=== PATIENT | male | born 1955 | race Caucasian/White ===

== ENCOUNTER 2018-12-03 13:44 | Inpatient (IN) | payer BC, OTHER ==
[2018-12-03] MEDS ORDERED: methylPREDNISolone SOD SUCCI 125 MG/2 ML VIAL IV STA (14:03)
[2018-12-03] MEDS ORDERED: ALBUTEROL NEBULIZED 2.5 MG/3 ML INHALATION STA (14:03)
--- NOTE | 2018-12-03 14:16 | ED ---
General Adult HPI - General Chief complaint: Shortness of Breath Stated complaint: SOB, Hypotensive Time Seen by Provider: 12/03/18 13:45 Source: patient, RN notes reviewed Mode of arrival: ambulatory Limitations: no limitations - History of Present Illness Initial comments: This is a 62-year-old male who presents emergency department complaining of shonna rtness of breath since Monday. Patient states she's had no cough. Patient denies any chest pain or palpitations. Patient states she is a smoker and continues to smoke. Patient denies any headache patient denies numbness weakness. Patient denies any lightheadedness dizziness or near syncopal episode. Patient denies abdominal pain patient denies nausea vomiting diarrhea. - Related Data Home Medications Medication Instructions Recorded Confirmed Simvastatin [Zocor] 40 mg PO HS 01/21/14 12/03/18 Carvedilol [Coreg] 3.125 mg PO BID 12/03/18 12/03/18 Lisinopril 40 mg PO DAILY 12/03/18 12/03/18 Allergies Allergy/AdvReac Type Severity Reaction Status Date / Time No Known Allergies Allergy Verified 12/03/18 13:50 Review of Systems ROS Statement: Those systems with pertinent positive or pertinent negative responses have been documented in the HPI. ROS Other: All systems not noted in ROS Statement are negative. Past Medical History Past Medical History: Coronary Artery Disease (CAD), Chest Pain / Angina, Hyperlipidemia, Hypertension, Osteoarthritis (OA), Pneumonia Additional Past Medical History / Comment(s): 11/12/15 Pt presented to [facility] ER from his physicians office where he was found to be in 3rd degree heart block. Pt has hx of illness involving N/V/D which resolved Monday11/09/15 however, he was still feeling fatigued so he went to his PCP today. He is being admitted with clinical impression of 3rd degree heart block, acute renal failure, hyperkalemia. Other HX: 2008 admitted with chest pain with bradycardia sent for cardiac cath found CAD and tx medically, hemachromacytosis, vitamin D deficiency, R groin abscesses x 2 now healed. History of Any Multi-Drug Resistant Organisms: None Reported Past Surgical History: Appendectomy, Heart Catheterization, Hernia Repair, Orthopedic Surgery, Tonsillectomy Additional Past Surgical History / Comment(s): 2008 cardiac cath due to chest pain and bradycardia-CAD tx medically and EF at that time 40%, rt inguinal hernia repair , rt knee arthroscopy, abcess R groin I&Ds x 2. Past Anesthesia/Blood Transfusion Reactions: No Reported Reaction Past Psychological History: No Psychological Hx Reported Smoking Status: Current every day smoker Past Alcohol Use History: Daily Past Drug Use History: Marijuana - Past Family History Father Additional Family Medical History / Comment(s): Father after having a MVA with hip fracture and surgery. He did right after the surgery. Mother Family Medical History: Myocardial Infarction ([place]) Additional Family Medical History / Comment(s): Mother at age 63 yrs of massive [place]. General Exam - General Exam Comments Initial Comments: GENERAL: Patient is well-developed and well-nourished. Patient is nontoxic and well- hydrated and is in no acute distress. ENT: Neck is soft and supple. No significant lymphadenopathy is noted. Oropharynx is clear. Moist mucous membranes. Neck has full range of motion without eliciting any pain. EYES: The sclera were anicteric and conjunctiva were pink and moist. Extraocular movements were intact and pupils were equal round and reactive to light. Eyelids were unremarkable. PULMONARY: Patient has slight expiratory wheezing CARDIOVASCULAR: There is a regular rate and rhythm without any murmurs gallops or rubs. Femoral pulses are equal bilaterally ABDOMEN: Soft and nontender with normal bowel sounds. No palpable organomegaly was note d. There is no palpable pulsatile mass. SKIN: Skin is clear with no lesions or rashes and otherwise unremarkable. NEUROLOGIC: Patient is alert and oriented x3. Cranial nerves II through XII are grossly intact. Motor and sensory are also intact. Normal speech, volume and content. Symmetrical smile. MUSCULOSKELETAL: Normal extremities with adequate strength and full range of motion. No lower extremity swelling or edema. No calf tenderness. LYMPHATICS: No significant lymphadenopathy is noted PSYCHIATRIC: Normal psychiatric evaluation. Limitations: no limitations Course Vital Signs 12/03/18 12/03/18 12/03/18 13:47 13:55 14:04 Temperature 97.4 F L Pulse Rate 74 Respiratory 22 22 Rate Blood Pressure 117/78 O2 Sat by Pulse 74 L 97 Oximetry 12/03/18 12/03/18 12/03/18 14:22 14:36 14:52 Temperature Pulse Rate 73 76 61 Respiratory 16 Rate Blood Pressure 106/69 O2 Sat by Pulse 100 Oximetry 12/03/18 15:05 Temperature Pulse Rate 76 Respiratory Rate Blood Pressure O2 Sat by Pulse Oximetry Medical Decision Making - Medical Decision Making EKG shows normal sinus rhythm at 71 bpm NV interval 192 QRS is under 48 QTC is 480 QTC is 442 per patient's left bundle branch block. Patient has an old left bundle on an old EKG Chest x-ray shows no acute abnormalities Patient's d-dimer was slightly elevated however the patient had kidney failure so the patient could not get a CT of the chest. I ordered a VQ scan for the patient this time. I spoke with Dr. Schwartz he agreed to admit the patient admitted the patient I wrote admitting orders. I consult to nephrology. I started the patient prophylactically on heparin because the possibility of a PE. - Lab Data Result diagrams: 12/03/18 14:25 12/03/18 14:25 Lab Results 12/03/18 12/03/18 12/03/18 Range/Units 14:25 14:25 14:25 WBC 11.5 H (3.8-10.6) k/uL RBC 4.27 L (4.30-5.90) m/uL Hgb 13.6 (13.0-17.5) gm/dL Hct 39.2 (39.0-53.0) % MCV 91.7 (80.0-100.0) fL MCH 31.8 (25.0-35.0) pg MCHC 34.7 (31.0-37.0) g/dL RDW 12.6 (11.5-15.5) % Plt Count 471 H (150-450) k/uL Neutrophils % 75 % Lymphocytes % 9 % Monocytes % 12 % Eosinophils % 2 % Basophils % 1 % Neutrophils # 8.7 H (1.3-7.7) k/uL Lymphocytes # 1.0 (1.0-4.8) k/uL Monocytes # 1.3 H (0-1.0) k/uL Eosinophils # 0.2 (0-0.7) k/uL Basophils # 0.1 (0-0.2) k/uL PT (9.0-12.0) sec INR (<1.2) APTT (22.0-30.0) sec D-Dimer 1.25 H (<0.60) mg/L FEU Sodium 128 L (137-145) mmol/L Potassium 4.5 (3.5-5.1) mmol/L Chloride 93 L (98-107) mmol/L Carbon Dioxide 20 L (22-30) mmol/L Anion Gap 15 mmol/L BUN 81 H (9-20) mg/dL Creatinine 3.49 H (0.66-1.25) mg/dL Est GFR (CKD-EPI)AfAm 21 (>60 ml/min/1.73 sqM) Est GFR (CKD-EPI)NonAf 18 (>60 ml/min/1.73 sqM) Glucose 85 (74-99) mg/dL Calcium 9.2 (8.4-10.2) mg/dL Magnesium 2.4 H (1.6-2.3) mg/dL Total Bilirubin 0.6 (0.2-1.3) mg/dL AST 24 (17-59) U/L ALT 27 (21-72) U/L Alkaline Phosphatase 76 (38-126) U/L Troponin I (0.000-0.034) ng/mL Total Protein 7.4 (6.3-8.2) g/dL Albumin 4.0 (3.5-5.0) g/dL 12/03/18 12/03/18 Range/Units 14:25 14:25 WBC (3.8-10.6) k/uL RBC (4.30-5.90) m/uL Hgb (13.0-17.5) gm/dL Hct (39.0-53.0) % MCV (80.0-100.0) fL MCH (25.0-35.0) pg MCHC (31.0-37.0) g/dL RDW (11.5-15.5) % Plt Count (150-450) k/uL Neutrophils % % Lymphocytes % % Monocytes % % Eosinophils % % Basophils % % Neutrophils # (1.3-7.7) k/uL Lymphocytes # (1.0-4.8) k/uL Monocytes # (0-1.0) k/uL Eosinophils # (0-0.7) k/uL Basophils # (0-0.2) k/uL PT 10.0 (9.0-12.0) sec INR 0.9 (<1.2) APTT 25.7 (22.0-30.0) sec D-Dimer (<0.60) mg/L FEU Sodium (137-145) mmol/L Potassium (3.5-5.1) mmol/L Chloride (98-107) mmol/L Carbon Dioxide (22-30) mmol/L Anion Gap mmol/L BUN (9-20) mg/dL Creatinine (0.66-1.25) mg/dL Est GFR (CKD-EPI)AfAm (>60 ml/min/1.73 sqM) Est GFR (CKD-EPI)NonAf (>60 ml/min/1.73 sqM) Glucose (74-99) mg/dL Calcium (8.4-10.2) mg/dL Magnesium (1.6-2.3) mg/dL Total Bilirubin (0.2-1.3) mg/dL AST (17-59) U/L ALT (21-72) U/L Alkaline Phosphatase (38-126) U/L Troponin I <0.012 (0.000-0.034) ng/mL Total Protein (6.3-8.2) g/dL Albumin (3.5-5.0) g/dL Critical Care Time Critical Care Time: Yes Total Critical Care Time: 35 Disposition Clinical Impression: Hyponatremia, Acute renal failure, Dyspnea Disposition: ADMITTED IP TO THIS [facility] Referrals: Digna Lindsey MD [Primary Care Provider] - 1-2 days Time of Disposition: 15:18
--- NOTE | 2018-12-03 14:20 | XR ---
EXAMINATION TYPE: XR chest 2V DATE OF EXAM: 12/03/2018 COMPARISON: 11/16/2015 HISTORY: 62-year-old male with difficulty breathing TECHNIQUE: PA and lateral views FINDINGS: Heart normal size. Aorta and pulmonary vasculature are within normal limits. Some focal right midlung density may correspond to a prominent fifth right rib. Some strandy atelectasis right upper lobe. Ot herwise, no consolidation or pleural effusion. Mild hyperinflation. Left anterior chest wall pacemake r generator with right atrial and right ventricular leads. IMPRESSION: 1. Possible underlying COPD. 2. No acute process seen. 3. Focal density right midline suspected to represent summation artifact in part due to a prominent r ight fifth rib end. Nonemergent follow-up CT chest to exclude underlying pulmonary nodule.
[2018-12-03 14:38] LABS: Basophils # (A) 0.1 k/uL (0-0.2); Basophils % (A) 1 %; Eosinophils # (A) 0.2 k/uL (0-0.7); Eosinophils % (A) 2 %; HCT 39.2 % (39.0-53.0); HGB 13.6 gm/dL (13.0-17.5); Lymphocytes % (A) 9 %; MCH 31.8 pg (25.0-35.0); MCHC 34.7 g/dL (31.0-37.0); MCV 91.7 fL (80.0-100.0); Mean Platelet Volume 7.1; Monocytes # (A) 1.3 k/uL (0-1.0); Monocytes % (A) 12 %; Neutrophils # (A) 8.7 k/uL (1.3-7.7); Neutrophils % (A) 75 %; Platelet Count 471 k/uL (150-450); RBC 4.27 m/uL (4.30-5.90); RDW 12.6 % (11.5-15.5); WBC 11.5 k/uL (3.8-10.6)
[2018-12-03 14:46] LABS: INR 0.9 (<1.2); Partial Thromboplastin Time 25.7 sec (22.0-30.0)
[2018-12-03 14:54] LABS: Calcium 9.2 mg/dL (8.4-10.2); Magnesium 2.4 mg/dL (1.6-2.3); Potassium 4.5 mmol/L (3.5-5.1); Total Bilirubin 0.6 mg/dL (0.2-1.3); Total Protein 7.4 g/dL (6.3-8.2)
[2018-12-03] MEDS ORDERED: SODIUM CHLORIDE 0.9% 1,000 ML IV ONE (15:19)
[2018-12-03] MEDS ORDERED: HEPARIN SODIUM,PORCINE 10,000 UNIT/ML 1 ML VIAL IV ONE (15:27)
[2018-12-03] MEDS: HEPARIN SOD,PORK IN 0.45% NACL 25,000 UNIT in 0.45% NACL 1 250ML.BAG IV SCH (16:28)
--- NOTE | 2018-12-03 16:45 | NM ---
EXAMINATION TYPE: NM pul vent and perfuse DATE OF EXAM: 12/03/2018 COMPARISON: NONE HISTORY: Short of breath TECHNIQUE: Utilizing inhalation of 68.2 mCi Tc 99m DTPA aerosol and intravenous injection of 5.18 mC i of Tc 99m MAA, ventilation and perfusion images are acquired post injection in multiple projections . FINDINGS: There are matched patchy ventilation/perfusion defects involving both upper lobes. There is no mismat ch. There is fairly normal ventilation and perfusion of the lung bases. IMPRESSION: Matching upper lobe defects consistent with airway disease and emphysema. There is a low probability of pulmonary embolism.
[2018-12-03] MEDS ORDERED: ACETAMINOPHEN TAB 325 MG TAB PO PRN (16:50)
[2018-12-03] MEDS ORDERED: IPRATROPIUM-ALBUTEROL 3 ML NEB INHALATION PRN (16:50)
[2018-12-03] MEDS ORDERED: ONDANSETRON 4 MG/2 ML VIAL IVP PRN (16:50)
--- NOTE | 2018-12-03 17:08 | P.HPIM ---
History of Present Illness H&P Date: 12/03/18 This is a 62-year-old male patient of Dr. rivera. Patient presented to the ER with complaints of shortness of breath since Monday. Patient also reported that he had loose stools for 24 hours at that time. Patient also complains that he's been increasingly fatigued. Patient denies cough or fever. Patient does have a past medical history of coronary artery disease, chest pain, hyperlipidemia, hypertension, osteoarthritis, nicotine dependence and pacemaker placement. Chest x-ray completed in ER showing possible underlying COPD no acute process seen. Focal density right suspected to represent summation artifact in part due to prominent right fifth rib and. Nonemergent follow-up CT chest to exclude underlying pulmonary nodule. D-dimer on admission elevated at 1.25. Patient started on heparin drip and VQ scan ordered. Patient's creatinine 3.49 and bun 81. Nephrology services have been consulted. Pulmonary service is consulted. C. diff stool sample ordered. Influenza and urinary analysis with blood culture ordered. At this time patient is complaining of shortness breath with cough. Patient denies nausea vomiting or diarrhea. Patient denies any urinary burning or frequency. Review of Systems Please refer to HPI otherwise unremarkable Past Medical History Past Medical History: Coronary Artery Disease (CAD), Chest Pain / Angina, Hyperlipidemia, Hypertension, Osteoarthritis (OA), Pneumonia Additional Past Medical History / Comment(s): 11/12/15 Pt presented to [facility] ER from his physicians office where he was found to be in 3rd degree heart block. Pt has hx of illness involving N/V/D which resolved Monday11/09/15 however, he was still feeling fatigued so he went to his PCP today. He is being admitted with clinical impression of 3rd degree heart block, acute renal failure, hyperkalemia. Other HX: 2008 admitted with chest pain with bradycardia sent for cardiac cath found CAD and tx medically, hemachromacytosis, vitamin D deficiency, R groin abscesses x 2 now healed. History of Any Multi-Drug Resistant Organisms: None Reported Past Surgical History: Appendectomy, Heart Catheterization, Hernia Repair, Orthopedic Surgery, Tonsillectomy Additional Past Surgical History / Comment(s): 2008 cardiac cath due to chest pain and bradycardia-CAD tx medically and EF at that time 40%, rt inguinal hernia repair , rt knee arthroscopy, abcess R groin I&Ds x 2. Past Anesthesia/Blood Transfusion Reactions: No Reported Reaction Past Psychological History: No Psychological Hx Reported Smoking Status: Current every day smoker Past Alcohol Use History: Daily Past Drug Use History: Marijuana - Past Family History Father Additional Family Medical History / Comment(s): Father after having a MVA with hip fracture and surgery. He did right after the surgery. Mother Family Medical History: Myocardial Infarction ([place]) Additional Family Medical History / Comment(s): Mother at age 63 yrs of massive [place]. Medications and Allergies Home Medications Medication Instructions Recorded Confirmed Type Simvastatin [Zocor] 40 mg PO HS 01/21/14 12/03/18 History Carvedilol [Coreg] 3.125 mg PO BID 12/03/18 12/03/18 History Lisinopril 40 mg PO DAILY 12/03/18 12/03/18 History Allergies Allergy/AdvReac Type Severity Reaction Status Date / Time No Known Allergies Allergy Verified 12/03/18 13:50 Physical Exam Vitals: Vital Signs Temp Pulse Resp BP Pulse Ox 12/03/18 16:31 87 16 124/73 100 12/03/18 15:05 76 12/03/18 14:52 61 16 106/69 100 12/03/18 14:36 76 12/03/18 14:22 73 12/03/18 14:04 97 12/03/18 13:55 22 12/03/18 13:47 97.4 F L 74 22 117/78 74 L Intake and Output 12/03/18 12/03/18 12/03/18 06:59 14:59 22:59 Other: Weight 69.672 kg Head normocephalic Neck supple Lungs diminished bilaterally with expiratory wheezing Heart regular rate and rhythm S1-S2, no rub or gallop Abdomen is soft nontender nondistended positive bowel sounds no hepatosplenomegaly Extremities no edema Neuro alert and orientated to 3 Results CBC & Chem 7: 12/03/18 14:25 12/03/18 14:25 Labs: Abnormal Lab Results - Last 24 Hours (Table) 12/03/18 12/03/18 12/03/18 Range/Units 14:25 14:25 14:25 WBC 11.5 H (3.8-10.6) k/uL RBC 4.27 L (4.30-5.90) m/uL Plt Count 471 H (150-450) k/uL Neutrophils # 8.7 H (1.3-7.7) k/uL Monocytes # 1.3 H (0-1.0) k/uL D-Dimer 1.25 H (<0.60) mg/L FEU Sodium 128 L (137-145) mmol/L Chloride 93 L (98-107) mmol/L Carbon Dioxide 20 L (22-30) mmol/L BUN 81 H (9-20) mg/dL Creatinine 3.49 H (0.66-1.25) mg/dL Magnesium 2.4 H (1.6-2.3) mg/dL Assessment and Plan Assessment: 1. Increased shortness of breath. Chest x-ray completed in ER showing possible underlying COPD. No acute process seen. Focal density right midline suspected to represent summation artifact in part due to prominent right fifth rib and. Nonemergent follow-up CT chest to exclude underlying pulmonary nodule. D-dimer also elevated at 1.24 VQ scan ordered. Patient started on heparin drip. Pulmonary services have been consulted. Patient started on Solu-Medrol and DuoNeb breathing treatments 2. Acute kidney injury. creatinine 3.49 and bun 81.Nephrology services have been consulted. Normal saline at 100 3. Diarrhea. Patient reports he had episode of diarrhea last week. Will order C. diff sample 4. Leukocytosis. White blood cell 11.5. UA and influenza ordered 5. Nicotine dependence. Patient educated greater than 3 minutes on smoking sensation. Nicotine patch will be ordered 6. History of coronary artery disease 7. History of third-degree heart block requiring pacemaker placement. 8. History of hyperlipidemia 9. History of essential hypertension. Lisinopril held due to acute kidney inju ry 10. History of osteoarthritis DVT prophylaxis heparin drip. GI prophylaxis Protonix Pulmonary and nephrology service is consulted VQ scan ordered Repeat a.m. labs ordered Blood culture, UA and influenza ordered Time with Patient: Greater than 30 (Greater than 60% of the total time spent in counseling and coordination of care. I performed an examination of the patient and discussed their management with the Nurse Practitioner. I have reviewed the Nurse Practitioner's notes and agree with the documented findings and plan of care)
[2018-12-03 18:07] VITALS: BMI 21.4
[2018-12-03] MEDS: SODIUM CHLORIDE 0.9% 1,000 ML IV SCH (18:24)
[2018-12-03 18:32] LABS: Glucose,Whole Blood 166 mg/dL (75-99)
[2018-12-03] MEDS: CARVEDILOL 3.125 MG TAB PO SCH (21:06)
[2018-12-03] MEDS: IPRATROPIUM-ALBUTEROL 3 ML NEB INHALATION SCH (21:11)
[2018-12-03] MEDS: HYDROcodone/APAP 7.5-325MG 1 EACH TAB PO PRN (21:15)
--- NOTE | 2018-12-03 21:41 | P.CNPUL ---
History of Present Illness Consult date: 12/03/18 Reason for consult: abnormal CXR/CT History of present illness: 62-year-old male patient presented to [facility] department after having ongoing liquid diarrhea for the past 24-48 hours. No nausea. No vomiting. No abdominal pain. No fever or chills. He became also slightly more short of breath and based on that presented to the hospital. As part of his workup, the patient was found to have acute kidney injury. He was quite dehydrated. BUN was 81 with a creatinine of 3.49. He was also having some shortness of breath. VQ scan was obtained and it showed low probability scan. Chest x-ray showed a summation of shadows with a cordlike lesion the right midlung the patient is to be investigated later stage. Currently the patient is receiving IV fluids. He is producing urine output. No altered mentation. No chest pain. No pleurisy. No hemoptysis. He is a chronic smoker. He is known to have COPD. He is also complaining of chronic back pain. He has a pacemaker for a previous history of a third-degree AV block. He is known to have coronary artery disease. Currently free of any chest pain. Based on previous echocardiogram from 2016, the patient is a preserved LV function with an ejection fraction of 50-55%. No evidence of any pulmonary hypertension. No recent antibiotic intake. No significant leukocytosis. Influenza screen was negative. LFTs are all within normal limits. Review of Systems Constitutional: Reports fatigue, Reports malaise, Reports poor appetite, Reports weakness Eyes: denies as per HPI, denies blurred vision, denies bulging eye, denies decreased vision, denies diplopia, denies discharge, denies dry eye, denies irritation, denies itching, denies pain, denies photophobia, denies loss of peripheral vision, denies loss of vision, denies tunnel vision/blind spots Ears: deny: decreased hearing, ear discharge, earache, tinnitus Ears, nose, mouth and throat: Denies headache, Denies sore throat Breasts: absent: as per HPI, gynecomastia Cardiovascular: Reports decreased exercise tolerance, Reports dyspnea on exertion, Reports shortness of breath Respiratory: Reports dyspnea, Reports wheezing Gastrointestinal: Reports diarrhea Genitourinary: Reports as per HPI Musculoskeletal: Reports low back pain, Reports muscle weakness Musculoskeletal: absent: ankle pain, ankle stiffness, ankle swelling, as per HPI, elbow pain, elbow stiffness, elbow swelling, foot pain, foot stiffness, foot swelling, hand pain, hand stiffness, hand swelling, hip pain, hip stiffness, hip swelling, knee pain, knee stiffness, knee swelling, shoulder pain, shoulder stiffness, shoulder swelling, wrist pain, wrist stiffness, wrist swelling Integumentary: Denies pruritus, Denies rash Psychiatric: Denies anxiety, Denies depression Endocrine: Reports fatigue Hematologic/Lymphatic: Reports as per HPI Allergic/Immunologic: Reports as per HPI 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, history of hem ochromatosis, vitamin D deficiency, previous history of groin abscesses that are currently healed and drained, hypertension, hyperlipidemia, osteoarthritis, chronic back pain, cardiac cath found CAD and tx medically, hemachromacytosis, vitamin D deficiency History of Any Multi-Drug Resistant Organisms: None Reported Past Surgical History: Appendectomy, Heart Catheterization, Hernia Repair, Orthopedic Surgery, Tonsillectomy Additional Past Surgical History / Comment(s): 2008 cardiac cath due to chest pain and bradycardia-CAD tx medically and EF at that time 40%, rt inguinal hernia repair , rt knee arthroscopy, abcess R groin I&Ds x 2. Past Anesthesia/Blood Transfusion Reactions: No Reported Reaction Past Psychological History: No Psychological Hx Reported Additional Psychological History / Comment(s): Pt lives alone. He uses no assistive device. He drives. He is independent. Smoking Status: Current some day smoker Past Alcohol Use History: Daily Additional Past Alcohol Use History / Comment(s): Pt states he started smoking in 1963 and is less than a ppd smoker. He drinks daily- 6 beers a day. Past Drug Use History: Marijuana Additional Drug Use History / Comment(s): Pt states he has medical marijuana w hich he uses for pain control. He smokes it in a pipe and does this twice a day. - Past Family History Father Additional Family Medical History / Comment(s): Father after having a MVA with hip fracture and surgery. He did right after the surgery. Mother Family Medical History: Myocardial Infarction ([place]) Additional Family Medical History / Comment(s): Mother at age 63 yrs of massive [place]. Medications and Allergies Home Medications Medication Instructions Recorded Confirmed Type Simvastatin [Zocor] 40 mg PO HS 01/21/14 12/03/18 History Carvedilol [Coreg] 3.125 mg PO BID 12/03/18 12/03/18 History Lisinopril 40 mg PO DAILY 12/03/18 12/03/18 History Allergies Allergy/AdvReac Type Severity Reaction Status Date / Time No Known Allergies Allergy Verified 12/03/18 13:50 Physical Exam Vitals: Vital Signs Temp Pulse Pulse Resp BP BP Pulse Ox 12/03/18 21:24 81 12/03/18 21:11 80 12/03/18 18:16 97.7 F 81 20 147/80 94 L 12/03/18 17:50 97.7 F 81 24 147/80 94 L 12/03/18 16:31 87 16 124/73 100 12/03/18 15:05 76 12/03/18 14:52 61 16 106/69 100 12/03/18 14:36 76 12/03/18 14:22 73 12/03/18 14:04 97 12/03/18 13:55 22 12/03/18 13:47 97.4 F L 74 22 117/78 74 L Intake and Output 12/03/18 12/03/18 12/03/18 06:59 14:59 22:59 Intake Total 240 Balance 240 Intake: Oral 240 Other: # Voids 0 Weight 69.672 kg The patient appeared well nourished and normally developed. Vital signs as documented. Head exam is unremarkable. No scleral icterus or corneal arcus noted. Neck is without jugular venous distension, thyromegaly, or carotid bruits. Carotid upstrokes are brisk bilaterally. Lungs are clear to auscultation and percussion. Cardiac exam reveals the PMI to be normally sized and situated. Rhythm is regular. First and second heart sounds normal. No murmurs, rubs or gallops. Abdominal exam reveals normal bowel sounds, no masses, no organomegaly and no aortic enlargement. Extremities are nonedematous and both femoral and pedal pulses are normal.Examination of the skin revealed no evidence of significant rashes, suspicious appearing nevi or other concerning lesions. Neurologically awake and alert and there is no focal neurological deficits. Results - Laboratory Findings CBC and BMP: 12/03/18 14:25 12/03/18 14:25 PT/INR, D-dimer PT 10.0 sec (9.0-12.0) 12/03/18 14:25 INR 0.9 (<1.2) 12/03/18 14:25 D-Dimer 1.25 mg/L FEU (<0.60) H 12/03/18 14:25 Abnormal lab findings: Abnormal Labs 12/03/18 12/03/18 12/03/18 14:25 14:25 14:25 WBC 11.5 H RBC 4.27 L Plt Count 471 H Neutrophils # 8.7 H Monocytes # 1.3 H D-Dimer 1.25 H Sodium 128 L Chloride 93 L Carbon Dioxide 20 L BUN 81 H Creatinine 3.49 H POC Glucose (mg/dL) Magnesium 2.4 H 12/03/18 18:30 WBC RBC Plt Count Neutrophils # Monocytes # D-Dimer Sodium Chloride Carbon Dioxide BUN Creatinine POC Glucose (mg/dL) 166 H Magnesium - Diagnostic Findings Chest x-ray: image reviewed Assessment and Plan Plan: Assessment 1 diarrhea with dehydration and secondary to intravascular volume depletion 2 acute kidney injury secondary to above 3 shortness of breath secondary to above. Patient has underlying COPD. VQ scan is of a low probability and pulmonary embolism is highly doubtful 4 pulmonary nodule located at the right midlung, could be summation of shadows versus a true lesion. Will need a CAT scan of the chest later stage 5 nonocclusive coronary artery disease medically managed 6 previous history of third-degree AV block requiring a permanent pacemaker insertion 7 hypertension 8 hyperlipidemia 9 osteoarthritis 10 remote history of hemochromatosis 11 hypochloremic hyponatremia, likely secondary to intravascular volume depletion Plan Recommend discontinuing the IV heparin and putting this patient subcu heparin for DVT prophylaxis. Management of COPD with DuoNeb nebulized treatments and IV Solu-Medrol. Fluid resuscitation with normal state rate of 100 mL an hour. Monitor urine output. Monitor electrolytes. Monitor renal function. We will optimize the volume status and renal function. We'll obtain a CAT scan of the chest later stage to characterize the right midlung abnormality. We'll continue to follow.
[2018-12-03 23:10] VITALS: RESP 16
[2018-12-03] MEDS ORDERED: HEPARIN SODIUM,PORCINE 5,000 UNIT/ML 1 ML VIAL IV PRN (23:22)
[2018-12-04] MEDS: methylPREDNISolone SOD SUCCI 125 MG/2 ML VIAL IV SCH ×4 (00:59→23:42)
[2018-12-04] MEDS: HYDROcodone/APAP 7.5-325MG 1 EACH TAB PO PRN ×4 (03:03→21:20)
[2018-12-04 03:21] LABS: Appearance,Urine Cloudy (Clear); Bilirubin,Urine Negative (Negative); Blood,Urine Moderate (Negative); Color,Urine Yellow; Glucose,Urine (UA) Trace (Negative); Hyaline Casts,Urine 4 /lpf (0-2); Ketones,Urine Negative (Negative); Leukocyte Esterase,Urine Negative (Negative); Mucus,Urine Rare /hpf; Nitrite,Urine Negative (Negative); Protein,Urine Trace (Negative); RBC,Urine 32 /hpf (0-5); Specific Gravity,Urine 1.011 (1.001-1.035); Urobilinogen,Urine <2.0 mg/dL (<2.0); WBC,Urine 5 /hpf (0-5)
[2018-12-04] MEDS: SODIUM CHLORIDE 0.9% 1,000 ML IV SCH ×2 (04:40→15:03)
[2018-12-04] MEDS: PANTOPRAZOLE 40 MG TABLET PO SCH (06:43)
[2018-12-04] MEDS: CARVEDILOL 3.125 MG TAB PO SCH ×2 (06:44→16:42)
[2018-12-04 07:00] LABS: Basophils % (A) 0 %; Eosinophils % (A) 0 %; HCT 34.3 % (39.0-53.0); HGB 11.7 gm/dL (13.0-17.5); Lymphocytes # (A) 0.5 k/uL (1.0-4.8); Lymphocytes % (A) 5 %; MCH 32.1 pg (25.0-35.0); MCV 94.5 fL (80.0-100.0); Mean Platelet Volume 6.6; Monocytes # (A) 0.2 k/uL (0-1.0); Monocytes % (A) 2 %; Neutrophils # (A) 8.6 k/uL (1.3-7.7); Neutrophils % (A) 92 %; Platelet Count 389 k/uL (150-450); RBC 3.63 m/uL (4.30-5.90); RDW 12.7 % (11.5-15.5); WBC 9.4 k/uL (3.8-10.6)
[2018-12-04] MEDS: IPRATROPIUM-ALBUTEROL 3 ML NEB INHALATION SCH ×4 (07:14→19:59)
[2018-12-04 07:55] LABS: Albumin 3.4 g/dL (3.5-5.0); Calcium 8.5 mg/dL (8.4-10.2); Potassium 4.6 mmol/L (3.5-5.1); Total Bilirubin 0.3 mg/dL (0.2-1.3); Total Protein 6.5 g/dL (6.3-8.2)
[2018-12-04] MEDS: NICOTINE 14MG/24HR PATCH TRANSDERM SCH (08:15)
--- NOTE | 2018-12-04 10:29 | P.NPCON ---
History of Present Illness - Reason for Consult acute renal failure - History of Present Illness Reason for consultation: Acute kidney injury History of present illness: Patient is a 62-year-old male sitting renal consultation for acute kidney injury. His baseline creatinine is 1 and was 3.49 on admission yesterday. Patient was started on IV fluids and is currently maintained on normal saline at 100 mL an hour. Creatinine is down to 2.06 today. He admits to good urine output. No hematuria or dysuria. Denies use of nonsteroidals. Patient states he developed significant diarrhea last Monday and which is mostly resolved now. He is not able to tolerate oral intake. He was taking lisinopril at home which is currently held. Blood pressure was low at 96/62 yesterday and is better today. No fever or chills. Denies family history of renal disease. No evidence of fluid overload noted on chest x-ray. He does have history of COPD. Vital signs are stable. General: The patient appeared well nourished and normally developed. HEENT: Head exam is unremarkable. Neck is without jugular venous distension. LUNGS: Lungs are clear to auscultation and percussion. Breath sounds decreased. HEART: Rate and Rhythm are regular. First and second heart sounds normal. No murmurs, rubs or gallops. ABDOMEN: Abdominal exam reveals normal bowel sounds. Non-tender and non- distended. No evidence of peritonitis. EXTREMITITES: No clubbing, cyanosis, or edema. 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, history of hemochromatosis, vitamin D deficiency, previous history of groin abscesses that are currently healed and drained, hypertension, hyperlipidemia, osteoarthritis, chronic back pain, cardiac cath found CAD and tx medically, hemachromacytosis, vitamin D deficiency History of Any Multi-Drug Resistant Organisms: None Reported Past Surgical History: Appendectomy, Heart Catheterization, Hernia Repair, Orthopedic Surgery, Tonsillectomy Additional Past Surgical History / Comment(s): 2008 cardiac cath due to chest pain and bradycardia-CAD tx medically and EF at that time 40%, rt inguinal hernia repair , rt knee arthroscopy, abcess R groin I&Ds x 2. Past Anesthesia/Blood Transfusion Reactions: No Reported Reaction Past Psychological History: No Psychological Hx Reported Additional Psychological History / Comment(s): Pt lives alone. He uses no assistive device. He drives. He is independent. Smoking Status: Current some day smoker Past Alcohol Use History: Daily Additional Past Alcohol Use History / Comment(s): Pt states he started smoking in 1963 and is less than a ppd smoker. He drinks daily- 6 beers a day. Past Drug Use History: Marijuana Additional Drug Use History / Comment(s): Pt states he has medical marijuana which he uses for pain control. He smokes it in a pipe and does this twice a day. - Past Family History Father Additional Family Medical History / Comment(s): Father after having a MVA with hip fracture and surgery. He did right after the surgery. Mother Family Medical History: Myocardial Infarction ([place]) Additional Family Medical History / Comment(s): Mother at age 63 yrs of massive [place]. Medications and Allergies Home Medications Medication Instructions Recorded Confirmed Type Simvastatin [Zocor] 40 mg PO HS 01/21/14 12/03/18 History Carvedilol [Coreg] 3.125 mg PO BID 12/03/18 12/03/18 History Lisinopril 40 mg PO DAILY 12/03/18 12/03/18 History Allergies Allergy/AdvReac Type Severity Reaction Status Date / Time No Known Allergies Allergy Verified 12/03/18 13:50 Physical Exam Vitals: Vital Signs Temp Pulse Pulse Resp BP BP Pulse Ox 12/04/18 08:19 97.8 F 62 16 116/72 99 12/04/18 07:25 84 12/04/18 07:15 80 12/04/18 04:55 97.7 F 80 16 152/74 12/04/18 00:00 97.4 F L 72 16 102/61 100 12/03/18 21:24 81 12/03/18 21:11 80 12/03/18 20:00 98 F 82 16 96/62 98 12/03/18 18:16 97.7 F 81 20 147/80 94 L 12/03/18 17:50 97.7 F 81 24 147/80 94 L 12/03/18 16:31 87 16 124/73 100 12/03/18 15:05 76 12/03/18 14:52 61 16 106/69 100 12/03/18 14:36 76 12/03/18 14:22 73 12/03/18 14:04 97 12/03/18 13:55 22 12/03/18 13:47 97.4 F L 74 22 117/78 74 L Intake and Output 12/03/18 12/04/18 12/04/18 22:59 06:59 14:59 Intake Total 240 85.07 Output Total 200 Balance 240 85.07 -200 Intake: Intake, IV Titration 85.07 Amount Heparin Sod,Pork in 0.45% 85.07 NaCl 25,000 unit In 0.45 % NaCl 1 250ml.bag @ 18 UNITS/KG/HR 12.541 mls/hr IV .[id number] [facility] Rx#: [id number] Oral 240 Output: Urine 200 Other: # Voids 0 2 1 Weight 69.5 kg Results - Lab Results Most recent lab results Calcium 8.5 mg/dL (8.4-10.2) 12/04/18 06:03 Magnesium 2.4 mg/dL (1.6-2.3) H 12/03/18 14:25 12/04/18 06:03 12/04/18 06:03 Assessment and Plan Plan: Assessment: 1. Acute kidney injury mostly prerenal secondary to intravascular volume depletion from diarrhea and use of TROY inhibitor. Creatinine was 3.49 on a dmission and is down to 2.06 today. Baseline creatinine is near 1. 2. Hyponatremia. Appears euvolemic. Due to poor solute intake and acute kidney injury. 3. Metabolic acidosis secondary to acute kidney injury, IV fluids. 4. Diarrhea. Rule out C. diff. Improved. 5. Benign hypertension. Controlled. 6. COPD. Maintained on IV steroids. Plan: Maintain normal saline at 100 mL an hour. Hold antihypertensives. Avoid nephrotoxins. Repeat electrolytes in the morning. Encourage oral intake. Add 1200 fluid restriction. Check urine sodium as well as serum and urine osmolality. Thank you for the consultation. I will continue to follow the patient with you during his hospital stay.
[2018-12-04] MEDS ORDERED: LORazepam 2 MG/ML INJ IV PRN ×3 (13:21)
--- NOTE | 2018-12-04 13:27 | P.PN ---
Subjective Progress Note Date: 12/04/18 This is a 62-year-old male patient of Dr. rivera. Patient presented to the ER with complaints of shortness of breath since Monday. Patient also reported that he had loose stools for 24 hours at that time. Patient also complains that he's been increasingly fatigued. Patient denies cough or fever. Patient does have a past medical history of coronary artery disease, chest pain, hyperlipidemia, hypertension, osteoarthritis, nicotine dependence and pacemaker placement. Chest x-ray completed in ER showing possible underlying COPD no acute process seen. Focal density right suspected to represent summation artifact in part due to prominent right fifth rib and. Nonemergent follow-up CT chest to exclude underlying pulmonary nodule. D-dimer on admission elevated at 1.25. Patient started on heparin drip and VQ scan ordered. Patient's creatinine 3.49 and bun 81. Nephrology services have been consulted. Pulmonary service is consulted. C. diff stool sample ordered. Influenza and urinary a nalysis with blood culture ordered. At this time patient is complaining of shortness breath with cough. Patient denies nausea vomiting or diarrhea. Patient denies any urinary burning or frequency. On 12/04/2018 patient is alert and oriented 3. Patient's creatinine trending down 2.06. Nephrology services are following. Patient remains on normal saline at 100. Patient did have VQ scan completed showing massive defect consistent with airway disease and emphysema. There is probability of pulmonary embolism. Discussed with pulmonary services okay to DC heparin drip. C. diff negative. Patient does admit that he does drink alcohol 5-6 L at night. Will order alcohol withdrawal protocol. At this time patient denies chest pain or shortness breath. Patient denies nausea vomiting or diarrhea. Patient denies any urinary burning or frequency Objective - Vital Signs Vital signs: Vital Signs Temp 97.7 F 12/04/18 11:44 Pulse 80 12/04/18 12:59 Resp 16 12/04/18 11:44 BP 108/59 12/04/18 11:44 Pulse Ox 100 12/04/18 11:44 Intake & Output 12/03/18 12/04/18 12/04/18 18:59 06:59 18:59 Intake Total 240 85.07 360 Output Total 200 Balance 240 85.07 160 Weight 69.672 kg 69.5 kg Intake: Intake, IV Titration 85.07 Amount Heparin Sod,Pork in 0.45% 85.07 NaCl 25,000 unit In 0.45 % NaCl 1 250ml.bag @ 18 UNITS/KG/HR 12.541 mls/hr IV .[id number] [facility] Rx#: [id number] Oral 240 360 Output: Urine 200 Other: # Voids 0 2 1 - Exam Head normocephalic Neck supple Lungs diminished bilaterally with expiratory wheezing Heart regular rate and rhythm S1-S2, no rub or gallop Abdomen is soft nontender nondistended positive bowel sounds no hepatosplenomegaly Extremities no edema Neuro alert and orientated to 3 - Labs CBC & Chem 7: 12/04/18 06:03 12/04/18 06:03 Labs: Abnormal Lab Results - Last 24 Hours (Table) 12/03/18 12/03/18 12/03/18 Range/Units 14:25 14:25 14:25 WBC 11.5 H (3.8-10.6) k/uL RBC 4.27 L (4.30-5.90) m/uL Hgb (13.0-17.5) gm/dL Hct (39.0-53.0) % Plt Count 471 H (150-450) k/uL Neutrophils # 8.7 H (1.3-7.7) k/uL Lymphocytes # (1.0-4.8) k/uL Monocytes # 1.3 H (0-1.0) k/uL APTT (22.0-30.0) sec D-Dimer 1.25 H (<0.60) mg/L FEU Sodium 128 L (137-145) mmol/L Chloride 93 L (98-107) mmol/L Carbon Dioxide 20 L (22-30) mmol/L BUN 81 H (9-20) mg/dL Creatinine 3.49 H (0.66-1.25) mg/dL Glucose (74-99) mg/dL POC Glucose (mg/dL) (75-99) mg/dL Magnesium 2.4 H (1.6-2.3) mg/dL Albumin (3.5-5.0) g/dL Urine Protein (Negative) Urine Glucose (UA) (Negative) Urine Blood (Negative) Urine RBC (0-5) /hpf Hyaline Casts (0-2) /lpf Urine Mucus (None) /hpf 12/03/18 12/03/18 12/04/18 Range/Units 18:30 21:56 03:00 WBC (3.8-10.6) k/uL RBC (4.30-5.90) m/uL Hgb (13.0-17.5) gm/dL Hct (39.0-53.0) % Plt Count (150-450) k/uL Neutrophils # (1.3-7.7) k/uL Lymphocytes # (1.0-4.8) k/uL Monocytes # (0-1.0) k/uL APTT 41.9 H (22.0-30.0) sec D-Dimer (<0.60) mg/L FEU Sodium (137-145) mmol/L Chloride (98-107) mmol/L Carbon Dioxide (22-30) mmol/L BUN (9-20) mg/dL Creatinine (0.66-1.25) mg/dL Glucose (74-99) mg/dL POC Glucose (mg/dL) 166 H (75-99) mg/dL Magnesium (1.6-2.3) mg/dL Albumin (3.5-5.0) g/dL Urine Protein Trace H (Negative) Urine Glucose (UA) Trace H (Negative) Urine Blood Moderate H (Negative) Urine RBC 32 H (0-5) /hpf Hyaline Casts 4 H (0-2) /lpf Urine Mucus Rare H (None) /hpf 12/04/18 12/04/18 12/04/18 Range/Units 06:03 06:03 06:03 WBC (3.8-10.6) k/uL RBC 3.63 L (4.30-5.90) m/uL Hgb 11.7 L (13.0-17.5) gm/dL Hct 34.3 L (39.0-53.0) % Plt Count (150-450) k/uL Neutrophils # 8.6 H (1.3-7.7) k/uL Lymphocytes # 0.5 L (1.0-4.8) k/uL Monocytes # (0-1.0) k/uL APTT 69.8 H (22.0-30.0) sec D-Dimer (<0.60) mg/L FEU Sodium 127 L (137-145) mmol/L Chloride 96 L (98-107) mmol/L Carbon Dioxide 20 L (22-30) mmol/L BUN 67 H (9-20) mg/dL Creatinine 2.06 H (0.66-1.25) mg/dL Glucose 165 H (74-99) mg/dL POC Glucose (mg/dL) (75-99) mg/dL Magnesium (1.6-2.3) mg/dL Albumin 3.4 L (3.5-5.0) g/dL Urine Protein (Negative) Urine Glucose (UA) (Negative) Urine Blood (Negative) Urine RBC (0-5) /hpf Hyaline Casts (0-2) /lpf Urine Mucus (None) /hpf Assessment and Plan Assessment: 1. Increased shortness of breath. Chest x-ray completed in ER showing possible underlying COPD. No acute process seen. Focal density right midline suspected to represent summation artifact in part due to prominent right fifth rib and. Nonemergent follow-up CT chest to exclude underlying pulmonary nodule. D-dimer also elevated at 1.24. Patient started on Solu-Medrol and DuoNeb breathing treatments . VQ scan completed showing matching upper lobe defects consistent with airway disease and emphysema. Distal probability of pulmonary embolism. Discussed with pulmonary services. Heparin drip can be DC'd. 2. Acute kidney injury with hyponatremia. creatinine 3.49 and bun 81.Nephrology services have been consulted. Normal saline at 100. Creatinine improving to 2.06 and bun 67. 1200 mL fluid restriction added 3. Diarrhea. Patient reports he had episode of diarrhea last week. C. diff negative 4. Leukocytosis. White blood cell 11.5. Resolved 5. Nicotine dependence. Patient educated greater than 3 minutes on smoking sensation. Nicotine patch will be ordered 6. History of coronary artery disease 7. History of third-degree heart block requiring pacemaker placement. 8. History of hyperlipidemia 9. History of essential hypertension. Lisinopril held due to acute kidney injury 10. History of osteoarthritis 11. EtOH. Patient reports he drinks 4-6 beers a night. Will order alcohol withdrawal protocal. DVT prophylaxis heparin. GI prophylaxis Protonix Repeat UA ordered for a.m. I performed an examination of the patient and discussed their management with the Nurse Practitioner. I have reviewed the Nurse Practitioner's notes and agree with the documented findings and plan of care
[2018-12-04] MEDS: HEPARIN SOD,PORK IN 0.45% NACL 25,000 UNIT in 0.45% NACL 1 250ML.BAG IV SCH (15:01)
--- NOTE | 2018-12-04 15:31 | P.PN ---
Subjective Progress Note Date: 12/04/18 Principal diagnosis: Diarrhea with dehydration, acute kidney injury secondary to intravascular volume depletion 62-year-old male patient presented to [facility] department after having ongoing liquid diarrhea for the past 24-48 hours. No nausea. No vomiting. No abdominal pain. No fever or chills. He became also slightly more short of breath and based on that presented to the hospital. As part of his workup, the patient was found to have acute kidney injury. He was quite dehydrated. BUN was 81 with a creatinine of 3.49. He was also having some shortness of breath. VQ scan was obtained and it showed low probability scan. Chest x-ray showed a summation of shadows with a cordlike lesion the right midlung the patient is to be investigated later stage. Currently the patient is receiving IV fluids. He is producing urine output. No altered mentation. No chest pain. No pleurisy. No hemoptysis. He is a chronic smoker. He is known to have COPD. He is also complaining of chronic back pain. He has a pacemaker for a previous history of a third-degree AV block. He is known to have coronary artery disease. Currently free of any chest pain. Based on previous echocardiogram from 2016, the patient is a preserved LV function with an ejection fraction of 50-55%. No evidence of any pulmonary hypertension. No recent antibiotic intake. No significant leukocytosis. Influenza screen was negative. LFTs are all within normal limits. On 12/04/2018 patient seen in follow-up on selective care unit. He is awake and alert, in no acute distress, he sitting up on the edge of the bed, he states his diarrhea has resolved, today's vital signs are stable, room air pulse ox is 100%, blood pressure is 108/59, patient is afebrile, today's labs have been reviewed, normal white count, white count is 9.4, hemoglobin is 11.7, sodium is 127, potassium is 4.6, chloride is 96, CO2 is 20, BUN 67, creatinine is 2.06, osmolality was 286. His renal profile is improving, patient remains on IV hydration with 0.9 normal saline at a rate of 100 ML per hour. Objective - Vital Signs Vital signs: Vital Signs Temp 97.7 F 12/04/18 11:44 Pulse 80 12/04/18 12:59 Resp 16 12/04/18 11:44 BP 108/59 12/04/18 11:44 Pulse Ox 100 12/04/18 11:44 Intake & Output 12/03/18 12/04/18 12/04/18 18:59 06:59 18:59 Intake Total 240 85.07 360 Output Total 200 Balance 240 85.07 160 Weight 69.672 kg 69.5 kg Intake: Intake, IV Titration 85.07 Amount Heparin Sod,Pork in 0.45% 85.07 NaCl 25,000 unit In 0.45 % NaCl 1 250ml.bag @ 18 UNITS/KG/HR 12.541 mls/hr IV .[id number] AGUILAR Rx#: [id number] Oral 240 360 Output: Urine 200 Other: # Voids 0 2 1 - Exam GENERAL EXAM: Alert, pleasant, 62-year-old white male comfortable in no apparent distress. HEAD: Normocephalic/atraumatic. EYES: Normal reaction of pupils, equal size. Conjunctiva pink, sclera white. NOSE: Clear with pink turbinates. THROAT: No erythema or exudates. NECK: No masses, no JVD, no thyroid enlargement, no adenopathy. CHEST: No chest wall deformity. Symmetrical expansion. LUNGS: Equal air entry with diminished breath sounds, with some expiratory wheezes CVS: Regular rate and rhythm, normal S1 and S2, no gallops, no murmurs, no rubs ABDOMEN: Soft, nontender. No hepatosplenomegaly, normal bowel sounds, no guarding or rigidity. EXTREMITIES: No clubbing, no edema, no cyanosis, 2+ pulses and upper and lower extremities. MUSCULOSKELETAL: Muscle strength and tone normal. SPINE: No scoliosis or deformity SKIN: No rashes CENTRAL NERVOUS SYSTEM: Alert and oriented -3. No focal deficits, tone is normal in all 4 extremities. PSYCHIATRIC: Alert and oriented -3. Appropriate affect. Intact judgment and insight. - Labs CBC & Chem 7: 12/04/18 06:03 12/04/18 06:03 Labs: Abnormal Lab Results - Last 24 Hours (Table) 12/03/18 12/03/18 12/04/18 Range/Units 18:30 21:56 03:00 RBC (4.30-5.90) m/uL Hgb (13.0-17.5) gm/dL Hct (39.0-53.0) % Neutrophils # (1.3-7.7) k/uL Lymphocytes # (1.0-4.8) k/uL APTT 41.9 H (22.0-30.0) sec Sodium (137-145) mmol/L Chloride (98-107) mmol/L Carbon Dioxide (22-30) mmol/L BUN (9-20) mg/dL Creatinine (0.66-1.25) mg/dL Glucose (74-99) mg/dL POC Glucose (mg/dL) 166 H (75-99) mg/dL Albumin (3.5-5.0) g/dL Urine Protein Trace H (Negative) Urine Glucose (UA) Trace H (Negative) Urine Blood Moderate H (Negative) Urine RBC 32 H (0-5) /hpf Hyaline Casts 4 H (0-2) /lpf Urine Mucus Rare H (None) /hpf 12/04/18 12/04/18 12/04/18 Range/Units 06:03 06:03 06:03 RBC 3.63 L (4.30-5.90) m/uL Hgb 11.7 L (13.0-17.5) gm/dL Hct 34.3 L (39.0-53.0) % Neutrophils # 8.6 H (1.3-7.7) k/uL Lymphocytes # 0.5 L (1.0-4.8) k/uL APTT 69.8 H (22.0-30.0) sec Sodium 127 L (137-145) mmol/L Chloride 96 L (98-107) mmol/L Carbon Dioxide 20 L (22-30) mmol/L BUN 67 H (9-20) mg/dL Creatinine 2.06 H (0.66-1.25) mg/dL Glucose 165 H (74-99) mg/dL POC Glucose (mg/dL) (75-99) mg/dL Albumin 3.4 L (3.5-5.0) g/dL Urine Protein (Negative) Urine Glucose (UA) (Negative) Urine Blood (Negative) Urine RBC (0-5) /hpf Hyaline Casts (0-2) /lpf Urine Mucus (None) /hpf Assessment and Plan Plan: Assessment: 1 diarrhea with dehydration and secondary to intravascular volume depletion 2 acute kidney injury secondary to above 3 shortness of breath secondary to above. Patient has underlying COPD. VQ scan is of a low probability and pulmonary embolism is highly doubtful 4 pulmonary nodule located at the right midlung, could be summation of shadows versus a true lesion. Will need a CAT scan of the chest later stage 5 nonocclusive coronary artery disease medically managed 6 previous history of third-degree AV block requiring a permanent pacemaker insertion 7 hypertension 8 hyperlipidemia 9 osteoarthritis 10 remote history of hemochromatosis 11 hypochloremic hyponatremia, likely secondary to intravascular volume depletion Plan: Continue IV hydration, the diarrhea has improved, vital signs are stable, no complaints of shortness of breath or chest pain, we'll discontinue heparin drip, VQ scan showed low probability of pulmonary embolism. If he continues to do well possible discharge home tomorrow. I performed a history & physical examination of the patient and discussed their management with my nurse practitioner, Bev Villa. I reviewed the nurse practitioner's note and agree with the documented findings and plan of care. Lung sounds are positive for diffuse wheezes throughout the lung cosme. The findings and the impression was discussed with the patient. I attest to the documentation by the nurse practitioner. Time with Patient: Less than 30
[2018-12-04] MEDS: THIAMINE 100 MG TAB PO SCH (16:42)
[2018-12-04] MEDS: HEPARIN SODIUM,PORCINE 5,000 UNIT/ML 1 ML VIAL SQ SCH (20:24)
[2018-12-04 20:44] LABS: Glucose,Whole Blood 124 mg/dL (75-99)
[2018-12-05] MEDS: HYDROcodone/APAP 7.5-325MG 1 EACH TAB PO PRN (03:21)
[2018-12-05] MEDS: SODIUM CHLORIDE 0.9% 1,000 ML IV SCH ×2 (04:16→08:13)
[2018-12-05 06:07] LABS: Glucose,Whole Blood 163 mg/dL (75-99)
[2018-12-05] MEDS: CARVEDILOL 3.125 MG TAB PO SCH (06:42)
[2018-12-05] MEDS: PANTOPRAZOLE 40 MG TABLET PO SCH (06:42)
[2018-12-05 07:00] LABS: Basophils % (A) 0 %; Eosinophils % (A) 0 %; HCT 33.6 % (39.0-53.0); Lymphocytes # (A) 0.5 k/uL (1.0-4.8); Lymphocytes % (A) 3 %; MCH 31.7 pg (25.0-35.0); MCHC 32.8 g/dL (31.0-37.0); MCV 96.5 fL (80.0-100.0); Mean Platelet Volume 6.8; Monocytes # (A) 0.6 k/uL (0-1.0); Monocytes % (A) 4 %; Neutrophils # (A) 16.3 k/uL (1.3-7.7); Neutrophils % (A) 93 %; Platelet Count 435 k/uL (150-450); RBC 3.48 m/uL (4.30-5.90); RDW 12.8 % (11.5-15.5); WBC 17.5 k/uL (3.8-10.6)
[2018-12-05 07:28] LABS: Appearance,Urine Clear (Clear); Bacteria,Urine Rare /hpf; Bilirubin,Urine Negative (Negative); Blood,Urine Moderate (Negative); Color,Urine Light Yellow; Glucose,Urine (UA) 1+ (Negative); Ketones,Urine Negative (Negative); Leukocyte Esterase,Urine Negative (Negative); Mucus,Urine Rare /hpf; Nitrite,Urine Negative (Negative); Protein,Urine Negative (Negative); RBC,Urine 10 /hpf (0-5); Urobilinogen,Urine <2.0 mg/dL (<2.0); WBC,Urine 1 /hpf (0-5)
[2018-12-05] MEDS: NICOTINE 14MG/24HR PATCH TRANSDERM SCH (08:13)
[2018-12-05] MEDS: THIAMINE 100 MG TAB PO SCH (08:19)
[2018-12-05] MEDS: methylPREDNISolone SOD SUCCI 125 MG/2 ML VIAL IV SCH (08:20)
[2018-12-05] MEDS: HEPARIN SODIUM,PORCINE 5,000 UNIT/ML 1 ML VIAL SQ SCH (08:20)
[2018-12-05] MEDS: IPRATROPIUM-ALBUTEROL 3 ML NEB INHALATION SCH ×2 (08:23→11:43)
--- NOTE | 2018-12-05 10:11 | P.PN ---
Subjective Patient is seen in follow-up for acute kidney injury. Creatinine was down to 2.06 yesterday. Labs from today are pending at this time. He is currently off all IV fluids. No diarrhea or vomiting. Oral intake is good. Hemodynamically stable. Good urine output. Vital signs are stable. General: The patient appeared well nourished and normally developed. HEENT: Head exam is unremarkable. Neck is without jugular venous distension. LUNGS: Lungs are clear to auscultation and percussion. Breath sounds decreased. HEART: Rate and Rhythm are regular. First and second heart sounds normal. No murmurs, rubs or gallops. ABDOMEN: Abdominal exam reveals normal bowel sounds. Non-tender and non- distended. No evidence of peritonitis. EXTREMITITES: No clubbing, cyanosis, or edema. Objective - Vital Signs Vital signs: Vital Signs Temp 97.7 F 12/05/18 08:26 Pulse 72 12/05/18 08:35 Resp 16 12/05/18 08:26 BP 158/68 12/05/18 08:26 Pulse Ox 99 12/05/18 08:26 Intake & Output 12/04/18 12/05/18 12/05/18 18:59 06:59 18:59 Intake Total 822 360 Output Total 200 Balance 622 360 Weight 69.9 kg Intake: Oral 822 360 Output: Urine 200 Other: # Voids 2 1 - Labs CBC & Chem 7: 12/05/18 06:20 12/04/18 06:03 Labs: Abnormal Lab Results - Last 24 Hours (Table) 12/04/18 12/05/18 12/05/18 Range/Units 20:41 06:04 06:20 WBC 17.5 H (3.8-10.6) k/uL RBC 3.48 L (4.30-5.90) m/uL Hgb 11.0 L (13.0-17.5) gm/dL Hct 33.6 L (39.0-53.0) % Neutrophils # 16.3 H (1.3-7.7) k/uL Lymphocytes # 0.5 L (1.0-4.8) k/uL POC Glucose (mg/dL) 124 H 163 H (75-99) mg/dL Urine Glucose (UA) (Negative) Urine Blood (Negative) Urine RBC (0-5) /hpf Urine Bacteria (None) /hpf Urine Mucus (None) /hpf 12/05/18 Range/Units 07:05 WBC (3.8-10.6) k/uL RBC (4.30-5.90) m/uL Hgb (13.0-17.5) gm/dL Hct (39.0-53.0) % Neutrophils # (1.3-7.7) k/uL Lymphocytes # (1.0-4.8) k/uL POC Glucose (mg/dL) (75-99) mg/dL Urine Glucose (UA) 1+ H (Negative) Urine Blood Moderate H (Negative) Urine RBC 10 H (0-5) /hpf Urine Bacteria Rare H (None) /hpf Urine Mucus Rare H (None) /hpf Microbiology - Last 24 Hours (Table) 12/03/18 17:10 Blood Culture - Preliminary Blood No Growth after 24 hours Assessment and Plan Plan: Assessment: 1. Acute kidney injury mostly prerenal secondary to intravascular volume depletion from diarrhea and use of TROY inhibitor. Creatinine was 3.49 on admission and down to 2.06 as of yesterday - labs pending today. Baseline creatinine is near 1. No proteinuria on UA. 2. Hyponatremia. Appears euvolemic. Due to poor solute intake and acute kidney injury. Urine sodium level at 15. Urine osmolality 474. 3. Metabolic acidosis secondary to acute kidney injury and IV fluids. 4. Diarrhea. C. diff negative. Improved. 5. Benign hypertension. Controlled. 6. COPD. Maintained on IV steroids. Plan: Hep-Lock IV fluids. Avoid nephrotoxins. Repeat electrolytes in the morning. Encourage oral intake. Add amlodipine 5 mg daily. Follow-up morning labs.
[2018-12-05] MEDS ORDERED: amLODIPine 5 MG TAB PO SCH (10:15)
[2018-12-05 11:38] LABS: Glucose,Whole Blood 107 mg/dL (75-99)
[2018-12-05 11:47] LABS: Albumin 3.1 g/dL (3.5-5.0); Calcium 8.7 mg/dL (8.4-10.2); Magnesium 1.6 mg/dL (1.6-2.3); Potassium 4.9 mmol/L (3.5-5.1); Total Bilirubin 0.3 mg/dL (0.2-1.3); Total Protein 6.2 g/dL (6.3-8.2)
[2018-12-05 11:50] VITALS: BP 148/71; TEMP 98.1
[2018-12-05 11:54] VITALS: PULSE 68
--- NOTE | 2018-12-05 14:34 | P.DS ---
Providers Date of admission: 12/03/18 15:19 Expected date of discharge: 12/05/18 Attending physician: Salina Schwartz Consults: 12/03/18 15:19 Consult Physician Urgent Consulting Provider: Keyana Chang Consult Reason/Comments: Acute renal failure Do you want consulting provider notified?: Yes 12/03/18 16:49 Consult Physician Routine Consulting Provider: Zain Perez Consult Reason/Comments: COPD exacerbation possible PE Do you want consulting provider notified?: Yes Primary care physician: Digna Lindsey [facility] Course: Discharge diagnosis 1. Increased shortness of breath. Chest x-ray completed in ER showing possible underlying COPD. No acute process seen. Focal density right midline suspected to represent summation artifact in part due to prominent right fifth rib and. Nonemergent follow-up CT chest to exclude underlying pulmonary nodule. D-dimer also elevated at 1.24. Patient started on Solu-Medrol and DuoNeb breathing treatments . VQ scan completed showing matching upper lobe defects consistent with airway disease and emphysema. Distal probability of pulmonary embolism. Discussed with pulmonary services. Heparin drip can be DC'd. Discussed case with pulmonary services. Patient has been cleared for discharge. Patient will be discharged home on prednisone taper along with albuterol inhaler. She to also follow up with pulmonary services for further workup to exclude underlying pulmonary nodule seen on computed tomography scan 2. Acute kidney injury with hyponatremia. creatinine 3.49 and bun 81.Nephrology services have been consulted. Normal saline at 100. Creatinine improving to 2.06 and bun 67. 1200 mL fluid restriction added. Patient's creatinine improving to 1.41 and bun 49. Sodium is improving but still remains low at 129. Discussed case with Dr. Tolliver per nephrology services. Patient has been cleared for discharge. Repeat BMP will be ordered in 3 days. Patient to follow-up outpatient with nephrology services. Lisinopril be DC'd upon discharge 3. Diarrhea. Patient reports he had episode of diarrhea last week. C. diff negative 4. Leukocytosis. White blood cell 11.5. Resolved 5. Nicotine dependence. Patient educated greater than 3 minutes on smoking sensation. Nicotine patch will be ordered 6. History of coronary artery disease 7. History of third-degree heart block requiring pacemaker placement. 8. History of hyperlipidemia 9. History of essential hypertension. Lisinopril held due to acute kidney injury. Norvasc added per nephrology 10. History of osteoarthritis 11. EtOH. Patient reports he drinks 4-6 beers a night. Will order alcohol withdrawal protocal. Hospital course This is a 62-year-old male patient of Dr. lindsey. Patient presented to the ER with complaints of shortness of breath since Monday. Patient also reported that he had loose stools for 24 hours at that time. Patient also complains that he's been increasingly fatigued. Patient denies cough or fever. Patient does have a past medical history of coronary artery disease, chest pain, hyperlipidemia, hypertension, osteoarthritis, nicotine dependence and pacemaker placement. Chest x-ray completed in ER showing possible underlying COPD no acute process seen. Focal density right suspected to represent summation artifact in part due to prominent right fifth rib and. Nonemergent follow-up CT chest to exclude underlying pulmonary nodule. D-dimer on admission elevated at 1.25. Patient started on heparin drip and VQ scan ordered. Patient's creatinine 3.49 and bun 81. Nephrology services have been consulted. Pulmonary service is consulted. C. diff stool sample ordered. Influenza and urinary analysis with blood culture ordered. At this time patient is complaining of shortness breath with cough. Patient denies nausea vomiting or diarrhea. Patient denies any urinary burning or frequency. On 12/04/2018 patient is alert and oriented 3. Patient's creatinine trending down 2.06. Nephrology services are following. Patient remains on normal saline at 100. Patient did have VQ scan completed showing massive defect consistent with airway disease and emphysema. There is probability of pulmonary embolism. Discussed with pulmonary services okay to DC heparin drip. C. diff negative. Patient does admit that he does drink alcohol 5-6 L at night. Will order alcohol withdrawal protocol. At this time patient denies chest pain or shortness breath. Patient denies nausea vomiting or diarrhea. Patient denies any urinary burning or frequency On 12/05/2018 patient is alert and oriented 3 creatinine improving to 1.41. Patient expresses that he is very eager to go home. Patient has been cleared for discharge from nephrology and pulmonary services. Patient to follow-up closely with primary services for further management possible nodule seen on computed tomography scan. Patient will be discharged home on prednisone taper and redraw inhaler for COPD. Lisinopril has been discontinued. Patient has been started on Norvasc for blood pressure control per nephrology. BMP has been ordered for 3 days. Patient to follow-up closely with PCP and consulting providers at this time patient denies nausea vomiting or diarrhea. Patient denies chest pain or shortness breath. Patient denies any urinary burning or fr equency. I performed an examination of the patient and discussed their management with the Nurse Practitioner. I have reviewed the Nurse Practitioner's notes and agree with the documented findings and plan of care Patient Condition at Discharge: Stable Plan - Discharge Summary Discharge Rx Participant: No New Discharge Prescriptions: New amLODIPine [Norvasc] 5 mg PO DAILY 30 Days #30 tab predniSONE 10 mg PO DIRECTED 30 Days #30 tab Albuterol Inhaler [Ventolin Hfa Inhaler] 1 - 2 puff INHALATION Q6H PRN #1 inhaler PRN Reason: Shortness Of Breath Continue Simvastatin [Zocor] 40 mg PO HS Carvedilol [Coreg] 3.125 mg PO BID Discontinued Lisinopril 40 mg PO DAILY Discharge Medication List Simvastatin [Zocor] 40 mg PO HS 01/21/14 [History] Carvedilol [Coreg] 3.125 mg PO BID 12/03/18 [History] Albuterol Inhaler [Ventolin Hfa Inhaler] 1 - 2 puff INHALATION Q6H PRN #1 inhaler 12/05/18 [Rx] amLODIPine [Norvasc] 5 mg PO DAILY 30 Days #30 tab 12/05/18 [Rx] predniSONE 10 mg PO DIRECTED 30 Days #30 tab 12/05/18 [Rx] Follow up Appointment(s)/Referral(s): Digna Lindsey MD [Primary Care Provider] - 12/11/18 10:30 am (Monday) Avery Tolliver DO [STAFF PHYSICIAN] - 1 Week (Spoke to administrative operations coordinator. Office will call with appointment time) Zain Perez MD [STAFF PHYSICIAN] - 12/21/18 2:45 pm (Monday) Ambulatory/Diagnostic Orders: Basic Metabolic Panel [LAB.AMB] Time Frame: 3 Days, Location: None Selected Patient Instructions/Handouts: How to Stop Smoking (DC), Acute Kidney Injury (DC), COPD (Chronic Obstructive Pulmonary Disease) (DC) Activity/Diet/Wound Care/Special Instructions: Activity as tolerated Diet heart healthy and 1200 mL fluid restriction BMP ordered for 3 days. Discharge Disposition: HOME SELF-CARE
== END 2018-12-05 15:08 | disposition home or self-care (01) | DRG 683 ==
LOC: EC 13:44 → 3SCARD 15:19
PROVIDERS: ADMIT Internal Medicine; ATTEND Internal Medicine
DX: N17.9 Acute kidney failure, unspecified (principal); E87.1 Hypo-osmolality and hyponatremia; E87.2 Acidosis; I95.9 Hypotension, unspecified; E87.8 Other disorders of electrolyte and fluid balance, not elsewhere classified; E87.5 Hyperkalemia; J43.9 Emphysema, unspecified; M19.90 Unspecified osteoarthritis, unspecified site; I25.10 Atherosclerotic heart disease of native coronary artery without angina pectoris; I10 Essential (primary) hypertension; E78.5 Hyperlipidemia, unspecified; I44.7 Left bundle-branch block, unspecified; Z95.0 Presence of cardiac pacemaker; R91.1 Solitary pulmonary nodule; R19.7 Diarrhea, unspecified; D72.829 Elevated white blood cell count, unspecified; G89.29 Other chronic pain; M54.9 Dorsalgia, unspecified; E86.0 Dehydration; F17.210 Nicotine dependence, cigarettes, uncomplicated; T46.4X5A Adverse effect of angiotensin-converting-enzyme inhibitors, initial encounter; Z79.899 Other long term (current) drug therapy; Z87.01 Personal history of pneumonia (recurrent); Z90.49 Acquired absence of other specified parts of digestive tract; Z82.49 Family history of ischemic heart disease and other diseases of the circulatory system
CPT/HCPCS: 36415; 71046; 78582; 80053; 81001; 83735; 83930; 83935; 84300; 84484; 85025; 85379; 85610; 85730; 87040; 87324; 87502; 93005; 94640; 94644; 94760; 96365; 96366; 96375; 96376; 99291

== ENCOUNTER 2019-06-15 17:09 | Inpatient (IN) | payer BC ==
[2019-06-15] MEDS ORDERED: ACETAMINOPHEN TAB 500 MG TAB PO STA (17:18)
[2019-06-15] MEDS ORDERED: ONDANSETRON 4 MG/2 ML VIAL IVP STA (17:18)
[2019-06-15] MEDS ORDERED: SODIUM CHLORIDE 0.9% 1,000 ML IV STA ×2 (17:18)
[2019-06-15] MEDS ORDERED: IBUPROFEN 600 MG TAB PO STA (17:18)
--- NOTE | 2019-06-15 17:38 | ED ---
Fever HPI - General Chief Complaint: Fever Stated Complaint: not feeling well Time Seen by Provider: 06/15/19 17:18 Source: patient, RN notes reviewed, old records reviewed Mode of arrival: ambulatory Limitations: no limitations - History of Present Illness Initial Comments: This is a 63-year-old male the ER for evaluation patient resents today for eval uation regards to not feeling well feels that he may have kidney injury which is had in the past is always similar fell. The week all time with chills. Denies any other complaints no chest pain shortness of breath or abdominal pain no nausea vomiting or diarrhea. No recent rashes or travel she no sick contacts. Patient's last hospitalization was about 6 months ago. But he felt exactly the same as he does currently. No current hospitalizations in between. He states is been feeling on and off not well for a few weeks now MD Complaint: fever, weakness -: month(s) Temperature Source: subjective Associated Symptoms: chills, myalgias, nausea Treatments Prior to Arrival: none - Related Data Home Medications Medication Instructions Recorded Confirmed Simvastatin [Zocor] 40 mg PO DAILY 01/21/14 06/15/19 Carvedilol [Coreg] 3.125 mg PO BID 12/03/18 06/15/19 Previous Rx's Medication Instructions Recorded amLODIPine [Norvasc] 5 mg PO DAILY 30 Days #30 tab 12/05/18 Allergies Allergy/AdvReac Type Severity Reaction Status Date / Time No Known Allergies Allergy Verified 06/15/19 17:22 Review of Systems ROS Statement: Those systems with pertinent positive or pertinent negative responses have been documented in the HPI. ROS Other: All systems not noted in ROS Statement are negative. 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, history of hemochromatosis, vitamin D deficiency, previous history of groin abscesses that are currently healed and drained, hypertension, hyperlipidemia, osteoarthritis, chronic back pain, cardiac cath found CAD and tx medically, hemachromacytosis, vitamin D deficiency History of Any Multi-Drug Resistant Organisms: None Reported Past Surgical History: Appendectomy, Heart Catheterization, Hernia Repair, Orthopedic Surgery, Tonsillectomy Additional Past Surgical History / Comment(s): 2009 cardiac cath due to chest pain and bradycardia-CAD tx medically and EF at that time 40%, rt inguinal hernia repair , rt knee arthroscopy, abcess R groin I&Ds x 2. Past Anesthesia/Blood Transfusion Reactions: No Reported Reaction Past Psychological History: No Psychological Hx Reported Smoking Status: Current some day smoker Past Alcohol Use History: Daily Past Drug Use History: Marijuana - Past Family History Father Additional Family Medical History / Comment(s): Father after having a MVA with hip fracture and surgery. He did right after the surgery. Mother Family Medical History: Myocardial Infarction ([place]) Additional Family Medical History / Comment(s): Mother at age 63 yrs of massive [place]. General Exam Limitations: no limitations General appearance: alert, in no apparent distress Head exam: Present: atraumatic, normocephalic, normal inspection Eye exam: Present: normal appearance, EOMI. Absent: scleral icterus, conjunctival injection, periorbital swelling ENT exam: Present: normal exam, mucous membranes moist Neck exam: Present: normal inspection. Absent: tenderness, meningismus, lymphadenopathy Respiratory exam: Present: normal lung sounds bilaterally. Absent: respiratory distress, wheezes, rales, rhonchi, stridor Cardiovascular Exam: Present: normal rhythm, tachycardia, normal heart sounds. Absent: systolic murmur, diastolic murmur, rubs, gallop, clicks GI/Abdominal exam: Present: soft, normal bowel sounds. Absent: distended, tenderness, guarding, rebound, rigid Extremities exam: Present: normal inspection, full ROM, normal capillary refill. Absent: tenderness, pedal edema, joint swelling, calf tenderness Back exam: Present: normal inspection Neurological exam: Present: alert, oriented X3, CN II-XII intact Psychiatric exam: Present: normal affect, normal mood Skin exam: Present: warm, dry, intact, normal color. Absent: rash Course Vital Signs 06/15/19 06/15/19 06/15/19 17:13 17:42 18:49 Temperature 101.4 F H 99.4 F Pulse Rate 105 H 94 83 Respiratory 18 18 18 Rate Blood Pressure 134/86 126/78 118/67 O2 Sat by Pulse 96 95 98 Oximetry 06/15/19 06/15/19 19:00 20:00 Temperature Pulse Rate 87 88 Respiratory 18 18 Rate Blood Pressure 118/67 119/73 O2 Sat by Pulse 98 98 Oximetry - Reevaluation(s) Reevaluation #1: 06/15/19 17:37 Medical records reviewed Reevaluation #2: 06/15/19 21:20 Patient with no significant improvement here in the ER so short of breath but feeling better with fever control and hydration - Consultations Consultation #1: Spoke with Dr. Schwartz who is agreeable for admission Medical Decision Making - Medical Decision Making 63 male the ER for evaluation. Patient has a fever and weakness. Patient's found to have fever underlying pneumonia possible mass. Patient be admitted for evaluation and treatment - Lab Data Result diagrams: 06/15/19 17:33 06/15/19 17:33 Lab Results 06/15/19 06/15/19 06/15/19 Range/Units 17:33 17:33 17:33 WBC 14.7 H (3.8-10.6) k/uL RBC 4.07 L (4.30-5.90) m/uL Hgb 12.2 L (13.0-17.5) gm/dL Hct 35.0 L (39.0-53.0) % MCV 86.1 (80.0-100.0) fL MCH 30.0 (25.0-35.0) pg MCHC 34.8 (31.0-37.0) g/dL RDW 15.1 (11.5-15.5) % Plt Count 504 H (150-450) k/uL Neutrophils % 80 % Lymphocytes % 8 % Monocytes % 8 % Eosinophils % 1 % Basophils % 1 % Neutrophils # 11.8 H (1.3-7.7) k/uL Lymphocytes # 1.2 (1.0-4.8) k/uL Monocytes # 1.1 H (0-1.0) k/uL Eosinophils # 0.2 (0-0.7) k/uL Basophils # 0.2 (0-0.2) k/uL Sodium 127 L (137-145) mmol/L Potassium 4.0 (3.5-5.1) mmol/L Chloride 93 L (98-107) mmol/L Carbon Dioxide 23 (22-30) mmol/L Anion Gap 11 mmol/L BUN 16 (9-20) mg/dL Creatinine 0.56 L (0.66-1.25) mg/dL Est GFR (CKD-EPI)AfAm >90 (>60 ml/min/1.73 sqM) Est GFR (CKD-EPI)NonAf >90 (>60 ml/min/1.73 sqM) Glucose 111 H (74-99) mg/dL Plasma Lactic Acid Desean 0.9 (0.7-2.0) mmol/L Calcium 8.6 (8.4-10.2) mg/dL Phosphorus 3.5 (2.5-4.5) mg/dL Magnesium 2.1 (1.6-2.3) mg/dL Total Bilirubin 0.3 (0.2-1.3) mg/dL AST 33 (17-59) U/L ALT 24 (21-72) U/L Alkaline Phosphatase 131 H (38-126) U/L Creatine Kinase 54 L (55-170) U/L Troponin I (0.000-0.034) ng/mL Total Protein 7.2 (6.3-8.2) g/dL Albumin 3.4 L (3.5-5.0) g/dL Lipase (23-300) U/L Influenza Type A RNA (Not Detectd) Influenza Type B (PCR) (Not Detectd) 06/15/19 06/15/19 06/15/19 Range/Units 17:33 17:33 17:33 WBC (3.8-10.6) k/uL RBC (4.30-5.90) m/uL Hgb (13.0-17.5) gm/dL Hct (39.0-53.0) % MCV (80.0-100.0) fL MCH (25.0-35.0) pg MCHC (31.0-37.0) g/dL RDW (11.5-15.5) % Plt Count (150-450) k/uL Neutrophils % % Lymphocytes % % Monocytes % % Eosinophils % % Basophils % % Neutrophils # (1.3-7.7) k/uL Lymphocytes # (1.0-4.8) k/uL Monocytes # (0-1.0) k/uL Eosinophils # (0-0.7) k/uL Basophils # (0-0.2) k/uL Sodium (137-145) mmol/L Potassium (3.5-5.1) mmol/L Chloride (98-107) mmol/L Carbon Dioxide (22-30) mmol/L Anion Gap mmol/L BUN (9-20) mg/dL Creatinine (0.66-1.25) mg/dL Est GFR (CKD-EPI)AfAm (>60 ml/min/1.73 sqM) Est GFR (CKD-EPI)NonAf (>60 ml/min/1.73 sqM) Glucose (74-99) mg/dL Plasma Lactic Acid Desean (0.7-2.0) mmol/L Calcium (8.4-10.2) mg/dL Phosphorus (2.5-4.5) mg/dL Magnesium (1.6-2.3) mg/dL Total Bilirubin (0.2-1.3) mg/dL AST (17-59) U/L ALT (21-72) U/L Alkaline Phosphatase (38-126) U/L Creatine Kinase (55-170) U/L Troponin I <0.012 (0.000-0.034) ng/mL Total Protein (6.3-8.2) g/dL Albumin (3.5-5.0) g/dL Lipase 67 (23-300) U/L Influenza Type A RNA Not Detected (Not Detectd) Influenza Type B (PCR) Not Detected (Not Detectd) - EKG Data -: EKG Interpreted by Me (EKG shows sinus rhythm rate of 94, MD 172, QRS 1:30, QTc 477) - Radiology Data Radiology results: report reviewed (Ultrasound gallbladder negative for acute disease chest x-ray shows mass, CT also shows mass could be underlying in filtrate), image reviewed Disposition Clinical Impression: Fever, Community acquired pneumonia, Hyponatremia, Dyspnea Disposition: ADMITTED IP TO THIS HOSP Condition: Fair Is patient prescribed a controlled substance at d/c from ED?: No Referrals: Digna Lindsey MD [Primary Care Provider] - 1-2 days
[2019-06-15 17:57] LABS: Basophils # (A) 0.2 k/uL (0-0.2); Basophils % (A) 1 %; Eosinophils # (A) 0.2 k/uL (0-0.7); Eosinophils % (A) 1 %; HGB 12.2 gm/dL (13.0-17.5); Lymphocytes # (A) 1.2 k/uL (1.0-4.8); Lymphocytes % (A) 8 %; MCHC 34.8 g/dL (31.0-37.0); MCV 86.1 fL (80.0-100.0); Mean Platelet Volume 5.4; Monocytes # (A) 1.1 k/uL (0-1.0); Monocytes % (A) 8 %; Neutrophils # (A) 11.8 k/uL (1.3-7.7); Neutrophils % (A) 80 %; Platelet Count 504 k/uL (150-450); RBC 4.07 m/uL (4.30-5.90); RDW 15.1 % (11.5-15.5); WBC 14.7 k/uL (3.8-10.6)
[2019-06-15 18:05] LABS: ALT 24 U/L (21-72); AST 33 U/L (17-59); African American GFR (CKD) >90 (>60 ml/min/1.73 sqM); Albumin 3.4 g/dL (3.5-5.0); Alkaline Phosphatase 131 U/L (38-126); Anion Gap 11 mmol/L; Blood Urea Nitrogen 16 mg/dL (9-20); Calcium 8.6 mg/dL (8.4-10.2); Carbon Dioxide 23 mmol/L (22-30); Chloride 93 mmol/L (98-107); Creatine Kinase 54 U/L (55-170); Glucose 111 mg/dL (74-99); Magnesium 2.1 mg/dL (1.6-2.3); Phosphorus 3.5 mg/dL (2.5-4.5); Sodium 127 mmol/L (137-145); Total Bilirubin 0.3 mg/dL (0.2-1.3); Total Protein 7.2 g/dL (6.3-8.2)
[2019-06-15] MEDS ORDERED: RX INFO: IV CONTRAST WAS GIVEN 1 EACH MISC MISCELLANE PRN (18:41)
--- NOTE | 2019-06-15 18:41 | XR ---
EXAMINATION TYPE: XR chest 2V DATE OF EXAM: 06/15/2019 COMPARISON: 12/03/2018 INDICATION: Weakness and lethargic TECHNIQUE: Frontal and lateral views of the chest are obtained. FINDINGS: The heart size is normal. The pulmonary vasculature is normal. There is a left perihilar mass with indistinct size. CT is recom mended for additional evaluation. Pacemaker overlies left chest. Previous right lung density is not a s well-visualized. Osseous structures appear unremarkable. IMPRESSION: 1. Suspected left perihilar mass. Additional evaluation can be performed with CT.
[2019-06-15 19:06] LABS: Appearance,Urine Clear (Clear); Bilirubin,Urine Negative (Negative); Blood,Urine Moderate (Negative); Color,Urine Yellow; Glucose,Urine (UA) Negative (Negative); Hyaline Casts,Urine 1 /lpf (0-2); Ketones,Urine Negative (Negative); Leukocyte Esterase,Urine Negative (Negative); Mucus,Urine Occasional /hpf; Nitrite,Urine Negative (Negative); PH, Urine 5.5 (5.0-8.0); Protein,Urine Trace (Negative); RBC,Urine 15 /hpf (0-5); Specific Gravity,Urine 1.017 (1.001-1.035); Urobilinogen,Urine <2.0 mg/dL (<2.0)
--- NOTE | 2019-06-15 19:48 | US ---
EXAMINATION TYPE: US gallbladder DATE OF EXAM: 06/15/2019 COMPARISON: NONE CLINICAL HISTORY: fever. EXAM MEASUREMENTS: Liver Length: 15.7 cm Gallbladder Wall: 0.2 cm CBD: 0.3 cm Right Kidney: 11.1 x 6.7 x 5.5 cm Extensive overlying bowel gas, limiting study. Pancreas: partially obscured by bowel gas, portions visualized wnl Liver: wnl Gallbladder: wnl Evidence for sonographic Murry's sign: no CBD: wnl Right Kidney: No hydronephrosis or masses seen, partially obscured by bowel IMPRESSION: 1. Normal right upper quadrant ultrasound
--- NOTE | 2019-06-15 20:36 | CT ---
EXAMINATION TYPE: CT chest w con DATE OF EXAM: 06/15/2019 COMPARISON: Chest x-ray 06/15/2019 HISTORY: Mass from CXR. Pt c/o weakness, weight loss, digestive issues. CT DLP: 316.4 mGycm, Automated exposure control for dose reduction was used. CONTRAST: Performed injected with 100 mL of Isovue 300. TECHNIQUE: Axial images were obtained at 5 mm thick sections. Reconstructed images are reviewed on [employer] computer in the coronal plane. FINDINGS: Portion of the thyroid visualized is normal. There is a left hilar mass which appears to encase the lingular bronchus. This appears to have some i nvolvement of the lingular pulmonary vein. Series 201 image 30. There is likely abnormal lymphadenopa thy adjacent to the aortic arch and the window. The largest measures 2.1 cm adjacent measuring 1.2 cm . There is an enlarged pretracheal node measuring 1.1 cm. Some left infrahilar adenopathy is likely p resent estimated to measure 1.5 cm. Scattered lingular infiltrates are evident on lung windows. The ascending aorta diameter at the level of the main pulmonary artery is 3.7 cm. The main pulmonary artery diameter at the bifurcation is 2.[address] sections are obtained through the upper abdomen. Abdomen is essentially unremarkable. IMPRESSIONS: 1. Mass within the anterior left hilum encasing the lingular bronchus with largest perihilar and aort opulmonic window lymph nodes. Workup for neoplasm is recommended.
[2019-06-15] MEDS ORDERED: ALBUTEROL NEBULIZED 2.5 MG/3 ML INHALATION PRN (21:38)
[2019-06-15] MEDS ORDERED: PNEUMONIA PROTOCOL UTILIZED 1 EACH MISC PO PRN (21:38)
[2019-06-15] MEDS ORDERED: AZITHROMYCIN 500 MG in SODIUM CHLORIDE 0.9% 250 ML IVPB STA (21:38)
[2019-06-15] MEDS: SODIUM CHLORIDE 0.9% 1,000 ML IV SCH (22:02)
[2019-06-16] MEDS: HYDROcodone/APAP 7.5-325MG 1 EACH TAB PO PRN ×4 (00:49→18:59)
[2019-06-16] MEDS: CARVEDILOL 3.125 MG TAB PO SCH ×2 (07:25→17:05)
[2019-06-16] MEDS: amLODIPine 5 MG TAB PO SCH (07:25)
[2019-06-16] MEDS: ENOXAPARIN 40 MG/0.4 ML SYRINGE SQ SCH (07:26)
[2019-06-16] MEDS: ATORVASTATIN 20 MG TAB PO SCH (07:26)
[2019-06-16] MEDS: SODIUM CHLORIDE 0.9% 1,000 ML IV SCH ×2 (07:28→17:05)
--- NOTE | 2019-06-16 08:16 | XR ---
EXAMINATION TYPE: XR chest 2V DATE OF EXAM: 06/16/2019 HISTORY: pneumonia. REFERENCE: Previous study dated 06/15/2019. FINDINGS: There is a bipolar pacemaker place on the left. Lung volumes are prominent. Heart size is within normal limits. There is fairly marked prominence of the left hilum suggestive of a left hilar mass. This is confirmed on a CT scan of yesterday. The lung s are otherwise clear. Pleural spaces are clear. IMPRESSION: 1. COPD. 2. LEFT HILAR MASS CONFIRMED ON CT.
[2019-06-16] MEDS: IPRATROPIUM-ALBUTEROL 3 ML NEB INHALATION SCH ×4 (08:22→21:19)
--- NOTE | 2019-06-16 09:48 | P.CNPUL ---
History of Present Illness Consult date: 06/16/19 Reason for consult: lung mass History of present illness: 63-year-old male patient who came into the emergency department yesterday not feeling well. His complaints are essentially nonspecific and he was having generalized weakness and fever with a temperature of 11.4 at time of admission. He denied having any chest pain or shortness of breath. No nausea or vomiting. No hemoptysis. As part of an investigation, a chest x-ray was done that showed a left perihilar mass. Based on this, a CAT scan of the chest was ordered and it showed a mass in the anterior left hilum encasing the lingular bronchus and there was also lymphadenopathy in the adjacent aortic arch and the window largest lymph node measuring 2.1 cm in the left perihilar area. This was very highly suggestive of underlying malignancy. The patient was admitted to the [facility]. He was started on broad-spectrum antibiotics. Pulmonary consultation was also requested.He is a chronic smoker. He is known to have COPD. He is also complaining of chronic back pain. He has a pacemaker for a previous history of a third-degree AV block. He is known to have coronary artery disease. Currently free of any chest pain. Based on previous echocardiogram from 2016, the patient is a preserved LV function with an ejection fraction of 50-55%. Review of Systems Constitutional: Reports fatigue, Reports malaise, Reports poor appetite, Reports weakness Eyes: denies as per HPI, denies blurred vision, denies bulging eye, denies decreased vision, denies diplopia, denies discharge, denies dry eye, denies irritation, denies itching, denies pain, denies photophobia, denies loss of peripheral vision, denies loss of vision, denies tunnel vision/blind spots Ears: deny: decreased hearing, ear discharge, earache, tinnitus Ears, nose, mouth and throat: Denies headache, Denies sore throat Breasts: absent: as per HPI, gynecomastia Cardiovascular: Reports decreased exercise tolerance, Reports dyspnea on exertion, Reports shortness of breath Respiratory: Reports dyspnea, Reports wheezing Gastrointestinal: Reports diarrhea Genitourinary: Reports as per HPI Musculoskeletal: Reports low back pain, Reports muscle weakness Musculoskeletal: absent: ankle pain, ankle stiffness, ankle swelling, as per HPI, elbow pain, elbow stiffness, elbow swelling, foot pain, foot stiffness, foot swelling, hand pain, hand stiffness, hand swelling, hip pain, hip stiffness, hip swelling, knee pain, knee stiffness, knee swelling, shoulder pain, shoulder stiffness, shoulder swelling, wrist pain, wrist stiffness, wrist swelling Integumentary: Denies pruritus, Denies rash Psychiatric: Denies anxiety, Denies depression Endocrine: Reports fatigue Hematologic/Lymphatic: Reports as per HPI Allergic/Immunologic: Reports as per HPI 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, history of hemochromatosis, vitamin D deficiency, previous history of groin abscesses that are currently healed and drained, hypertension, hyperlipidemia, osteoarthritis, chronic back pain, cardiac cath found CAD and tx medically, hemachromacytosis, vitamin D deficiency History of Any Multi-Drug Resistant Organisms: None Reported Past Surgical History: Appendectomy, Heart Catheterization, Hernia Repair, Orthopedic Surgery, Tonsillectomy Additional Past Surgical History / Comment(s): 2008 cardiac cath due to chest pain and bradycardia-CAD tx medically and EF at that time 40%, rt inguinal hernia repair , rt knee arthroscopy, abcess R groin I&Ds x 2. Past Anesthesia/Blood Transfusion Reactions: No Reported Reaction Past Psychological History: No Psychological Hx Reported Additional Psychological History / Comment(s): Pt lives alone. He uses no assistive device. He drives. He is independent. Smoking Status: Current some day smoker Past Alcohol Use History: Daily Additional Past Alcohol Use History / Comment(s): Pt states he started smoking in 1963 and is less than a ppd smoker. He drinks daily- 6 beers a day. Past Drug Use History: Marijuana Additional Drug Use History / Comment(s): Pt states he has medical marijuana which he uses for pain control. He smokes it in a pipe and does this twice a day. - Past Family History Father Additional Family Medical History / Comment(s): Father after having a MVA with hip fracture and surgery. He did right after the surgery. Mother Family Medical History: Myocardial Infarction ([place]) Additional Family Medical History / Comment(s): Mother at age 63 yrs of massive [place]. Medications and Allergies Home Medications Medication Instructions Recorded Confirmed Type Simvastatin [Zocor] 40 mg PO DAILY 01/21/14 06/15/19 History Carvedilol [Coreg] 3.125 mg PO BID 12/03/18 06/15/19 History amLODIPine [Norvasc] 5 mg PO DAILY 30 Days #30 tab 12/05/18 06/15/19 Rx Allergies Allergy/AdvReac Type Severity Reaction Status Date / Time No Known Allergies Allergy Verified 06/15/19 17:22 Physical Exam Vitals: Vital Signs Temp Pulse Pulse Pulse Resp BP BP 06/16/19 08:38 89 06/16/19 08:25 87 06/16/19 07:20 80 06/16/19 05:27 98.7 F 76 16 109/58 06/15/19 23:00 98.7 F 76 16 109/57 06/15/19 22:18 97.6 F 80 18 120/70 06/15/19 20:00 88 18 119/73 06/15/19 19:00 87 18 118/67 06/15/19 18:49 99.4 F 83 18 118/67 06/15/19 17:42 94 18 126/78 06/15/19 17:13 101.4 F H 105 H 18 134/86 BP Pulse Ox 06/16/19 08:38 06/16/19 08:25 96 06/16/19 07:20 130/77 06/16/19 05:27 96 06/15/19 23:00 96 06/15/19 22:18 99 06/15/19 20:00 98 06/15/19 19:00 98 06/15/19 18:49 98 06/15/19 17:42 95 06/15/19 17:13 96 Intake and Output 06/15/19 06/16/19 06/16/19 22:59 06:59 14:59 Other: Voiding Method Toilet Toilet Weight 68.039 kg The patient appeared well nourished and normally developed. Vital signs as documented. Head exam is unremarkable. No scleral icterus or corneal arcus noted. Neck is without jugular venous distension, thyromegaly, or carotid bruits. Carotid upstrokes are brisk bilaterally. Lungs are clear to auscultation and percussion. Cardiac exam reveals the PMI to be normally sized and situated. Rhythm is regular. First and second heart sounds normal. No murmurs, rubs or gallops. Abdominal exam reveals normal bowel sounds, no masses, no organomegaly and no aortic enlargement. Extremities are nonedematous and both femoral and pedal pulses are normal.Examination of the skin revealed no evidence of significant rashes, suspicious appearing nevi or other concerning lesions. N eurologically awake and alert and there is no focal neurological deficits. Results - Laboratory Findings CBC and BMP: 06/15/19 17:33 06/15/19 17:33 Abnormal lab findings: Abnormal Labs 06/15/19 06/15/19 06/15/19 17:33 17:33 18:52 WBC 14.7 H RBC 4.07 L Hgb 12.2 L Hct 35.0 L Plt Count 504 H Neutrophils # 11.8 H Monocytes # 1.1 H Sodium 127 L Chloride 93 L Creatinine 0.56 L Glucose 111 H Alkaline Phosphatase 131 H Creatine Kinase 54 L Albumin 3.4 L Urine Protein Trace H Urine Blood Moderate H Urine RBC 15 H Urine Mucus Occasional H - Diagnostic Findings Chest x-ray: image reviewed Assessment and Plan Plan: 1 left hilar mass, highly suggestive of primary bronchogenic carcinoma. Will need further workup including a bronchoscopy. 2 COPD with chronic dyspnea. 3 nonocclusive coronary artery disease managed medically 4 history of third-degree AV block post-pacemaker insertion 5 hypertension 6 hyperlipidemia 7 remote history of hemochromatosis 8 osteoarthritis Plan Continue current treatment. We'll plan for bronchoscopy. We'll arrange this with Dr. Melendez
[2019-06-16 10:25] VITALS: BMI 20.9
--- NOTE | 2019-06-16 12:51 | P.HPIM ---
History of Present Illness H&P Date: 06/16/19 Everette Gabriel is a 63-year-old male who presented to [facility] emergency department with a chief complaint of weakness, fever and cough, he was evaluated in emergency room temperature was elevated at 101.4 heart rate 105 a chest x-ray was done showed a left perihilar mass. CT scan of the chest was ordered and it showed a mass in the anterior left hilum and lymphadenopathy. This was very hi ghly suggestive of underlying malignancy. The patient was admitted to the hospital. He was started on broad-spectrum antibiotics. Pulmonary consultation was also requested. Patient has a long history of smoking he smokes about 15 cigarettes a day and has been smoking for about 45 years. He has a known history of cardiac arrhythmia and had a pacemaker placement for a previous history of a third-degree AV block. He is known to have a history of mild coronary artery disease treated medically. No previous history of stent placement, previous echo revealed normal LV function. Patient also has been complaining of mucus since the stools. He is complaining of chronic back pain, he has known history of hypertension, hyperlipidemia, and history of COPD. Past Medical History Past Medical History: Coronary Artery Disease (CAD), Chest Pain / Angina, Hyp erlipidemia, Hypertension, Osteoarthritis (OA) Additional Past Medical History / Comment(s): COPD, previous history of a third- degree AV block and the patient is a pacemaker in place, history of hemochromatosis, vitamin D deficiency, previous history of groin abscesses that are currently healed and drained, hypertension, hyperlipidemia, osteoarthritis, chronic back pain, cardiac cath found CAD and tx medically, hemachromacytosis, vitamin D deficiency History of Any Multi-Drug Resistant Organisms: None Reported Past Surgical History: Appendectomy, Heart Catheterization, Hernia Repair, Orthopedic Surgery, Tonsillectomy Additional Past Surgical History / Comment(s): 2008 cardiac cath due to chest pain and bradycardia-CAD tx medically and EF at that time 40%, rt inguinal hernia repair , rt knee arthroscopy, abcess R groin I&Ds x 2. Past Anesthesia/Blood Transfusion Reactions: No Reported Reaction Past Psychological History: No Psychological Hx Reported Additional Psychological History / Comment(s): Pt lives alone. He uses no assistive device. He drives. He is independent. Smoking Status: Current some day smoker Past Alcohol Use History: Daily Additional Past Alcohol Use History / Comment(s): Pt states he started smoking in 1963 and is less than a ppd smoker. He drinks daily- 6 beers a day. Past Drug Use History: Marijuana Additional Drug Use History / Comment(s): Pt states he has medical marijuana which he uses for pain control. He smokes it in a pipe and does this twice a day. - Past Family History Father Additional Family Medical History / Comment(s): Father after having a MVA with hip fracture and surgery. He did right after the surgery. Mother Family Medical History: Myocardial Infarction ([place]) Additional Family Medical History / Comment(s): Mother at age 63 yrs of massive [place]. Medications and Allergies Home Medications Medication Instructions Recorded Confirmed Type Simvastatin [Zocor] 40 mg PO DAILY 01/21/14 06/15/19 History Carvedilol [Coreg] 3.125 mg PO BID 12/03/18 06/15/19 History amLODIPine [Norvasc] 5 mg PO DAILY 30 Days #30 tab 12/05/18 06/15/19 Rx Allergies Allergy/AdvReac Type Severity Reaction Status Date / Time No Known Allergies Allergy Verified 06/15/19 17:22 Physical Exam Vitals: Vital Signs Temp Pulse Pulse Pulse Resp BP BP 06/16/19 12:06 82 06/16/19 11:54 79 06/16/19 11:43 98.0 F 71 16 06/16/19 08:38 89 06/16/19 08:25 87 06/16/19 07:20 80 06/16/19 05:27 98.7 F 76 16 109/58 06/15/19 23:00 98.7 F 76 16 109/57 06/15/19 22:18 97.6 F 80 18 120/70 06/15/19 20:00 88 18 119/73 06/15/19 19:00 87 18 118/67 06/15/19 18:49 99.4 F 83 18 118/67 06/15/19 17:42 94 18 126/78 06/15/19 17:13 101.4 F H 105 H 18 134/86 BP Pulse Ox 06/16/19 12:06 06/16/19 11:54 06/16/19 11:43 107/67 95 06/16/19 08:38 06/16/19 08:25 96 06/16/19 07:20 130/77 06/16/19 05:27 96 06/15/19 23:00 96 06/15/19 22:18 99 06/15/19 20:00 98 06/15/19 19:00 98 06/15/19 18:49 98 06/15/19 17:42 95 06/15/19 17:13 96 Intake and Output 06/15/19 06/16/19 06/16/19 22:59 06:59 14:59 Other: Voiding Method Toilet Toilet Weight 68.039 kg 68.039 kg In general patient is alert and oriented 3 in no apparent distress HEENT head normocephalic and atraumatic Neck is supple no JVD no goiter no lymphadenopathy Chest exam reveals a few scattered crackles bilaterally no wheezing Cardiac exam reveals regular heart sounds S1 and S2 no gallops no murmurs Abdomen is soft nontender no organomegaly with normal bowel sounds Extremity exam reveals no edema no cyanosis or clubbing Neurological examination reveals no gross focal deficit Results CBC & Chem 7: 06/15/19 17:33 06/15/19 17:33 Labs: Abnormal Lab Results - Last 24 Hours (Table) 06/15/19 06/15/19 06/15/19 Range/Units 17:33 17:33 18:52 WBC 14.7 H (3.8-10.6) k/uL RBC 4.07 L (4.30-5.90) m/uL Hgb 12.2 L (13.0-17.5) gm/dL Hct 35.0 L (39.0-53.0) % Plt Count 504 H (150-450) k/uL Neutrophils # 11.8 H (1.3-7.7) k/uL Monocytes # 1.1 H (0-1.0) k/uL Sodium 127 L (137-145) mmol/L Chloride 93 L (98-107) mmol/L Creatinine 0.56 L (0.66-1.25) mg/dL Glucose 111 H (74-99) mg/dL Alkaline Phosphatase 131 H (38-126) U/L Creatine Kinase 54 L (55-170) U/L Albumin 3.4 L (3.5-5.0) g/dL Urine Protein Trace H (Negative) Urine Blood Moderate H (Negative) Urine RBC 15 H (0-5) /hpf Urine Mucus Occasional H (None) /hpf Thrombosis Risk Factor Assmnt - Choose All That Apply Each Risk Factor Represents 2 Points: Age 61-74 years Thrombosis Risk Factor Assessment Total Risk Factor Score: 2 Thrombosis Risk Factor Assessment Level: Low Risk Assessment and Plan Plan: #1 febrile illness possible postobstructive pneumonia, started on IV antibiotic #2 newly diagnosed left hilar mass strongly suggestive of malignancy #3 underlying history of cardiac arrhythmia with previous history of pacemaker placement #4 underlying history of coronary artery disease stable at this time #5 underlying history of COPD #6 underlying history of hypertension, well-controlled on current medications continue #7 underlying history of hyperlipidemia maintained on Lipitor #8 chronic back pain #9 history of mucus in the stools. Will obtain stool sample for culture. #10 tobacco abuse patient counseled regarding smoking cessation At this time continue with IV antibiotics, awaiting further evaluation by pulmonary regarding left hilar mass For DVT prophylaxis patient is on subcu Lovenox, for GI prophylaxis Will add Protonix
[2019-06-16] MEDS: PANTOPRAZOLE 40 MG TABLET PO SCH (13:50)
[2019-06-16] MEDS ORDERED: VANCOMYCIN IV PER PHARMACY 1 EACH MISC MISCELLANE PRN (15:05)
[2019-06-16] MEDS: VANCOMYCIN 1,250 MG in SODIUM CHLORIDE 0.9% 250 ML IVPB SCH ×2 (17:00→23:19)
[2019-06-16] MEDS ORDERED: AZITHROMYCIN 500 MG TAB PO SCH (21:40)
--- NOTE | 2019-06-17 00:09 | P.CONS ---
History of Present Illness - Reason for Consult Consult date: 06/16/19 Positive blood culture Requesting physician: Salina Schwartz - Chief Complaint cough , weakness and fever x few days - History of Present Illness Patient is a 63-year-old male past medical history significant for chronic smoking of 45 feels presenting to the ER with chief complaints of fever with chills generalized weakness and cough patient cough has been moderate in intensity and has been bringing up some whitish purulent sputum no hemoptysis though patient denies significant pleuritic chest pain no nausea no vomiting no choking on food no abdominal pain he did have some diarrhea which apparently had patient has for couple of months now patient also mentioned losing almost 30 pounds over the last few months on arrival to the patient did have a fever of 10 1 F patient was also bradycardic with heart rate of 105 and elevated white count 14.7 patient did have a chest x-ray which did show suspected left perihilar mass a CT of the chest subsequently was done with tissues most within the anterior left hilum encasing the lingula bronchus with largest perihilar and aortopulmonic window lymph nodes with concern for malignancy the patient has been treated with Rocephin and Zithromax he did have blood cultures obtained which came back positive for gram-positive cocci that prompted this infectious disease consultation. Review of Systems CONSTITUTIONAL: Positive for weakness. Fever EYES: No complaint. ENT:No complaint. RESPIRATORY: as per HPI. CARDIOVASCULAR: No complaint. GENITOURINARY: No complaint. GASTROINTESTINAL: PER HPI MUSCULOSKELETAL: No complaint. INTEGUMENTARY: No complaint. PSYCHOLOGICAL: No complaint. ENDOCRINE: No complaint. NEUROLOGIC: No complaint. Past Medical History Past Medical History: Coronary Artery Disease (CAD), Chest Pain / Angina, Hype rlipidemia, Hypertension, Osteoarthritis (OA) Additional Past Medical History / Comment(s): COPD, previous history of a third- degree AV block and the patient is a pacemaker in place, history of hemochromatosis, vitamin D deficiency, previous history of groin abscesses that are currently healed and drained, hypertension, hyperlipidemia, osteoarthritis, chronic back pain, cardiac cath found CAD and tx medically, hemachromacytosis, vitamin D deficiency History of Any Multi-Drug Resistant Organisms: None Reported Past Surgical History: Appendectomy, Heart Catheterization, Hernia Repair, Orthopedic Surgery, Tonsillectomy Additional Past Surgical History / Comment(s): 2009 cardiac cath due to chest pain and bradycardia-CAD tx medically and EF at that time 40%, rt inguinal hernia repair , rt knee arthroscopy, abcess R groin I&Ds x 2. Past Anesthesia/Blood Transfusion Reactions: No Reported Reaction Past Psychological History: No Psychological Hx Reported Additional Psychological History / Comment(s): Pt lives alone. He uses no assistive device. He drives. He is independent. Smoking Status: Current some day smoker Past Alcohol Use History: Daily Additional Past Alcohol Use History / Comment(s): Pt states he started smoking in 1963 and is less than a ppd smoker. He drinks daily- 6 beers a day. Past Drug Use History: Marijuana Additional Drug Use History / Comment(s): Pt states he has medical marijuana which he uses for pain control. He smokes it in a pipe and does this twice a d ay. - Past Family History Father Additional Family Medical History / Comment(s): Father after having a MVA with hip fracture and surgery. He did right after the surgery. Mother Family Medical History: Myocardial Infarction ([place]) Additional Family Medical History / Comment(s): Mother at age 63 yrs of massive [place]. Medications and Allergies Home Medications Medication Instructions Recorded Confirmed Type Simvastatin [Zocor] 40 mg PO DAILY 01/21/14 06/15/19 History Carvedilol [Coreg] 3.125 mg PO BID 12/03/18 06/15/19 History amLODIPine [Norvasc] 5 mg PO DAILY 30 Days #30 tab 12/05/18 06/15/19 Rx Allergies Allergy/AdvReac Type Severity Reaction Status Date / Time No Known Allergies Allergy Verified 06/15/19 17:22 Physical Exam Vitals: Vital Signs Temp Pulse Pulse Pulse Resp BP BP 06/16/19 12:06 82 06/16/19 11:54 79 06/16/19 11:43 98.0 F 71 16 06/16/19 08:38 89 06/16/19 08:25 87 06/16/19 07:20 80 06/16/19 05:27 98.7 F 76 16 109/58 06/15/19 23:00 98.7 F 76 16 109/57 06/15/19 22:18 97.6 F 80 18 120/70 06/15/19 20:00 88 18 119/73 06/15/19 19:00 87 18 118/67 06/15/19 18:49 99.4 F 83 18 118/67 06/15/19 17:42 94 18 126/78 06/15/19 17:13 101.4 F H 105 H 18 134/86 BP Pulse Ox 06/16/19 12:06 06/16/19 11:54 06/16/19 11:43 107/67 95 06/16/19 08:38 06/16/19 08:25 96 06/16/19 07:20 130/77 06/16/19 05:27 96 06/15/19 23:00 96 06/15/19 22:18 99 06/15/19 20:00 98 06/15/19 19:00 98 06/15/19 18:49 98 06/15/19 17:42 95 06/15/19 17:13 96 Intake and Output 06/16/19 06/16/19 06/16/19 06:59 14:59 22:59 Other: Voiding Method Toilet Toilet Weight 68.039 kg GENERAL DESCRIPTION: Middle-aged male lying in bed, no distress. No tachypnea or accessory muscle of respiration use. HEENT: Shows Pallor , no scleral icterus. Oral mucous membrane is dry. No pharyngeal erythema or thrush NECK: Trachea central, no thyromegaly. LUNGS: Unlabored breathing.decreased breath sounds at bases. No wheeze or crackle. HEART: S1, S2, regular rate and rhythm. No loud murmur ABDOMEN: Soft, no tenderness , guarding or rigidity, no organomegaly EXTREMITIES: No edema of feet. SKIN: No rash, no masses palpable. NEUROLOGICAL: The patient is awake, alert, oriented x3, mood and affect normal. Results CBC & Chem 7: 06/15/19 17:33 06/15/19 17:33 Labs: Abnormal Lab Results - Last 24 Hours (Table) 06/15/19 06/15/19 06/15/19 Range/Units 17:33 17:33 18:52 WBC 14.7 H (3.8-10.6) k/uL RBC 4.07 L (4.30-5.90) m/uL Hgb 12.2 L (13.0-17.5) gm/dL Hct 35.0 L (39.0-53.0) % Plt Count 504 H (150-450) k/uL Neutrophils # 11.8 H (1.3-7.7) k/uL Monocytes # 1.1 H (0-1.0) k/uL Sodium 127 L (137-145) mmol/L Chloride 93 L (98-107) mmol/L Creatinine 0.56 L (0.66-1.25) mg/dL Glucose 111 H (74-99) mg/dL Alkaline Phosphatase 131 H (38-126) U/L Creatine Kinase 54 L (55-170) U/L Albumin 3.4 L (3.5-5.0) g/dL Urine Protein Trace H (Negative) Urine Blood Moderate H (Negative) Urine RBC 15 H (0-5) /hpf Urine Mucus Occasional H (None) /hpf Microbiology - Last 24 Hours (Table) 06/15/19 17:33 Blood Culture - Final Blood Assessment and Plan Assessment: 1-patient presented to the hospital with sepsis in this patient who did have a fever tachycardia elevated white count with predominantly respiratory symptoms in this patient who did have evidence of left perihilar mass encasing the bronchus with concern for possible underlying postobstructive pneumonia right community acquired pneumonia. 2-patient with a positive blood culture with gram-positive cocci questionable effusion pneumonia however if finalized as staph epi will be disregarded as contamination (1) Sepsis Current Visit: Yes Status: Acute Code(s): A41.9 - SEPSIS, UNSPECIFIED ORGANISM SNOMED Code(s): 18348277 (2) Bacteremia Current Visit: Yes Status: Acute Code(s): R78.81 - BACTEREMIA SNOMED Code(s): 4475388 (3) Pneumonia Current Visit: Yes Status: Acute Code(s): J18.9 - PNEUMONIA, UNSPECIFIED ORGANISM SNOMED Code(s): 161232801 Plan: 1-blood cultures x1 repeated to document clearance of bacteremia 2-vancomycin pharmacy to dose target trough of 15 while watching his kidney function and vancomycin trough closely 3-discontinue Zosyn and Zithromax 4-start the patient on Unasyn 3 g every 6 hours 5-obtain sputum for Gram stain culture We will follow on clinical condition and cultures to further adjust medication if needed Thank you for this consultation will follow this patient along with you Time with Patient: Greater than 30
[2019-06-17] MEDS: HYDROcodone/APAP 7.5-325MG 1 EACH TAB PO PRN ×4 (02:31→20:35)
[2019-06-17] MEDS: SODIUM CHLORIDE 0.9% 1,000 ML IV SCH ×2 (04:12→14:28)
[2019-06-17] MEDS: AMPICILLIN-SULBACTAM 3 GM in SODIUM CHLORIDE 0.9% 100 ML IVPB SCH ×3 (06:58→17:37)
[2019-06-17] MEDS: IPRATROPIUM-ALBUTEROL 3 ML NEB INHALATION SCH ×4 (07:23→20:44)
[2019-06-17 07:51] LABS: ALT 21 U/L (21-72); AST 24 U/L (17-59); African American GFR (CKD) >90 (>60 ml/min/1.73 sqM); Albumin 2.8 g/dL (3.5-5.0); Alkaline Phosphatase 107 U/L (38-126); Anion Gap 7 mmol/L; Blood Urea Nitrogen 6 mg/dL (9-20); Calcium 8.3 mg/dL (8.4-10.2); Carbon Dioxide 26 mmol/L (22-30); Chloride 102 mmol/L (98-107); Glucose 85 mg/dL (74-99); Potassium 3.5 mmol/L (3.5-5.1); Sodium 135 mmol/L (137-145); Total Bilirubin 0.2 mg/dL (0.2-1.3)
[2019-06-17 07:52] LABS: HCT 31.9 % (39.0-53.0); HGB 10.8 gm/dL (13.0-17.5); MCH 30.4 pg (25.0-35.0); MCV 89.3 fL (80.0-100.0); Mean Platelet Volume 6.3; Platelet Count 404 k/uL (150-450); RBC 3.57 m/uL (4.30-5.90); RDW 15.1 % (11.5-15.5); WBC 9.8 k/uL (3.8-10.6)
[2019-06-17] MEDS: CARVEDILOL 3.125 MG TAB PO SCH ×2 (07:56→16:26)
[2019-06-17] MEDS: amLODIPine 5 MG TAB PO SCH (07:56)
[2019-06-17] MEDS: VANCOMYCIN 1,250 MG in SODIUM CHLORIDE 0.9% 250 ML IVPB SCH ×2 (07:56→16:08)
[2019-06-17] MEDS: PANTOPRAZOLE 40 MG TABLET PO SCH (07:56)
[2019-06-17] MEDS: ENOXAPARIN 40 MG/0.4 ML SYRINGE SQ SCH (07:56)
[2019-06-17] MEDS: ATORVASTATIN 20 MG TAB PO SCH (07:56)
[2019-06-17 08:54] LABS: Band Neutrophils % 1 %; Eosinophils # (M) 0.78 k/uL (0-0.7); Lymphocytes # (M) 0.59 k/uL (1.0-4.8); Monocytes # (M) 0.98 k/uL (0-1.0); Neutrophils % (M) 76 %; Nucleated Red Blood Cells 0 /100 WBC (0-0)
[2019-06-17 08:55] LABS: Total Cells Counted 201
[2019-06-17 08:58] LABS: Toxic Granulation Present
[2019-06-17 08:59] LABS: Anisocytosis (M) Present; Poikilocytosis (M) Present
--- NOTE | 2019-06-17 10:23 | P.PN ---
Subjective Progress Note Date: 06/17/19 Everette Gabriel is a 63-year-old male who presented to [facility] emergency department with a chief complaint of weakness, fever and cough, he was evaluated in emergency room temperature was elevated at 101.4 heart rate 105 a chest x-ray was done showed a left perihilar mass. CT scan of the chest was ordered and it showed a mass in the anterior left hilum and lymphadenopathy. This was very highly suggestive of underlying malignancy. The patient was admitted to the hospital. He was started on broad-spectrum antibiotics. Pulmonary consultation was also requested. Patient has a long history of smoking he smokes about 15 cigarettes a day and has been smoking for about 45 years. He has a known history of cardiac arrhythmia and had a pacemaker placement for a previous history of a third-degree AV block. He is known to have a history of mild coronary artery disease treated medically. No previous history of stent placement, previous echo revealed normal LV function. Patient also has been complaining of mucus since the stools. He is complaining of chronic back pain, he has known history of hypertension, hyperlipidemia, and history of COPD. On 06/17/2019 patient alert and oriented 3 patient remains on IV Unasyn and vancomycin. Positive blood culture for E. coli. Infectious disease is following. Patient remains on vancomycin and Unasyn. At that time patient denies chest pain. Patient denies nausea vomiting diarrhea. Patient denies any urinary burning or frequency Objective - Vital Signs Vital signs: Vital Signs Temp 97.9 F 06/17/19 07:00 Pulse 68 06/17/19 07:35 Resp 16 06/17/19 07:00 BP 114/70 06/17/19 07:00 Pulse Ox 97 06/17/19 07:00 Intake & Output 06/16/19 06/17/19 06/17/19 18:59 06:59 18:59 Intake Total 600 Balance 600 Weight 68.039 kg Intake: Oral 600 Other: Voiding Method Toilet Toilet # Voids 2 1 # Bowel Movements 2 - Exam In general patient is alert and oriented 3 in no apparent distress HEENT head normocephalic and atraumatic Neck is supple no JVD no goiter no lymphadenopathy Chest exam reveals a few scattered crackles bilaterally no wheezing Cardiac exam reveals regular heart sounds S1 and S2 no gallops no murmurs Abdomen is soft nontender no organomegaly with normal bowel sounds Extremity exam reveals no edema no cyanosis or clubbing Neurological examination reveals no gross focal deficit - Labs CBC & Chem 7: 06/17/19 07:14 06/17/19 07:14 Labs: Abnormal Lab Results - Last 24 Hours (Table) 06/17/19 06/17/19 Range/Units 07:14 07:14 RBC 3.57 L (4.30-5.90) m/uL Hgb 10.8 L (13.0-17.5) gm/dL Hct 31.9 L (39.0-53.0) % Lymphocytes # (Manual) 0.59 L (1.0-4.8) k/uL Eosinophils # (Manual) 0.78 H (0-0.7) k/uL Myelocytes # (Manual) 0.10 H (0) k/uL Plasma Cell # (Manual) 0.10 H (0) k/uL Sodium 135 L (137-145) mmol/L BUN 6 L (9-20) mg/dL Creatinine 0.45 L (0.66-1.25) mg/dL Calcium 8.3 L (8.4-10.2) mg/dL Total Protein 6.0 L (6.3-8.2) g/dL Albumin 2.8 L (3.5-5.0) g/dL Microbiology - Last 24 Hours (Table) 06/16/19 19:15 Gram Stain - Preliminary Sputum Sputum Culture - Preliminary 06/15/19 17:33 Blood Culture Gram Stain - Preliminary Blood Blood Culture - Preliminary Escherichia coli 06/15/19 17:33 Blood Culture - Final Blood Assessment and Plan Assessment: #1 febrile illness possible postobstructive pneumonia, started on IV antibiotic. Blood culture currently growing E. coli. Infectious disease following. Pat ient maintained on Unasyn and vancomycin #2 newly diagnosed left hilar mass strongly suggestive of malignancy. Per pulmonary patient will need further workup including a bronchoscopy #3 underlying history of cardiac arrhythmia with previous history of pacemaker placement #4 underlying history of coronary artery disease stable at this time #5 underlying history of COPD #6 underlying history of hypertension, well-controlled on current medications continue #7 underlying history of hyperlipidemia maintained on Lipitor #8 chronic back pain #9 history of mucus in the stools. Will obtain stool sample for culture. #10 tobacco abuse patient counseled regarding smoking cessation. Nicotine patch has been ordered For DVT prophylaxis patient is on subcu Lovenox, for GI prophylaxis Will add Protonix I performed an examination of the patient and discussed their management with the Nurse Practitioner. I have reviewed the Nurse Practitioner's notes and agree with the documented findings and plan of care
--- NOTE | 2019-06-17 11:57 | P.PN ---
Subjective Progress Note Date: 06/17/19 Principal diagnosis: Left hilar mass, suggestive of primary bronchogenic carcinoma, COPD and chronic dyspnea 63-year-old male patient who came into the emergency department yesterday not feeling well. His complaints are essentially nonspecific and he was having generalized weakness and fever with a temperature of 11.4 at time of admission. He denied having any chest pain or shortness of breath. No nausea or vomiting. No hemoptysis. As part of an investigation, a chest x-ray was done that showed a left perihilar mass. Based on this, a CAT scan of the chest was ordered and it showed a mass in the anterior left hilum encasing the lingular bronchus and there was also lymphadenopathy in the adjacent aortic arch and the window largest lymph node measuring 2.1 cm in the left perihilar area. This was very highly suggestive of underlying malignancy. The patient was admitted to the hospital. He was started on broad-spectrum antibiotics. Pulmonary consultation was also requested.He is a chronic smoker. He is known to have COPD. He is also complaining of chronic back pain. He has a pacemaker for a previous history of a third-degree AV block. He is known to have coronary artery disease. Currently free of any chest pain. Based on previous echocardiogram from 2016, the patient is a preserved LV function with an ejection fraction of 50-55%. On 06/17/2019 patient seen in follow-up on medical surgical floor. He is in no acute distress, he is on room air, denies any fever or chills, denies any chest pain, no cough or congestion, patient is tolerating ambulation, denies any specific complaints, no hemoptysis, sputum culture is pending, blood culture shonna wed E. coli, ID service is following, and patient currently on a combination of Unasyn and vancomycin. Objective - Vital Signs Vital signs: Vital Signs Temp 97.9 F 06/17/19 07:00 Pulse 68 06/17/19 11:32 Resp 16 06/17/19 07:00 BP 114/70 06/17/19 07:00 Pulse Ox 97 06/17/19 07:00 Intake & Output 06/16/19 06/17/19 06/17/19 18:59 06:59 18:59 Intake Total 600 Balance 600 Weight 68.039 kg Intake: Oral 600 Other: Voiding Method Toilet Toilet # Voids 2 1 # Bowel Movements 2 - Exam GENERAL EXAM: Alert, pleasant, 63-year-old white male, on room air comfortable in no apparent distress. HEAD: Normocephalic/atraumatic. EYES: Normal reaction of pupils, equal size. Conjunctiva pink, sclera white. NOSE: Clear with pink turbinates. THROAT: No erythema or exudates. NECK: No masses, no JVD, no thyroid enlargement, no adenopathy. CHEST: No chest wall deformity. Symmetrical expansion. LUNGS: Equal air entry with no crackles, wheeze, rhonchi or dullness. CVS: Regular rate and rhythm, normal S1 and S2, no gallops, no murmurs, no rubs ABDOMEN: Soft, nontender. No hepatosplenomegaly, normal bowel sounds, no guarding or rigidity. EXTREMITIES: No clubbing, no edema, no cyanosis, 2+ pulses and upper and lower extremities. MUSCULOSKELETAL: Muscle strength and tone normal. SPINE: No scoliosis or deformity SKIN: No rashes CENTRAL NERVOUS SYSTEM: Alert and oriented -3. No focal deficits, tone is normal in all 4 extremities. PSYCHIATRIC: Alert and oriented -3. Appropriate affect. Intact judgment and insight. - Labs CBC & Chem 7: 06/17/19 07:14 06/17/19 07:14 Labs: Abnormal Lab Results - Last 24 Hours (Table) 06/17/19 06/17/19 Range/Units 07:14 07:14 RBC 3.57 L (4.30-5.90) m/uL Hgb 10.8 L (13.0-17.5) gm/dL Hct 31.9 L (39.0-53.0) % Lymphocytes # (Manual) 0.59 L (1.0-4.8) k/uL Eosinophils # (Manual) 0.78 H (0-0.7) k/uL Sodium 135 L (137-145) mmol/L BUN 6 L (9-20) mg/dL Creatinine 0.45 L (0.66-1.25) mg/dL Calcium 8.3 L (8.4-10.2) mg/dL Total Protein 6.0 L (6.3-8.2) g/dL Albumin 2.8 L (3.5-5.0) g/dL Microbiology - Last 24 Hours (Table) 06/16/19 11:55 Stool Culture - Preliminary Stool 06/16/19 19:15 Gram Stain - Preliminary Sputum Sputum Culture - Preliminary 06/15/19 17:33 Blood Culture Gram Stain - Preliminary Blood Blood Culture - Preliminary Escherichia coli 06/15/19 17:33 Blood Culture - Final Blood Assessment and Plan Plan: Assessment: 1 left hilar mass, highly suggestive of primary bronchogenic carcinoma. Will need further workup including a bronchoscopy. 2 E. coli bacteremia 3 COPD with chronic dyspnea. 4 nonocclusive coronary artery disease managed medically 5 history of third-degree AV block post-pacemaker insertion 6 hypertension 7 hyperlipidemia 8 remote history of hemochromatosis 9 osteoarthritis Plan: Continue antibiotics per ID service recommendations, patient is afebrile, breathing is stable, tolerating ambulation, denies dyspnea, denies any significant cough or congestion, no hemoptysis, will discontinue Lovenox, will schedule the patient for bronchoscopy with biopsies of the left hilar mass on 06/19/2019, plan was discussed with the patient and patient is agreeable to proceed I performed a history & physical examination of the patient and discussed their management with my nurse practitioner, Bev Villa. I reviewed the nurse practitioner's note and agree with the documented findings and plan of care. Lung sounds are positive for diminished breath sounds. The findings and the impression was discussed with the patient. I attest to the documentation by the nurse practitioner. Time with Patient: Less than 30
--- NOTE | 2019-06-17 23:12 | PN ---
PROGRESS NOTE DATE OF SERVICE: 06/17/2019. REASON FOR FOLLOWUP: Possible postoperative pneumonia and bacteremia. INTERVAL HISTORY: The patient is currently afebrile. The patient is breathing slightly comfortably. Still has a cough but no worsening. No chest pain. No nausea, vomiting, abdominal pain or any worsening diarrhea. PHYSICAL EXAMINATION: Blood pressure 107/67 with a pulse of 79, temperature 98. He is 95% on room air. General description is a middle-aged male lying in bed in no distress. RESPIRATORY SYSTEM: Unlabored breathing with decreased intensity of breath sounds. No wheeze. HEART: S1, S2. Regular rate and rhythm. ABDOMEN: Soft. No tenderness. EXTREMITIES: No edema of the feet. LABS: Hemoglobin is 10.8, white count 9.8 with a BUN of 6, creatinine 0.45. Blood culture report yesterday with gram-positive cocci has been finalized with E coli, interestingly with repeat blood cultures 06/16 coming back positive with gram-positive as well with identification and sensitivities pending. DIAGNOSTIC IMPRESSION AND PLAN: Patient with a left hilar mass with concern for bronchogenic carcinoma with secondary bacterial/postobstructive pneumonia with evidence of bacteremia. Patient is currently covered with Unasyn and vancomycin; to continue. Blood culture will be repeated to document clearance of the bacteremia. Continue with supportive care. MMODL / IJN: [id number] /
[2019-06-18] MEDS: VANCOMYCIN 1,250 MG in SODIUM CHLORIDE 0.9% 250 ML IVPB SCH ×2 (00:12→07:36)
[2019-06-18] MEDS: AMPICILLIN-SULBACTAM 3 GM in SODIUM CHLORIDE 0.9% 100 ML IVPB SCH ×5 (00:15→23:11)
[2019-06-18] MEDS: SODIUM CHLORIDE 0.9% 1,000 ML IV SCH ×3 (00:16→21:09)
[2019-06-18] MEDS: HYDROcodone/APAP 7.5-325MG 1 EACH TAB PO PRN ×4 (02:49→22:10)
[2019-06-18] MEDS ORDERED: VANCOMYCIN TROUGH DUE 1 EACH MISC MISCELLANE ONE (07:00)
[2019-06-18 07:18] LABS: Basophils % (A) 0 %; Eosinophils # (A) 0.7 k/uL (0-0.7); Eosinophils % (A) 7 %; HCT 31.2 % (39.0-53.0); HGB 10.6 gm/dL (13.0-17.5); Lymphocytes # (A) 1.2 k/uL (1.0-4.8); Lymphocytes % (A) 11 %; MCH 29.8 pg (25.0-35.0); MCHC 34.1 g/dL (31.0-37.0); MCV 87.6 fL (80.0-100.0); Mean Platelet Volume 5.4; Monocytes # (A) 0.8 k/uL (0-1.0); Monocytes % (A) 8 %; Neutrophils # (A) 7.2 k/uL (1.3-7.7); Neutrophils % (A) 72 %; Platelet Count 472 k/uL (150-450); RBC 3.56 m/uL (4.30-5.90); RDW 14.9 % (11.5-15.5); WBC 10.1 k/uL (3.8-10.6)
[2019-06-18 07:30] LABS: ALT 28 U/L (21-72); AST 24 U/L (17-59); African American GFR (CKD) >90 (>60 ml/min/1.73 sqM); Albumin 2.9 g/dL (3.5-5.0); Alkaline Phosphatase 119 U/L (38-126); Anion Gap 7 mmol/L; Blood Urea Nitrogen 7 mg/dL (9-20); Calcium 8.5 mg/dL (8.4-10.2); Carbon Dioxide 27 mmol/L (22-30); Chloride 101 mmol/L (98-107); Glucose 93 mg/dL (74-99); Potassium 3.6 mmol/L (3.5-5.1); Sodium 135 mmol/L (137-145); Total Bilirubin 0.2 mg/dL (0.2-1.3); Total Protein 6.1 g/dL (6.3-8.2)
[2019-06-18] MEDS: NICOTINE 14MG/24HR PATCH TRANSDERM SCH ×2 (07:35→07:39)
[2019-06-18] MEDS: PANTOPRAZOLE 40 MG TABLET PO SCH (07:35)
[2019-06-18] MEDS: CARVEDILOL 3.125 MG TAB PO SCH ×2 (07:35→18:02)
[2019-06-18] MEDS: amLODIPine 5 MG TAB PO SCH (07:36)
[2019-06-18] MEDS: ATORVASTATIN 20 MG TAB PO SCH (07:36)
[2019-06-18] MEDS: IPRATROPIUM-ALBUTEROL 3 ML NEB INHALATION SCH ×4 (09:24→20:51)
--- NOTE | 2019-06-18 10:04 | P.PN ---
Subjective Progress Note Date: 06/18/19 Everette Gabriel is a 63-year-old male who presented to [facility] emergency department with a chief complaint of weakness, fever and cough, he was evaluated in emergency room temperature was elevated at 101.4 heart rate 105 a chest x-ray was done showed a left perihilar mass. CT scan of the chest was ordered and it showed a mass in the anterior left hilum and lymphadenopathy. This was very highly suggestive of underlying malignancy. The patient was admitted to the hospital. He was started on broad-spectrum antibiotics. Pulmonary consultation was also requested. Patient has a long history of smoking he smokes about 15 cigarettes a day and has been smoking for about 45 years. He has a known history of cardiac arrhythmia and had a pacemaker placement for a previous history of a third-degree AV block. He is known to have a history of mild coronary artery disease treated medically. No previous history of stent placement, previous echo revealed normal LV function. Patient also has been complaining of mucus since the stools. He is complaining of chronic back pain, he has known history of hypertension, hyperlipidemia, and history of COPD. On 06/17/2019 patient alert and oriented 3 patient remains on IV Unasyn and vancomycin. Positive blood culture for E. coli. Infectious disease is following. Patient remains on vancomycin and Unasyn. At that time patient denies chest pain. Patient denies nausea vomiting diarrhea. Patient denies any urinary burning or frequency On 06/18/2019 patient is alert and oriented 3. Patient is going to have bronchoscopy with biopsy completed today with Dr. Melendez. Patient remains on IV Unasyn and vancomycin, infectious disease is following repeat cultures pending. Patient denies any shortness of breath, chest pain, nausea, vomiting, diarrhea urinary frequency, or dysurea. Objective - Vital Signs Vital signs: Vital Signs Temp 97.8 F 06/18/19 09:08 Pulse 76 06/18/19 09:32 Resp 16 06/18/19 09:24 BP 126/79 06/18/19 09:08 Pulse Ox 97 06/18/19 09:08 Intake & Output 06/17/19 06/18/19 06/18/19 18:59 06:59 18:59 Intake Total 1550 500 Balance 1550 500 Intake: IV 1150 Ampicillin-Sulbactam 3 gm 100 In Sodium Chloride 0.9% 100 ml @ 200 mls/hr IVPB Q6H [facility] Rx#:[id number] Sodium Chloride 0.9% 1, 800 000 ml @ 100 mls/hr IV . Q10H [facility] Rx#:[id number] Vancomycin 1,250 mg In 250 Sodium Chloride 0.9% 250 ml @ 125 mls/hr IVPB Q8HR [facility] Rx#:[id number] Oral 400 500 Other: Voiding Method Toilet # Voids 2 - Exam In general patient is alert and oriented 3 in no apparent distress HEENT head normocephalic and atraumatic Neck is supple no JVD no goiter no lymphadenopathy Chest exam reveals left-sided lower lobe rhonichi, right lung cosme diminished. Cardiac exam reveals regular heart sounds S1 and S2 no gallops no murmurs Abdomen is soft nontender no organomegaly with normal bowel sounds Extremity exam reveals no edema no cyanosis or clubbing Neurological examination reveals no gross focal deficit - Labs CBC & Chem 7: 06/18/19 06:59 06/18/19 06:59 Labs: Abnormal Lab Results - Last 24 Hours (Table) 06/16/19 06/18/19 06/18/19 Range/Units 11:55 06:59 06:59 RBC 3.56 L (4.30-5.90) m/uL Hgb 10.6 L (13.0-17.5) gm/dL Hct 31.2 L (39.0-53.0) % Plt Count 472 H (150-450) k/uL Sodium 135 L (137-145) mmol/L BUN 7 L (9-20) mg/dL Creatinine 0.46 L (0.66-1.25) mg/dL Total Protein 6.1 L (6.3-8.2) g/dL Albumin 2.9 L (3.5-5.0) g/dL Stool Lactoferrin POSITIVE H (NEGATIVE) Microbiology - Last 24 Hours (Table) 06/15/19 17:33 Blood Culture Gram Stain - Final Blood Blood Culture - Final Escherichia coli 06/16/19 15:28 Blood Culture Gram Stain - Preliminary Blood Blood Culture - Preliminary Coagulase Negative Staph 06/16/19 15:28 Blood Culture - Final Blood 06/16/19 11:55 Stool Culture - Preliminary Stool 06/16/19 19:15 Gram Stain - Preliminary Sputum Sputum Culture - Preliminary Assessment and Plan Assessment: #1 febrile illness possible postobstructive pneumonia, started on IV antibiotic. Blood culture currently growing E. coli. Infectious disease following. Patient maintained on Unasyn and vancomycin. Blood cultures being repeated to rule out contamination, results pending. #2 newly diagnosed left hilar mass strongly suggestive of malignancy. Per pulmonary, bronchoscopy with biopsy will be completed 06/18/2019. #3 underlying history of cardiac arrhythmia with previous history of pacemaker placement #4 underlying history of coronary artery disease stable at this time #5 underlying history of COPD. #6 underlying history of hypertension, well-controlled on current medications continue #7 underlying history of hyperlipidemia maintained on Lipitor #8 chronic back pain #9 history of mucus in the stools. Will obtain stool sample for culture. #10 tobacco abuse patient counseled regarding smoking cessation. Nicotine patch has been ordered For DVT prophylaxis patient is on subcu Lovenox, for GI prophylaxis Will add Protonix I performed an examination of the patient and discussed their management with the Nurse Practitioner. I have reviewed the Nurse Practitioner's notes and agree with the documented findings and plan of care
[2019-06-18] MEDS ORDERED: PROPOFOL 10 MG/ML 20 ML VIAL IV ONE (12:28)
[2019-06-18] MEDS ORDERED: IV FLUID CONTINUATION 1,000 ML IV ONE (12:45)
[2019-06-18] MEDS ORDERED: LIDOCAINE 2% INJ 20 MG/ML INTRATRACH ONE (13:13)
[2019-06-18] MEDS ORDERED: EPINEPHrine 10 ML SYRINGE (0.1 MG/ML) MISCELLANE ONE (13:14)
--- NOTE | 2019-06-18 13:38 | P.PN ---
Subjective Progress Note Date: 06/18/19 Principal diagnosis: Dyspnea secondary to COPD and a left hilar mass. Suspicious for primary bronchogenic carcinoma. 63-year-old male patient who came into the emergency department yesterday not feeling well. His complaints are essentially nonspecific and he was having generalized weakness and fever with a temperature of 11.4 at time of admission. He denied having any chest pain or shortness of breath. No nausea or vomiting. No hemoptysis. As part of an investigation, a chest x-ray was done that showed a left perihilar mass. Based on this, a CAT scan of the chest was ordered and it showed a mass in the anterior left hilum encasing the lingular bronchus and there was also lymphadenopathy in the adjacent aortic arch and the window largest lymph node measuring 2.1 cm in the left perihilar area. This was very highly suggestive of underlying malignancy. The patient was admitted to the hospital. He was started on broad-spectrum antibiotics. Pulmonary consultation was also requested.He is a chronic smoker. He is known to have COPD. He is also complaining of chronic back pain. He has a pacemaker for a previous history of a third-degree AV block. He is known to have coronary artery disease. Currently free of any chest pain. Based on previous echocardiogram from 2016, the patient is a preserved LV function with an ejection fraction of 50-55%. On 06/17/2019 patient seen in follow-up on medical surgical floor. He is in no acute distress, he is on room air, denies any fever or chills, denies any chest pain, no cough or congestion, patient is tolerating ambulation, denies any specific complaints, no hemoptysis, sputum culture is pending, blood culture showed E. coli, ID service is following, and patient currently on a combination of Unasyn and vancomycin. The patient is seen today 06/18/2019 in follow-up on the regular medical floor. He is awake alert no acute distress. He's been up ambulating in the room without significant dyspnea. He is to undergo bronchoscopy with biopsies today. He is anxious to go home. Sputum culture reveals no growth. Blood cultures are positive for E. coli. White count 10.1. Hemoglobin 10.6. Sodium 135. Potassium 3.6. Creatinine 0.46. He remains on vancomycin and Unasyn. Objective - Vital Signs Vital signs: Vital Signs Temp 97.8 F 06/18/19 09:08 Pulse 70 06/18/19 12:11 Resp 16 06/18/19 09:24 BP 126/79 06/18/19 09:08 Pulse Ox 97 06/18/19 09:08 Intake & Output 06/17/19 06/18/19 06/18/19 18:59 06:59 18:59 Intake Total 1550 500 300 Balance 1550 500 300 Intake: IV 1150 300 Ampicillin-Sulbactam 3 gm 100 In Sodium Chloride 0.9% 100 ml @ 200 mls/hr IVPB Q6H [facility] Rx#:[id number] Sodium Chloride 0.9% 1, 800 000 ml @ 100 mls/hr IV . Q10H [facility] Rx#:[id number] Vancomycin 1,250 mg In 250 Sodium Chloride 0.9% 250 ml @ 125 mls/hr IVPB Q8HR [facility] Rx#:[id number] Oral 400 500 Other: Voiding Method Toilet # Voids 2 - Exam GENERAL EXAM: Alert, pleasant, 63-year-old male patient, on room air, comfortable in no apparent distress. HEAD: Normocephalic/atraumatic. EYES: Normal reaction of pupils, equal size. Conjunctiva pink, sclera white. NOSE: Clear with pink turbinates. THROAT: No erythema or exudates. NECK: No masses, no JVD, no thyroid enlargement, no adenopathy. CHEST: No chest wall deformity. Symmetrical expansion. LUNGS: Equal air entry with no crackles, wheeze, rhonchi or dullness. CVS: Regular rate and rhythm, normal S1 and S2, no gallops, no murmurs, no rubs ABDOMEN: Soft, nontender. No hepatosplenomegaly, normal bowel sounds, no guar ding or rigidity. EXTREMITIES: No clubbing, no edema, no cyanosis, 2+ pulses and upper and lower extremities. MUSCULOSKELETAL: Muscle strength and tone normal. SPINE: No scoliosis or deformity SKIN: No rashes CENTRAL NERVOUS SYSTEM: No focal deficits, tone is normal in all 4 extremities. PSYCHIATRIC: Alert and oriented -3. Appropriate affect. Intact judgment and insight. - Labs CBC & Chem 7: 06/18/19 06:59 06/18/19 06:59 Labs: Abnormal Lab Results - Last 24 Hours (Table) 06/18/19 06/18/19 Range/Units 06:59 06:59 RBC 3.56 L (4.30-5.90) m/uL Hgb 10.6 L (13.0-17.5) gm/dL Hct 31.2 L (39.0-53.0) % Plt Count 472 H (150-450) k/uL Sodium 135 L (137-145) mmol/L BUN 7 L (9-20) mg/dL Creatinine 0.46 L (0.66-1.25) mg/dL Total Protein 6.1 L (6.3-8.2) g/dL Albumin 2.9 L (3.5-5.0) g/dL Microbiology - Last 24 Hours (Table) 06/16/19 19:15 Gram Stain - Final Sputum Sputum Culture - Final 06/15/19 17:33 Blood Culture Gram Stain - Final Blood Blood Culture - Final Escherichia coli 06/16/19 15:28 Blood Culture Gram Stain - Preliminary Blood Blood Culture - Preliminary Coagulase Negative Staph 06/16/19 15:28 Blood Culture - Final Blood 06/16/19 11:55 Stool Culture - Preliminary Stool Assessment and Plan Assessment: Assessment: 1 left hilar mass, highly suggestive of primary bronchogenic carcinoma. Bronchoscopy with biopsies taken today. 2 E. coli bacteremia 3 COPD with chronic dyspnea. 4 nonocclusive coronary artery disease managed medically 5 history of third-degree AV block post-pacemaker insertion 6 hypertension 7 hyperlipidemia 8 remote history of hemochromatosis 9 osteoarthritis Plan: The patient was seen and evaluated by Dr. Melendez. He did undergo bronchoscopy with biopsies of the lingular area. Significant obstruction going towards lingula and left upper lobe noted. He is again educated regarding the importance of complete smoking cessation. NicoDerm patch in place. He is cleared for discharge from the pulmonary standpoint. Antibiotics per ID services. He should follow-up in our office in 1 week. I, the cosigning physician, performed a history & physical examination of the patient. Lungs sounds with end expiratory wheeze, diminished Maintaining good O2 saturations in the 90s on room air. I discussed the assessment and plan of care with my nurse practitioner, June Sloan. I attest to the above note as dictated by her.
[2019-06-18] MEDS ORDERED: MIDAZOLAM 2 MG/2 ML VIAL IV PRN (13:51)
[2019-06-18] MEDS ORDERED: DEXAMETHASONE SOD PHOSPHATE 10 MG/ML 1 ML VIAL IV ONE (13:51)
[2019-06-18] MEDS ORDERED: fentaNYL (PF) 50 MCG/ML 2 ML AMP IV PRN (13:51)
[2019-06-18] MEDS ORDERED: LIDOCAINE 1% 20 ML VIAL (10MG/ML) FOR IV START INTRADERMA PRN (13:51)
[2019-06-18] MEDS: LACTATED RINGERS 1,000 ML IV SCH (14:03)
[2019-06-18] MEDS: VANCOMYCIN 1,500 MG in SODIUM CHLORIDE 0.9% 250 ML IVPB SCH ×2 (15:03→23:52)
--- NOTE | 2019-06-18 16:01 | CDI ---
Documentation Clarification Form Date: 06/18/2019 3:39:54 PM From: Mariah Zheng RN CCDS Admit Date: 06/15/2019 9:38:00 PM Patient Name: Everette Gabriel Visit Number: [id number] Discharge Date: ATTENTION: The Clinical Documentation Specialists (CDI) and [facility] Coding Staff appreciate your assistance in clarifying documentation. Please respond to the clarification below the line at the bottom and electronically sign. The CDI & [facility] Coding staff will review the response and follow-up if needed. Please note: Queries are made part of the Legal Health Record. If you have any questions, please contact the author of this message via ITS. Dr. Salina Schwartz Sepsis is documented in the Infectious disease consult 06/16/2019 History/Risk Factors: 63-year-old male presents to the ED with weakness and chills. Clinical Indicators: Medical History COPD, HTN; Left Hilar mass WBC 06/15/2019; 14.7 Lactic acid: 06/15/2019; 0.9 Blood cultures: 06/15/2019; Escherichia coli 06/16/2019 Coagulase Negative Staph Vitals signs on admission: 06/15/2019 - 134/86 105 101.4 18 96% ra Treatment: ID Consult: Patient presented to the hospital with sepsis in this patient who did have a fever, tachycardia, elevated white count with predominantly respiratory symptoms Antibiotics: 06/15/2019; Azithromycin Ivpb; Rocpehin ivpb x1 06/16/2019 Azithromycin PO; Vancomycin Ivpb IV Bolus: 06/15/2019 1L 0.9ns IVFL Bolus then at 100cchr In your professional opinion, please clarify if these findings signify one of the following conditions, whether the condition is POA, and cause, if known: * Sepsis POA * Sepsis Ruled Out * Other, please specify * Unable to determine Identify the (suspected) organism Link or clarify if there is associated (due to/with): Organ failure Shock SIRS Criteria (2 or more of the following may indicate SIRS): -Temperature < 96.8F (36C) or > 101.0F (38.3C) -Heart Rate > 90 bpm -Respiratory Rate > 20 breaths/min or PaCO2 < 32 mmHg -White Blood Cell Count > 12,000 or < 4,000 cells/mm3 or > 10% bands -Lactate >2.0 mmol/L (>4.0 is equivalent to septic shock) (Last Revision: December 2017) Sepsis present on admit MTDD
--- NOTE | 2019-06-18 22:11 | PCN ---
PROCEDURE NOTE OPERATIVE REPORT: Bronchoscopy and multiple endobronchial biopsies of the lingula, brushings of the lingular bronchus. PREOPERATIVE DIAGNOSIS: Left lung mass. POSTOPERATIVE DIAGNOSIS: Left lung mass completely obstructing the lingular bronchus and left upper lobe bronchus. ANESTHESIA USED: IV conscious sedation. PROCEDURE: The patient was prepared according to the bronchoscopy protocol. O2 was applied via nasal cannula. The patient was placed in the supine position, and we monitored his O2 saturation continuously. Blood pressure was intermittently monitored. Heart rate was continuously monitored as well as cardiac rhythm. After adequate IV conscious sedation, a few mL of lidocaine were instilled into the left naris, the bronchoscope was advanced through the left naris down to the area of the vocal cords, which were noted to be patent. Lidocaine was applied over the vocal cords, the bronchoscope was advanced further down to the trachea. The trachea was noted to be free of any endotracheal lesions, however, it was noted to be narrowed and saber-way trachea. Thorough examination was done of the leo, right upper lobe, right middle lobe, right lower lobe, and there was no evidence of any endobronchial lesions or tumors on the right side. However, as I went into the left mainstem bronchus, it was noted to be free of any lesions. As I came closer to the lingular bronchus, there was complete extrinsic compression and narrowing of the lingular bronchus, and the left upper lobe. I could not visualize any left upper lobe bronchus and could not visualize any superior lingular bronchus or inferior lingular bronchus. These were all extrinsically compressed together. The left lower lobe bronchus was noted to be intact. I was able to visualize the lower segments of the left lower lobe. Then the bronchoscope was placed at the proximal lingular bronchus, and multiple endobronchial biopsies were taken from the area of obstruction. Brushings were also taken. There was a bit more bleeding with every biopsy, however, a total amount of blood loss was no more than 20 mL total. Epinephrine was used locally at the areas of the biopsies, and was able to control the bleeding nicely. The biopsies, brushings and washings from the lingular bronchus were all sent for different diagnostic studies. Procedure was well tolerated, no evidence of any immediate complications. MMODL / IJN: [id number] /
--- NOTE | 2019-06-18 23:32 | PN ---
PROGRESS NOTE DATE OF SERVICE: 06/18/2019. REASON FOR FOLLOW UP: 1. Postobstructive pneumonia. 2. Bacteremia. INTERVAL HISTORY: The patient is currently afebrile. The patient is status post bronchoscopy with evidence of left lung mass completely obstructing the lingular bronchus and left upper lobe bronchus status post biopsy. The patient tolerated the procedure. Denies any chest pain. No worsening cough. No nausea, no vomiting. No abdominal pain. No diarrhea. PHYSICAL EXAMINATION: Blood pressure 133/70 with a pulse of 78, temperature 97.7. He is 97% on room air. General description is a middle-aged male up in the bed in no distress. Respiratory system: Unlabored breathing. Decreased breath sounds in the bases. No wheeze. Heart S1, S2. Regular rate and rhythm. ABDOMEN: Soft, no tenderness. EXTREMITIES: No edema of the feet. LABS: Hemoglobin is 10.7, white count 10.1, BUN of 7, creatinine 0.46. A blood culture repeat showing coagulase negative Staph and micrococcus species. Initial blood culture with E coli. DIAGNOSTIC IMPRESSION AND PLAN: 1. Patient admitted to the hospital with fever, chills, cough with evidence of lung mass and postobstructive pneumonia with evidence of E coli bacteremia. Currently covered with Unasyn. 2. Positive blood culture with micrococcus and coagulase negative Staph more likely contamination, to discontinue the vancomycin. MMODL / IJN: [id number] /
[2019-06-19] MEDS: HYDROcodone/APAP 7.5-325MG 1 EACH TAB PO PRN ×3 (04:40→18:32)
[2019-06-19] MEDS: AMPICILLIN-SULBACTAM 3 GM in SODIUM CHLORIDE 0.9% 100 ML IVPB SCH ×3 (05:50→19:03)
[2019-06-19] MEDS: SODIUM CHLORIDE 0.9% 1,000 ML IV SCH ×2 (05:50→16:32)
[2019-06-19] MEDS: ATORVASTATIN 20 MG TAB PO SCH (08:09)
[2019-06-19] MEDS: PANTOPRAZOLE 40 MG TABLET PO SCH (08:09)
[2019-06-19] MEDS: CARVEDILOL 3.125 MG TAB PO SCH ×2 (08:09→18:32)
[2019-06-19] MEDS: NICOTINE 14MG/24HR PATCH TRANSDERM SCH (08:09)
[2019-06-19] MEDS: amLODIPine 5 MG TAB PO SCH (08:10)
[2019-06-19] MEDS: VANCOMYCIN 1,500 MG in SODIUM CHLORIDE 0.9% 250 ML IVPB SCH (08:14)
[2019-06-19 08:31] LABS: Basophils % (A) 0 %; Eosinophils % (A) 0 %; HCT 33.5 % (39.0-53.0); HGB 11.1 gm/dL (13.0-17.5); Lymphocytes # (A) 0.7 k/uL (1.0-4.8); Lymphocytes % (A) 6 %; MCH 29.5 pg (25.0-35.0); MCV 89.3 fL (80.0-100.0); Mean Platelet Volume 5.4; Monocytes # (A) 0.5 k/uL (0-1.0); Monocytes % (A) 4 %; Neutrophils # (A) 9.5 k/uL (1.3-7.7); Neutrophils % (A) 88 %; Platelet Count 575 k/uL (150-450); RBC 3.75 m/uL (4.30-5.90); RDW 14.9 % (11.5-15.5); WBC 10.7 k/uL (3.8-10.6)
[2019-06-19 08:32] LABS: African American GFR (CKD) >90 (>60 ml/min/1.73 sqM); Albumin 3.3 g/dL (3.5-5.0); Anion Gap 11 mmol/L; Blood Urea Nitrogen 12 mg/dL (9-20); Calcium 8.9 mg/dL (8.4-10.2); Carbon Dioxide 25 mmol/L (22-30); Chloride 100 mmol/L (98-107); Glucose 169 mg/dL (74-99); Potassium 3.9 mmol/L (3.5-5.1); Sodium 136 mmol/L (137-145); Total Bilirubin 0.3 mg/dL (0.2-1.3); Total Protein 6.8 g/dL (6.3-8.2)
[2019-06-19 08:33] LABS: ALT 21 U/L (21-72); AST 27 U/L (17-59); Alkaline Phosphatase 118 U/L (38-126)
[2019-06-19] MEDS: IPRATROPIUM-ALBUTEROL 3 ML NEB INHALATION SCH ×3 (09:24→16:51)
--- NOTE | 2019-06-19 12:50 | P.PN ---
Subjective Progress Note Date: 06/19/19 Principal diagnosis: Dyspnea secondary to COPD and a left hilar mass. Suspicious for primary bronchogenic carcinoma. 63-year-old male patient who came into the emergency department yesterday not feeling well. His complaints are essentially nonspecific and he was having generalized weakness and fever with a temperature of 11.4 at time of admission. He denied having any chest pain or shortness of breath. No nausea or vomiting. No hemoptysis. As part of an investigation, a chest x-ray was done that showed a left perihilar mass. Based on this, a CAT scan of the chest was ordered and it showed a mass in the anterior left hilum encasing the lingular bronchus and there was also lymphadenopathy in the adjacent aortic arch and the window largest lymph node measuring 2.1 cm in the left perihilar area. This was very highly suggestive of underlying malignancy. The patient was admitted to the hospital. He was started on broad-spectrum antibiotics. Pulmonary consultation was also requested.He is a chronic smoker. He is known to have COPD. He is also complaining of chronic back pain. He has a pacemaker for a previous history of a third-degree AV block. He is known to have coronary artery disease. Currently free of any chest pain. Based on previous echocardiogram from 2016, the patient is a preserved LV function with an ejection fraction of 50-55%. On 06/17/2019 patient seen in follow-up on medical surgical floor. He is in no acute distress, he is on room air, denies any fever or chills, denies any chest pain, no cough or congestion, patient is tolerating ambulation, denies any specific complaints, no hemoptysis, sputum culture is pending, blood culture showed E. coli, ID service is following, and patient currently on a combination of Unasyn and vancomycin. The patient is seen today 06/18/2019 in follow-up on the regular medical floor. He is awake alert no acute distress. He's been up ambulating in the room without significant dyspnea. He is to undergo bronchoscopy with biopsies today. He is anxious to go home. Sputum culture reveals no growth. Blood cultures are positive for E. coli. White count 10.1. Hemoglobin 10.6. Sodium 135. Potassium 3.6. Creatinine 0.46. He remains on vancomycin and Unasyn. The patient is seen today 06/19/2019 in follow-up on the regular medical floor. He is currently sitting up in a chair at the bedside. Awake and alert in no acute distress. No worsening shortness of breath, cough or congestion. He did have one episode of slight hemoptysis post bronchoscopy with biopsies yesterday. None today. Pathology pending. White count 10.7. Hemoglobin 11.1. Creatinine 0.45. He remains on Unasyn. Blood culture most likely contaminant. Vancomycin discontinued per ID services. Objective - Vital Signs Vital signs: Vital Signs Temp 97.6 F 06/19/19 05:53 Pulse 72 06/19/19 09:36 Resp 22 06/19/19 08:00 BP 124/77 06/19/19 05:53 Pulse Ox 100 06/19/19 05:53 Intake & Output 06/18/19 06/19/19 06/19/19 18:59 06:59 18:59 Intake Total 300 300 Balance 300 300 Intake: IV 300 Oral 300 Other: Voiding Method Toilet Toilet # Voids 1 1 - Exam GENERAL EXAM: Alert, pleasant, 63-year-old male patient, on room air, comfortable in no apparent distress. HEAD: Normocephalic/atraumatic. EYES: Normal reaction of pupils, equal size. Conjunctiva pink, sclera white. NOSE: Clear with pink turbinates. THROAT: No erythema or exudates. NECK: No masses, no JVD, no thyroid enlargement, no adenopathy. CHEST: No chest wall deformity. Symmetrical expansion. LUNGS: Equal air entry with no crackles, wheeze, rhonchi or dullness. CVS: Regular rate and rhythm, normal S1 and S2, no gallops, no murmurs, no rubs ABDOMEN: Soft, nontender. No hepatosplenomegaly, normal bowel sounds, no guarding or rigidity. EXTREMITIES: No clubbing, no edema, no cyanosis, 2+ pulses and upper and lower extremities. MUSCULOSKELETAL: Muscle strength and tone normal. SPINE: No scoliosis or deformity SKIN: No rashes CENTRAL NERVOUS SYSTEM: No focal deficits, tone is normal in all 4 extremities. PSYCHIATRIC: Alert and oriented -3. Appropriate affect. Intact judgment and insight. - Labs CBC & Chem 7: 06/19/19 07:59 06/19/19 07:59 Labs: Abnormal Lab Results - Last 24 Hours (Table) 06/19/19 06/19/19 Range/Units 07:59 07:59 WBC 10.7 H (3.8-10.6) k/uL RBC 3.75 L (4.30-5.90) m/uL Hgb 11.1 L (13.0-17.5) gm/dL Hct 33.5 L (39.0-53.0) % Plt Count 575 H (150-450) k/uL Neutrophils # 9.5 H (1.3-7.7) k/uL Lymphocytes # 0.7 L (1.0-4.8) k/uL Sodium 136 L (137-145) mmol/L Creatinine 0.45 L (0.66-1.25) mg/dL Glucose 169 H (74-99) mg/dL Albumin 3.3 L (3.5-5.0) g/dL Microbiology - Last 24 Hours (Table) 06/18/19 13:03 Gram Stain - Preliminary Bronchial Washings - Left Bronchial Washings Culture - Preliminary 06/18/19 13:03 Acid Fast Bacilli Culture - Preliminary Bronchial Washings - Left 06/16/19 15:28 Blood Culture Gram Stain - Final Blood Blood Culture - Final Coagulase Negative Staph Micrococcus species 06/16/19 19:15 Gram Stain - Final Sputum Sputum Culture - Final 06/15/19 17:33 Blood Culture Gram Stain - Final Blood Blood Culture - Final Escherichia coli Assessment and Plan Assessment: Assessment: 1 left hilar mass, highly suggestive of primary bronchogenic carcinoma. Bronchoscopy with biopsies taken 06/18/2019. Pathology pending.. 2 E. coli bacteremia 3 COPD with chronic dyspnea. 4 nonocclusive coronary artery disease managed medically 5 history of third-degree AV block post-pacemaker insertion 6 hypertension 7 hyperlipidemia 8 remote history of hemochromatosis 9 osteoarthritis Plan: The patient was seen and evaluated by Dr. Melendez. He did undergo bronchoscopy with biopsies of the lingular area on 06/18/2019. Significant obstruction going towards lingula and left upper lobe noted. Pathology pending. He is again educated regarding the importance of complete smoking cessation. NicoDerm patch in place. He is cleared for discharge from the pulmonary standpoint. Antibiotics per ID services. He should follow-up in our office in 1 week. I, the cosigning physician, performed a history & physical examination of the patient. Lungs sounds with end expiratory wheeze, diminished Maintaining good O2 saturations in the 90s on room air. I discussed the assessment and plan of care with my nurse practitioner, June Sloan. I attest to the above note as dictated by her.
[2019-06-19] MEDS: LACTATED RINGERS 1,000 ML IV SCH (14:56)
[2019-06-19 14:59] VITALS: BP 138/64; RESP 16; TEMP 97.9
[2019-06-19] MEDS ORDERED: VANCOMYCIN TROUGH DUE 1 EACH MISC MISCELLANE ONE (15:00)
--- NOTE | 2019-06-19 15:22 | P.DS ---
Providers Date of admission: 06/15/19 21:38 Expected date of discharge: 06/19/19 Attending physician: Salina Schwartz Consults: 06/15/19 21:38 Consult Physician Routine Consulting Provider: Zain Perez Consult Reason/Comments: mass Do you want consulting provider notified?: Yes 06/16/19 15:01 Consult Physician Routine Consulting Provider: Дмитрий Coronado Consult Reason/Comments: positive blood cultures Do you want consulting provider notified?: Already Contacted Primary care physician: Digna Lindsey [facility] Course: Discharge diagnosis #1 febrile illness possible postobstructive pneumonia, started on IV antibiotic. Blood culture currently growing E. coli. Infectious disease following. Patient maintained on Unasyn and vancomycin. Repeat blood cultures reviewed per infectious disease. Discussed case with infectious disease patient may be discharged home. Augmentin percent per ID. CT of abdomen prior to discharge per ID #2 newly diagnosed left hilar mass strongly suggestive of malignancy. Bronchoscopy completed on 06/18/2019 patient to follow-up outpatient with pulmonary services. Patient has been cleared for discharge from pulmonary standpoint #3 underlying history of cardiac arrhythmia with previous history of pacemaker placement #4 underlying history of coronary artery disease stable at this time #5 underlying history of COPD. #6 underlying history of hypertension, well-controlled on current medications continue #7 underlying history of hyperlipidemia maintained on Lipitor #8 chronic back pain #9 history of mucus in the stools. Will obtain stool sample for culture. #10 tobacco abuse patient counseled regarding smoking cessation. Nicotine patch has been ordered Hospital course Everette Gabriel is a 63-year-old male who presented to [facility] emergency department with a chief complaint of weakness, fever and cough, he was evaluated in emergency room temperature was elevated at 101.4 heart rate 105 a chest x-ray was done showed a left perihilar mass. CT scan of the chest was ordered and it showed a mass in the anterior left hilum and lymphadenopathy. This was very highly suggestive of underlying malignancy. The patient was admitted to the hospital. He was started on broad-spectrum antibiotics. Pulmonary consultation was also requested. Patient has a long history of smoking he smokes about 15 cigarettes a day and has been smoking for about 45 years. He has a known history of cardiac arrhythmia and had a pacemaker placement for a previous history of a third-degree AV block. He is known to have a history of mild coronary artery disease treated medically. No previous history of stent placement, previous echo revealed normal LV function. Patient also has been complaining of mucus since the stools. He is complaining of chronic back pain, he has known history of hypertension, hyperlipidemia, and history of COPD. On 06/17/2019 patient alert and oriented 3 patient remains on IV Unasyn and vancomycin. Positive blood culture for E. coli. Infectious disease is following. Patient remains on vancomycin and Unasyn. At that time patient kelsey es chest pain. Patient denies nausea vomiting diarrhea. Patient denies any urinary burning or frequency On 06/18/2019 patient is alert and oriented 3. Patient is going to have bronchoscopy with biopsy completed today with Dr. Melendez. Patient remains on IV Unasyn and vancomycin, infectious disease is following repeat cultures pending. Patient denies any shortness of breath, chest pain, nausea, vomiting, diarrhea urinary frequency, or dysurea. On 06/19/2019 patient's alert and oriented 3. Patient is status post bronchoscopy with biopsy with Dr. Melendez. Patient will be discharged on A ugmentin per infectious disease. Discussed case with ID. Patient to CT of abdomen prior to discharge. Patient to follow-up with pulmonary services in 1 week to review results of biopsy. Patient also advised to follow-up closely with PCP. Patient denies chest pain or shortness breath at this time. Patient denies nausea vomiting or diarrhea. Patient denies any urinary burning or frequency I performed an examination of the patient and discussed their management with the Nurse Practitioner. I have reviewed the Nurse Practitioner's notes and agree with the documented findings and plan of care Patient Condition at Discharge: Stable Plan - Discharge Summary Discharge Rx Participant: No New Discharge Prescriptions: New Amoxicillin/Potassium Clav [Augmentin 875-125 Tablet] 1 tab PO Q12HR #28 tab Nicotine 14Mg/24Hr Patch [Habitrol] 1 patch TRANSDERM DAILY 30 Days #30 patch HYDROcodone/APAP 7.5-325MG [[place] 7.5-325] 1 each PO Q6H PRN 3 Days #12 tab PRN Reason: Pain Continue Simvastatin [Zocor] 40 mg PO DAILY Carvedilol [Coreg] 3.125 mg PO BID amLODIPine [Norvasc] 5 mg PO DAILY 30 Days #30 tab Discharge Medication List Simvastatin [Zocor] 40 mg PO DAILY 01/21/14 [History] Carvedilol [Coreg] 3.125 mg PO BID 12/03/18 [History] amLODIPine [Norvasc] 5 mg PO DAILY 30 Days #30 tab 12/05/18 [Rx] Amoxicillin/Potassium Clav [Augmentin 875-125 Tablet] 1 tab PO Q12HR #28 tab 06/19/19 [Rx] HYDROcodone/APAP 7.5-325MG [[place] 7.5-325] 1 each PO Q6H PRN 3 Days #12 tab 06/19/19 [Rx] Nicotine 14Mg/24Hr Patch [Habitrol] 1 patch TRANSDERM DAILY 30 Days #30 patch 06/19/19 [Rx] Follow up Appointment(s)/Referral(s): Digna Lindsey MD [Primary Care Provider] - 1-2 days Дмитрий Coronado MD [STAFF PHYSICIAN] - 1 Week Marissa Melendez MD [STAFF PHYSICIAN] - 1 Week Activity/Diet/Wound Care/Special Instructions: Activities as tolerated Diet heart healthy Discharge Disposition: HOME SELF-CARE
[2019-06-19] MEDS: IOPAMIDOL CONTRAST (ORAL USE) VIAL PO PRN ×2 (15:37→16:30)
[2019-06-19 17:04] VITALS: PULSE 84
--- NOTE | 2019-06-19 17:58 | CT ---
EXAMINATION TYPE: CT abdomen pelvis wo con DATE OF EXAM: 06/19/2019 COMPARISON: 01/21/2014 HISTORY: blood in stool CT DLP: 617 mGycm Automated exposure control for dose reduction was used. TECHNIQUE: Helical acquisition of images was performed from the lung bases through the pelvis. FINDINGS: Lung bases are clear. There is no pleural effusion. Heart size is normal. There is no pericardial eff usion. Stomach appears normal. Liver spleen and pancreas appear normal. Bile ducts are not dilated. Gallblad lyric appears normal. There is retained fecal material in the large bowel. There is no adrenal mass. Kidneys have normal size. There is no hydronephrosis. Ureters are not dilat ed. There is no retroperitoneal adenopathy. There are a few retroperitoneal lymph nodes that measure less than 1 cm. There is mild fat stranding around the rectum. There is wall thickening of the mid and lower rectum. There is no inguinal hernia. Bladder distends smoothly. Appendix is not definitely seen. There is no sign of thickened appendix. There are spondylotic changes in the lumbar spine. There is posterior large disc herniation at L4-5 w ith calcification and moderately severe spinal stenosis. IMPRESSION: LARGE POSTERIOR RIGHT-SIDED L4-5 LUMBAR DISC HERNIATION WITH SPINAL STENOSIS NOT SIGNIFICANTLY DIFFER ENT THAN OLD EXAM. THERE IS RECTAL WALL THICKENING AND PERIRECTAL EDEMA CONSISTENT WITH INFLAMMATORY PROCESS. THERE IS P ERIRECTAL VASCULAR CONGESTION. THERE IS CLEARING OF THE RIGHT INGUINAL COMPLEX MASS COMPARED TO OLD E XAM. NO EVIDENCE OF PELVIC ABSCESS. SIGNIFICANT RECTAL WALL THICKENING UP TO 2 CM.
--- NOTE | 2019-06-19 19:45 | PN ---
PROGRESS NOTE DATE OF SERVICE: 06/19/2019 REASON FOR FOLLOWUP: Left upper lobe postobstructive pneumonia with E coli bacteremia. INTERVAL HISTORY: The patient is currently afebrile. The patient has been breathing comfortably. The patient denies having any chest pain. Cough has improved. Denies having any nausea. No vomiting. No abdominal pain or any diarrhea. PHYSICAL EXAMINATION: Blood pressure is 124/77, pulse of 58, temperature 97.6. He is 100% on room air. General description is a middle-aged male up in the room in no distress. RESPIRATORY SYSTEM: Unlabored breathing. Clear to auscultation anteriorly. HEART: S1, S2. Regular rate and rhythm. ABDOMEN: Soft. No tenderness. EXTREMITIES: No edema of the feet. LABS: Hemoglobin is 11.1 with a white count of 10.7. BUN of 12, creatinine 0.45. Stool for C difficile has been negative. Bronch cultures currently pending. DIAGNOSTIC IMPRESSION AND PLAN: Patient with left upper lobe pneumonia, likely postoperative in this patient who did have endobronchial lesion and Escherichia coli bacteremia; could be related to his postobstructive pneumonia; however, underlying abdominal source less likely but not entirely excluded. CT of abdomen and pelvis with oral contrast will be done before discharge. If it is negative, will finish therapy with oral Augmentin 875 b.i.d. for 2 weeks with close outpatient followup. MMODL / IJN: [id number] /
--- NOTE | 2019-06-25 11:26 | CDI ---
Documentation Clarification Form Date: 06/25/2019 11:11:25 AM From: Arianna Herndon Phone: If you have a question about this query, please contact Laxmi Patino Mailer Apprentice at [phone] between 8am and 5pm. Admit Date: 06/15/2019 9:38:00 PM Patient Name: Everette Gabriel Visit Number: [id number] Discharge Date: 06/19/2019 7:06:00 PM ATTENTION: The Clinical Documentation Specialists (CDI) and [facility] Coding Staff appreciate your assistance in clarifying documentation. Please respond to the clarification below the line at the bottom and electronically sign. The CDI & [facility] Coding staff will review the response and follow-up if needed. Please note: Queries are made part of the Legal Health Record. If you have any questions, please contact the author of this message via ITS. Marissa Shannon Documentation in the Operative Report included "Then bronchoscope was placed at the proximal lingular bronchus and mx. endobronchial biopsies were taken from this area of obstruction. Were biopsies taken via fine needle aspiratonj or exision of tissue? Pre-Operative Diagnosis: Left lung mass Postoperative Diagnosis: Left lung mass obstructin lingular bronchus and left upper lobe bronchus In order to capture the severity of condition, please specify the following: was endobronchial biopsy done by fine needle aspiraton exision of lingula tissue MTDD
--- NOTE | 2019-06-25 14:52 | P.PN ---
Progress Note - Text Progress Note Date: 06/25/19 for documentation purposes, patient underwent bronchoscopy and endobronchial biopsy with a biopsy forceps, no needle was used, and the site of the obstruction was the lingular bronchus which was completely constricted and obstructed along with complete obstruction of the left upper lobe bronchus. Again the biopsies were done by a standard biopsy forceps and no needle was used.
== END 2019-06-19 19:06 | disposition home or self-care (01) | DRG 853 ==
LOC: EC 17:09 → 3NMEDONC 21:38 → 4MS4W 06-16 15:07
PROVIDERS: ADMIT Internal Medicine; ATTEND Internal Medicine
PROC: 0BBH8ZX Excision of Lung Lingula, Via Natural or Artificial Opening Endoscopic, Diagnostic (ICD-10-PCS; principal; 2019-06-18 07:50)
PROC: 0BDH8ZX Extraction of Lung Lingula, Via Natural or Artificial Opening Endoscopic, Diagnostic (ICD-10-PCS; 2019-06-18 07:50)
DX: A41.51 Sepsis due to Escherichia coli [E. coli] (principal); J18.8 Other pneumonia, unspecified organism; E87.1 Hypo-osmolality and hyponatremia; J44.0 Chronic obstructive pulmonary disease with (acute) lower respiratory infection; I44.2 Atrioventricular block, complete; F17.210 Nicotine dependence, cigarettes, uncomplicated; Z71.6 Tobacco abuse counseling; E78.5 Hyperlipidemia, unspecified; G89.29 Other chronic pain; I10 Essential (primary) hypertension; I25.10 Atherosclerotic heart disease of native coronary artery without angina pectoris; M19.90 Unspecified osteoarthritis, unspecified site; Z79.899 Other long term (current) drug therapy; Z82.49 Family history of ischemic heart disease and other diseases of the circulatory system; Z95.0 Presence of cardiac pacemaker; R91.8 Other nonspecific abnormal finding of lung field; E55.9 Vitamin D deficiency, unspecified; M54.9 Dorsalgia, unspecified
CPT/HCPCS: 31623; 31624; 31625; 36415; 71046; 71260; 74176; 76705; 80053; 80202; 81001; 82550; 83605; 83630; 83690; 83735; 84100; 84484; 85025; 87040; 87045; 87046; 87070; 87077; 87116; 87186; 87205; 87206; 87324; 87502; 88104; 88108; 88305; 93005; 94640; 94760; 96361; 96365; 96375; 99285

== ENCOUNTER → 2019-06-28 | Outpatient (CLI) | payer BC ==
--- NOTE | 2019-07-02 07:47 | PE ---
Nuclear medicine PET/CT HISTORY: Lung mass, initial, lung cancer Patient received 12.1 mCi F-18 FDG intravenously in delayed scanning was performed from the skull bas e to the mid thighs. Localization and attenuation correction CT scan was performed. Correlation to chest CT 06/07/2019, CT 06/19/2019 Neck and chest: There is no cervical or supraclavicular adenopathy. Within the superior mediastinum t here is a nonenlarged node adjacent to the left subclavian artery origin, SUV is 3.7. Prevascular alfie nopathy is present SUV 10.2 with extension to the left hilar location, SUV 14.2 soft tissue extends t o the anterior left upper lobe to the pleural surface without associated hypermetabolic uptake, possi ble postobstructive changes. There are extensive coronary artery calcifications. No pleural or pericardial effusion. Intracardiac leads are present. There is a hiatal hernia. ABDOMEN: No evident liver or adrenal mass. No suspicious hypermetabolic uptake. No retroperitoneal ad enopathy. Bowel uptake is extensive in the rectal region with associated abnormal soft tissue, bowel wall thickening. SUV is 14.8. Diverticular change also noted. Osseous structures are within normal limits. IMPRESSION: Abnormal hypermetabolic uptake present within the mediastinum, rectum. Consider metastati c disease, two primary carcinomas.
== END | disposition home or self-care (01) ==
LOC: RADPETMAIN 16:13
PROVIDERS: ATTEND Internal Medicine Hematology & Oncology
DX: J98.59 Other diseases of mediastinum, not elsewhere classified (principal); K62.89 Other specified diseases of anus and rectum
CPT/HCPCS: 78815; A9552

== ENCOUNTER 2019-08-12 04:48 | Inpatient (IN) | payer BC ==
[2019-08-12] MEDS ORDERED: SODIUM CHLORIDE 0.9% 1,000 ML IV STA (05:06)
[2019-08-12] MEDS ORDERED: DICYCLOMINE 10 MG/ML 2 ML AMP IM STA (05:07)
--- NOTE | 2019-08-12 05:08 | ED ---
Nausea/Vomiting/Diarrhea HPI - General Chief complaint: Nausea/Vomiting/Diarrhea Stated complaint: Nausea, Diarrhea Time Seen by Provider: 08/12/19 05:00 Source: patient, family Mode of arrival: ambulatory Limitations: no limitations - History of Present Illness Initial comments: Everette is a 63-year-old gentleman who presents the emergency department today by private vehicle for evaluation of diarrhea and dehydration. Patient reports that he was on oral antibiotics last month for a possible urinary tract infection. He did well after that. Patient reports that on he developed crampy abdominal pain and profuse watery diarrhea. Patient states that he is having multiple episodes of diarrhea daily, he states that diarrhea comes on so quickly that he can was made to the toilet. Diarrhea is malodorous and watery. Patient also reports generalized crampy abdominal pain decreased oral intake and nausea. She is currently being worked on the outpatient setting due to weight loss, a strong history of smoking concern for possible cancer. - Related Data Home Medications Medication Instructions Recorded Confirmed Simvastatin [Zocor] 40 mg PO DAILY 01/21/14 08/12/19 Carvedilol [Coreg] 3.125 mg PO BID 12/03/18 08/12/19 HYDROcodone/APAP 7.5-325MG [[place] 1 tab PO Q6H PRN 08/12/19 08/12/19 7.5-325] Previous Rx's Medication Instructions Recorded amLODIPine [Norvasc] 5 mg PO DAILY 30 Days #30 tab 12/05/18 Nicotine 14Mg/24Hr Patch [Habitrol] 1 patch TRANSDERM DAILY 30 Days 06/19/19 #30 patch Allergies Allergy/AdvReac Type Severity Reaction Status Date / Time No Known Allergies Allergy Verified 08/12/19 04:59 Review of Systems ROS Statement: Those systems with pertinent positive or pertinent negative responses have been documented in the HPI. ROS Other: All systems not noted in ROS Statement are negative. 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, history of hemochromatosis, vitamin D deficiency, previous history of groin abscesses that are currently healed and drained, hypertension, hyperlipidemia, osteoarthritis, chronic back pain, cardiac cath found CAD and tx medically, hemachromacytosis, vitamin D deficiency History of Any Multi-Drug Resistant Organisms: None Reported Past Surgical History: Appendectomy, Heart Catheterization, Hernia Repair, Orthopedic Surgery, Tonsillectomy Additional Past Surgical History / Comment(s): 2008 cardiac cath due to chest pain and bradycardia-CAD tx medically and EF at that time 40%, rt inguinal hernia repair , rt knee arthroscopy, abcess R groin I&Ds x 2. Past Anesthesia/Blood Transfusion Reactions: No Reported Reaction Past Psychological History: No Psychological Hx Reported Smoking Status: Former smoker Past Alcohol Use History: None Reported Past Drug Use History: None Reported - Past Family History Father Additional Family Medical History / Comment(s): Father after having a MVA. Mother Family Medical History: Myocardial Infarction ([place]) Additional Family Medical History / Comment(s): Mother at age 63 yrs of massive [place]. General Exam - General Exam Comments Initial Comments: Physical Exam GENERAL: appears older than stated age Appears dehydrated HENT: Normocephalic, Atraumatic. Dry mucous membranes EYES: PERRL, EOMI PULMONARY: Unlabored respirations. No audible rales rhonchi or wheezing was noted. CARDIOVASCULAR: There is a regular rate and rhythm without any murmurs gallops or rubs. ABDOMEN: Soft and nontender with normal bowel sounds. SKIN: Skin is clear with no lesions or rashes and otherwise unremarkable. : Deferred NEUROLOGIC: Patient is alert and oriented x3. Moving all extremities spontaneously MUSCULOSKELETAL: Normal extremities with adequate strength and full range of motion. No lower extremity swelling or edema. No calf tenderness. PSYCHIATRIC: Normal psychiatric evaluation. Limitations: no limitations Course Vital Signs 08/12/19 04:56 Temperature 98.4 F Pulse Rate 113 H Respiratory 20 Rate Blood Pressure 128/77 O2 Sat by Pulse 97 Oximetry Medical Decision Making - Medical Decision Making Was seen and evaluated, history is obtained from the patient This is an ill-appearing 63-year-old gentleman who recently had antibiotics and now has profuse watery diarrhea that happens suddenly. This is concerning for C. diff Labs and fluids were ordered. Urinalysis with urinary tract infection, culture was ordered Rocephin was given labs with profound leukocytosis this is again concerning for C. diff diarrhea given the current setting patient will be given oral vancomycin while C. diff stool studies are pending Care was discussed with Dr. Schwartz who agrees with plan for admission for urinary tract infection, dehydration, hyponatremia, likely C. diff diarrhea. - Lab Data Result diagrams: 08/12/19 05:20 08/12/19 05:20 Lab Results 08/12/19 08/12/19 08/12/19 Range/Units 05:20 05:20 05:20 WBC 20.3 H (3.8-10.6) k/uL RBC 4.16 L (4.30-5.90) m/uL Hgb 12.4 L (13.0-17.5) gm/dL Hct 36.7 L (39.0-53.0) % MCV 88.1 (80.0-100.0) fL MCH 29.9 (25.0-35.0) pg MCHC 33.9 (31.0-37.0) g/dL RDW 14.9 (11.5-15.5) % Plt Count 652 H (150-450) k/uL Neutrophils % 86 % Lymphocytes % 4 % Monocytes % 6 % Eosinophils % 1 % Basophils % 1 % Neutrophils # 17.5 H (1.3-7.7) k/uL Lymphocytes # 0.8 L (1.0-4.8) k/uL Monocytes # 1.2 H (0-1.0) k/uL Eosinophils # 0.2 (0-0.7) k/uL Basophils # 0.3 H (0-0.2) k/uL Sodium 127 L (137-145) mmol/L Potassium 3.8 (3.5-5.1) mmol/L Chloride 93 L (98-107) mmol/L Carbon Dioxide 23 (22-30) mmol/L Anion Gap 11 mmol/L BUN 11 (9-20) mg/dL Creatinine 0.59 L (0.66-1.25) mg/dL Est GFR (CKD-EPI)AfAm >90 (>60 ml/min/1.73 sqM) Est GFR (CKD-EPI)NonAf >90 (>60 ml/min/1.73 sqM) Glucose 108 H (74-99) mg/dL Calcium 8.7 (8.4-10.2) mg/dL Magnesium 1.9 (1.6-2.3) mg/dL Total Bilirubin 0.6 (0.2-1.3) mg/dL AST 33 (17-59) U/L ALT 28 (21-72) U/L Alkaline Phosphatase 141 H (38-126) U/L Total Protein 7.1 (6.3-8.2) g/dL Albumin 3.4 L (3.5-5.0) g/dL Urine Color Dark Brown Urine Appearance Cloudy (Clear) Urine pH 5.5 (5.0-8.0) Ur Specific [place] 1.027 (1.001-1.035) Urine Protein 1+ H (Negative) Urine Glucose (UA) Negative (Negative) Urine Ketones Negative (Negative) Urine Blood Large H (Negative) Urine Nitrite Negative (Negative) Urine Bilirubin Negative (Negative) Urine Urobilinogen 2.0 (<2.0) mg/dL Ur Leukocyte Esterase Large H (Negative) Urine RBC 32 H (0-5) /hpf Urine WBC 113 H (0-5) /hpf Ur Squamous Epith Cells 1 (0-4) /hpf Urine Bacteria Moderate H (None) /hpf Urine Mucus Many H (None) /hpf Disposition Clinical Impression: Dehydration, Clostridioides difficile infection, UTI (urinary tract infection), Leukocytosis Disposition: ADMITTED IP TO THIS HOSP Condition: Serious
[2019-08-12 05:39] LABS: Basophils # (A) 0.3 k/uL (0-0.2); Basophils % (A) 1 %; Eosinophils # (A) 0.2 k/uL (0-0.7); Eosinophils % (A) 1 %; HCT 36.7 % (39.0-53.0); HGB 12.4 gm/dL (13.0-17.5); Lymphocytes # (A) 0.8 k/uL (1.0-4.8); Lymphocytes % (A) 4 %; MCH 29.9 pg (25.0-35.0); MCHC 33.9 g/dL (31.0-37.0); MCV 88.1 fL (80.0-100.0); Mean Platelet Volume 5.2; Monocytes # (A) 1.2 k/uL (0-1.0); Monocytes % (A) 6 %; Neutrophils # (A) 17.5 k/uL (1.3-7.7); Neutrophils % (A) 86 %; Platelet Count 652 k/uL (150-450); RBC 4.16 m/uL (4.30-5.90); RDW 14.9 % (11.5-15.5); WBC 20.3 k/uL (3.8-10.6)
[2019-08-12 05:46] LABS: Appearance,Urine Cloudy (Clear); Bacteria,Urine Moderate /hpf; Bilirubin,Urine Negative (Negative); Blood,Urine Large (Negative); Color,Urine Dark Brown; Glucose,Urine (UA) Negative (Negative); Ketones,Urine Negative (Negative); Leukocyte Esterase,Urine Large (Negative); Mucus,Urine Many /hpf; Nitrite,Urine Negative (Negative); PH, Urine 5.5 (5.0-8.0); Protein,Urine 1+ (Negative); RBC,Urine 32 /hpf (0-5); Specific Gravity,Urine 1.027 (1.001-1.035); Squamous Epithelial Cell,Urine 1 /hpf (0-4)
[2019-08-12 05:49] LABS: ALT 28 U/L (21-72); AST 33 U/L (17-59); African American GFR (CKD) >90 (>60 ml/min/1.73 sqM); Albumin 3.4 g/dL (3.5-5.0); Alkaline Phosphatase 141 U/L (38-126); Anion Gap 11 mmol/L; Blood Urea Nitrogen 11 mg/dL (9-20); Calcium 8.7 mg/dL (8.4-10.2); Carbon Dioxide 23 mmol/L (22-30); Chloride 93 mmol/L (98-107); Glucose 108 mg/dL (74-99); Magnesium 1.9 mg/dL (1.6-2.3); Non-African American GFR(CKD) >90 (>60 ml/min/1.73 sqM); Potassium 3.8 mmol/L (3.5-5.1); Sodium 127 mmol/L (137-145); Total Bilirubin 0.6 mg/dL (0.2-1.3); Total Protein 7.1 g/dL (6.3-8.2)
[2019-08-12] MEDS ORDERED: NALOXONE 0.4 MG/ML 1 ML VIAL IV PRN (06:32)
[2019-08-12] MEDS ORDERED: ONDANSETRON 4 MG/2 ML VIAL IVP PRN (06:32)
[2019-08-12] MEDS: SODIUM CHLORIDE 0.9% 1,000 ML IV SCH ×2 (07:01→19:14)
[2019-08-12] MEDS: VANCOMYCIN ORAL SOLUTION 250 MG/5 ML BOTTLE PO SCH ×3 (10:07→17:28)
[2019-08-12] MEDS: CARVEDILOL 3.125 MG TAB PO SCH ×2 (10:07→17:28)
[2019-08-12] MEDS: ATORVASTATIN 20 MG TAB PO SCH (10:07)
[2019-08-12] MEDS: NICOTINE 14MG/24HR PATCH TRANSDERM SCH (10:07)
[2019-08-12] MEDS: HYDROcodone/APAP 7.5-325MG 1 EACH TAB PO PRN ×3 (10:07→21:46)
[2019-08-12] MEDS: amLODIPine 5 MG TAB PO SCH (10:08)
--- NOTE | 2019-08-12 10:32 | P.HPIM ---
History of Present Illness H&P Date: 08/12/19 This is a 63-year-old male patient of Dr. Lindsey. Patient presented with complaints of diarrhea over the past few days. Patient reports he has been unable to tolerate food. Patient was recently admitted over a month ago for pneumonia at that time patient was newly diagnosed with a left hilar mass strongly suggestive malignancy. Patient underwent bronchoscopy at that time with pulmonary services per patient he was supposed to go for follow-up bronchoscopy on 07/03/2019 but was unable due to insurance. Patient reports he also has a PET scan but has not followed up with pulmonary services to review results. Additional medical history includes cardiac arrhythmia with previous history of pacemaker placement, coronary artery disease, COPD, hypertension, hyperlipidemia and chronic back pain and nicotine dependence. UA completed showing large amount of leukocyte Estrace. Patient started on Rocephin. C. diff was negative. Blood cell count elevated at 20.3. Lactic acid 1.2. Beta temp at 101.9. Patient dehydrated with sodium of 127. Patient denies any significant abdominal pain. Patient denies any emesis chest poor appetite. At this time will consult Dr. Coronado per infectious disease. Pulmonary services also consulted to follow-up with bronchoscopy and hilar mass. Patient denies any chest pain or shortness of breath. Patient denies any urinary burning or frequency. Review of Systems Please refer to HPI otherwise unremarkable 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, history of hemochromatosis, vitamin D deficiency, previous history of groin abscesses that are currently healed and drained, hypertension, hyperlipidemia, osteoarthritis, chronic back pain, cardiac cath found CAD and tx medically, hemachromacytosis, vitamin D deficiency History of Any Multi-Drug Resistant Organisms: None Reported Past Surgical History: Appendectomy, Heart Catheterization, Hernia Repair, Orthopedic Surgery, Tonsillectomy Additional Past Surgical History / Comment(s): 2008 cardiac cath due to chest pain and bradycardia-CAD tx medically and EF at that time 40%, rt inguinal hernia repair , rt knee arthroscopy, abcess R groin I&Ds x 2. Past Anesthesia/Blood Transfusion Reactions: No Reported Reaction Past Psychological History: No Psychological Hx Reported Smoking Status: Former smoker Past Alcohol Use History: None Reported Past Drug Use History: None Reported - Past Family History Father Additional Family Medical History / Comment(s): Father after having a MVA. Mother Family Medical History: Myocardial Infarction ([place]) Additional Family Medical History / Comment(s): Mother at age 63 yrs of massive [place]. Medications and Allergies Home Medications Medication Instructions Recorded Confirmed Type Simvastatin [Zocor] 40 mg PO DAILY 01/21/14 08/12/19 History Carvedilol [Coreg] 3.125 mg PO BID 12/03/18 08/12/19 History amLODIPine [Norvasc] 5 mg PO DAILY 30 Days #30 tab 12/05/18 08/12/19 Rx Nicotine 14Mg/24Hr Patch [Habitrol] 1 patch TRANSDERM DAILY 30 Days 06/19/19 08/12/19 Rx #30 patch HYDROcodone/APAP 7.5-325MG [[place] 1 tab PO Q6H PRN 08/12/19 08/12/19 History 7.5-325] Allergies Allergy/AdvReac Type Severity Reaction Status Date / Time No Known Allergies Allergy Verified 08/12/19 04:59 Physical Exam Vitals: Vital Signs Temp Pulse Pulse Resp BP BP Pulse Ox 08/12/19 07:00 101.9 F H 95 15 118/75 95 08/12/19 04:56 98.4 F 113 H 20 128/77 97 Intake and Output 08/11/19 08/12/19 08/12/19 22:59 06:59 14:59 Intake Total 310 Balance 310 Intake: Oral 310 Other: Weight 68.039 kg Head normocephalic Neck supple Lungs clear to auscultation bilaterally no wheezing or crackles Heart regular rate and rhythm S1-S2, no rub or gallop Abdomen is soft nontender nondistended positive bowel sounds no hepatosplenomegaly Extremities no edema Neuro alert and orientated to 3 Results CBC & Chem 7: 08/12/19 05:20 08/12/19 05:20 Labs: Abnormal Lab Results - Last 24 Hours (Table) 08/12/19 08/12/19 08/12/19 Range/Units 05:20 05:20 05:20 WBC 20.3 H (3.8-10.6) k/uL RBC 4.16 L (4.30-5.90) m/uL Hgb 12.4 L (13.0-17.5) gm/dL Hct 36.7 L (39.0-53.0) % Plt Count 652 H (150-450) k/uL Neutrophils # 17.5 H (1.3-7.7) k/uL Lymphocytes # 0.8 L (1.0-4.8) k/uL Monocytes # 1.2 H (0-1.0) k/uL Basophils # 0.3 H (0-0.2) k/uL Sodium 127 L (137-145) mmol/L Chloride 93 L (98-107) mmol/L Creatinine 0.59 L (0.66-1.25) mg/dL Glucose 108 H (74-99) mg/dL Alkaline Phosphatase 141 H (38-126) U/L Albumin 3.4 L (3.5-5.0) g/dL Urine Protein 1+ H (Negative) Urine Blood Large H (Negative) Ur Leukocyte Esterase Large H (Negative) Urine RBC 32 H (0-5) /hpf Urine WBC 113 H (0-5) /hpf Urine Bacteria Moderate H (None) /hpf Urine Mucus Many H (None) /hpf Microbiology - Last 24 Hours (Table) 08/12/19 05:20 Urine Culture - Preliminary Urine,Clean Catch Assessment and Plan Assessment: 1. Febrile with diarrhea. C. diff negative. Stool cultures have been ordered infectious disease has been consulted. Blood culture ordered. 2. urinary tract infection. Urine culture ordered. Patient maintained on Rocephin 3. Newly diagnosed left hilar mass strongly suggestive of malignancy. Patient reports his posterior undergo repeat bronchoscopy on 07/03/2019 but unable to due to insurance purposes. Patient has not followed with pulmonary services. At this point pulmonary services will be consulted. 4. Hyponatremia secondary to dehydration. Continue normal saline at 75 5. History of cardiac arrhythmia. History of pacemaker placement 6. History of coronary artery disease stable at this time 7. History of hyperlipidemia maintained on Lipitor 8. Chronic back pain. 9. History of nicotine dependence. Patient reports he has stopped smoking. No need for nicotine patch at this time DVT prophylaxis heparin. GI prophylaxis Protonix Time with Patient: Greater than 30 (Greater than 60% of the total time spent in counseling and coordination of care. I performed an examination of the patient and discussed their management with the Nurse Practitioner. I have reviewed the Nurse Practitioner's notes and agree with the documented findings and plan of ca re)
[2019-08-12 11:36] LABS: Amylase 60 U/L (30-110)
[2019-08-12] MEDS ORDERED: RX INFO: IV CONTRAST WAS GIVEN 1 EACH MISC MISCELLANE PRN (14:45)
--- NOTE | 2019-08-12 15:31 | P.CNPUL ---
History of Present Illness Consult date: 08/12/19 Reason for consult: lung mass History of present illness: A pleasant 63-year-old male patient who was admitted to the hospital because of generalized weakness, we'll diarrhea and hyponatremia. The patient has been having difficulties in tolerating food and apparently was having some diarrhea over the past few days. No abdominal pain. The patient is known to our service. I saw him in consultation on 06/16/2019 and at that time the patient had a CAT scan of the chest that showed a hilar mass involving the anterior left hilum encasing the lingular bronchus and there was also evidence of lymphadenopathy and the adjacent aortic arch level in the AP window with the largest lymph node measuring 2.1 cm in addition to lymph nodes in the left perihilar area. A suspicion for lung cancer was present. The patient is a chronic smoker. He has history of COPD. He has known history of coronary artery disease. He also has history of third-degree AV block and has a pacemaker in place. The patient was set up to undergo a bronchoscopy and this was done by Dr. Melendez, and the procedure was nondiagnostic. Based on my conversations with Dr. Melendez, there was excess amount of bleeding even with the first biopsy and the procedure with self was aborted. The patient had a outpatient PET scan that was done on 06/28/2019 and the patient was found to have an abnormal metabolic activity in the mediastinum area and the patient had adenopathy in the prevascular area and in the left hilar location and in the anterior left upper lobe extending to the pleural surface and there was also evidence of bowel uptake most extensively in the rectal area associated with some soft tissue and bowel thickening with an SUV of 14.8 along with diverticul ar disease. It was considered that the patient may have an underlying 2 primaries based on the metabolic activity in the lungs and in the rectal area. In any rate, the patient was set up to undergo a navigational bronchoscopy in follow-up and this was not done as the appropriate authorization wasn't obtained by the insurance company. Over the past 4-6 weeks, the patient did have any further workup. His current sodium is at 127. White cell count of 20.3. The hemoglobin is 12.4. The UA is abnormal with white cell counts of 113 and stool for C. diff has been negative. The patient has a temperature of 11.9. He is slightly tachycardic. Pulse ox on room air is 94%. Review of Systems Constitutional: Reports fatigue, Reports malaise, Reports poor appetite, Reports weakness and also reports weight loss and diminished appetite Eyes: denies as per HPI, denies blurred vision, denies bulging eye, denies decreased vision, denies diplopia, denies discharge, denies dry eye, denies irritation, denies itching, denies pain, denies photophobia, denies loss of peripheral vision, denies loss of vision, denies tunnel vision/blind spots Ears: deny: decreased hearing, ear discharge, earache, tinnitus Ears, nose, mouth and throat: Denies headache, Denies sore throat Breasts: absent: as per HPI, gynecomastia Cardiovascular: Reports decreased exercise tolerance, Reports dyspnea on exertion, Reports shortness of breath Respiratory: Reports dyspnea, Reports wheezing Gastrointestinal: Reports diarrhea Genitourinary: Reports as per HPI Musculoskeletal: Reports low back pain, Reports muscle weakness Musculoskeletal: absent: ankle pain, ankle stiffness, ankle swelling, as per HPI, elbow pain, elbow stiffness, elbow swelling, foot pain, foot stiffness, foot swelling, hand pain, hand stiffness, hand swelling, hip pain, hip stiffness, hip swelling, knee pain, knee stiffness, knee swelling, shoulder pain, shoulder stiffness, shoulder swelling, wrist pain, wrist stiffness, wrist swelling Integumentary: Denies pruritus, Denies rash Psychiatric: Denies anxiety, Denies depression Endocrine: Reports fatigue Hematologic/Lymphatic: Reports as per HPI Allergic/Immunologic: Reports as per HPI 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, history of h emochromatosis, vitamin D deficiency, previous history of groin abscesses that are currently healed and drained, hypertension, hyperlipidemia, osteoarthritis, chronic back pain, cardiac cath found CAD and tx medically, hemachromacytosis, vitamin D deficiency, left hilar mass History of Any Multi-Drug Resistant Organisms: None Reported Past Surgical History: Appendectomy, Heart Catheterization, Hernia Repair, Orthopedic Surgery, Tonsillectomy Additional Past Surgical History / Comment(s): 2009 cardiac cath due to chest pain and bradycardia-CAD tx medically and EF at that time 40%, rt inguinal hernia repair , rt knee arthroscopy, abcess R groin I&Ds x 2. Past Anesthesia/Blood Transfusion Reactions: No Reported Reaction Type of Cardiac Device: Permanent Pacemaker Device Placement Date:: 2013 Past Psychological History: No Psychological Hx Reported Smoking Status: Former smoker Past Alcohol Use History: None Reported Past Drug Use History: None Reported - Past Family History Father Additional Family Medical History / Comment(s): Father after having a MVA. Mother Family Medical History: Myocardial Infarction ([place]) Additional Family Medical History / Comment(s): Mother at age 63 yrs of massive [place]. Medications and Allergies Home Medications Medication Instructions Recorded Confirmed Type Simvastatin [Zocor] 40 mg PO DAILY 01/21/14 08/12/19 History Carvedilol [Coreg] 3.125 mg PO BID 12/03/18 08/12/19 History amLODIPine [Norvasc] 5 mg PO DAILY 30 Days #30 tab 12/05/18 08/12/19 Rx Nicotine 14Mg/24Hr Patch [Habitrol] 1 patch TRANSDERM DAILY 30 Days 06/19/19 08/12/19 Rx #30 patch HYDROcodone/APAP 7.5-325MG [[place] 1 tab PO Q6H PRN 08/12/19 08/12/19 History 7.5-325] Allergies Allergy/AdvReac Type Severity Reaction Status Date / Time No Known Allergies Allergy Verified 08/12/19 04:59 Physical Exam Vitals: Vital Signs Temp Pulse Pulse Resp BP BP Pulse Ox 08/12/19 15:00 99.1 F 86 16 114/74 94 L 08/12/19 09:25 98.4 F 08/12/19 07:00 101.9 F H 95 15 118/75 95 08/12/19 04:56 98.4 F 113 H 20 128/77 97 Intake and Output 08/12/19 08/12/19 08/12/19 06:59 14:59 22:59 Intake Total 1470 Balance 1470 Intake: IV 600 Sodium Chloride 0.9% 1, 600 000 ml @ 75 mls/hr IV . [id number] Rx#:[id number] Oral 870 Other: Weight 68.039 kg The patient appeared to be ill looking with a BMI of 20.9, nonacute distress.. Vital signs as documented. Head exam is unremarkable. No scleral icterus or corneal arcus noted. Neck is without jugular venous distension, thyromegaly, or carotid bruits. Carotid upstrokes are brisk bilaterally. Lungs are clear to auscultation and percussion. Cardiac exam reveals the PMI to be normally sized and situated. Rhythm is regular. First and second heart sounds normal. No murmurs, rubs or gallops. Abdominal exam reveals normal bowel sounds, no masses, no organomegaly and no aortic enlargement. Extremities are nonedematous and both femoral and pedal pulses are normal.Examination of the skin revealed no evidence of significant rashes, suspicious appearing nevi or other concerning lesions. Neurologically awake and alert and there is no focal neurological deficits. Results - Laboratory Findings CBC and BMP: 08/12/19 05:20 08/12/19 05:20 Abnormal lab findings: Abnormal Labs 08/12/19 08/12/19 08/12/19 05:20 05:20 05:20 WBC 20.3 H RBC 4.16 L Hgb 12.4 L Hct 36.7 L Plt Count 652 H Neutrophils # 17.5 H Lymphocytes # 0.8 L Monocytes # 1.2 H Basophils # 0.3 H Sodium 127 L Chloride 93 L Creatinine 0.59 L Glucose 108 H Alkaline Phosphatase 141 H Albumin 3.4 L Urine Protein 1+ H Urine Blood Large H Ur Leukocyte Esterase Large H Urine RBC 32 H Urine WBC 113 H Urine Bacteria Moderate H Urine Mucus Many H Assessment and Plan Plan: 1 left hilar mass, highly suggestive of primary bronchogenic carcinoma. The patient had an initial bronchoscopy that was done back in May and the findings were nondiagnostic. Obviously there is a high likelihood for malignancy special with an abnormal PET scan that showed intense uptake in the left hilar area along with left mediastinal lymphadenopathy. A repeat bronchoscopy will be needed. 2 COPD , currently inactive in stable 3 coronary artery disease, nonocclusive and the patient is undergoing medical treatment 4 history of third-degree AV block post-pacemaker insertion 5 hypertension 6 hyperlipidemia 7 remote history of hemochromatosis 8 osteoarthritis 9 abnormal metabolic activity in the rectal area along with bowel wall thickening. Consider an artifact versus a second primary malignancy within the rectum. 10 hyponatremia, consider SIADH/ paraneoplastic 11 leukocytosis 12 suspected UTI Plan Put the patient IV Rocephin every 24 hours. The patient low-grade fever along with suspicious for an underlying urine checked infection and for that reason IV Rocephin will be utilized. Stool for C. diff has been negative. Check a repeat computed tomography scan of the chest on plan on the. Accordingly. The patient will need another diagnostic procedures regarding the high suspicion for a primary bronchogenic lung cancer. A colonoscopy will be also needed a later stage to evaluate the rectal area.
--- NOTE | 2019-08-12 15:53 | CT ---
EXAMINATION TYPE: CT chest w con DATE OF EXAM: 08/12/2019 COMPARISON: PET/CT 06/28/[address] chest 06/15/2019 HISTORY: Shortness of breath and chest pain CT DLP: 313.6 mGycm Automated exposure control for dose reduction was used. CONTRAST: CT scan of the chest is performed with IV Contrast, patient injected with 100 mL of Isovue 300. FINDINGS: LUNGS: Essentially stable left suprahilar mass measuring 5.3 x 4.5 x 6.1 cm versus 5.3 x 5.2 cm previ ously. There is narrowing of the left upper lobe bronchus without complete obstruction noted. Interst itial prominence with satellite nodule left upper lobe measuring 1.4 cm which is new. No additional n odules seen. Mild upper lobe emphysematous change detected. MEDIASTINUM: Prevascular space adenopathy measuring 2.3 cm versus 1.6 cm. Left hilar adenopathy measu ring up to 3.1 cm. UPPER ABDOMEN: No significant abnormality appreciated. OTHER: No additional significant abnormality is seen. IMPRESSION: 1. Left suprahilar mass appears to be essentially unchanged with regards to size relative to the prio r study however there is increased interstitial process left upper lobe with micronodularity and sate llite nodules. 2. Prevascular space adenopathy has enlarged
[2019-08-12] MEDS: HEPARIN SODIUM,PORCINE 5,000 UNIT/ML 1 ML VIAL SQ SCH (21:45)
[2019-08-13] MEDS ORDERED: HYDROcodone/APAP 7.5-325MG 1 EACH TAB ONE (04:29)
[2019-08-13] MEDS: VANCOMYCIN ORAL SOLUTION 250 MG/5 ML BOTTLE PO SCH ×3 (05:40→17:20)
[2019-08-13] MEDS: amLODIPine 5 MG TAB PO SCH (08:29)
[2019-08-13] MEDS: CARVEDILOL 3.125 MG TAB PO SCH ×2 (08:29→17:19)
[2019-08-13] MEDS: ATORVASTATIN 20 MG TAB PO SCH (08:29)
[2019-08-13] MEDS: HEPARIN SODIUM,PORCINE 5,000 UNIT/ML 1 ML VIAL SQ SCH ×2 (08:30→21:09)
[2019-08-13] MEDS: PANTOPRAZOLE 40 MG/10 ML VIAL IVP SCH (08:30)
[2019-08-13] MEDS: NICOTINE 14MG/24HR PATCH TRANSDERM SCH (08:31)
--- NOTE | 2019-08-13 08:37 | P.CONS ---
History of Present Illness - Reason for Consult Consult date: 08/12/19 UTI and diarrhea Requesting physician: Salina Schwartz - Chief Complaint Diarrhea x 1 week - History of Present Illness Patient is a 63-year-old male who was recently admitted at this facility this patient noticed to have left upper lobe mass concerning for possible malignancy and concern for a postobstructive pneumonia patient did have evidence of E. coli bacteremia CT of abdominal pelvis did show some rectal thickening but did not show any pelvic or abdominal mass the patient was discharged home on oral Augmentin with the patient has completed patient is now presenting to the hospital with diarrhea that has been going on for about a week with multiple loose stools the patient denies having any blood or mucus in the stools denies significant abdominal pain and some nausea but no vomiting patient denies having any chest pain or shortness with occasional cough but no sputum production with the symptoms the patient has been evaluated by the ER physician on route to the area the patient did have a fever of 10 2F the patient did have elevated white count of 20,000 to have a positive UA stool for C. 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, history of hemochromatosis, vitamin D deficiency, previous history of groin abscesses that are currently healed and drained, hypertension, hyperlipidemia, osteoarthritis, chronic back pain, cardiac cath found CAD and tx medically, hemachromacytosis, vitamin D deficiency History of Any Multi-Drug Resistant Organisms: None Reported Past Surgical History: Appendectomy, Heart Catheterization, Hernia Repair, Orthopedic Surgery, Tonsillectomy Additional Past Surgical History / Comment(s): 2008 cardiac cath due to chest pain and bradycardia-CAD tx medically and EF at that time 40%, rt inguinal hernia repair , rt knee arthroscopy, abcess R groin I&Ds x 2. Past Anesthesia/Blood Transfusion Reactions: No Reported Reaction Type of Cardiac Device: Permanent Pacemaker Device Placement Date:: 2013 Past Psychological History: No Psychological Hx Reported Smoking Status: Former smoker Past Alcohol Use History: None Reported Past Drug Use History: None Reported - Past Family History Father Additional Family Medical History / Comment(s): Father after having a MVA. Mother Family Medical History: Myocardial Infarction ([place]) Additional Family Medical History / Comment(s): Mother at age 63 yrs of massive [place]. Medications and Allergies Home Medications Medication Instructions Recorded Confirmed Type Simvastatin [Zocor] 40 mg PO DAILY 01/21/14 08/12/19 History Carvedilol [Coreg] 3.125 mg PO BID 12/03/18 08/12/19 History amLODIPine [Norvasc] 5 mg PO DAILY 30 Days #30 tab 12/05/18 08/12/19 Rx Nicotine 14Mg/24Hr Patch [Habitrol] 1 patch TRANSDERM DAILY 30 Days 06/19/19 08/12/19 Rx #30 patch HYDROcodone/APAP 7.5-325MG [[place] 1 tab PO Q6H PRN 08/12/19 08/12/19 History 7.5-325] Allergies Allergy/AdvReac Type Severity Reaction Status Date / Time No Known Allergies Allergy Verified 08/12/19 04:59 Physical Exam Vitals: Vital Signs Temp Pulse Pulse Resp BP BP Pulse Ox 08/12/19 07:00 101.9 F H 95 15 118/75 95 08/12/19 04:56 98.4 F 113 H 20 128/77 97 Intake and Output 08/11/19 08/12/19 08/12/19 22:59 06:59 14:59 Intake Total 310 Balance 310 Intake: Oral 310 Other: Weight 68.039 kg GENERAL DESCRIPTION: Middle-aged male lying in bed, no distress. No tachypnea or accessory muscle of respiration use. HEENT: Shows Pallor , no scleral icterus. Oral mucous membrane is dry. No pharyn geal erythema or thrush NECK: Trachea central, no thyromegaly. LUNGS: Unlabored breathing. Decreased breath sound at the base. No wheeze or crackle. HEART: S1, S2, regular rate and rhythm. No loud murmur ABDOMEN: Soft, no tenderness , guarding or rigidity, no organomegaly EXTREMITIES: No edema of feet. SKIN: No rash, no masses palpable. NEUROLOGICAL: The patient is awake, alert, oriented x3, mood and affect normal. Results CBC & Chem 7: 08/12/19 05:20 08/12/19 05:20 Labs: Abnormal Lab Results - Last 24 Hours (Table) 08/12/19 08/12/19 08/12/19 Range/Units 05:20 05:20 05:20 WBC 20.3 H (3.8-10.6) k/uL RBC 4.16 L (4.30-5.90) m/uL Hgb 12.4 L (13.0-17.5) gm/dL Hct 36.7 L (39.0-53.0) % Plt Count 652 H (150-450) k/uL Neutrophils # 17.5 H (1.3-7.7) k/uL Lymphocytes # 0.8 L (1.0-4.8) k/uL Monocytes # 1.2 H (0-1.0) k/uL Basophils # 0.3 H (0-0.2) k/uL Sodium 127 L (137-145) mmol/L Chloride 93 L (98-107) mmol/L Creatinine 0.59 L (0.66-1.25) mg/dL Glucose 108 H (74-99) mg/dL Alkaline Phosphatase 141 H (38-126) U/L Albumin 3.4 L (3.5-5.0) g/dL Urine Protein 1+ H (Negative) Urine Blood Large H (Negative) Ur Leukocyte Esterase Large H (Negative) Urine RBC 32 H (0-5) /hpf Urine WBC 113 H (0-5) /hpf Urine Bacteria Moderate H (None) /hpf Urine Mucus Many H (None) /hpf Microbiology - Last 24 Hours (Table) 08/12/19 05:20 Urine Culture - Preliminary Urine,Clean Catch Assessment and Plan Assessment: 1-patient presented to hospital with sepsis in this patient who did have a fever and elevated white count significant symptoms of diarrhea this patient has been exposed to antibiotic for his recent bacteremia can certainly be for possible C. diff colitis the initial stool for C. diff came back negative the patient did have a positive UA underlying UTI not entirely excluded likely from enteric gram-negative pathogen (1) UTI (urinary tract infection) Current Visit: Yes Status: Acute Code(s): N39.0 - URINARY TRACT INFECTION, SITE NOT SPECIFIED SNOMED Code(s): 71926161 (2) Sepsis Current Visit: No Status: Acute Code(s): A41.9 - SEPSIS, UNSPECIFIED ORGANISM SNOMED Code(s): 37031370 Plan: 1-we will request stool for C. diff PCR 2-also request stool culture 3-continue the patient on vancomycin 250 mg by mouth every 6 hours were waiting for stool for C. diff PCR 4-Rocephin 1 g daily while waiting for the blood culture and urine culture be finalize We will follow on clinical condition and cultures to further adjust medication if needed Thank you for this consultation will follow this patient with you Time with Patient: Greater than 30
[2019-08-13 09:24] LABS: ALT 31 U/L (21-72); AST 31 U/L (17-59); African American GFR (CKD) >90 (>60 ml/min/1.73 sqM); Alkaline Phosphatase 109 U/L (38-126); Anion Gap 8 mmol/L; Blood Urea Nitrogen 7 mg/dL (9-20); Calcium 8.4 mg/dL (8.4-10.2); Carbon Dioxide 27 mmol/L (22-30); Chloride 99 mmol/L (98-107); Glucose 76 mg/dL (74-99); Non-African American GFR(CKD) >90 (>60 ml/min/1.73 sqM); Potassium 3.5 mmol/L (3.5-5.1); Sodium 134 mmol/L (137-145); Total Bilirubin 0.3 mg/dL (0.2-1.3); Total Protein 6.5 g/dL (6.3-8.2)
[2019-08-13 09:40] LABS: Basophils # (A) 0.2 k/uL (0-0.2); Basophils % (A) 2 %; Eosinophils # (A) 0.5 k/uL (0-0.7); Eosinophils % (A) 5 %; HCT 34.7 % (39.0-53.0); HGB 11.3 gm/dL (13.0-17.5); Lymphocytes # (A) 0.9 k/uL (1.0-4.8); Lymphocytes % (A) 8 %; MCH 29.5 pg (25.0-35.0); MCHC 32.5 g/dL (31.0-37.0); Mean Platelet Volume 6.1; Monocytes # (A) 1.2 k/uL (0-1.0); Monocytes % (A) 11 %; Neutrophils % (A) 73 %; Platelet Count 611 k/uL (150-450); RBC 3.81 m/uL (4.30-5.90); RDW 15.1 % (11.5-15.5)
[2019-08-13] MEDS ORDERED: GLYCOPYRROLATE 0.2 MG/ML 2 ML VIAL ONE (10:42)
[2019-08-13] MEDS ORDERED: LIDOCAINE 1% INJ 10MG/ML (20 ML MDV) ONE (10:42)
[2019-08-13] MEDS ORDERED: NEOSTIGMINE 1 MG/ML 10 ML VIAL ONE (10:42)
[2019-08-13] MEDS ORDERED: ROCURONIUM BROMIDE 10 MG/ML 10 ML VIAL IV ONE (10:42)
[2019-08-13] MEDS ORDERED: PROPOFOL 10 MG/ML 20 ML VIAL IV ONE (10:42)
[2019-08-13] MEDS ORDERED: IV FLUID CONTINUATION 300 ML IV ONE (10:48)
--- NOTE | 2019-08-13 11:03 | P.PN ---
Subjective Progress Note Date: 08/13/19 On today's evaluation of 08/13/2019 the patient is being seen in the follow-up. The plan is to proceed with a bronchoscopy. CAT scan of the chest was repeated and the patient has a large left hilar mass. No hemoptysis. No fever. No chills. His sodium level today is improved and his sodium level is up to 134. He is hemodynamically stable. He is receiving empiric antibiotic coverage. I reviewed the CAT scan of the chest from yesterday and the procedure will be done under intubation and mechanical ventilation as the patient encountered bleeding during the earlier procedure. Objective - Vital Signs Vital signs: Vital Signs Temp 97.4 F L 08/13/19 07:45 Pulse 74 08/13/19 07:45 Resp 16 08/13/19 07:45 BP 103/59 08/13/19 07:45 Pulse Ox 96 08/13/19 07:45 Intake & Output 08/12/19 08/13/19 08/13/19 18:59 06:59 18:59 Intake Total 1470 20 Balance 1470 20 Intake: IV 600 Sodium Chloride 0.9% 1, 600 000 ml @ 75 mls/hr IV . [id number] [facility] Rx#:[id number] Oral 870 20 - Exam The patient appeared to be ill looking with a BMI of 20.9, nonacute distress.. Vital signs as documented. Head exam is unremarkable. No scleral icterus or corneal arcus noted. Neck is without jugular venous distension, thyromegaly, or carotid bruits. Carotid upstrokes are brisk bilaterally. Lungs are clear to auscultation and percussion. Cardiac exam reveals the PMI to be normally sized and situated. Rhythm is regular. First and second heart sounds normal. No murmurs, rubs or gallops. Abdominal exam reveals normal bowel sounds, no masses, no organomegaly and no aortic enlargement. Extremities are nonedematous and both femoral and pedal pulses are normal.Examination of the skin revealed no evidence of significant rashes, suspicious appearing nevi or other concerning lesions. Neurologically awake and alert and there is no focal neurological deficits. - Labs CBC & Chem 7: 08/13/19 07:30 08/13/19 07:30 Labs: Abnormal Lab Results - Last 24 Hours (Table) 08/13/19 08/13/19 Range/Units 07:30 07:30 WBC 11.0 H (3.8-10.6) k/uL RBC 3.81 L (4.30-5.90) m/uL Hgb 11.3 L (13.0-17.5) gm/dL Hct 34.7 L (39.0-53.0) % Plt Count 611 H (150-450) k/uL Neutrophils # 8.0 H (1.3-7.7) k/uL Lymphocytes # 0.9 L (1.0-4.8) k/uL Monocytes # 1.2 H (0-1.0) k/uL Sodium 134 L (137-145) mmol/L BUN 7 L (9-20) mg/dL Creatinine 0.53 L (0.66-1.25) mg/dL Albumin 3.0 L (3.5-5.0) g/dL Microbiology - Last 24 Hours (Table) 08/12/19 06:59 Blood Culture - Preliminary Blood No Growth after 24 hours 08/12/19 17:00 Stool Culture - Preliminary Stool 08/12/19 05:20 Urine Culture - Preliminary Urine,Clean Catch Assessment and Plan Plan: 1 left hilar mass, highly suggestive of primary bronchogenic carcinoma. The patient had an initial bronchoscopy that was done back in May and the findings were nondiagnostic. Obviously there is a high likelihood for malignancy special with an abnormal PET scan that showed intense uptake in the left hilar area along with left mediastinal lymphadenopathy. A repeat bronchoscopy will be needed. 2 COPD , currently inactive in stable 3 coronary artery disease, nonocclusive and the patient is undergoing medical treatment 4 history of third-degree AV block post-pacemaker insertion 5 hypertension 6 hyperlipidemia 7 remote history of hemochromatosis 8 osteoarthritis 9 abnormal metabolic activity in the rectal area along with bowel wall thickening. Consider an artifact versus a second primary malignancy within the rectum. 10 hyponatremia, consider SIADH/ paraneoplastic, improved and the sodium level is improving 11 leukocytosis 12 suspected UTI Plan The repeat CAT scan of the chest was done. The patient has a left suprahilar mass seems to be unchanged compared to the previous computed tomography scan and PET scan and this is measuring 6.1 x 5.3 x 4.5 cm causing narrowing of the left upper lobe bronchus without any obstruction. We'll proceed with a bronchoscopy. The patient will be intubated during the seizure.
--- NOTE | 2019-08-13 11:29 | P.PN ---
Subjective Progress Note Date: 08/13/19 This is a 63-year-old male patient of Dr. Lindsey. Patient presented with complaints of diarrhea over the past few days. Patient reports he has been unable to tolerate food. Patient was recently admitted over a month ago for pneumonia at that time patient was newly diagnosed with a left hilar mass stron gly suggestive malignancy. Patient underwent bronchoscopy at that time with pulmonary services per patient he was supposed to go for follow-up bronchoscopy on 07/03/2019 but was unable due to insurance. Patient reports he also has a PET scan but has not followed up with pulmonary services to review results. Additional medical history includes cardiac arrhythmia with previous history of pacemaker placement, coronary artery disease, COPD, hypertension, hyperlipidemia and chronic back pain and nicotine dependence. UA completed showing large amount of leukocyte Estrace. Patient started on Rocephin. C. diff was negative. Blood cell count elevated at 20.3. Lactic acid 1.2. Beta temp at 10 1.9. Patient dehydrated with sodium of 127. Patient denies any significant abdominal pain. Patient denies any emesis chest poor appetite. At this time will consult Dr. Coronado per infectious disease. Pulmonary services also consulted to follow-up with bronchoscopy and hilar mass. Patient denies any chest pain or shortness of breath. Patient denies any urinary burning or frequency. On 08/13/2019 patient is alert and oriented 3. Patient feels improved with his weakness still having loose bowel movements. Stool for C. diff PCR has been ordered per infectious disease remains on vancomycin. Stool cultures pending. Per pulmonary planning bronchoscopy today in regards to hilar mass. Patient had previous computed tomography scan done during previous admission that showed some rectal wall thickening will consult Dr. vasquez for further investigation. At this time patient denies chest pain or shortness of breath. Patient is complaining of decreased appetite and diarrhea. Patient denies any urinary burning or frequency Objective - Vital Signs Vital signs: Vital Signs Temp 97.4 F L 08/13/19 07:45 Pulse 74 08/13/19 07:45 Resp 16 08/13/19 07:45 BP 103/59 08/13/19 07:45 Pulse Ox 96 08/13/19 07:45 Intake & Output 08/12/19 08/13/19 08/13/19 18:59 06:59 18:59 Intake Total 1470 20 Balance 1470 20 Intake: IV 600 Sodium Chloride 0.9% 1, 600 000 ml @ 75 mls/hr IV . [id number] [facility] Rx#:[id number] Oral 870 20 - Exam Head normocephalic Neck supple Lungs clear to auscultation bilaterally no wheezing or crackles Heart regular rate and rhythm S1-S2, no rub or gallop Abdomen is soft nontender nondistended positive bowel sounds no hepatosplenomegaly Extremities no edema Neuro alert and orientated to 3 - Labs CBC & Chem 7: 08/13/19 07:30 08/13/19 07:30 Labs: Abnormal Lab Results - Last 24 Hours (Table) 08/13/19 08/13/19 Range/Units 07:30 07:30 WBC 11.0 H (3.8-10.6) k/uL RBC 3.81 L (4.30-5.90) m/uL Hgb 11.3 L (13.0-17.5) gm/dL Hct 34.7 L (39.0-53.0) % Plt Count 611 H (150-450) k/uL Neutrophils # 8.0 H (1.3-7.7) k/uL Lymphocytes # 0.9 L (1.0-4.8) k/uL Monocytes # 1.2 H (0-1.0) k/uL Sodium 134 L (137-145) mmol/L BUN 7 L (9-20) mg/dL Creatinine 0.53 L (0.66-1.25) mg/dL Albumin 3.0 L (3.5-5.0) g/dL Microbiology - Last 24 Hours (Table) 08/12/19 06:59 Blood Culture - Preliminary Blood No Growth after 24 hours 08/12/19 17:00 Stool Culture - Preliminary Stool 08/12/19 05:20 Urine Culture - Preliminary Urine,Clean Catch Assessment and Plan Assessment: 1. Febrile with diarrhea. C. diff negative. Stool cultures have been ordered infectious disease has been consulted. Blood culture ordered. C. diff sample with PCR has been ordered by infectious disease currently maintained on vancomycin 2. urinary tract infection. Urine culture ordered. Patient maintained on Rocephin 3. Newly diagnosed left hilar mass strongly suggestive of malignancy. Patient reports his posterior undergo repeat bronchoscopy on 07/03/2019 but unable to due to insurance purposes. Patient has not followed with pulmonary services. Per pulmonary plan for bronchoscopy today 08/13/2019 4. Hyponatremia secondary to dehydration. Continue normal saline at 75. Sodium has improved to 134 5. History of cardiac arrhythmia. History of pacemaker placement 6. History of coronary artery disease stable at this time 7. History of hyperlipidemia maintained on Lipitor 8. Chronic back pain. 9. History of nicotine dependence. Patient reports he has stopped smoking. No need for nicotine patch at this time 10. Rectal wall thickening. Previous computed tomography scan showing rectal wall thickening and perirectal edema consistent with inflammatory process. There is perirectal vascular congestion. Dr. vasquez will be consulted for further investigation DVT prophylaxis heparin. GI prophylaxis Protonix I performed an examination of the patient and discussed their management with the Nurse Practitioner. I have reviewed the Nurse Practitioner's notes and agree with the documented findings and plan of care
[2019-08-13] MEDS ORDERED: LACTATED RINGERS 500 ML IV ONE (11:51)
[2019-08-13] MEDS: HYDROcodone/APAP 7.5-325MG 1 EACH TAB PO PRN ×2 (13:54→20:58)
[2019-08-13] MEDS: SODIUM CHLORIDE 0.9% 1,000 ML IV SCH (19:11)
--- NOTE | 2019-08-13 19:41 | P.GSCN ---
History of Present Illness Consult date: 08/13/19 Reason for Consult: Rectal thickening History of present illness: 63-year-old male being worked up for lung mass. Mass is present involving the left hilum. Suspicious with adenopathy present as well. Underwent bronchoscopy with biopsy today. He had a PET scan showing activity both there and also in the rectum. Had a CAT scan performed during his last admission which showed rectal wall thickening. Patient admits to occasional episodes of rectal bleeding. He has had loose stools lately. Denies constipation. Review of Systems The patient denies any acute changes in vision or hearing, no dysphagia or zac nophagia, no chest pain, no dysuria or hematuria, no headache, no runny nose, no melena 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, history of hemochromatosis, vitamin D deficiency, previous history of groin abscesses that are currently healed and drained, hypertension, hyperlipidemia, osteoarthritis, chronic back pain, cardiac cath found CAD and tx medically, hemachromacytosis, vitamin D deficiency History of Any Multi-Drug Resistant Organisms: None Reported Past Surgical History: Appendectomy, Heart Catheterization, Hernia Repair, Orthopedic Surgery, Tonsillectomy Additional Past Surgical History / Comment(s): 2008 cardiac cath due to chest pain and bradycardia-CAD tx medically and EF at that time 40%, rt inguinal hernia repair , rt knee arthroscopy, abcess R groin I&Ds x 2. Past Anesthesia/Blood Transfusion Reactions: No Reported Reaction Type of Cardiac Device: Permanent Pacemaker Device Placement Date:: 2013 Past Psychological History: No Psychological Hx Reported Smoking Status: Former smoker Past Alcohol Use History: None Reported Past Drug Use History: None Reported - Past Family History Father Additional Family Medical History / Comment(s): Father after having a MVA. Mother Family Medical History: Myocardial Infarction ([place]) Additional Family Medical History / Comment(s): Mother at age 63 yrs of massive [place]. Medications and Allergies Home Medications Medication Instructions Recorded Confirmed Type Simvastatin [Zocor] 40 mg PO DAILY 01/21/14 08/12/19 History Carvedilol [Coreg] 3.125 mg PO BID 12/03/18 08/12/19 History amLODIPine [Norvasc] 5 mg PO DAILY 30 Days #30 tab 12/05/18 08/12/19 Rx Nicotine 14Mg/24Hr Patch [Habitrol] 1 patch TRANSDERM DAILY 30 Days 06/19/19 08/12/19 Rx #30 patch HYDROcodone/APAP 7.5-325MG [[place] 1 tab PO Q6H PRN 08/12/19 08/12/19 History 7.5-325] Allergies Allergy/AdvReac Type Severity Reaction Status Date / Time No Known Allergies Allergy Verified 08/12/19 04:59 Surgical - Exam Vital Signs Temp Pulse Resp BP Pulse Ox 98.4 F 113 H 20 128/77 97 08/12/19 04:56 08/12/19 04:56 08/12/19 04:56 08/12/19 04:56 08/12/19 04:56 Physical exam: General: Well-developed, well-nourished HEENT: Normocephalic, sclerae nonicteric Abdomen: Nontender, nondistended Extremities: No edema Neuro: Alert and oriented Results - Labs 08/13/19 07:30 08/13/19 07:30 Abnormal Lab Results - Last 24 Hours (Table) 08/13/19 08/13/19 Range/Units 07:30 07:30 WBC 11.0 H (3.8-10.6) k/uL RBC 3.81 L (4.30-5.90) m/uL Hgb 11.3 L (13.0-17.5) gm/dL Hct 34.7 L (39.0-53.0) % Plt Count 611 H (150-450) k/uL Neutrophils # 8.0 H (1.3-7.7) k/uL Lymphocytes # 0.9 L (1.0-4.8) k/uL Monocytes # 1.2 H (0-1.0) k/uL Sodium 134 L (137-145) mmol/L BUN 7 L (9-20) mg/dL Creatinine 0.53 L (0.66-1.25) mg/dL Albumin 3.0 L (3.5-5.0) g/dL Microbiology - Last 24 Hours (Table) 08/12/19 05:20 Urine Culture - Preliminary Urine,Clean Catch Gram Neg Bacilli 08/12/19 06:59 Blood Culture - Preliminary Blood No Growth after 24 hours 08/12/19 17:00 Stool Culture - Preliminary Stool Diabetes panel 08/13/19 Range/Units 07:30 Sodium 134 L (137-145) mmol/L Potassium 3.5 (3.5-5.1) mmol/L Chloride 99 (98-107) mmol/L Carbon Dioxide 27 (22-30) mmol/L BUN 7 L (9-20) mg/dL Creatinine 0.53 L (0.66-1.25) mg/dL Glucose 76 (74-99) mg/dL Calcium 8.4 (8.4-10.2) mg/dL AST 31 (17-59) U/L ALT 31 (21-72) U/L Alkaline Phosphatase 109 (38-126) U/L Total Protein 6.5 (6.3-8.2) g/dL Albumin 3.0 L (3.5-5.0) g/dL Calcium panel 08/13/19 Range/Units 07:30 Calcium 8.4 (8.4-10.2) mg/dL Albumin 3.0 L (3.5-5.0) g/dL Pituitary panel 08/13/19 Range/Units 07:30 Sodium 134 L (137-145) mmol/L Potassium 3.5 (3.5-5.1) mmol/L Chloride 99 (98-107) mmol/L Carbon Dioxide 27 (22-30) mmol/L BUN 7 L (9-20) mg/dL Creatinine 0.53 L (0.66-1.25) mg/dL Glucose 76 (74-99) mg/dL Calcium 8.4 (8.4-10.2) mg/dL Adrenal panel 08/13/19 Range/Units 07:30 Sodium 134 L (137-145) mmol/L Potassium 3.5 (3.5-5.1) mmol/L Chloride 99 (98-107) mmol/L Carbon Dioxide 27 (22-30) mmol/L BUN 7 L (9-20) mg/dL Creatinine 0.53 L (0.66-1.25) mg/dL Glucose 76 (74-99) mg/dL Calcium 8.4 (8.4-10.2) mg/dL Total Bilirubin 0.3 (0.2-1.3) mg/dL AST 31 (17-59) U/L ALT 31 (21-72) U/L Alkaline Phosphatase 109 (38-126) U/L Total Protein 6.5 (6.3-8.2) g/dL Albumin 3.0 L (3.5-5.0) g/dL Assessment and Plan (1) Proctitis Narrative/Plan: Patient with significant rectal wall thickening on recent CAT scan and PET scan showing activity there. Suspect neoplasm. Options reviewed with the patient. Recommend full colonoscopy to assess entire colon. Begin clear liquid diet tomorrow. Likely will start bowel prep on with plans for colonoscopy on Monday. If the patient is doing well enough and he wants to go home this could be performed in the outpatient setting. Current Visit: Yes Status: Acute Code(s): K62.89 - OTHER SPECIFIED DISEASES OF ANUS AND RECTUM SNOMED Code(s): 8304790
--- NOTE | 2019-08-14 00:13 | PN ---
PROGRESS NOTE DATE OF SERVICE: 08/13/2019 REASON FOR FOLLOWUP: UTI and possible colitis. INTERVAL HISTORY: The patient is currently afebrile. He is status post bronchoscopy. Patient tolerated the procedure. Denies having any chest pain. No cough. No nausea, vomiting. No abdominal pain. No further diarrhea. PHYSICAL EXAMINATION: Blood pressure 117/66 with a pulse of 73, temperature 98. He is 95% on room air. General description is a middle-aged male lying in bed in no distress. Respiratory system: Unlabored breathing. Clear to auscultation anteriorly. Heart S1, S2. Regular rate and rhythm. Abdomen soft. No tenderness. Extremities: No edema of the feet. LABS: Hemoglobin is 11.8, white count 11, with a BUN of 7, creatinine 0.53. Urine showing gram-negative bacilli. Stool cultures currently pending. DIAGNOSTIC IMPRESSION AND PLAN: Patient admitted to the hospital with a fever with intractable diarrhea with concern for possible Clostridium difficile colitis which has been negative. The patient also has positive UA and has shown clinical improvement on Rocephin with resolution of fever as well as white count. We will continue with Rocephin at oral Flagyl and discontinue the vancomycin. May benefit from a CT. Will discuss with surgery. Continue supportive care. MMODL / IJN: [id number] /
[2019-08-14] MEDS: VANCOMYCIN ORAL SOLUTION 250 MG/5 ML BOTTLE PO SCH ×3 (00:21→11:34)
[2019-08-14] MEDS: SODIUM CHLORIDE 0.9% 1,000 ML IV SCH ×2 (00:21→17:47)
[2019-08-14] MEDS: HYDROcodone/APAP 7.5-325MG 1 EACH TAB PO PRN ×4 (03:07→21:48)
--- NOTE | 2019-08-14 05:49 | PCN ---
PROCEDURE NOTE PROCEDURE PERFORMED: Flexible bronchoscopy, transbronchial needle aspirate of left hilar/upper lobe mass, endobronchial biopsy of the left upper lobe mass, endobronchial brushings of left upper lobe mass, bronchioalveolar lavage of the left upper lobe. PROCEDURE: This procedure was done in the endoscopy suite under general anesthesia. The patient was intubated in the usual fashion by COMPOSITOR APPRENTICE by a #8 oral tracheal tube. Following that, he was attached to mechanical ventilator. A regular adapter was attached to oral tracheal tube and the flexible bronchoscope was inserted into the ET tube and it was advanced to the lower trachea. The tip of the ET tube was seen around 2 cm above the leo. Examination of the main leo was within normal limits. Examination of the right side included the right mainstem bronchus, right upper lobe bronchus, bronchus intermedius, right middle lobe, right lower lobe bronchus along segments and subsegments and all of these airways were patent and within normal limits. Examination of the left side included left main stem bronchus that was patent and within normal; however, distal left mainstem bronchus showed some endobronchial irregularity that was coming up from the left upper lobe causing some irregularities and endobronchial growth of tumor in the lateral wall of the distal left mainstem bronchus, The leo the left upper lobe and the left lower lobe was quite abnormal, inflamed and prominent and there was obvious anatomic and architectural distortion. More abnormalities were seen in the left upper lobe especially at the left upper lobe bronchus that was quite narrowed and the caliber of the air was reduced by at least 50% of its normal size. Endobronchial irregularities and abnormalities were noted. Further anatomic distortion was seen in the left upper lobe where the leo between the lingular segment and the left upper lobe of segment was significantly abnormal and involved with endobronchial tumor. The various segments of the lingula and left upper lobe were not adequately visualized. Examination of left lower lobe was within normal limits. At this point, I used a 19-gauge cytology needle and transbronchial needle aspirate of the left upper lobe mass was done. Following that, the samples were collected and adequacy of samples were and done by pathology at the bedside. Endobronchial biopsies of the left upper lobe were done. Endobronchial brushing of the left upper lobe was done especially at the site of the endobronchial irregularities and the significant narrowing that was seen in the left upper lobe. At the completion of the procedure, I performed the bronchoalveolar lavage of the left upper lobe where a total of 80 mL of fluid was infused and 25 to 30 mL of bloody aspirate was obtained. Note that during the course of the procedure, the patient had some endobronchial bleeding at the site of the left upper lobe bronchus where it was heavily involved with tumor and was circumferentially growing and causing narrowing of the left upper lobe bronchus. At the completion of the procedure, the bleeding stopped spontaneously. Therapeutic airway suctioning was done. Airway was cleared of any residual secretions. Bronchoscope was removed and the patient was extubated and transferred to recovery in a stable condition. The samples will be sent for pathologic evaluation and further recommendations are to follow. The procedure was done without any complications. MMGALLITOL / YELENAN: [id number] /
[2019-08-14 07:20] LABS: Basophils # (A) 0.4 k/uL (0-0.2); Basophils % (A) 3 %; Eosinophils # (A) 0.5 k/uL (0-0.7); Eosinophils % (A) 5 %; HCT 31.1 % (39.0-53.0); Lymphocytes # (A) 0.7 k/uL (1.0-4.8); Lymphocytes % (A) 6 %; MCHC 32.3 g/dL (31.0-37.0); Mean Platelet Volume 6.4; Monocytes # (A) 1.1 k/uL (0-1.0); Monocytes % (A) 10 %; Neutrophils # (A) 8.5 k/uL (1.3-7.7); Neutrophils % (A) 74 %; Platelet Count 545 k/uL (150-450); RBC 3.46 m/uL (4.30-5.90); RDW 15.1 % (11.5-15.5); WBC 11.4 k/uL (3.8-10.6)
[2019-08-14 07:34] LABS: ALT 23 U/L (21-72); AST 22 U/L (17-59); African American GFR (CKD) >90 (>60 ml/min/1.73 sqM); Albumin 2.5 g/dL (3.5-5.0); Alkaline Phosphatase 88 U/L (38-126); Anion Gap 10 mmol/L; Blood Urea Nitrogen 4 mg/dL (9-20); Calcium 8.2 mg/dL (8.4-10.2); Carbon Dioxide 25 mmol/L (22-30); Chloride 99 mmol/L (98-107); Glucose 94 mg/dL (74-99); Non-African American GFR(CKD) >90 (>60 ml/min/1.73 sqM); Potassium 3.4 mmol/L (3.5-5.1); Sodium 134 mmol/L (137-145); Total Bilirubin 0.2 mg/dL (0.2-1.3); Total Protein 5.6 g/dL (6.3-8.2)
[2019-08-14] MEDS ORDERED: Potassium Replacement Protocol 1 EACH MISC MISCELLANE PRN (08:29)
[2019-08-14] MEDS: PANTOPRAZOLE 40 MG/10 ML VIAL IVP SCH (09:19)
[2019-08-14] MEDS: ATORVASTATIN 20 MG TAB PO SCH (09:19)
[2019-08-14] MEDS: amLODIPine 5 MG TAB PO SCH (09:19)
[2019-08-14] MEDS: CARVEDILOL 3.125 MG TAB PO SCH ×2 (09:19→17:45)
[2019-08-14] MEDS: HEPARIN SODIUM,PORCINE 5,000 UNIT/ML 1 ML VIAL SQ SCH ×2 (09:19→21:41)
[2019-08-14] MEDS: POTASSIUM CHLORIDE ER 20 MEQ TAB.ER PO SCH ×2 (09:19→15:32)
[2019-08-14] MEDS: NICOTINE 14MG/24HR PATCH TRANSDERM SCH (09:23)
--- NOTE | 2019-08-14 10:40 | P.PN ---
Subjective Progress Note Date: 08/14/19 This is a 63-year-old male patient of Dr. Lindsey. Patient presented with complaints of diarrhea over the past few days. Patient reports he has been unable to tolerate food. Patient was recently admitted over a month ago for pneumonia at that time patient was newly diagnosed with a left hilar mass stron gly suggestive malignancy. Patient underwent bronchoscopy at that time with pulmonary services per patient he was supposed to go for follow-up bronchoscopy on 07/03/2019 but was unable due to insurance. Patient reports he also has a PET scan but has not followed up with pulmonary services to review results. Additional medical history includes cardiac arrhythmia with previous history of pacemaker placement, coronary artery disease, COPD, hypertension, hyperlipidemia and chronic back pain and nicotine dependence. UA completed showing large amount of leukocyte Estrace. Patient started on Rocephin. C. diff was negative. Blood cell count elevated at 20.3. Lactic acid 1.2. Beta temp at 10 1.9. Patient dehydrated with sodium of 127. Patient denies any significant abdominal pain. Patient denies any emesis chest poor appetite. At this time will consult Dr. Coronado per infectious disease. Pulmonary services also consulted to follow-up with bronchoscopy and hilar mass. Patient denies any chest pain or shortness of breath. Patient denies any urinary burning or frequency. On 08/13/2019 patient is alert and oriented 3. Patient feels improved with his weakness still having loose bowel movements. Stool for C. diff PCR has been ordered per infectious disease remains on vancomycin. Stool cultures pending. Per pulmonary planning bronchoscopy today in regards to hilar mass. Patient had previous computed tomography scan done during previous admission that showed some rectal wall thickening will consult Dr. vasquez for further investigation. At this time patient denies chest pain or shortness of breath. Patient is complaining of decreased appetite and diarrhea. Patient denies any urinary burning or frequency On 08/14/2019 patient is alert and oriented 3. Patient is status post bronchoscopy yesterday. Patient was evaluated by Dr. vasquez recommending colonoscopy. Infectious disease following. Patient reports that his diarrhea has subsided. Patient requesting advancement in diet. C. diff negative. Patient remains on oral Vanco and Rocephin. Urine culture growing E. coli. Objective - Vital Signs Vital signs: Vital Signs Temp 98.6 F 08/14/19 07:37 Pulse 68 08/14/19 07:37 Resp 12 08/14/19 07:37 BP 108/71 08/14/19 07:37 Pulse Ox 97 08/14/19 07:37 Intake & Output 08/13/19 08/14/19 08/14/19 18:59 06:59 18:59 Intake Total 1200 100 180 Balance 1200 100 180 Weight 66.4 kg Intake: IV 1000 Sodium Chloride 0.9% 1, 600 000 ml @ 75 mls/hr IV . [id number] [facility] Rx#:[id number] Intake, IV Titration 50 Amount cefTRIAXone 1 gm In 50 Sodium Chloride 0.9% 50 ml @ 100 mls/hr IVPB Q12HR [facility] Rx#:[id number] Oral 150 100 180 Other: Voiding Method Toilet # Voids 2 1 - Exam Head normocephalic Neck supple Lungs clear to auscultation bilaterally no wheezing or crackles Heart regular rate and rhythm S1-S2, no rub or gallop Abdomen is soft nontender nondistended positive bowel sounds no hepatosplenomegaly Extremities no edema Neuro alert and orientated to 3 - Labs CBC & Chem 7: 08/14/19 06:30 08/14/19 06:30 Labs: Abnormal Lab Results - Last 24 Hours (Table) 08/14/19 08/14/19 Range/Units 06:30 06:30 WBC 11.4 H (3.8-10.6) k/uL RBC 3.46 L (4.30-5.90) m/uL Hgb 10.0 L (13.0-17.5) gm/dL Hct 31.1 L (39.0-53.0) % Plt Count 545 H (150-450) k/uL Neutrophils # 8.5 H (1.3-7.7) k/uL Lymphocytes # 0.7 L (1.0-4.8) k/uL Monocytes # 1.1 H (0-1.0) k/uL Basophils # 0.4 H (0-0.2) k/uL Sodium 134 L (137-145) mmol/L Potassium 3.4 L (3.5-5.1) mmol/L BUN 4 L (9-20) mg/dL Creatinine 0.50 L (0.66-1.25) mg/dL Calcium 8.2 L (8.4-10.2) mg/dL Total Protein 5.6 L (6.3-8.2) g/dL Albumin 2.5 L (3.5-5.0) g/dL Microbiology - Last 24 Hours (Table) 08/12/19 05:20 Urine Culture - Final Urine,Clean Catch Escherichia coli 08/12/19 06:59 Blood Culture - Preliminary Blood No Growth after 48 hours 08/12/19 17:00 Stool Culture - Preliminary Stool Assessment and Plan Assessment: 1. Febrile with diarrhea. C. diff negative. Stool cultures have been ordered infectious disease has been consulted. Blood culture ordered. C. diff sample with PCR has been ordered by infectious disease currently maintained on vancomycin 2. urinary tract infection. Urine culture ordered. Patient maintained on Rocephin. Culture growing E. coli 3. Newly diagnosed left hilar mass strongly suggestive of malignancy. Patient reports his posterior undergo repeat bronchoscopy on 07/03/2019 but unable to due to insurance purposes. Patient has not followed with pulmonary services. Status post bronchoscopy on 08/13/2019 4. Hyponatremia secondary to dehydration. Continue normal saline at 75. Sodium has improved to 134 5. History of cardiac arrhythmia. History of pacemaker placement 6. History of coronary artery disease stable at this time 7. History of hyperlipidemia maintained on Lipitor 8. Chronic back pain. 9. History of nicotine dependence. Patient reports he has stopped smoking. No need for nicotine patch at this time 10. Rectal wall thickening. Previous computed tomography scan showing rectal wall thickening and perirectal edema consistent with inflammatory process. T here is perirectal vascular congestion. Per bowel significant rectal wall thickening on recent CAT scan and PET scan showing activity suspect neoplasm. Recommend full colonoscopy to assess the entire colon patient could be done this Monday per Dr. vasquez DVT prophylaxis heparin. GI prophylaxis Protonix I performed an examination of the patient and discussed their management with the Nurse Practitioner. I have reviewed the Nurse Practitioner's notes and agree with the documented findings and plan of care
--- NOTE | 2019-08-14 12:46 | P.PN ---
Subjective Progress Note Date: 08/14/19 Principal diagnosis: Proctitis Patient without new complaints. Still feels fatigued. No abdominal pain. No rectal bleeding. Objective - Vital Signs Vital signs: Vital Signs Temp 98.6 F 08/14/19 07:37 Pulse 68 08/14/19 08:00 Resp 15 08/14/19 08:00 BP 108/71 08/14/19 07:37 Pulse Ox 97 08/14/19 07:37 Intake & Output 08/13/19 08/14/19 08/14/19 18:59 06:59 18:59 Intake Total 1200 100 180 Balance 1200 100 180 Weight 66.4 kg Intake: IV 1000 Sodium Chloride 0.9% 1, 600 000 ml @ 75 mls/hr IV . [id number] [facility] Rx#:[id number] Intake, IV Titration 50 Amount cefTRIAXone 1 gm In 50 Sodium Chloride 0.9% 50 ml @ 100 mls/hr IVPB Q12HR [facility] Rx#:[id number] Oral 150 100 180 Other: Voiding Method Toilet Toilet # Voids 2 1 1 - Exam Abdomen: Soft, nontender, nondistended - Labs CBC & Chem 7: 08/14/19 06:30 08/14/19 06:30 Labs: Abnormal Lab Results - Last 24 Hours (Table) 08/14/19 08/14/19 Range/Units 06:30 06:30 WBC 11.4 H (3.8-10.6) k/uL RBC 3.46 L (4.30-5.90) m/uL Hgb 10.0 L (13.0-17.5) gm/dL Hct 31.1 L (39.0-53.0) % Plt Count 545 H (150-450) k/uL Neutrophils # 8.5 H (1.3-7.7) k/uL Lymphocytes # 0.7 L (1.0-4.8) k/uL Monocytes # 1.1 H (0-1.0) k/uL Basophils # 0.4 H (0-0.2) k/uL Sodium 134 L (137-145) mmol/L Potassium 3.4 L (3.5-5.1) mmol/L BUN 4 L (9-20) mg/dL Creatinine 0.50 L (0.66-1.25) mg/dL Calcium 8.2 L (8.4-10.2) mg/dL Total Protein 5.6 L (6.3-8.2) g/dL Albumin 2.5 L (3.5-5.0) g/dL Microbiology - Last 24 Hours (Table) 08/12/19 05:20 Urine Culture - Final Urine,Clean Catch Escherichia coli 08/12/19 06:59 Blood Culture - Preliminary Blood No Growth after 48 hours Assessment and Plan (1) Proctitis Narrative/Plan: Continue clear liquids. Will start bowel prep tomorrow for colonoscopy on Monday. Current Visit: Yes Status: Acute Code(s): K62.89 - OTHER SPECIFIED DISEASES OF ANUS AND RECTUM SNOMED Code(s): 4071153
--- NOTE | 2019-08-14 14:34 | P.PN ---
Subjective Progress Note Date: 08/14/19 On 08/15/2019 I'm seeing this patient for a follow-up. The patient is looking well. No respiratory difficulties for now. No shortness of breath at rest. No hemoptysis. I performed a bronchoscopy yesterday and please refer to the note for further details. In summary, the patient is suspected to have an underlying lung cancer, possibly of a non-small cell type and final pathology still pending for now. Meanwhile, the patient was also found to have a rectal mass and the patient is going to undergo a colonoscopy sometime this week by Dr. Andrea lujan. The patient has no diarrhea and his stool for C. diff has been negative. Urine was positive for E. coli and he is on the appropriate antibiotics and is receiving IV fluids at the rate of 75 mL an hour. No new complaints. Objective - Vital Signs Vital signs: Vital Signs Temp 98.3 F 08/14/19 13:38 Pulse 84 08/14/19 13:38 Resp 15 08/14/19 13:38 BP 119/68 08/14/19 13:38 Pulse Ox 98 08/14/19 13:38 Intake & Output 08/13/19 08/14/19 08/14/19 18:59 06:59 18:59 Intake Total 5671 433 9210 Balance 6984 593 1432 Weight 66.4 kg Intake: IV 1000 Sodium Chloride 0.9% 1, 600 000 ml @ 75 mls/hr IV . [id number] [facility] Rx#:[id number] Intake, IV Titration 50 600 Amount Sodium Chloride 0.9% 1, 600 000 ml @ 75 mls/hr IV . [id number] [facility] Rx#:[id number] cefTRIAXone 1 gm In 50 Sodium Chloride 0.9% 50 ml @ 100 mls/hr IVPB Q12HR [facility] Rx#:[id number] Oral 150 100 980 Other: Voiding Method Toilet Toilet # Voids 2 1 3 - Exam The patient appeared to be ill looking with a BMI of 20.9, nonacute distress.. Vital signs as documented. Head exam is unremarkable. No scleral icterus or corneal arcus noted. Neck is without jugular venous distension, thyromegaly, or carotid bruits. Carotid upstrokes are brisk bilaterally. Lungs are clear to auscultation and percussion. Cardiac exam reveals the PMI to be normally sized and situated. Rhythm is regular. First and second heart sounds normal. No murmurs, rubs or gallops. Abdominal exam reveals normal bowel sounds, no masses, no organomegaly and no aortic enlargement. Extremities are nonedematous and both femoral and pedal pulses are normal.Examination of the skin revealed no evidence of significant rashes, suspicious appearing nevi or other concerning lesions. Neurologically awake and alert and there is no focal neurological deficits. - Labs CBC & Chem 7: 08/14/19 06:30 08/14/19 06:30 Labs: Abnormal Lab Results - Last 24 Hours (Table) 08/14/19 08/14/19 Range/Units 06:30 06:30 WBC 11.4 H (3.8-10.6) k/uL RBC 3.46 L (4.30-5.90) m/uL Hgb 10.0 L (13.0-17.5) gm/dL Hct 31.1 L (39.0-53.0) % Plt Count 545 H (150-450) k/uL Neutrophils # 8.5 H (1.3-7.7) k/uL Lymphocytes # 0.7 L (1.0-4.8) k/uL Monocytes # 1.1 H (0-1.0) k/uL Basophils # 0.4 H (0-0.2) k/uL Sodium 134 L (137-145) mmol/L Potassium 3.4 L (3.5-5.1) mmol/L BUN 4 L (9-20) mg/dL Creatinine 0.50 L (0.66-1.25) mg/dL Calcium 8.2 L (8.4-10.2) mg/dL Total Protein 5.6 L (6.3-8.2) g/dL Albumin 2.5 L (3.5-5.0) g/dL Microbiology - Last 24 Hours (Table) 08/12/19 05:20 Urine Culture - Final Urine,Clean Catch Escherichia coli 08/12/19 06:59 Blood Culture - Preliminary Blood No Growth after 48 hours Assessment and Plan Plan: 1 left hilar mass, highly suggestive of primary bronchogenic carcinoma. Please refer to the bronchoscopy note. The patient has suspected non-small cell lung cancer, possibly of a squamous cell type and final pathology still pending for now. Bronchoscopy was done without any complications. Note that the patient also has a rectal mass on the PET scan and the patient is to undergo a colonoscopy. 2 COPD , currently inactive in stable 3 coronary artery disease, nonocclusive and the patient is undergoing medical treatment 4 history of third-degree AV block post-pacemaker insertion 5 hypertension 6 hyperlipidemia 7 remote history of hemochromatosis 8 osteoarthritis 9 abnormal metabolic activity in the rectal area along with bowel wall thickening. Consider an artifact versus a second primary malignancy within the rectum. 10 hyponatremia, consider SIADH/ paraneoplastic, improved and the sodium level is improving , sodium level is normalized 11 leukocytosis 12 suspected UTI secondary to E. coli, improved Plan The patient underwent his bronchoscopy without any complication. Colonoscopy is to follow. Awaiting final pathology on the left upper lobe mass and biopsies. Highly suspicious for non-small cell lung cancer. Consult medical oncology. Colonoscopy sometime this week. We'll continue to follow. Continue the antibiotics regarding a UTI with E. coli.
[2019-08-14] MEDS: metroNIDAZOLE 500 MG TAB PO SCH ×2 (17:45→21:41)
--- NOTE | 2019-08-14 18:43 | PN ---
PROGRESS NOTE DATE OF SERVICE: 08/14/2019 REASON FOR FOLLOWUP: UTI and a question of colitis. INTERVAL HISTORY: The patient is currently afebrile. The patient is breathing comfortably. Denies having any chest pain. Occasional cough. No abdominal pain diarrhea has resolved. No urinary symptoms. PHYSICAL EXAMINATION: Blood pressure 119/68 with a pulse of 84, temperature 98.3. He is 98% on room air. General description is a middle-aged male lying in bed in no distress. RESPIRATORY SYSTEM: Unlabored breathing. Clear to auscultation anteriorly. HEART: S1, S2. Regular rate and rhythm. ABDOMEN: Soft. No tenderness. EXTREMITIES: No edema of the feet. LABS: Hemoglobin is 10, white count 11.4, BUN of 4, creatinine 0.50. Stool culture currently pending. Urine with an E coli sensitive pathogen. DIAGNOSTIC IMPRESSION AND PLAN: Patient admitted to hospital with intractable nausea, vomiting and diarrhea in this patient who did have a history of left upper lobe mass, concern for malignancy. Previous bronchoscopy was nondiagnostic. However, the bronchoscopy specimen this time is showing [id number] carcinoma, for which Oncology has been consulted. As for his fever, that has resolved. Currently on Rocephin; to continue. Add Flagyl. Colonoscopy on Monday. Questions and concerns were answered. MMODL / IJN: [id number] /
[2019-08-14] MEDS ORDERED: RX INFO: IV CONTRAST WAS GIVEN 1 EACH MISC MISCELLANE PRN (19:43)
--- NOTE | 2019-08-14 19:48 | P.CONS ---
History of Present Illness - Reason for Consult Consult date: 08/14/19 sq cell NSCLC Requesting physician: Zain Perez - Chief Complaint diarrhea, dehydration - History of Present Illness Mr Gabriel is a very pleasant 63-year-old male we've been asked to see for a new diagnosis of squamous cell non-small cell lung cancer. Patient is currently pending colonoscopy because of findings of a rectal mass. Patient denies B symptoms, adenopathy, changes in his voice, new or unusual cough, hemoptysis, SHAGGY, diarrhea has slowed down, it is associated with rectal discomfort, he has not noticed a significant change in the caliber of his stool, he denies black or bloody stool, maybe some increased fatigue, but denies any other acute changes in his health. Review of Systems 14 point review of systems is negative except as stated in HPI 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, history of hemochroma tosis, vitamin D deficiency, previous history of groin abscesses that are currently healed and drained, hypertension, hyperlipidemia, osteoarthritis, chronic back pain, cardiac cath found CAD and tx medically, hemachromacytosis, vitamin D deficiency History of Any Multi-Drug Resistant Organisms: None Reported Past Surgical History: Appendectomy, Heart Catheterization, Hernia Repair, Orthopedic Surgery, Tonsillectomy Additional Past Surgical History / Comment(s): 2008 cardiac cath due to chest pain and bradycardia-CAD tx medically and EF at that time 40%, rt inguinal hernia repair , rt knee arthroscopy, abcess R groin I&Ds x 2. Past Anesthesia/Blood Transfusion Reactions: No Reported Reaction Type of Cardiac Device: Permanent Pacemaker Device Placement Date:: 2013 Past Psychological History: No Psychological Hx Reported Smoking Status: Former smoker Past Alcohol Use History: None Reported Past Drug Use History: None Reported - Past Family History Father Additional Family Medical History / Comment(s): Father after having a MVA. Mother Family Medical History: Myocardial Infarction (PR) Additional Family Medical History / Comment(s): Mother at age 63 yrs of massive PR. Medications and Allergies Home Medications Medication Instructions Recorded Confirmed Type Simvastatin [Zocor] 40 mg PO DAILY 01/21/14 08/12/19 History Carvedilol [Coreg] 3.125 mg PO BID 12/03/18 08/12/19 History amLODIPine [Norvasc] 5 mg PO DAILY 30 Days #30 tab 12/05/18 08/12/19 Rx Nicotine 14Mg/24Hr Patch [Habitrol] 1 patch TRANSDERM DAILY 30 Days 06/19/19 08/12/19 Rx #30 patch HYDROcodone/APAP 7.5-325MG [[place] 1 tab PO Q6H PRN 08/12/19 08/12/19 History 7.5-325] Allergies Allergy/AdvReac Type Severity Reaction Status Date / Time No Known Allergies Allergy Verified 08/12/19 04:59 Physical Exam Vitals: Vital Signs Temp Pulse Resp BP Pulse Ox 08/14/19 16:00 84 15 08/14/19 13:38 98.3 F 84 15 119/68 98 08/14/19 08:00 68 15 08/14/19 07:37 98.6 F 68 12 108/71 97 08/14/19 00:51 98.2 F 73 14 117/68 98 08/13/19 19:33 98 F 76 16 117/66 95 Intake and Output 08/14/19 08/14/19 08/14/19 06:59 14:59 22:59 Intake Total 1580 Balance 1580 Intake: Intake, IV Titration 600 Amount Sodium Chloride 0.9% 1, 600 000 ml @ 75 mls/hr IV . [id number] [facility] Rx#:[id number] Oral 980 Other: Voiding Method Toilet Toilet # Voids 1 3 - Constitutional General appearance: cooperative, no acute distress, thin - EENT Eyes: anicteric sclerae, EOMI ENT: hearing grossly normal, normal oropharynx - Neck Neck: no lymphadenopathy - Respiratory Respiratory: bilateral: diminished - Cardiovascular Heart sounds: normal: S1, S2 leg Peripheral Edema: bilateral: None - Gastrointestinal General gastrointestinal: no absent bowel sounds, no decreased bowel sounds, no distended, no hepatomegaly, no hyperactive bowel sounds, normal bowel sounds, no organomegaly, no rigid, no scaphoid, soft, no splenomegaly, no tenderness, no umbilical hernia, no ventral hernia - Integumentary Integumentary: normal - Neurologic Neurologic: CNII-XII intact - Musculoskeletal Musculoskeletal: strength equal bilaterally - Psychiatric Psychiatric: A&O x's 3, appropriate affect, intact judgment & insight Results CBC & Chem 7: 08/14/19 06:30 08/14/19 06:30 Labs: Abnormal Lab Results - Last 24 Hours (Table) 08/14/19 08/14/19 Range/Units 06:30 06:30 WBC 11.4 H (3.8-10.6) k/uL RBC 3.46 L (4.30-5.90) m/uL Hgb 10.0 L (13.0-17.5) gm/dL Hct 31.1 L (39.0-53.0) % Plt Count 545 H (150-450) k/uL Neutrophils # 8.5 H (1.3-7.7) k/uL Lymphocytes # 0.7 L (1.0-4.8) k/uL Monocytes # 1.1 H (0-1.0) k/uL Basophils # 0.4 H (0-0.2) k/uL Sodium 134 L (137-145) mmol/L Potassium 3.4 L (3.5-5.1) mmol/L BUN 4 L (9-20) mg/dL Creatinine 0.50 L (0.66-1.25) mg/dL Calcium 8.2 L (8.4-10.2) mg/dL Total Protein 5.6 L (6.3-8.2) g/dL Albumin 2.5 L (3.5-5.0) g/dL Microbiology - Last 24 Hours (Table) 08/12/19 17:00 Stool Culture - Preliminary Stool 08/12/19 05:20 Urine Culture - Final Urine,Clean Catch Escherichia coli 08/12/19 06:59 Blood Culture - Preliminary Blood No Growth after 48 hours Assessment and Plan (1) Squamous cell lung cancer Narrative/Plan: New diagnosis for patient. Reviewed with him the pathology. Discussed needing to know if there is disease elsewhere/staging so, scans ordered. Current Visit: Yes Status: Acute Priority: High Code(s): C34.90 - MALIGNANT NEOPLASM OF UNSP PART OF UNSP BRONCHUS OR LUNG SNOMED Code(s): 138895628 (2) Rectal mass Narrative/Plan: Pending colonoscopy and biopsy, path pending Current Visit: Yes Status: Acute Priority: High Code(s): K62.89 - OTHER SPECIFIED DISEASES OF ANUS AND RECTUM SNOMED Code(s): 112750274 Plan: We'll plan a follow-up in the office to discuss treatment options and plan of care once it is clear if the pt has 1 or 2 disease processes and if there is metastatic disease.
[2019-08-15] MEDS: SODIUM CHLORIDE 0.9% 1,000 ML IV SCH ×2 (00:37→14:57)
[2019-08-15] MEDS: HYDROcodone/APAP 7.5-325MG 1 EACH TAB PO PRN ×4 (05:15→23:59)
[2019-08-15 07:58] LABS: Basophils # (A) 0.1 k/uL (0-0.2); Basophils % (A) 1 %; Eosinophils # (A) 0.6 k/uL (0-0.7); Eosinophils % (A) 5 %; HCT 34.3 % (39.0-53.0); Lymphocytes # (A) 1.1 k/uL (1.0-4.8); Lymphocytes % (A) 9 %; MCV 90.6 fL (80.0-100.0); Mean Platelet Volume 6.3; Monocytes % (A) 9 %; Neutrophils # (A) 8.6 k/uL (1.3-7.7); Neutrophils % (A) 75 %; Platelet Count 597 k/uL (150-450); RBC 3.78 m/uL (4.30-5.90); WBC 11.5 k/uL (3.8-10.6)
[2019-08-15 08:16] LABS: ALT 22 U/L (21-72); AST 23 U/L (17-59); African American GFR (CKD) >90 (>60 ml/min/1.73 sqM); Albumin 2.9 g/dL (3.5-5.0); Alkaline Phosphatase 118 U/L (38-126); Anion Gap 9 mmol/L; Blood Urea Nitrogen 3 mg/dL (9-20); Calcium 8.5 mg/dL (8.4-10.2); Carbon Dioxide 26 mmol/L (22-30); Chloride 101 mmol/L (98-107); Glucose 91 mg/dL (74-99); Non-African American GFR(CKD) >90 (>60 ml/min/1.73 sqM); Potassium 3.7 mmol/L (3.5-5.1); Sodium 136 mmol/L (137-145); Total Bilirubin 0.2 mg/dL (0.2-1.3); Total Protein 6.5 g/dL (6.3-8.2)
[2019-08-15] MEDS: IOPAMIDOL CONTRAST (ORAL USE) VIAL PO PRN ×2 (08:57→09:55)
[2019-08-15] MEDS: NICOTINE 14MG/24HR PATCH TRANSDERM SCH (09:03)
[2019-08-15] MEDS: CARVEDILOL 3.125 MG TAB PO SCH ×2 (09:04→17:29)
[2019-08-15] MEDS: amLODIPine 5 MG TAB PO SCH (09:04)
[2019-08-15] MEDS: ATORVASTATIN 20 MG TAB PO SCH (11:02)
[2019-08-15] MEDS: HEPARIN SODIUM,PORCINE 5,000 UNIT/ML 1 ML VIAL SQ SCH ×2 (11:03→20:14)
[2019-08-15] MEDS: PANTOPRAZOLE 40 MG TABLET PO SCH (11:04)
[2019-08-15] MEDS: metroNIDAZOLE 500 MG TAB PO SCH ×3 (11:05→21:45)
--- NOTE | 2019-08-15 11:06 | CT ---
EXAMINATION TYPE: CT brain w con DATE OF EXAM: 08/15/2019 COMPARISON: None. HISTORY: Squamous NSCLC staging CT DLP: 1082 mGycm Automated exposure control for dose reduction was used. CONTRAST: CT scan of the head is performed with IV Contrast, patient injected with 100 mL of Isovue 300. FINDINGS: There is no abnormal enhancing mass or midline shift identified. Diffuse ventricular and sulcal promi nence.. The globes are intact and the visualized sinuses are clear. IMPRESSION: Mild generalized age-related cerebral atrophy. No suspicious enhancing intraparenchymal m asses noted.
--- NOTE | 2019-08-15 11:13 | CT ---
EXAMINATION TYPE: CT abdomen pelvis w con DATE OF EXAM: 08/15/2019 COMPARISON: CT abdomen and pelvis June 19, 2019. PET/CT June 28, 2019. HISTORY: Squamous NSCLC staging study. CT DLP: 1018.2 mGycm, Automated Exposure Control for Dose Reduction was Utilized. CONTRAST: CT scan of the abdomen and pelvis is performed with oral and with IV Contrast, patient injected with 100 mL of Isovue 300. FINDINGS: LUNG BASES: Slightly elevated left hemidiaphragm redemonstrated. Partial visualization of right-sided pacemaker leads. LIVER/GB: No significant abnormality is appreciated. PANCREAS: No significant abnormality is seen. SPLEEN: No significant abnormality is seen. ADRENALS: No significant abnormality is seen. KIDNEYS: No significant abnormality is seen. BOWEL: Oral contrast reaches the level of the mid transverse colon making evaluation of distal bowel slightly suboptimal. There is no suspicious small or large bowel dilatation. There some prominence of fecal material in the transverse colon. There are some scattered colonic diverticula with more promi nent diverticulosis in the sigmoid colon. There is further progression of severe wall thickening in t he sigmoid rectal colon which is slightly eccentric. This corresponds to marked hypermetabolic uptake on PET/CT. Some surrounding ill-defined fluid and fat stranding may reflect underlying infection or subserosal spread. Large apple core-type neoplasm strongly suspected. PROSTATE/SEMINAL VESICLES: No gross abnormality seen. LYMPH NODES: No greater than 1cm abdominal or pelvic lymph nodes are appreciated. Some prominent but subcentimeter lymph node superior to the sigmoid rectal colon noted for reference axial image 59 jus t past the iliac bifurcation. No definitive hypermetabolic adenopathy noted on recent PET/CT. OSSEOUS STRUCTURES: Moderate disc space narrowing L4-L5 level with moderate spurring. Facet arthropat hy lower lumbar levels. OTHER: No significant additional abnormality is seen. IMPRESSION: Sigmoid rectal colon shows progressive wall thickening and now mild to moderate ill-defin ed surrounding fluid. Neoplasm strongly suspected. Second primary favored. Cannot rule out acute infl ammation on background neoplasm. Lumen diameter continues to narrow but no obstruction clearly identi fied. Length of tumor roughly 13 cm seen best sagittal image 78.
--- NOTE | 2019-08-15 12:20 | P.PN ---
Subjective Progress Note Date: 08/15/19 Principal diagnosis: Proctitis Patient doing about the same. Went for CT brain abdomen and pelvis today. Rectal thickening has increased. No additional neoplastic changes. Denies abdominal pain. Objective - Vital Signs Vital signs: Vital Signs Temp 98.3 F 08/15/19 01:56 Pulse 70 08/15/19 01:56 Resp 16 08/15/19 01:56 BP 114/73 08/15/19 01:56 Pulse Ox 96 08/15/19 01:56 Intake & Output 08/14/19 08/15/19 08/15/19 18:59 06:59 18:59 Intake Total 1580 20 Balance 1580 20 Intake: Intake, IV Titration 600 Amount Sodium Chloride 0.9% 1, 600 000 ml @ 75 mls/hr IV . [id number] [facility] Rx#:[id number] Oral 980 20 Other: Voiding Method Toilet Toilet # Voids 3 - Exam Abdomen: Soft, nontender, nondistended - Labs CBC & Chem 7: 08/15/19 07:19 08/15/19 07:19 Labs: Abnormal Lab Results - Last 24 Hours (Table) 08/15/19 08/15/19 Range/Units 07:19 07:19 WBC 11.5 H (3.8-10.6) k/uL RBC 3.78 L (4.30-5.90) m/uL Hgb 11.0 L (13.0-17.5) gm/dL Hct 34.3 L (39.0-53.0) % Plt Count 597 H (150-450) k/uL Neutrophils # 8.6 H (1.3-7.7) k/uL Sodium 136 L (137-145) mmol/L BUN 3 L (9-20) mg/dL Creatinine 0.52 L (0.66-1.25) mg/dL Albumin 2.9 L (3.5-5.0) g/dL Microbiology - Last 24 Hours (Table) 08/12/19 06:59 Blood Culture - Preliminary Blood No Growth after 72 hours 08/12/19 17:00 Stool Culture - Preliminary Stool 08/12/19 05:20 Urine Culture - Final Urine,Clean Catch Escherichia coli Assessment and Plan (1) Proctitis Narrative/Plan: CT results noted. We'll proceed with colonoscopy tomorrow. Bowel prep to start today. Current Visit: Yes Status: Acute Code(s): K62.89 - OTHER SPECIFIED DISEASES OF ANUS AND RECTUM SNOMED Code(s): 3821121
[2019-08-15] MEDS ORDERED: PEG 3350-NA SULF,BICARB,CL/KCL 4,000 ML BOTTLE PO ONE (12:45)
--- NOTE | 2019-08-15 13:30 | P.PN ---
Subjective Progress Note Date: 08/15/19 This is a 63-year-old male patient of Dr. Lindsey. Patient presented with complaints of diarrhea over the past few days. Patient reports he has been unable to tolerate food. Patient was recently admitted over a month ago for pneumonia at that time patient was newly diagnosed with a left hilar mass stron gly suggestive malignancy. Patient underwent bronchoscopy at that time with pulmonary services per patient he was supposed to go for follow-up bronchoscopy on 07/03/2019 but was unable due to insurance. Patient reports he also has a PET scan but has not followed up with pulmonary services to review results. Additional medical history includes cardiac arrhythmia with previous history of pacemaker placement, coronary artery disease, COPD, hypertension, hyperlipidemia and chronic back pain and nicotine dependence. UA completed showing large amount of leukocyte Estrace. Patient started on Rocephin. C. diff was negative. Blood cell count elevated at 20.3. Lactic acid 1.2. Beta temp at 10 1.9. Patient dehydrated with sodium of 127. Patient denies any significant abdominal pain. Patient denies any emesis chest poor appetite. At this time will consult Dr. Coronado per infectious disease. Pulmonary services also consulted to follow-up with bronchoscopy and hilar mass. Patient denies any chest pain or shortness of breath. Patient denies any urinary burning or frequency. On 08/13/2019 patient is alert and oriented 3. Patient feels improved with his weakness still having loose bowel movements. Stool for C. diff PCR has been ordered per infectious disease remains on vancomycin. Stool cultures pending. Per pulmonary planning bronchoscopy today in regards to hilar mass. Patient had previous computed tomography scan done during previous admission that showed some rectal wall thickening will consult Dr. vasquez for further investigation. At this time patient denies chest pain or shortness of breath. Patient is complaining of decreased appetite and diarrhea. Patient denies any urinary burning or frequency On 08/14/2019 patient is alert and oriented 3. Patient is status post bronchoscopy yesterday. Patient was evaluated by Dr. vasquez recommending colonoscopy. Infectious disease following. Patient reports that his diarrhea has subsided. Patient requesting advancement in diet. C. diff negative. Patient remains on oral Vanco and Rocephin. Urine culture growing E. coli. On 08/15/2019 patient was seen and examined on the medical floor he is nothing by mouth at this time in anticipation of colonoscopy tomorrow he underwent bronchoscopy on 08/13/2019. At this time patient is denying any fever or chills no headache or dizziness no chest pain no shortness of breath no cough no nausea or vomiting no abdominal pain he is still having some diarrhea no burning was urination no frequency or urgency no hematuria Objective - Vital Signs Vital signs: Vital Signs Temp 98.3 F 08/15/19 01:56 Pulse 70 08/15/19 01:56 Resp 16 08/15/19 01:56 BP 114/73 08/15/19 01:56 Pulse Ox 96 08/15/19 01:56 Intake & Output 08/14/19 08/15/19 08/15/19 18:59 06:59 18:59 Intake Total 1580 20 Balance 1580 20 Intake: Intake, IV Titration 600 Amount Sodium Chloride 0.9% 1, 600 000 ml @ 75 mls/hr IV . [id number] [facility] Rx#:[id number] Oral 980 20 Other: Voiding Method Toilet Toilet # Voids 3 - Exam In general patient is alert and oriented 3 in no apparent distress Head normocephalic and atraumatic Neck supple no JVD no goiter Lungs clear to auscultation bilaterally no wheezing or crackles Heart regular rate and rhythm S1-S2, no rub or gallop Abdomen is soft nontender nondistended positive bowel sounds no hepatosplenomegaly Extremities no edema no cyanosis or clubbing Neuro no gross focal neurological deficit - Labs CBC & Chem 7: 08/15/19 07:19 08/15/19 07:19 Labs: Abnormal Lab Results - Last 24 Hours (Table) 08/15/19 08/15/19 Range/Units 07:19 07:19 WBC 11.5 H (3.8-10.6) k/uL RBC 3.78 L (4.30-5.90) m/uL Hgb 11.0 L (13.0-17.5) gm/dL Hct 34.3 L (39.0-53.0) % Plt Count 597 H (150-450) k/uL Neutrophils # 8.6 H (1.3-7.7) k/uL Sodium 136 L (137-145) mmol/L BUN 3 L (9-20) mg/dL Creatinine 0.52 L (0.66-1.25) mg/dL Albumin 2.9 L (3.5-5.0) g/dL Microbiology - Last 24 Hours (Table) 08/12/19 06:59 Blood Culture - Preliminary Blood No Growth after 72 hours 08/12/19 17:00 Stool Culture - Preliminary Stool 08/12/19 05:20 Urine Culture - Final Urine,Clean Catch Escherichia coli Assessment and Plan Plan: 1. Febrile with diarrhea. C. diff negative. Stool cultures have been ordered infectious disease has been consulted. Blood culture ordered. C. diff sample with PCR has been ordered by infectious disease currently maintained on vancomycin 2. urinary tract infection. Urine culture ordered. Patient maintained on Rocephin. Culture growing E. coli 3. Newly diagnosed left hilar mass strongly suggestive of malignancy. Patient reports his posterior undergo repeat bronchoscopy on 07/03/2019 but unable to due to insurance purposes. Patient has not followed with pulmonary services. Status post bronchoscopy on 08/13/2019 4. Hyponatremia secondary to dehydration. Continue normal saline at 75. Sodium has improved to 134 5. History of cardiac arrhythmia. History of pacemaker placement 6. History of coronary artery disease stable at this time 7. History of hyperlipidemia maintained on Lipitor 8. Chronic back pain. 9. History of nicotine dependence. Patient reports he has stopped smoking. No need for nicotine patch at this time 10. Rectal wall thickening. Previous computed tomography scan showing rectal w all thickening and perirectal edema consistent with inflammatory process. There is perirectal vascular congestion. Per bowel significant rectal wall thickening on recent CAT scan and PET scan showing activity suspect neoplasm. Recommend full colonoscopy to assess the entire colon patient could be done this Monday per Dr. vasquez DVT prophylaxis heparin. GI prophylaxis Protonix Awaiting colonoscopy tomorrow continue with current management at this time
--- NOTE | 2019-08-15 14:27 | P.PN ---
Subjective Progress Note Date: 08/15/19 On 08/15/2019, patient is being seen for a follow-up. No new complaints for now. He is doing well. Final pathology from the lung biopsy was consistent with squamous cell carcinoma. The patient will be seen by oncology.. No other significant events otherwise. Oncology has been consulted and a colonoscopy is to follow regarding the rectal mass noted on the PET scan.The CAT scan of the abdomen was also done and showed a sigmoid rectal: Wall progressive wall thickening with a [id number] ill-defined surrounding fluid and neoplasm was suspected. Patient is awaiting a colonoscopy Objective - Vital Signs Vital signs: Vital Signs Temp 98.3 F 08/15/19 01:56 Pulse 70 08/15/19 01:56 Resp 16 08/15/19 01:56 BP 114/73 08/15/19 01:56 Pulse Ox 96 08/15/19 01:56 Intake & Output 08/14/19 08/15/19 08/15/19 18:59 06:59 18:59 Intake Total 1580 20 Balance 1580 20 Intake: Intake, IV Titration 600 Amount Sodium Chloride 0.9% 1, 600 000 ml @ 75 mls/hr IV . [id number] [facility] Rx#:[id number] Oral 980 20 Other: Voiding Method Toilet Toilet # Voids 3 - Exam The patient appeared to be ill looking with a BMI of 20.9, nonacute distress.. Vital signs as documented. Head exam is unremarkable. No scleral icterus or corneal arcus noted. Neck is without jugular venous distension, thyromegaly, or carotid bruits. Carotid upstrokes are brisk bilaterally. Lungs are clear to auscultation and percussion. Cardiac exam reveals the PMI to be normally sized and situated. Rhythm is regular. First and second heart sounds normal. No murmurs, rubs or gallops. Abdominal exam reveals normal bowel sounds, no masses, no organomegaly and no aortic enlargement. Extremities are nonedematous and both femoral and pedal pulses are normal.Examination of the skin revealed no evidence of significant rashes, suspicious appearing nevi or other concerning lesions. Neurologically awake and alert and there is no focal neurological deficits. - Labs CBC & Chem 7: 08/15/19 07:19 08/15/19 07:19 Labs: Abnormal Lab Results - Last 24 Hours (Table) 08/15/19 08/15/19 Range/Units 07:19 07:19 WBC 11.5 H (3.8-10.6) k/uL RBC 3.78 L (4.30-5.90) m/uL Hgb 11.0 L (13.0-17.5) gm/dL Hct 34.3 L (39.0-53.0) % Plt Count 597 H (150-450) k/uL Neutrophils # 8.6 H (1.3-7.7) k/uL Sodium 136 L (137-145) mmol/L BUN 3 L (9-20) mg/dL Creatinine 0.52 L (0.66-1.25) mg/dL Albumin 2.9 L (3.5-5.0) g/dL Microbiology - Last 24 Hours (Table) 08/12/19 06:59 Blood Culture - Preliminary Blood No Growth after 72 hours 08/12/19 17:00 Stool Culture - Preliminary Stool 08/12/19 05:20 Urine Culture - Final Urine,Clean Catch Escherichia coli Assessment and Plan Plan: 1 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 Patient has locally advanced disease based on PET scan findings, passively stage IIIb 2 COPD , currently inactive in stable 3 coronary artery disease, nonocclusive and the patient is undergoing medical treatment 4 history of third-degree AV block post-pacemaker insertion 5 rectal sigmoid mass, please refer to the CAT scan of the PET scan findings, awaiting colonoscopy 6 hyperlipidemia 7 remote history of hemochromatosis 8 osteoarthritis 9 abnormal metabolic activity in the rectal area along with bowel wall thickening. Consider an artifact versus a second primary malignancy within the rectum. 10 hyponatremia, consider SIADH/ paraneoplastic, improved and the sodium level is improving , sodium level is normalized 11 leukocytosis 12 suspected UTI secondary to E. coli, improved 13 hypertension Plan Awaiting path results from lung biopsy. Colonoscopy tomorrow. We'll follow.
[2019-08-15] MEDS: LACTATED RINGERS 1,000 ML IV SCH (20:02)
[2019-08-16] MEDS: SODIUM CHLORIDE 0.9% 1,000 ML IV SCH ×2 (05:38→09:14)
[2019-08-16] MEDS: HYDROcodone/APAP 7.5-325MG 1 EACH TAB PO PRN ×3 (06:48→21:48)
[2019-08-16] MEDS ORDERED: PROPOFOL 10 MG/ML 20 ML VIAL IV ONE (07:39)
[2019-08-16] MEDS ORDERED: PHENYLEPHRINE-0.9% NACL SYG 1 MG/10 ML SYRINGE ONE (07:39)
[2019-08-16] MEDS ORDERED: LIDOCAINE 1% INJ 10MG/ML (20 ML MDV) ONE (07:39)
[2019-08-16] MEDS ORDERED: IV FLUID CONTINUATION 1,000 ML IV ONE (07:40)
[2019-08-16 08:21] LABS: Basophils # (A) 0.1 k/uL (0-0.2); Basophils % (A) 1 %; Eosinophils # (A) 0.5 k/uL (0-0.7); Eosinophils % (A) 3 %; HCT 36.1 % (39.0-53.0); HGB 11.7 gm/dL (13.0-17.5); Hypochromasia Slight; Lymphocytes # (A) 1.1 k/uL (1.0-4.8); Lymphocytes % (A) 8 %; MCH 29.1 pg (25.0-35.0); MCHC 32.4 g/dL (31.0-37.0); MCV 89.9 fL (80.0-100.0); Mean Platelet Volume 6.3; Monocytes % (A) 7 %; Neutrophils # (A) 11.8 k/uL (1.3-7.7); Neutrophils % (A) 80 %; Platelet Count 658 k/uL (150-450); RBC 4.02 m/uL (4.30-5.90); RDW 14.9 % (11.5-15.5); WBC 14.6 k/uL (3.8-10.6)
[2019-08-16 08:30] LABS: ALT 23 U/L (21-72); AST 23 U/L (17-59); African American GFR (CKD) >90 (>60 ml/min/1.73 sqM); Albumin 2.9 g/dL (3.5-5.0); Alkaline Phosphatase 113 U/L (38-126); Anion Gap 13 mmol/L; Blood Urea Nitrogen 2 mg/dL (9-20); Calcium 8.5 mg/dL (8.4-10.2); Carbon Dioxide 26 mmol/L (22-30); Chloride 98 mmol/L (98-107); Glucose 77 mg/dL (74-99); Non-African American GFR(CKD) >90 (>60 ml/min/1.73 sqM); Potassium 3.6 mmol/L (3.5-5.1); Sodium 137 mmol/L (137-145); Total Bilirubin 0.4 mg/dL (0.2-1.3); Total Protein 6.5 g/dL (6.3-8.2)
--- NOTE | 2019-08-16 08:32 | P.PCN ---
Date of Procedure: 08/16/19 Procedure(s) Performed: PREOPERATIVE DIAGNOSIS: Rectal mass POSTOPERATIVE DIAGNOSIS: Rectal mass with poor prep PROCEDURE: Attempted colonoscopy with biopsy rectal mass ANESTHESIA: MAC SURGEON: Andrea Rodriguez M.D. SPECIMENS: Recommends ENDOSCOPIC PROCEDURE: The patient was placed on the endoscopy table in the left decubitus position. The Olympus colonoscope was inserted into the anus and passed up to the proximal rectum. The patient had an obvious tumor starting at around 10 cm. On digital rectal examination was able to feel this just at the tip of my finger. We were able to navigate through the circumferential tumor from approximately 10-15 cm. At that point I reached a area where there was solid stool present. I could not identify a definite obstruction and it appeared more consistent with a poor prep. I was unable to pass more proximal on this. Biopsies were taken of the rectal mass. We'll discuss findings with the patient postoperatively. Patient may require diverting ostomy if symptoms of obstruction identified. So far the patient has not really had symptoms of colonic obstruction. The patient was taken to the recovery room in stable condition per anesthesia guidelines. RECOMMENDATIONS: Resume diet. Await biopsy results.
[2019-08-16] MEDS: LACTATED RINGERS 1,000 ML IV SCH (09:05)
[2019-08-16] MEDS: ATORVASTATIN 20 MG TAB PO SCH (09:12)
[2019-08-16] MEDS: amLODIPine 5 MG TAB PO SCH (09:12)
[2019-08-16] MEDS: PANTOPRAZOLE 40 MG TABLET PO SCH (09:12)
[2019-08-16] MEDS: CARVEDILOL 3.125 MG TAB PO SCH ×2 (09:12→16:32)
[2019-08-16] MEDS: HEPARIN SODIUM,PORCINE 5,000 UNIT/ML 1 ML VIAL SQ SCH ×2 (09:12→20:27)
[2019-08-16] MEDS: metroNIDAZOLE 500 MG TAB PO SCH ×3 (09:12→21:48)
[2019-08-16] MEDS: NICOTINE 14MG/24HR PATCH TRANSDERM SCH (09:12)
[2019-08-16] MEDS ORDERED: MAGNESIUM CITRATE 296 ML BOTTLE PO ONE (10:30)
--- NOTE | 2019-08-16 10:56 | P.PN ---
Subjective Progress Note Date: 08/16/19 This is a 63-year-old male patient of Dr. Lindsey. Patient presented with complaints of diarrhea over the past few days. Patient reports he has been unable to tolerate food. Patient was recently admitted over a month ago for pneumonia at that time patient was newly diagnosed with a left hilar mass stron gly suggestive malignancy. Patient underwent bronchoscopy at that time with pulmonary services per patient he was supposed to go for follow-up bronchoscopy on 07/03/2019 but was unable due to insurance. Patient reports he also has a PET scan but has not followed up with pulmonary services to review results. Additional medical history includes cardiac arrhythmia with previous history of pacemaker placement, coronary artery disease, COPD, hypertension, hyperlipidemia and chronic back pain and nicotine dependence. UA completed showing large amount of leukocyte Estrace. Patient started on Rocephin. C. diff was negative. Blood cell count elevated at 20.3. Lactic acid 1.2. Beta temp at 10 1.9. Patient dehydrated with sodium of 127. Patient denies any significant abdominal pain. Patient denies any emesis chest poor appetite. At this time will consult Dr. Coronado per infectious disease. Pulmonary services also consulted to follow-up with bronchoscopy and hilar mass. Patient denies any chest pain or shortness of breath. Patient denies any urinary burning or frequency. On 08/13/2019 patient is alert and oriented 3. Patient feels improved with his weakness still having loose bowel movements. Stool for C. diff PCR has been ordered per infectious disease remains on vancomycin. Stool cultures pending. Per pulmonary planning bronchoscopy today in regards to hilar mass. Patient had previous computed tomography scan done during previous admission that showed some rectal wall thickening will consult Dr. vasquez for further investigation. At this time patient denies chest pain or shortness of breath. Patient is complaining of decreased appetite and diarrhea. Patient denies any urinary burning or frequency On 08/14/2019 patient is alert and oriented 3. Patient is status post bronchoscopy yesterday. Patient was evaluated by Dr. vasquez recommending colonoscopy. Infectious disease following. Patient reports that his diarrhea has subsided. Patient requesting advancement in diet. C. diff negative. Patient remains on oral Vanco and Rocephin. Urine culture growing E. coli. On 08/15/2019 patient was seen and examined on the medical floor he is nothing by mouth at this time in anticipation of colonoscopy tomorrow he underwent bronchoscopy on 08/13/2019. At this time patient is denying any fever or chills no headache or dizziness no chest pain no shortness of breath no cough no nausea or vomiting no abdominal pain he is still having some diarrhea no burning was urination no frequency or urgency no hematuria On 08/16/2019 patient is alert and oriented 3. Patient underwent colonoscopy with Dr. vasquez this AM. Patient was evaluated by oncology services due to lung biopsy results. At that time patient remains on Rocephin and Flagyl. Patient denies chest pain or shortness of breath. Patient denies nausea vomiting or diarrhea. Denies any urinary burning or frequency Objective - Vital Signs Vital signs: Vital Signs Temp 98.0 F 08/16/19 09:23 Pulse 75 08/16/19 09:23 Resp 16 08/16/19 09:23 BP 122/65 08/16/19 09:23 Pulse Ox 96 08/16/19 09:23 Intake & Output 08/15/19 08/16/19 08/16/19 18:59 06:59 18:59 Intake Total 150 300 Balance 150 300 Intake: IV 300 Intake, IV Titration 150 Amount Sodium Chloride 0.9% 1, 150 000 ml @ 75 mls/hr IV . [id number] [facility] Rx#:[id number] Other: Voiding Method Toilet # Voids 2 2 1 # Bowel Movements 3 - Exam Head normocephalic Neck supple Lungs clear to auscultation bilaterally no wheezing or crackles Heart regular rate and rhythm S1-S2, no rub or gallop Abdomen is soft nontender nondistended positive bowel sounds no hepatosplenomegaly Extremities no edema Neuro alert and orientated to 3 - Labs CBC & Chem 7: 08/16/19 06:54 08/16/19 06:54 Labs: Abnormal Lab Results - Last 24 Hours (Table) 08/16/19 08/16/19 Range/Units 06:54 06:54 WBC 14.6 H (3.8-10.6) k/uL RBC 4.02 L (4.30-5.90) m/uL Hgb 11.7 L (13.0-17.5) gm/dL Hct 36.1 L (39.0-53.0) % Plt Count 658 H (150-450) k/uL Neutrophils # 11.8 H (1.3-7.7) k/uL BUN 2 L (9-20) mg/dL Creatinine 0.53 L (0.66-1.25) mg/dL Albumin 2.9 L (3.5-5.0) g/dL Microbiology - Last 24 Hours (Table) 08/12/19 06:59 Blood Culture - Preliminary Blood No Growth after 96 hours Assessment and Plan Assessment: 1. Febrile with diarrhea. C. diff negative. Stool cultures have been ordered infectious disease has been consulted. Blood culture ordered. C. diff sample with PCR has been ordered by infectious disease currently maintained on vancomycin. C. diff negative. Oral Vanco DC'd per infectious disease 2. urinary tract infection. Urine culture ordered. Patient maintained on Rocephin. Culture growing E. coli. Patient maintained on Flagyl and Rocephin 3. Non-small cell lung cancer consistent with squamous cell carcinoma Patient reports his posterior undergo repeat bronchoscopy on 07/03/2019 but unable to due to insurance purposes. Patient has not followed with pulmonary services. Status post bronchoscopy on 08/13/2019. Per oncology services, pathology was reviewed with patient. Further scanning was ordered for staging 4. Hyponatremia secondary to dehydration. Continue normal saline at 75. Sodium has improved to 134. Resolved 5. History of cardiac arrhythmia. History of pacemaker placement 6. History of coronary artery disease stable at this time 7. History of hyperlipidemia maintained on Lipitor 8. Chronic back pain. 9. History of nicotine dependence. Patient reports he has stopped smoking. No need for nicotine patch at this time 10. Rectal wall thickening. Previous computed tomography scan showing rectal wall thickening and perirectal edema consistent with inflammatory process. There is perirectal vascular congestion. Per bowel significant rectal wall thickening on recent CAT scan and PET scan showing activity suspect neoplasm. Status post colonoscopy with Dr. vasquez DVT prophylaxis heparin. GI prophylaxis Protonix Infectious disease, pulmonary, surgical services and oncology services are following I performed an examination of the patient and discussed their management with the Nurse Practitioner. I have reviewed the Nurse Practitioner's notes and agree with the documented findings and plan of care
--- NOTE | 2019-08-16 14:06 | P.PN ---
Subjective Progress Note Date: 08/16/19 Today's evaluation of 08/16/2019 the patient is being seen for a follow-up. The patient underwent a colonoscopy this morning and the patient was found to have a rectal mass. The findings were consistent with rectal Humira probably a second primary. Biopsies were obtained. Based on the surgeon, he was unable to pass the scope past the area of the tumor/stenosis. Biopsies were taken. Note that he was also diagnosed having a squamous cell carcinoma of the lung, locally advanced at least probably stage IIIB. Awaiting final pathology regarding the rectal biopsies. He is still having some loose liquidy bowel movements postoperative. No respiratory difficulties. No cough or sputum production for now. No hemoptysis. Objective - Vital Signs Vital signs: Vital Signs Temp 98.0 F 08/16/19 09:23 Pulse 75 08/16/19 09:23 Resp 16 08/16/19 09:23 BP 122/65 08/16/19 09:23 Pulse Ox 96 08/16/19 09:23 Intake & Output 08/15/19 08/16/19 08/16/19 18:59 06:59 18:59 Intake Total 150 300 Balance 150 300 Intake: IV 300 Intake, IV Titration 150 Amount Sodium Chloride 0.9% 1, 150 000 ml @ 75 mls/hr IV . [id number] [facility] Rx#:[id number] Other: Voiding Method Toilet # Voids 2 2 1 # Bowel Movements 3 - Exam The patient appeared to be ill looking with a BMI of 20.9, nonacute distress.. Vital signs as documented. Head exam is unremarkable. No scleral icterus or corneal arcus noted. Neck is without jugular venous distension, thyromegaly, or carotid bruits. Carotid upstrokes are brisk bilaterally. Lungs are clear to auscultation and percussion. Cardiac exam reveals the PMI to be normally sized and situated. Rhythm is regular. First and second heart sounds normal. No murmurs, rubs or gallops. Abdominal exam reveals normal bowel sounds, no masses, no organomegaly and no aortic enlargement. Extremities are nonedematous and both femoral and pedal pulses are normal.Examination of the skin revealed no evidence of significant rashes, suspicious appearing nevi or other concerning lesions. Neurologically awake and alert and there is no focal neurological deficits. - Labs CBC & Chem 7: 08/16/19 06:54 08/16/19 06:54 Labs: Abnormal Lab Results - Last 24 Hours (Table) 08/16/19 08/16/19 Range/Units 06:54 06:54 WBC 14.6 H (3.8-10.6) k/uL RBC 4.02 L (4.30-5.90) m/uL Hgb 11.7 L (13.0-17.5) gm/dL Hct 36.1 L (39.0-53.0) % Plt Count 658 H (150-450) k/uL Neutrophils # 11.8 H (1.3-7.7) k/uL BUN 2 L (9-20) mg/dL Creatinine 0.53 L (0.66-1.25) mg/dL Albumin 2.9 L (3.5-5.0) g/dL Microbiology - Last 24 Hours (Table) 08/12/19 06:59 Blood Culture - Preliminary Blood No Growth after 96 hours Assessment and Plan Plan: 1 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 Patient has locally advanced disease based on PET scan findings, passively stage IIIb 2 COPD , currently inactive in stable 3 coronary artery disease, nonocclusive and the patient is undergoing medical treatment 4 history of third-degree AV block post-pacemaker insertion 5. Rectal mass was significant stenosis post endoscopy and post biopsies 6 hyperlipidemia 7 remote history of hemochromatosis 8 osteoarthritis 9 abnormal metabolic activity in the rectal area along with bowel wall thickenin g. Consider an artifact versus a second primary malignancy within the rectum. 10 hyponatremia, consider SIADH/ paraneoplastic, improved and the sodium level is improving , sodium level is normalized 11 leukocytosis 12 suspected UTI secondary to E. coli, improved 13 hypertension Plan Awaiting path results from rectal biopsy. The patient will need an oncology evaluation. The patient will also need a radiation oncology evaluation. We'll continue to follow.
--- NOTE | 2019-08-16 19:02 | P.PN ---
Subjective Progress Note Date: 08/15/19 Principal diagnosis: rectal mass and lung mass Mr Gabriel is a very pleasant 63-year-old male we've been asked to see for a new diagnosis of squamous cell non-small cell lung cancer. Patient is currently pending colonoscopy because of findings of a rectal mass. Patient denies B symptoms, adenopathy, changes in his voice, new or unusual cough, hemoptysis, SHAGGY, diarrhea has slowed down, it is associated with rectal discomfort, he has not noticed a significant change in the caliber of his stool, he denies black or bloody stool, maybe some increased fatigue, but denies any other acute changes in his health.patient is undergoing investigations, asks questions about ongoing disease processes and prognosis. Objective - Vital Signs Vital signs: Vital Signs Temp 98.5 F 08/16/19 14:51 Pulse 87 08/16/19 14:51 Resp 12 08/16/19 14:51 BP 103/64 08/16/19 14:51 Pulse Ox 97 08/16/19 14:51 Intake & Output 08/15/19 08/16/19 08/16/19 18:59 06:59 18:59 Intake Total 150 300 Balance 150 300 Intake: IV 300 Intake, IV Titration 150 Amount Sodium Chloride 0.9% 1, 150 000 ml @ 75 mls/hr IV . [id number] [facility] Rx#:[id number] Other: Voiding Method Toilet # Voids 2 2 1 # Bowel Movements 3 - Exam The patient appeared well nourished and normally developed. Vital signs as documented. Head exam is unremarkable. No scleral icterus or corneal arcus noted. Neck is without jugular venous distension, thyromegaly, or carotid bruits. Carotid upstrokes are brisk bilaterally. Lungs are clear to auscultation and percussion. Cardiac exam reveals the PMI to be normally sized and situated. Rhythm is regular. First and second heart sounds normal. No murmurs, rubs or gallops. Abdominal exam reveals normal bowel sounds, no masses, no organomegaly and no aortic enlargement. Extremities are nonedematous and both femoral and pedal pulses are normal. - Labs CBC & Chem 7: 08/16/19 06:54 08/16/19 06:54 Labs: Abnormal Lab Results - Last 24 Hours (Table) 08/16/19 08/16/19 Range/Units 06:54 06:54 WBC 14.6 H (3.8-10.6) k/uL RBC 4.02 L (4.30-5.90) m/uL Hgb 11.7 L (13.0-17.5) gm/dL Hct 36.1 L (39.0-53.0) % Plt Count 658 H (150-450) k/uL Neutrophils # 11.8 H (1.3-7.7) k/uL BUN 2 L (9-20) mg/dL Creatinine 0.53 L (0.66-1.25) mg/dL Albumin 2.9 L (3.5-5.0) g/dL Microbiology - Last 24 Hours (Table) 08/12/19 06:59 Blood Culture - Preliminary Blood No Growth after 96 hours - Imaging and Cardiology Chest x-ray: pending Abdominal x-ray: pending CT scan - abdomen: pending Assessment and Plan Assessment: Impression and plan: 1. Lung cancer: Squamous cell carcinoma most likely stage IIIB: - patient will need further staging workup with a PET scan. So far CT abdomen pelvis showing most likely second primary in the rectum. - Brain CT negative. - he'll likely need evaluation by radiation oncology. - Most likely plan of action would be concurrent chemotherapy and radiation with carboplatinum with Taxol weekly chemotherapy. 2. Rectal mass: - The patient underwent a colonoscopy and the patient was found to have a rectal mass. probably a second primary. CT of abdomen pelvis is showing progressive wall thickening ill-defined surrounding fluid neoplasm strongly suspected, length of tumor 13 cm.. - Patient will need a PET scan, MRI elective protocol surgical evaluation radiation oncology evaluation likely will need concurrent neoadjuvant chemotherapy and radiation if pathology positive for adenocarcinoma of rectum. - consult radiation oncology. 3. sepsis/colitis: Febrile with diarrhea. urinary tract infection, Escherichia coli UTI - C. diff negative. Stool cultures have been ordered infectious disease has been consulted. Blood culture ordered. - on Rocephin 4. Anemia,hemoglobin, normocytic high neutrophils and monocytes. - check iron profile, B12 folate, LDH heptoglobin, serum protein electrophoresis. - persistent monocytosis will likely need further evaluation to rule out CMML. 5. Thrombocytosis: - reactive thrombocytosis 10.1 platelet count of 545 - iron deficiency can lead to reactive thrombocytosis other possibility is myeloproliferative neoplasm. - Check JAK2 mutation 6. 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 Continue normal saline at 75 7. history of coronary artery disease, cardiac arrhythmia, pacemaker, hyperlipidemia, chronic back pain, tobacco abuse. COPD ,osteoarthritis . 8. unconfirmed, remote history of hemochromatosis Thank you for allowing me to participate in the care of your patient. Eunice Solano MD [employer], [facility] Hematology Oncology [id number], [address] [place] [id number] Office: [phone] Time with Patient: Greater than 30
--- NOTE | 2019-08-16 19:04 | P.PN ---
Subjective Progress Note Date: 08/16/19 Principal diagnosis: rectal mass and lung mass Mr Gabriel is a very pleasant 63-year-old male we've been asked to see for a new diagnosis of squamous cell non-small cell lung cancer. Patient is currently pending colonoscopy because of findings of a rectal mass. Patient denies B symptoms, adenopathy, changes in his voice, new or unusual cough, hemoptysis, SHAGGY, diarrhea has slowed down, it is associated with rectal discomfort, he has not noticed a significant change in the caliber of his stool, he denies black or bloody stool, maybe some increased fatigue, but denies any other acute changes in his health.patient is undergoing investigations, asks questions about ongoing disease processes and prognosis. Objective - Vital Signs Vital signs: Vital Signs Temp 98.5 F 08/16/19 14:51 Pulse 87 08/16/19 14:51 Resp 12 08/16/19 14:51 BP 103/64 08/16/19 14:51 Pulse Ox 97 08/16/19 14:51 Intake & Output 08/16/19 08/16/19 08/17/19 06:59 18:59 06:59 Intake Total 150 300 Balance 150 300 Intake: IV 300 Intake, IV Titration 150 Amount Sodium Chloride 0.9% 1, 150 000 ml @ 75 mls/hr IV . [id number] [facility] Rx#:[id number] Other: Voiding Method Toilet # Voids 2 1 # Bowel Movements 3 - Exam The patient appeared well nourished and normally developed. Vital signs as documented. Head exam is unremarkable. No scleral icterus or corneal arcus noted. Neck is without jugular venous distension, thyromegaly, or carotid bruits. Carotid upstrokes are brisk bilaterally. Lungs are clear to auscultation and percussion. Cardiac exam reveals the PMI to be normally sized and situated. Rhythm is regular. First and second heart sounds normal. No murmurs, rubs or gallops. Abdominal exam reveals normal bowel sounds, no masses, no organomegaly and no aortic enlargement. Extremities are nonedematous and both femoral and pedal pulses are normal. - Labs CBC & Chem 7: 08/16/19 06:54 08/16/19 06:54 Labs: Abnormal Lab Results - Last 24 Hours (Table) 08/16/19 08/16/19 Range/Units 06:54 06:54 WBC 14.6 H (3.8-10.6) k/uL RBC 4.02 L (4.30-5.90) m/uL Hgb 11.7 L (13.0-17.5) gm/dL Hct 36.1 L (39.0-53.0) % Plt Count 658 H (150-450) k/uL Neutrophils # 11.8 H (1.3-7.7) k/uL BUN 2 L (9-20) mg/dL Creatinine 0.53 L (0.66-1.25) mg/dL Albumin 2.9 L (3.5-5.0) g/dL Microbiology - Last 24 Hours (Table) 08/12/19 06:59 Blood Culture - Preliminary Blood No Growth after 96 hours Assessment and Plan Assessment: Impression and plan: 1. Lung cancer: Squamous cell carcinoma most likely stage IIIB: - patient will need further staging workup with a PET scan. So far CT abdomen pelvis showing most likely second primary in the rectum. - Brain CT negative. - he'll likely need evaluation by radiation oncology. - Most likely plan of action would be concurrent chemotherapy and radiation with carboplatinum with Taxol weekly chemotherapy. 2. Rectal mass: - The patient underwent a colonoscopy and the patient was found to have a rectal mass. probably a second primary. CT of abdomen pelvis is showing pr ogressive wall thickening ill-defined surrounding fluid neoplasm strongly suspected, length of tumor 13 cm.. - Patient will need a PET scan, MRI elective protocol surgical evaluation radiation oncology evaluation likely will need concurrent neoadjuvant chemotherapy and radiation if pathology positive for adenocarcinoma of rectum. - consult radiation oncology. 3. sepsis/colitis: Febrile with diarrhea. urinary tract infection, Escherichia coli UTI - C. diff negative. Stool cultures have been ordered infectious disease has been consulted. Blood culture ordered. - on Rocephin 4. Anemia,hemoglobin, normocytic high neutrophils and monocytes. - check iron profile, B12 folate, LDH heptoglobin, serum protein elect rophoresis. - persistent monocytosis will likely need further evaluation to rule out CMML. 5. Thrombocytosis: - reactive thrombocytosis 10.1 platelet count of 545 - iron deficiency can lead to reactive thrombocytosis other possibility is myeloproliferative neoplasm. - Check JAK2 mutation 6. 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 Continue normal saline at 75 7. history of coronary artery disease, cardiac arrhythmia, pacemaker, hyperlipidemia, chronic back pain, tobacco abuse. COPD ,osteoarthritis . 8. unconfirmed, remote history of hemochromatosis Thank you for allowing me to participate in the care of your patient. Eunice Solano MD Pediatric Dentist, [facility] Hematology Oncology [id number], [address] [place] [address] Office: [phone] Time with Patient: Greater than 30
[2019-08-16 23:21] LABS: % Iron Saturation 14.22 (15.00-50.00)
[2019-08-16 23:27] LABS: Folate, Serum 20.8 ng/mL
[2019-08-17] MEDS: SODIUM CHLORIDE 0.9% 1,000 ML IV SCH (04:01)
[2019-08-17] MEDS: HYDROcodone/APAP 7.5-325MG 1 EACH TAB PO PRN ×4 (04:04→22:50)
[2019-08-17 07:08] LABS: Basophils # (A) 0.1 k/uL (0-0.2); Basophils % (A) 1 %; Eosinophils # (A) 0.5 k/uL (0-0.7); Eosinophils % (A) 5 %; HCT 32.6 % (39.0-53.0); HGB 10.4 gm/dL (13.0-17.5); Lymphocytes % (A) 9 %; MCH 28.8 pg (25.0-35.0); Mean Platelet Volume 5.8; Monocytes # (A) 0.9 k/uL (0-1.0); Monocytes % (A) 8 %; Neutrophils # (A) 8.9 k/uL (1.3-7.7); Neutrophils % (A) 76 %; Platelet Count 580 k/uL (150-450); RBC 3.63 m/uL (4.30-5.90); RDW 15.3 % (11.5-15.5); WBC 11.7 k/uL (3.8-10.6)
[2019-08-17 07:27] LABS: ALT 21 U/L (21-72); AST 19 U/L (17-59); African American GFR (CKD) >90 (>60 ml/min/1.73 sqM); Albumin 2.4 g/dL (3.5-5.0); Alkaline Phosphatase 92 U/L (38-126); Anion Gap 8 mmol/L; Blood Urea Nitrogen <2 mg/dL (9-20); Calcium 8.1 mg/dL (8.4-10.2); Carbon Dioxide 27 mmol/L (22-30); Chloride 102 mmol/L (98-107); Glucose 91 mg/dL (74-99); Non-African American GFR(CKD) >90 (>60 ml/min/1.73 sqM); Potassium 2.8 mmol/L (3.5-5.1); Sodium 137 mmol/L (137-145); Total Bilirubin 0.3 mg/dL (0.2-1.3); Total Protein 5.6 g/dL (6.3-8.2)
[2019-08-17] MEDS: CARVEDILOL 3.125 MG TAB PO SCH ×2 (07:30→16:45)
[2019-08-17] MEDS: PANTOPRAZOLE 40 MG TABLET PO SCH (07:30)
[2019-08-17] MEDS ORDERED: POTASSIUM CHLORIDE 20 MEQ in WATER FOR INJECTION 1 100ML.BAG IVPB SCH (08:15)
[2019-08-17] MEDS: ATORVASTATIN 20 MG TAB PO SCH (08:31)
[2019-08-17] MEDS: HEPARIN SODIUM,PORCINE 5,000 UNIT/ML 1 ML VIAL SQ SCH ×2 (08:31→21:26)
[2019-08-17] MEDS: amLODIPine 5 MG TAB PO SCH (08:31)
[2019-08-17] MEDS: NICOTINE 14MG/24HR PATCH TRANSDERM SCH (08:31)
[2019-08-17] MEDS: metroNIDAZOLE 500 MG TAB PO SCH ×3 (08:31→21:26)
[2019-08-17] MEDS: POTASSIUM CHLORIDE ER 20 MEQ TAB.ER PO SCH ×3 (08:39→14:26)
[2019-08-17] MEDS: POTASSIUM CHLORIDE 20 MEQ in WATER FOR INJECTION 1 100ML.BAG IVPB SCH ×3 (09:25→14:21)
--- NOTE | 2019-08-17 09:29 | P.PN ---
Subjective Progress Note Date: 08/17/19 Principal diagnosis: Lung cancer stage IIIB, rectal mass, nonspecific colitis, chronic anemia, thrombocytosis, electrolyte imbalance, coronary artery disease, history of hemochromatosis, 08/17/2019, patient seen and evaluated examined during the round covering Dr. Schwartz, lab reviewed medications reviewed care plan discussed with the patient at length still have ongoing loose stool, potassium this morning is 2.8, potassium replacement protocol has been initiated, oncology services following this patient as well, white cell count slightly improved platelet count slightly better today compared to yesterday Objective - Vital Signs Vital signs: Vital Signs Temp 97.8 F 08/17/19 07:00 Pulse 88 08/17/19 07:00 Resp 16 08/17/19 07:00 BP 125/72 08/17/19 07:00 Pulse Ox 94 L 08/17/19 07:00 Intake & Output 08/16/19 08/17/19 08/17/19 18:59 06:59 18:59 Intake Total 300 950 Balance 300 950 Intake: IV 300 750 Sodium Chloride 0.9% 1, 750 000 ml @ 75 mls/hr IV . [id number] [facility] Rx#:[id number] Intake, IV Titration 200 Amount Sodium Chloride 0.9% 1, 150 000 ml @ 75 mls/hr IV . [id number] [facility] Rx#:[id number] cefTRIAXone 1 gm In 50 Sodium Chloride 0.9% 50 ml @ 100 mls/hr IVPB Q12HR [facility] Rx#:[id number] Other: Voiding Method Toilet # Voids 1 3 # Bowel Movements 2 - Constitutional General appearance: Present: average body habitus, cooperative, disheveled - EENT Eyes: Present: EOMI, PERRLA, poor dentition, normal appearance Ears: bilateral: normal - Neck Carotids: bilateral: upstroke normal - Respiratory Respiratory: bilateral: diminished - Cardiovascular Rhythm: regular Heart sounds: normal: S1, S2 - Gastrointestinal General gastrointestinal: Present: normal bowel sounds - Musculoskeletal Musculoskeletal: Present: gait normal, generalized weakness, strength equal bilaterally - Psychiatric Psychiatric: Present: A&O x's 3, appropriate affect, intact judgment & insight - Labs CBC & Chem 7: 08/17/19 06:53 08/17/19 06:53 Labs: Abnormal Lab Results - Last 24 Hours (Table) 08/16/19 08/16/19 08/17/19 Range/Units 06:54 06:54 06:53 WBC 11.7 H (3.8-10.6) k/uL RBC 3.63 L (4.30-5.90) m/uL Hgb 10.4 L (13.0-17.5) gm/dL Hct 32.6 L (39.0-53.0) % Plt Count 580 H (150-450) k/uL Neutrophils # 8.9 H (1.3-7.7) k/uL Potassium (3.5-5.1) mmol/L BUN (9-20) mg/dL Creatinine (0.66-1.25) mg/dL Calcium (8.4-10.2) mg/dL Iron 30 L (65-175) ug/dL TIBC 211 L (228-460) ug/dL % Saturation 14.22 L (15.00-50.00) Lactate Dehydrogenase 654 H (313-618) U/L Total Protein (6.3-8.2) g/dL Total Protein (PEP) 6.0 L (6.2-8.2) g/dL Albumin (3.5-5.0) g/dL Vitamin B12 994.0 H (200.0-944.0) pg/mL 08/17/19 Range/Units 06:53 WBC (3.8-10.6) k/uL RBC (4.30-5.90) m/uL Hgb (13.0-17.5) gm/dL Hct (39.0-53.0) % Plt Count (150-450) k/uL Neutrophils # (1.3-7.7) k/uL Potassium 2.8 L (3.5-5.1) mmol/L BUN <2 L (9-20) mg/dL Creatinine 0.49 L (0.66-1.25) mg/dL Calcium 8.1 L (8.4-10.2) mg/dL Iron (65-175) ug/dL TIBC (228-460) ug/dL % Saturation (15.00-50.00) Lactate Dehydrogenase (313-618) U/L Total Protein 5.6 L (6.3-8.2) g/dL Total Protein (PEP) (6.2-8.2) g/dL Albumin 2.4 L (3.5-5.0) g/dL Vitamin B12 (200.0-944.0) pg/mL Microbiology - Last 24 Hours (Table) 08/12/19 17:00 Stool Culture - Final Stool 08/12/19 06:59 Blood Culture - Preliminary Blood No Growth after 96 hours Assessment and Plan Assessment: Sepsis with diarrhea related to nonspecific colitis/rectal mass, C. diff has been negative, Nonspecific colitis Hypokalemia Non-small cell cancer of the lung Rectal wall thickening possible rectal neoplasm, present in the form of circumferential tumor status post colonoscopy biopsy pending Urinary tract infection Electrolyte imbalance with hyponatremia History of arrhythmia Coronary artery disease Chronic back pain Plan: Continue to replace potassium Follow-up on biopsy results Continue Rocephin for UTI Oncology following planning for chemotherapy however rectal mass needs to be considered awaiting biopsy Continue gentle rehydration
--- NOTE | 2019-08-17 11:50 | P.PN ---
Subjective Progress Note Date: 08/17/19 Principal diagnosis: Proctitis Patient is able to have a large amount of stools yesterday. Denies abdominal pain at this time. No nausea. Tolerating liquids. Would like more to eat. Did have some rectal bleeding. Objective - Vital Signs Vital signs: Vital Signs Temp 97.8 F 08/17/19 07:00 Pulse 88 08/17/19 07:00 Resp 16 08/17/19 07:00 BP 125/72 08/17/19 07:00 Pulse Ox 94 L 08/17/19 07:00 Intake & Output 08/16/19 08/17/19 08/17/19 18:59 06:59 18:59 Intake Total 300 950 Balance 300 950 Intake: IV 300 750 Sodium Chloride 0.9% 1, 750 000 ml @ 75 mls/hr IV . [id number] [facility] Rx#:[id number] Intake, IV Titration 200 Amount Sodium Chloride 0.9% 1, 150 000 ml @ 75 mls/hr IV . [id number] [facility] Rx#:[id number] cefTRIAXone 1 gm In 50 Sodium Chloride 0.9% 50 ml @ 100 mls/hr IVPB Q12HR [facility] Rx#:[id number] Other: Voiding Method Toilet # Voids 1 3 # Bowel Movements 2 - Exam Abdomen: Soft, nontender, nondistended - Labs CBC & Chem 7: 08/17/19 06:53 08/17/19 06:53 Labs: Abnormal Lab Results - Last 24 Hours (Table) 08/16/19 08/16/19 08/17/19 Range/Units 06:54 06:54 06:53 WBC 11.7 H (3.8-10.6) k/uL RBC 3.63 L (4.30-5.90) m/uL Hgb 10.4 L (13.0-17.5) gm/dL Hct 32.6 L (39.0-53.0) % Plt Count 580 H (150-450) k/uL Neutrophils # 8.9 H (1.3-7.7) k/uL Haptoglobin 388.0 H (31.2-198.0) mg/dL Potassium (3.5-5.1) mmol/L BUN (9-20) mg/dL Creatinine (0.66-1.25) mg/dL Calcium (8.4-10.2) mg/dL Iron 30 L (65-175) ug/dL TIBC 211 L (228-460) ug/dL % Saturation 14.22 L (15.00-50.00) Lactate Dehydrogenase 654 H (313-618) U/L Total Protein (6.3-8.2) g/dL Total Protein (PEP) 6.0 L (6.2-8.2) g/dL Albumin (3.5-5.0) g/dL Vitamin B12 994.0 H (200.0-944.0) pg/mL 08/17/19 Range/Units 06:53 WBC (3.8-10.6) k/uL RBC (4.30-5.90) m/uL Hgb (13.0-17.5) gm/dL Hct (39.0-53.0) % Plt Count (150-450) k/uL Neutrophils # (1.3-7.7) k/uL Haptoglobin (31.2-198.0) mg/dL Potassium 2.8 L (3.5-5.1) mmol/L BUN <2 L (9-20) mg/dL Creatinine 0.49 L (0.66-1.25) mg/dL Calcium 8.1 L (8.4-10.2) mg/dL Iron (65-175) ug/dL TIBC (228-460) ug/dL % Saturation (15.00-50.00) Lactate Dehydrogenase (313-618) U/L Total Protein 5.6 L (6.3-8.2) g/dL Total Protein (PEP) (6.2-8.2) g/dL Albumin 2.4 L (3.5-5.0) g/dL Vitamin B12 (200.0-944.0) pg/mL Microbiology - Last 24 Hours (Table) 08/12/19 06:59 Blood Culture - Preliminary Blood No Growth after 120 hours 08/12/19 17:00 Stool Culture - Final Stool Assessment and Plan (1) Proctitis Narrative/Plan: Patient with rectal mass consistent with neoplasm biopsied yesterday. Await those findings. No immediate plans for diverting ostomy. Continue medical and radii patient oncology evaluation and plans for treatment. Current Visit: Yes Status: Acute Code(s): K62.89 - OTHER SPECIFIED DISEASES OF ANUS AND RECTUM SNOMED Code(s): 7026609
--- NOTE | 2019-08-17 12:48 | P.CONS ---
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 He was admitted on 08/12 due to diarrhea and fever - found to have UTI. The patient has noticed a 35 pound weight loss over the past year. He has also noticed change in his bowel habits - he reports having episodes of diarrhea in December. He has noticed blood mixed with his stool going back for several months as well. His CT chest from May showed a large left hilar mass with abnormal prevascular adenopathy. PET-CT from 06/28 showed abnormal uptake in the left hilar mass as well as a highly avid rectal lesion. Initial biopsy attempt via bronchoscopy was negative. Patient was admitted 08/12 due to diarrhea and was found to be negative for c.dif. His CT chest from 08/12 showed the left hilar mass to be stable, but there was some increasing nodularity and slight increased lymph node size. He underwent bronchoscopy on 08/13 which showed abnormal tissue in the distal left MSB from the [place]. There was reduced caliber of the left upper lobe. Biopsy performed showed moderately differentiated squamous cell carcinoma. He had a CT of the abdomen/pelvis from 08/15 showed 13 cm of thickening in the recto-sigmoid. He underwent colonoscopy 08/16 which showed a tumor starting at 10 cm and was circumferential from 10-15 cm. The scope could not be passed further due to poor prep. The patient reports the day after the scope he had a lot of loose stool. He has had recent symptoms of partial obstruction - he has frequent gas/bloating and often passes only small stools. Review of Systems Constitutional: Denies chills Eyes: denies blurred vision Ears: deny: decreased hearing Ears, nose, mouth and throat: Denies headache Cardiovascular: Denies chest pain Respiratory: Reports cough, Denies dyspnea, Denies hemoptysis Gastrointestinal: Reports BRBPR, Reports change in bowel habits, Reports diarrhea, Reports excessive gas Genitourinary: Denies dysuria Musculoskeletal: Denies arm numbness/tingling 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, history of hemochromatosis, vitamin D deficiency, previous history of groin abscesses that are currently healed and drained, hypertension, hyperlipidemia, osteoarthritis, chronic back pain, cardiac cath found CAD and tx medically, hemachromacytosis, vitamin D deficiency History of Any Multi-Drug Resistant Organisms: None Reported Past Surgical History: Appendectomy, Heart Catheterization, Hernia Repair, Orthopedic Surgery, Tonsillectomy Additional Past Surgical History / Comment(s): 2008 cardiac cath due to chest pain and bradycardia-CAD tx medically and EF at that time 40%, rt inguinal dana ia repair , rt knee arthroscopy, abcess R groin I&Ds x 2. Past Anesthesia/Blood Transfusion Reactions: No Reported Reaction Type of Cardiac Device: Permanent Pacemaker Device Placement Date:: 2013 Past Psychological History: No Psychological Hx Reported Smoking Status: Former smoker Past Alcohol Use History: None Reported Past Drug Use History: None Reported - Past Family History Father Additional Family Medical History / Comment(s): Father after having a MVA. Mother Family Medical History: Myocardial Infarction (VT) Additional Family Medical History / Comment(s): Mother at age 63 yrs of massive VT. Medications and Allergies Home Medications Medication Instructions Recorded Confirmed Type Simvastatin [Zocor] 40 mg PO DAILY 01/21/14 08/12/19 History Carvedilol [Coreg] 3.125 mg PO BID 12/03/18 08/12/19 History amLODIPine [Norvasc] 5 mg PO DAILY 30 Days #30 tab 12/05/18 08/12/19 Rx Nicotine 14Mg/24Hr Patch [Habitrol] 1 patch TRANSDERM DAILY 30 Days 06/19/19 08/12/19 Rx #30 patch HYDROcodone/APAP 7.5-325MG [Kinsley 1 tab PO Q6H PRN 08/12/19 08/12/19 History 7.5-325] Allergies Allergy/AdvReac Type Severity Reaction Status Date / Time No Known Allergies Allergy Verified 08/12/19 04:59 Physical Exam Vitals: Vital Signs Temp Pulse Resp BP Pulse Ox 08/17/19 07:00 97.8 F 88 16 125/72 94 L 08/17/19 01:03 98.4 F 80 18 120/68 98 08/16/19 20:08 98.3 F 82 18 116/73 97 08/16/19 14:51 98.5 F 87 12 103/64 97 Intake and Output 08/16/19 08/17/19 08/17/19 22:59 06:59 14:59 Intake Total 200 750 Balance 200 750 Intake: IV 750 Sodium Chloride 0.9% 1, 750 000 ml @ 75 mls/hr IV . [id number] [facility] Rx#:[id number] Intake, IV Titration 200 Amount Sodium Chloride 0.9% 1, 150 000 ml @ 75 mls/hr IV . [id number] [facility] Rx#:[id number] cefTRIAXone 1 gm In 50 Sodium Chloride 0.9% 50 ml @ 100 mls/hr IVPB Q12HR [facility] Rx#:[id number] Other: # Voids 3 # Bowel Movements 2 - Constitutional General appearance: average body habitus, no acute distress - EENT Eyes: EOMI, PERRLA ENT: hearing grossly normal Ears: bilateral: normal - Neck Neck: no lymphadenopathy - Respiratory Respiratory: right: CTA, left: diminished - Cardiovascular Rhythm: regular - Gastrointestinal General gastrointestinal: soft, no tenderness - Integumentary Integumentary: no calor - Neurologic Neurologic: CNII-XII intact - Musculoskeletal Musculoskeletal: gait normal, strength equal bilaterally - Psychiatric Psychiatric: A&O x's 3, appropriate affect Results CBC & Chem 7: 08/17/19 06:53 08/17/19 06:53 Labs: Abnormal Lab Results - Last 24 Hours (Table) 08/16/19 08/16/19 08/17/19 Range/Units 06:54 06:54 06:53 WBC 11.7 H (3.8-10.6) k/uL RBC 3.63 L (4.30-5.90) m/uL Hgb 10.4 L (13.0-17.5) gm/dL Hct 32.6 L (39.0-53.0) % Plt Count 580 H (150-450) k/uL Neutrophils # 8.9 H (1.3-7.7) k/uL Haptoglobin 388.0 H (31.2-198.0) mg/dL Potassium (3.5-5.1) mmol/L BUN (9-20) mg/dL Creatinine (0.66-1.25) mg/dL Calcium (8.4-10.2) mg/dL Iron 30 L (65-175) ug/dL TIBC 211 L (228-460) ug/dL % Saturation 14.22 L (15.00-50.00) Lactate Dehydrogenase 654 H (313-618) U/L Total Protein (6.3-8.2) g/dL Total Protein (PEP) 6.0 L (6.2-8.2) g/dL Albumin (3.5-5.0) g/dL Vitamin B12 994.0 H (200.0-944.0) pg/mL 08/17/19 Range/Units 06:53 WBC (3.8-10.6) k/uL RBC (4.30-5.90) m/uL Hgb (13.0-17.5) gm/dL Hct (39.0-53.0) % Plt Count (150-450) k/uL Neutrophils # (1.3-7.7) k/uL Haptoglobin (31.2-198.0) mg/dL Potassium 2.8 L (3.5-5.1) mmol/L BUN <2 L (9-20) mg/dL Creatinine 0.49 L (0.66-1.25) mg/dL Calcium 8.1 L (8.4-10.2) mg/dL Iron (65-175) ug/dL TIBC (228-460) ug/dL % Saturation (15.00-50.00) Lactate Dehydrogenase (313-618) U/L Total Protein 5.6 L (6.3-8.2) g/dL Total Protein (PEP) (6.2-8.2) g/dL Albumin 2.4 L (3.5-5.0) g/dL Vitamin B12 (200.0-944.0) pg/mL Microbiology - Last 24 Hours (Table) 08/12/19 06:59 Blood Culture - Preliminary Blood No Growth after 120 hours 08/12/19 17:00 Stool Culture - Final Stool CT scan - abdomen: report reviewed, image reviewed CT scan - chest: report reviewed, image reviewed CT Scan - head: report reviewed, image reviewed Assessment and Plan Plan: The patient is a 63 year old male recently diagnosed with a 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 He was admitted on 08/12 due to diarrhea and fever - found to have UTI. Biopsy of rectal mass pending. 1. Locally advanced non-small cell lung cancer: This is best managed by concurrent chemoradiation. We will await pathology from his rectal biopsy, but I discussed with the patient it is likely he has a separate rectal cancer primary tumor. No futher imaging necessary (PET CT from June, brain CT negative - cannot have MRI due to pacer). 2. Rectal mass: Likely second primary cancer. Await biopsy results. Looks to be likely locally advanced as well - which would typically be treated with neoadjuvant therapy prior to potential resection. If this turns out to be adenocarcinoma - will discuss with medical oncology possible treatment sequenci ng. Patient does not appear to have complete obstruction, however he has symptoms of partial obstruction. 3. Patient should meet with social work - significant concerns regarding ability to pay for treatment, take time off of work and insurance coverage. Time with Patient: Greater than 30
--- NOTE | 2019-08-17 14:44 | P.PN ---
Subjective Progress Note Date: 08/17/19 On today's evaluation of 08/17/2019 I'm seeing the patient for a follow-up. The patient has stage III squamous cell carcinoma locally advanced disease along with perirectal mass which is currently under investigation awaiting final pathology. The patient was seen by radiation oncology and treatment plan is not set forth. Although there is consideration for neoadjuvant therapy prior to resection of this rectal mass and this will largely depend on the final pathology. I instructed this point. On and off having diarrhea. He complains for now. Potassium level is at 2.[address] Consultation was also obtained by medical oncology. Objective - Vital Signs Vital signs: Vital Signs Temp 98.1 F 08/17/19 14:30 Pulse 69 08/17/19 14:30 Resp 16 08/17/19 14:30 BP 111/73 08/17/19 14:30 Pulse Ox 98 08/17/19 14:30 Intake & Output 08/16/19 08/17/19 08/17/19 18:59 06:59 18:59 Intake Total 300 950 Balance 300 950 Intake: IV 300 750 Sodium Chloride 0.9% 1, 750 000 ml @ 75 mls/hr IV . [id number] [facility] Rx#:[id number] Intake, IV Titration 200 Amount Sodium Chloride 0.9% 1, 150 000 ml @ 75 mls/hr IV . [id number] [facility] Rx#:[id number] cefTRIAXone 1 gm In 50 Sodium Chloride 0.9% 50 ml @ 100 mls/hr IVPB Q12HR [facility] Rx#:[id number] Other: Voiding Method Toilet # Voids 1 3 2 # Bowel Movements 2 - Exam The patient appeared to be ill looking with a BMI of 20.9, nonacute distress.. Vital signs as documented. Head exam is unremarkable. No scleral icterus or corneal arcus noted. Neck is without jugular venous distension, thyromegaly, or carotid bruits. Carotid upstrokes are brisk bilaterally. Lungs are clear to auscultation and percussion. Cardiac exam reveals the PMI to be normally sized and situated. Rhythm is regular. First and second heart sounds normal. No murmurs, rubs or gallops. Abdominal exam reveals normal bowel sounds, no masses, no organomegaly and no aortic enlargement. Extremities are nonedematous and both femoral and pedal pulses are normal.Examination of the skin revealed no evidence of significant rashes, suspicious appearing nevi or other concerning lesions. Neurologically awake and alert and there is no focal neurological deficits. - Labs CBC & Chem 7: 08/17/19 06:53 08/17/19 06:53 Labs: Abnormal Lab Results - Last 24 Hours (Table) 08/16/19 08/16/19 08/17/19 Range/Units 06:54 06:54 06:53 WBC 11.7 H (3.8-10.6) k/uL RBC 3.63 L (4.30-5.90) m/uL Hgb 10.4 L (13.0-17.5) gm/dL Hct 32.6 L (39.0-53.0) % Plt Count 580 H (150-450) k/uL Neutrophils # 8.9 H (1.3-7.7) k/uL Haptoglobin 388.0 H (31.2-198.0) mg/dL Potassium (3.5-5.1) mmol/L BUN (9-20) mg/dL Creatinine (0.66-1.25) mg/dL Calcium (8.4-10.2) mg/dL Iron 30 L (65-175) ug/dL TIBC 211 L (228-460) ug/dL % Saturation 14.22 L (15.00-50.00) Lactate Dehydrogenase 654 H (313-618) U/L Total Protein (6.3-8.2) g/dL Total Protein (PEP) 6.0 L (6.2-8.2) g/dL Albumin (3.5-5.0) g/dL Vitamin B12 994.0 H (200.0-944.0) pg/mL 08/17/19 Range/Units 06:53 WBC (3.8-10.6) k/uL RBC (4.30-5.90) m/uL Hgb (13.0-17.5) gm/dL Hct (39.0-53.0) % Plt Count (150-450) k/uL Neutrophils # (1.3-7.7) k/uL Haptoglobin (31.2-198.0) mg/dL Potassium 2.8 L (3.5-5.1) mmol/L BUN <2 L (9-20) mg/dL Creatinine 0.49 L (0.66-1.25) mg/dL Calcium 8.1 L (8.4-10.2) mg/dL Iron (65-175) ug/dL TIBC (228-460) ug/dL % Saturation (15.00-50.00) Lactate Dehydrogenase (313-618) U/L Total Protein 5.6 L (6.3-8.2) g/dL Total Protein (PEP) (6.2-8.2) g/dL Albumin 2.4 L (3.5-5.0) g/dL Vitamin B12 (200.0-944.0) pg/mL Microbiology - Last 24 Hours (Table) 08/12/19 06:59 Blood Culture - Preliminary Blood No Growth after 120 hours 08/12/19 17:00 Stool Culture - Final Stool Assessment and Plan Plan: 1 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 Patient has locally advanced disease based on PET scan findings, passively stage IIIb 2 COPD , currently inactive in stable 3 coronary artery disease, nonocclusive and the patient is undergoing medical treatment 4 history of third-degree AV block post-pacemaker insertion 5. Rectal mass was significant stenosis post endoscopy and post biopsies 6 hyperlipidemia 7 remote history of hemochromatosis 8 osteoarthritis 9 abnormal metabolic activity in the rectal area along with bowel wall thickening. Consider an artifact versus a second primary malignancy within the rectum. 10 hyponatremia, consider SIADH/ paraneoplastic, improved and the sodium level is improving , sodium level is normalized 11 leukocytosis 12 suspected UTI secondary to E. coli, improved 13 hypertension Plan Awaiting path results from rectal biopsy. The patient will need an oncology evaluation. She is being considered for neoadjuvant chemoradiation therapy regarding the rectal mass and this will largely depend on the final pathology. Unfortunately, holiday , the final pathology results have been delayed from the rectal mass and this will probably be available by Monday. We'll continue to follow. Replace potassium. Doing well. No new complaints.
--- NOTE | 2019-08-17 20:05 | P.PN ---
Subjective Progress Note Date: 08/17/19 Principal diagnosis: rectal mass and lung mass Mr Gabriel is a very pleasant 63-year-old male we've been asked to see for a new diagnosis of squamous cell non-small cell lung cancer. Patient is currently pending colonoscopy because of findings of a rectal mass. Patient denies B symptoms, adenopathy, changes in his voice, new or unusual cough, hemoptysis, SHAGGY, diarrhea has slowed down, it is associated with rectal discomfort, he has not noticed a significant change in the caliber of his stool, he denies black or bloody stool, maybe some increased fatigue, but denies any other acute changes in his health.patient is undergoing investigations, asks questions about ongoing disease processes and prognosis. Objective - Vital Signs Vital signs: Vital Signs Temp 98.2 F 08/17/19 19:31 Pulse 79 08/17/19 19:31 Resp 19 08/17/19 19:31 BP 106/53 08/17/19 19:31 Pulse Ox 98 08/17/19 19:31 Intake & Output 08/17/19 08/17/19 08/18/19 06:59 18:59 06:59 Intake Total 950 200 Balance 950 200 Intake: IV 750 Sodium Chloride 0.9% 1, 750 000 ml @ 75 mls/hr IV . [id number] [facility] Rx#:[id number] Intake, IV Titration 200 Amount Sodium Chloride 0.9% 1, 150 000 ml @ 75 mls/hr IV . [id number] [facility] Rx#:[id number] cefTRIAXone 1 gm In 50 Sodium Chloride 0.9% 50 ml @ 100 mls/hr IVPB Q12HR [facility] Rx#:[id number] Oral 200 Other: # Voids 3 2 # Bowel Movements 2 - Exam The patient appeared well nourished and normally developed. Vital signs as documented. Head exam is unremarkable. No scleral icterus or corneal arcus noted. Neck is without jugular venous distension, thyromegaly, or carotid bruits. Carotid upstrokes are brisk bilaterally. Lungs are clear to auscultation and percussion. Cardiac exam reveals the PMI to be normally sized and situated. Rhythm is regular. First and second heart sounds normal. No murmurs, rubs or gallops. Abdominal exam reveals normal bowel sounds, no masses, no organomegaly and no aortic enlargement. Extremities are nonedematous and both femoral and pedal pulses are normal. - Labs CBC & Chem 7: 08/17/19 06:53 08/17/19 06:53 Labs: Abnormal Lab Results - Last 24 Hours (Table) 08/16/19 08/16/19 08/17/19 Range/Units 06:54 06:54 06:53 WBC 11.7 H (3.8-10.6) k/uL RBC 3.63 L (4.30-5.90) m/uL Hgb 10.4 L (13.0-17.5) gm/dL Hct 32.6 L (39.0-53.0) % Plt Count 580 H (150-450) k/uL Neutrophils # 8.9 H (1.3-7.7) k/uL Haptoglobin 388.0 H (31.2-198.0) mg/dL Potassium (3.5-5.1) mmol/L BUN (9-20) mg/dL Creatinine (0.66-1.25) mg/dL Calcium (8.4-10.2) mg/dL Iron 30 L (65-175) ug/dL TIBC 211 L (228-460) ug/dL % Saturation 14.22 L (15.00-50.00) Total Protein (6.3-8.2) g/dL Total Protein (PEP) 6.0 L (6.2-8.2) g/dL Albumin (3.5-5.0) g/dL Vitamin B12 994.0 H (200.0-944.0) pg/mL 08/17/19 Range/Units 06:53 WBC (3.8-10.6) k/uL RBC (4.30-5.90) m/uL Hgb (13.0-17.5) gm/dL Hct (39.0-53.0) % Plt Count (150-450) k/uL Neutrophils # (1.3-7.7) k/uL Haptoglobin (31.2-198.0) mg/dL Potassium 2.8 L (3.5-5.1) mmol/L BUN <2 L (9-20) mg/dL Creatinine 0.49 L (0.66-1.25) mg/dL Calcium 8.1 L (8.4-10.2) mg/dL Iron (65-175) ug/dL TIBC (228-460) ug/dL % Saturation (15.00-50.00) Total Protein 5.6 L (6.3-8.2) g/dL Total Protein (PEP) (6.2-8.2) g/dL Albumin 2.4 L (3.5-5.0) g/dL Vitamin B12 (200.0-944.0) pg/mL Microbiology - Last 24 Hours (Table) 08/12/19 06:59 Blood Culture - Preliminary Blood No Growth after 120 hours 08/12/19 17:00 Stool Culture - Final Stool Assessment and Plan Assessment: Impression and plan: 1. Lung cancer: Squamous cell carcinoma most likely stage IIIB: - patient will need further staging workup with a PET scan. So far CT abdomen pelvis showing most likely second primary in the rectum. - Brain CT negative. - he'll likely need evaluation by radiation oncology. - Most likely plan of action would be concurrent chemotherapy and radiation with carboplatinum with Taxol weekly chemotherapy. 2. Rectal mass: - The patient underwent a colonoscopy and the patient was found to have a rectal mass. probably a second primary. CT of abdomen pelvis is showing progressive wall thickening ill-defined surrounding fluid neoplasm strongly suspected, length of tumor 13 cm.. - Patient will need a PET scan, MRI elective protocol surgical evaluation radiation oncology evaluation likely will need concurrent neoadjuvant chemoth erapy and radiation if pathology positive for adenocarcinoma of rectum. - consult radiation oncology. - patient has a pacemaker and likely will not be able to get MRI, appreciate radiation oncology recommendations. 3. sepsis/colitis: Febrile with diarrhea. urinary tract infection, Escherichia coli UTI - C. diff negative. Stool cultures have been ordered infectious disease has been consulted. Blood culture ordered. - on Rocephin 4. Anemia,hemoglobin, normocytic high neutrophils and monocytes. - check iron profile, B12 folate, LDH heptoglobin, serum protein electrophoresis. - persistent monocytosis will likely need further evaluation to rule out CMML. 5. Thrombocytosis: - reactive thrombocytosis 10.1 platelet count of 545 - iron deficiency can lead to reactive thrombocytosis other possibility is myeloproliferative neoplasm. - Check JAK2 mutation 6. 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 Continue normal saline at 75 7. history of coronary artery disease, cardiac arrhythmia, pacemaker, hyperlipidemia, chronic back pain, tobacco abuse. COPD ,osteoarthritis . 8. unconfirmed, remote history of hemochromatosis Thank you for allowing me to participate in the care of your patient. Eunice Solano MD Plastics Scientist, [facility] Hematology Oncology [id number] , [address] [place] [address] Office: [phone] Time with Patient: Greater than 30
[2019-08-18] MEDS: SODIUM CHLORIDE 0.9% 1,000 ML IV SCH ×3 (02:38→22:11)
[2019-08-18] MEDS: LACTATED RINGERS 1,000 ML IV SCH (02:39)
[2019-08-18] MEDS: HYDROcodone/APAP 7.5-325MG 1 EACH TAB PO PRN ×3 (04:49→18:36)
[2019-08-18 06:37] LABS: Basophils # (A) 0.1 k/uL (0-0.2); Basophils % (A) 1 %; Eosinophils # (A) 0.8 k/uL (0-0.7); Eosinophils % (A) 7 %; HCT 33.1 % (39.0-53.0); Lymphocytes % (A) 8 %; MCH 29.8 pg (25.0-35.0); MCHC 33.1 g/dL (31.0-37.0); MCV 90.1 fL (80.0-100.0); Mean Platelet Volume 5.9; Monocytes # (A) 0.9 k/uL (0-1.0); Monocytes % (A) 8 %; Neutrophils # (A) 8.9 k/uL (1.3-7.7); Neutrophils % (A) 75 %; Platelet Count 575 k/uL (150-450); RBC 3.68 m/uL (4.30-5.90); RDW 15.3 % (11.5-15.5); WBC 11.9 k/uL (3.8-10.6)
[2019-08-18 06:54] LABS: ALT 27 U/L (21-72); AST 18 U/L (17-59); African American GFR (CKD) >90 (>60 ml/min/1.73 sqM); Albumin 2.5 g/dL (3.5-5.0); Alkaline Phosphatase 98 U/L (38-126); Anion Gap 7 mmol/L; Blood Urea Nitrogen <2 mg/dL (9-20); Calcium 8.3 mg/dL (8.4-10.2); Carbon Dioxide 27 mmol/L (22-30); Chloride 102 mmol/L (98-107); Glucose 92 mg/dL (74-99); Non-African American GFR(CKD) >90 (>60 ml/min/1.73 sqM); Potassium 3.6 mmol/L (3.5-5.1); Sodium 136 mmol/L (137-145); Total Bilirubin 0.2 mg/dL (0.2-1.3); Total Protein 5.8 g/dL (6.3-8.2)
[2019-08-18] MEDS: metroNIDAZOLE 500 MG TAB PO SCH ×3 (08:20→20:57)
[2019-08-18] MEDS: HEPARIN SODIUM,PORCINE 5,000 UNIT/ML 1 ML VIAL SQ SCH ×2 (08:20→20:57)
[2019-08-18] MEDS: ATORVASTATIN 20 MG TAB PO SCH (08:20)
[2019-08-18] MEDS: PANTOPRAZOLE 40 MG TABLET PO SCH (08:20)
[2019-08-18] MEDS: POTASSIUM CHLORIDE ER 20 MEQ TAB.ER PO SCH ×2 (08:20→11:34)
[2019-08-18] MEDS: amLODIPine 5 MG TAB PO SCH (08:20)
[2019-08-18] MEDS: NICOTINE 14MG/24HR PATCH TRANSDERM SCH (08:20)
[2019-08-18] MEDS: CARVEDILOL 3.125 MG TAB PO SCH ×2 (08:20→17:11)
--- NOTE | 2019-08-18 09:45 | P.PN ---
Subjective Progress Note Date: 08/18/19 Principal diagnosis: Lung cancer stage IIIB, rectal mass, nonspecific colitis, chronic anemia, thrombocytosis, electrolyte imbalance, coronary artery disease, history of hemochromatosis, 08/18/2019, patient seen eval examined during the rounds, denies any chest pain no shortness of breath breathing is stable diarrhea is improved, awaiting biopsy results labs reviewed him a white blood cell count is stable platelets are improving slowly chemistry normal Potassium levels have improved now to yesterday 08/17/2019, patient seen and evaluated examined during the round covering Dr. Schwartz, lab reviewed medications reviewed care plan discussed with the patient at length still have ongoing loose stool, potassium this morning is 2.8, potassium replacement protocol has been initiated, oncology services following this patient as well, white cell count slightly improved platelet count slightly better today compared to yesterday Objective - Vital Signs Vital signs: Vital Signs Temp 97.9 F 08/18/19 07:00 Pulse 71 08/18/19 07:00 Resp 16 08/18/19 07:00 BP 105/64 08/18/19 07:00 Pulse Ox 94 L 08/18/19 07:00 Intake & Output 08/17/19 08/18/19 08/18/19 18:59 06:59 18:59 Intake Total 200 500 Balance 200 500 Intake: Intake, IV Titration 500 Amount Potassium Chloride 20 meq 100 In Water For Injection 1 100ml.bag @ 50 mls/hr IVPB Q2H [facility] Rx#: [id number] Sodium Chloride 0.9% 1, 300 000 ml @ 75 mls/hr IV . [id number] [facility] Rx#:[id number] cefTRIAXone 1 gm In 100 Sodium Chloride 0.9% 50 ml @ 100 mls/hr IVPB Q12HR [facility] Rx#:[id number] Oral 200 Other: Voiding Method Toilet # Voids 1 2 - Exam - Constitutional General appearance: Present: average body habitus, cooperative, disheveled - EENT Eyes: Present: EOMI, PERRLA, poor dentition, normal appearance Ears: bilateral: normal - Neck Carotids: bilateral: upstroke normal - Respiratory Respiratory: bilateral: diminished - Cardiovascular Rhythm: regular Heart sounds: normal: S1, S2 - Gastrointestinal General gastrointestinal: Present: normal bowel sounds - Musculoskeletal Musculoskeletal: Present: gait normal, generalized weakness, strength equal bilaterally - Psychiatric Psychiatric: Present: A&O x's 3, appropriate affect, intact judgment & insight - Labs CBC & Chem 7: 08/18/19 06:22 08/18/19 06:22 Labs: Abnormal Lab Results - Last 24 Hours (Table) 08/16/19 08/18/19 08/18/19 Range/Units 06:54 06:22 06:22 WBC 11.9 H (3.8-10.6) k/uL RBC 3.68 L (4.30-5.90) m/uL Hgb 11.0 L (13.0-17.5) gm/dL Hct 33.1 L (39.0-53.0) % Plt Count 575 H (150-450) k/uL Neutrophils # 8.9 H (1.3-7.7) k/uL Eosinophils # 0.8 H (0-0.7) k/uL Haptoglobin 388.0 H (31.2-198.0) mg/dL Sodium 136 L (137-145) mmol/L BUN <2 L (9-20) mg/dL Creatinine 0.46 L (0.66-1.25) mg/dL Calcium 8.3 L (8.4-10.2) mg/dL Total Protein 5.8 L (6.3-8.2) g/dL Albumin 2.5 L (3.5-5.0) g/dL Microbiology - Last 24 Hours (Table) 08/12/19 06:59 Blood Culture - Final Blood No Growth after 144 hours Assessment and Plan Assessment: Sepsis with diarrhea related to nonspecific colitis/rectal mass, C. diff has been negative, Nonspecific colitis Hypokalemia Non-small cell cancer of the lung Rectal wall thickening possible rectal neoplasm, present in the form of circumferential tumor status post colonoscopy biopsy pending Urinary tract infection Electrolyte imbalance with hyponatremia History of arrhythmia Coronary artery disease Chronic back pain Plan: Continue to replace potassium as needed Follow-up on biopsy results Continue Rocephin for UTI Oncology following planning for chemotherapy however rectal mass needs to be considered awaiting biopsy Continue gentle rehydration Reason activity as tolerated Time with Patient: Greater than 30
--- NOTE | 2019-08-18 10:45 | P.PN ---
Subjective Progress Note Date: 08/18/19 Principal diagnosis: Proctitis Patient tolerating diet last night. No nausea or vomiting. He had additional brown stools yesterday. Objective - Vital Signs Vital signs: Vital Signs Temp 97.9 F 08/18/19 07:00 Pulse 71 08/18/19 07:00 Resp 16 08/18/19 07:00 BP 105/64 08/18/19 07:00 Pulse Ox 94 L 08/18/19 07:00 Intake & Output 08/17/19 08/18/19 08/18/19 18:59 06:59 18:59 Intake Total 200 500 Balance 200 500 Intake: Intake, IV Titration 500 Amount Potassium Chloride 20 meq 100 In Water For Injection 1 100ml.bag @ 50 mls/hr IVPB Q2H [facility] Rx#: [id number] Sodium Chloride 0.9% 1, 300 000 ml @ 75 mls/hr IV . [id number] [facility] Rx#:[id number] cefTRIAXone 1 gm In 100 Sodium Chloride 0.9% 50 ml @ 100 mls/hr IVPB Q12HR [facility] Rx#:[id number] Oral 200 Other: Voiding Method Toilet # Voids 1 2 - Exam Abdomen: Soft, nontender, nondistended - Labs CBC & Chem 7: 08/18/19 06:22 08/18/19 06:22 Labs: Abnormal Lab Results - Last 24 Hours (Table) 08/16/19 08/18/19 08/18/19 Range/Units 06:54 06:22 06:22 WBC 11.9 H (3.8-10.6) k/uL RBC 3.68 L (4.30-5.90) m/uL Hgb 11.0 L (13.0-17.5) gm/dL Hct 33.1 L (39.0-53.0) % Plt Count 575 H (150-450) k/uL Neutrophils # 8.9 H (1.3-7.7) k/uL Eosinophils # 0.8 H (0-0.7) k/uL Haptoglobin 388.0 H (31.2-198.0) mg/dL Sodium 136 L (137-145) mmol/L BUN <2 L (9-20) mg/dL Creatinine 0.46 L (0.66-1.25) mg/dL Calcium 8.3 L (8.4-10.2) mg/dL Total Protein 5.8 L (6.3-8.2) g/dL Albumin 2.5 L (3.5-5.0) g/dL Microbiology - Last 24 Hours (Table) 08/12/19 06:59 Blood Culture - Final Blood No Growth after 144 hours Assessment and Plan (1) Proctitis Narrative/Plan: Continue low fiber diet. Await biopsy results rectal mass. Definitive oncologic plans pending. Current Visit: Yes Status: Acute Code(s): K62.89 - OTHER SPECIFIED DISEASES OF ANUS AND RECTUM SNOMED Code(s): 6062116
--- NOTE | 2019-08-18 13:31 | P.PN ---
Subjective Progress Note Date: 08/18/19 On today's evaluation of 08/18/2019 the patient is doing well. No new complaints. Awaiting the biopsy from the rectal mass to finalize diagnosis and establish a treatment plan for this patient. No hemoptysis. No pleurisy. No chest pain. No other complaints otherwise. General surgeries on the case. The patient has also radiation oncology and medical oncology on the case. Objective - Vital Signs Vital signs: Vital Signs Temp 97.9 F 08/18/19 07:00 Pulse 71 08/18/19 07:00 Resp 16 08/18/19 07:00 BP 105/64 08/18/19 07:00 Pulse Ox 94 L 08/18/19 07:00 Intake & Output 08/17/19 08/18/19 08/18/19 18:59 06:59 18:59 Intake Total 200 500 240 Balance 200 500 240 Intake: Intake, IV Titration 500 Amount Potassium Chloride 20 meq 100 In Water For Injection 1 100ml.bag @ 50 mls/hr IVPB Q2H [facility] Rx#: [id number] Sodium Chloride 0.9% 1, 300 000 ml @ 75 mls/hr IV . [id number] [facility] Rx#:[id number] cefTRIAXone 1 gm In 100 Sodium Chloride 0.9% 50 ml @ 100 mls/hr IVPB Q12HR [facility] Rx#:[id number] Oral 200 240 Other: Voiding Method Toilet # Voids 1 2 - Exam The patient appeared to be ill looking with a BMI of 20.9, nonacute distress.. Vital signs as documented. Head exam is unremarkable. No scleral icterus or corneal arcus noted. Neck is without jugular venous distension, thyromegaly, or carotid bruits. Carotid upstrokes are brisk bilaterally. Lungs are clear to auscultation and percussion. Cardiac exam reveals the PMI to be normally sized and situated. Rhythm is regular. First and second heart sounds normal. No murmurs, rubs or gallops. Abdominal exam reveals normal bowel sounds, no masses, no organomegaly and no aortic enlargement. Extremities are nonedematous and both femoral and pedal pulses are normal.Examination of the skin revealed no evidence of significant rashes, suspicious appearing nevi or other concerning lesions. Neurologically awake and alert and there is no focal neurological deficits. - Labs CBC & Chem 7: 08/18/19 06:22 08/18/19 06:22 Labs: Abnormal Lab Results - Last 24 Hours (Table) 08/18/19 08/18/19 Range/Units 06:22 06:22 WBC 11.9 H (3.8-10.6) k/uL RBC 3.68 L (4.30-5.90) m/uL Hgb 11.0 L (13.0-17.5) gm/dL Hct 33.1 L (39.0-53.0) % Plt Count 575 H (150-450) k/uL Neutrophils # 8.9 H (1.3-7.7) k/uL Eosinophils # 0.8 H (0-0.7) k/uL Sodium 136 L (137-145) mmol/L BUN <2 L (9-20) mg/dL Creatinine 0.46 L (0.66-1.25) mg/dL Calcium 8.3 L (8.4-10.2) mg/dL Total Protein 5.8 L (6.3-8.2) g/dL Albumin 2.5 L (3.5-5.0) g/dL Microbiology - Last 24 Hours (Table) 08/12/19 06:59 Blood Culture - Final Blood No Growth after 144 hours Assessment and Plan Plan: 1 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 Patient has locally advanced disease based on PET scan findings, passively stage IIIb 2 COPD , currently inactive in stable 3 coronary artery disease, nonocclusive and the patient is undergoing medical treatment 4 history of third-degree AV block post-pacemaker insertion 5. Rectal mass was significant stenosis post endoscopy and post biopsies 6 hyperlipidemia 7 remote history of hemochromatosis 8 osteoarthritis 9 abnormal metabolic activity in the rectal area along with bowel wall thickening. Consider an artifact versus a second primary malignancy within the rectum. 10 hyponatremia, consider SIADH/ paraneoplastic, improved and the sodium level is improving , sodium level is normalized 11 leukocytosis 12 suspected UTI secondary to E. coli, improved 13 hypertension Plan Awaiting path results from rectal biopsy. The patient will need an oncology evaluation. She is being considered for neoadjuvant chemoradiation therapy regarding the rectal mass and this will largely depend on the final pathology. Unfortunately, holiday , the final pathology results have been delayed from the rectal mass and this will probably be available by Monday. We'll continue to follow. Issues for now. His resting comfortably in bed. Awaiting final results from the rectal biopsy
--- NOTE | 2019-08-18 19:53 | P.PN ---
Subjective Progress Note Date: 08/18/19 Principal diagnosis: rectal mass and lung mass Mr Gabriel is a very pleasant 63-year-old male we've been asked to see for a new diagnosis of squamous cell non-small cell lung cancer. Patient is currently pending colonoscopy because of findings of a rectal mass. Patient denies B symptoms, adenopathy, changes in his voice, new or unusual cough, hemoptysis, SHAGGY, diarrhea has slowed down, it is associated with rectal discomfort, he has not noticed a significant change in the caliber of his stool, he denies black or bloody stool, maybe some increased fatigue, but denies any other acute changes in his health.patient is undergoing investigations, asks questions about ongoing disease processes and prognosis. as of 08/18/2019 patient continues to be stable, no new symptoms, as per the patient he believes he had a PET scan as outpatient however I'm not able to find the results. Objective - Vital Signs Vital signs: Vital Signs Temp 98.2 F 08/18/19 19:36 Pulse 73 08/18/19 19:36 Resp 16 08/18/19 19:36 BP 113/74 08/18/19 19:36 Pulse Ox 98 08/18/19 19:36 Intake & Output 08/18/19 08/18/19 08/19/19 06:59 18:59 06:59 Intake Total 500 840 Balance 500 840 Intake: IV 600 Sodium Chloride 0.9% 1, 600 000 ml @ 75 mls/hr IV . [id number] [facility] Rx#:[id number] Intake, IV Titration 500 Amount Potassium Chloride 20 meq 100 In Water For Injection 1 100ml.bag @ 50 mls/hr IVPB Q2H [facility] Rx#: [id number] Sodium Chloride 0.9% 1, 300 000 ml @ 75 mls/hr IV . [id number] [facility] Rx#:[id number] cefTRIAXone 1 gm In 100 Sodium Chloride 0.9% 50 ml @ 100 mls/hr IVPB Q12HR [facility] Rx#:[id number] Oral 240 Other: # Voids 2 - Exam The patient appeared well nourished and normally developed. Vital signs as docu mented. Head exam is unremarkable. No scleral icterus or corneal arcus noted. Neck is without jugular venous distension, thyromegaly, or carotid bruits. Carotid upstrokes are brisk bilaterally. Lungs are clear to auscultation and percussion. Cardiac exam reveals the PMI to be normally sized and situated. Rhythm is regular. First and second heart sounds normal. No murmurs, rubs or gallops. Abdominal exam reveals normal bowel sounds, no masses, no organomegaly and no aortic enlargement. Extremities are nonedematous and both femoral and pedal pulses are normal. - Labs CBC & Chem 7: 08/18/19 06:22 08/18/19 06:22 Labs: Abnormal Lab Results - Last 24 Hours (Table) 08/18/19 08/18/19 Range/Units 06:22 06:22 WBC 11.9 H (3.8-10.6) k/uL RBC 3.68 L (4.30-5.90) m/uL Hgb 11.0 L (13.0-17.5) gm/dL Hct 33.1 L (39.0-53.0) % Plt Count 575 H (150-450) k/uL Neutrophils # 8.9 H (1.3-7.7) k/uL Eosinophils # 0.8 H (0-0.7) k/uL Sodium 136 L (137-145) mmol/L BUN <2 L (9-20) mg/dL Creatinine 0.46 L (0.66-1.25) mg/dL Calcium 8.3 L (8.4-10.2) mg/dL Total Protein 5.8 L (6.3-8.2) g/dL Albumin 2.5 L (3.5-5.0) g/dL Microbiology - Last 24 Hours (Table) 08/12/19 06:59 Blood Culture - Final Blood No Growth after 144 hours Assessment and Plan Assessment: Impression and plan: 1. Lung cancer: Squamous cell carcinoma most likely stage IIIB: - patient will need further staging workup with a PET scan. So far CT abdomen pelvis showing most likely second primary in the rectum. - Brain CT negative. - he'll likely need evaluation by radiation oncology. - Most likely plan of action would be concurrent chemotherapy and radiation with carboplatinum with Taxol weekly chemotherapy. 2. Rectal mass: - The patient underwent a colonoscopy and the patient was found to have a rectal mass. probably a second primary. CT of abdomen pelvis is showing progressive wall thickening ill-defined surrounding fluid neoplasm strongly suspected, length of tumor 13 cm.. - Patient will need a PET scan, MRI elective protocol surgical evaluation radiation oncology evaluation likely will need concurrent neoadjuvant chemotherapy and radiation if pathology positive for adenocarcinoma of rectum. - consult radiation oncology. - patient has a pacemaker and likely will not be able to get MRI, appreciate radiation oncology recommendations. - outpatient follow-up. 3. sepsis/colitis: Febrile with diarrhea. urinary tract infection, Escherichia coli UTI - C. diff negative. Stool cultures have been ordered infectious disease has been consulted. Blood culture ordered. - on Rocephin 4. Anemia,hemoglobin, normocytic high neutrophils and monocytes. - check iron profile, B12 folate, LDH heptoglobin, serum protein electrophoresis. - persistent monocytosis will likely need further evaluation to rule out CMML. 5. Thrombocytosis: - reactive thrombocytosis 10.1 platelet count of 545 - iron deficiency can lead to reactive thrombocytosis other possibility is myeloproliferative neoplasm. - Check JAK2 mutation 6. 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 Continue normal saline at 75 7. history of coronary artery disease, cardiac arrhythmia, pacemaker, hyperlipidemia, chronic back pain, tobacco abuse. COPD ,osteoarthritis . 8. unconfirmed, remote history of hemochromatosis Thank you for allowing me to participate in the care of your patient. Eunice Solano MD Cleat Layer, [facility] H[facility]ology Oncology [id number], [address] [place] [address] Office: [phone]
[2019-08-19] MEDS: HYDROcodone/APAP 7.5-325MG 1 EACH TAB PO PRN ×4 (00:20→20:32)
[2019-08-19] MEDS: LACTATED RINGERS 1,000 ML IV SCH ×2 (01:27→11:02)
--- NOTE | 2019-08-19 02:12 | PN ---
PROGRESS NOTE DATE OF SERVICE: 08/18/2019. REASON FOR FOLLOWUP: Urinary tract infection and colitis. INTERVAL HISTORY: The patient is currently afebrile. Patient is breathing comfortably. The patient denies having any chest pain. Did have occasional cough. No nausea, vomiting, abdominal pain, no further diarrhea. The patient did have some colored stools. PHYSICAL EXAMINATION: Blood pressure is 113/64 with a pulse of 73, temperature 98.2. He is 98% on room air. General description is a middle-aged male lying in bed in no distress. Respiratory system: Unlabored breathing. Clear to auscultation anteriorly. Heart S1, S2. Regular rate and rhythm. ABDOMEN: Soft no tenderness. Extremities: No edema of the feet. LABS: Hemoglobin is 11 with white count 11.9, BUN of 2, creatinine 0.46. DIAGNOSTIC IMPRESSION AND PLAN: Patient admitted to the hospital with intractable diarrhea with fever with initial concern for possible infectious colitis. However that cough has been negative. The patient is status post colonoscopy, did have evidence of rectal mole which has been biopsied also with evidence of a . Patient is being monitored by multiple consultations. As far as his urinary tract infection, he is currently with Rocephin and that will be continued. Monitor his clinical course closely. MMODL / IJN: [id number] /
[2019-08-19 06:55] LABS: Basophils # (A) 0.1 k/uL (0-0.2); Basophils % (A) 1 %; Eosinophils # (A) 0.8 k/uL (0-0.7); Eosinophils % (A) 9 %; HCT 33.5 % (39.0-53.0); HGB 10.6 gm/dL (13.0-17.5); Lymphocytes # (A) 1.2 k/uL (1.0-4.8); Lymphocytes % (A) 13 %; MCH 28.9 pg (25.0-35.0); MCHC 31.6 g/dL (31.0-37.0); MCV 91.4 fL (80.0-100.0); Mean Platelet Volume 6.2; Monocytes # (A) 0.8 k/uL (0-1.0); Monocytes % (A) 8 %; Neutrophils # (A) 6.4 k/uL (1.3-7.7); Neutrophils % (A) 68 %; Platelet Count 616 k/uL (150-450); RBC 3.66 m/uL (4.30-5.90); RDW 15.4 % (11.5-15.5); WBC 9.4 k/uL (3.8-10.6)
[2019-08-19 07:27] LABS: ALT 20 U/L (21-72); AST 24 U/L (17-59); African American GFR (CKD) >90 (>60 ml/min/1.73 sqM); Albumin 2.5 g/dL (3.5-5.0); Alkaline Phosphatase 97 U/L (38-126); Anion Gap 6 mmol/L; Blood Urea Nitrogen 3 mg/dL (9-20); Calcium 8.7 mg/dL (8.4-10.2); Carbon Dioxide 29 mmol/L (22-30); Chloride 101 mmol/L (98-107); Glucose 112 mg/dL (74-99); Non-African American GFR(CKD) >90 (>60 ml/min/1.73 sqM); Sodium 136 mmol/L (137-145); Total Bilirubin 0.2 mg/dL (0.2-1.3); Total Protein 5.8 g/dL (6.3-8.2)
[2019-08-19] MEDS: metroNIDAZOLE 500 MG TAB PO SCH ×3 (08:06→20:32)
[2019-08-19] MEDS: HEPARIN SODIUM,PORCINE 5,000 UNIT/ML 1 ML VIAL SQ SCH ×2 (08:06→20:32)
[2019-08-19] MEDS: PANTOPRAZOLE 40 MG TABLET PO SCH (08:06)
[2019-08-19] MEDS: ATORVASTATIN 20 MG TAB PO SCH (08:06)
[2019-08-19] MEDS: CARVEDILOL 3.125 MG TAB PO SCH ×2 (08:06→17:17)
[2019-08-19] MEDS: amLODIPine 5 MG TAB PO SCH (08:06)
[2019-08-19] MEDS: NICOTINE 14MG/24HR PATCH TRANSDERM SCH (08:07)
--- NOTE | 2019-08-19 10:47 | P.PN ---
Subjective Progress Note Date: 08/19/19 This is a 63-year-old male patient of Dr. Lindsey. Patient presented with complaints of diarrhea over the past few days. Patient reports he has been unable to tolerate food. Patient was recently admitted over a month ago for pneumonia at that time patient was newly diagnosed with a left hilar mass stron gly suggestive malignancy. Patient underwent bronchoscopy at that time with pulmonary services per patient he was supposed to go for follow-up bronchoscopy on 07/03/2019 but was unable due to insurance. Patient reports he also has a PET scan but has not followed up with pulmonary services to review results. Additional medical history includes cardiac arrhythmia with previous history of pacemaker placement, coronary artery disease, COPD, hypertension, hyperlipidemia and chronic back pain and nicotine dependence. UA completed showing large amount of leukocyte Estrace. Patient started on Rocephin. C. diff was negative. Blood cell count elevated at 20.3. Lactic acid 1.2. Beta temp at 10 1.9. Patient dehydrated with sodium of 127. Patient denies any significant abdominal pain. Patient denies any emesis chest poor appetite. At this time will consult Dr. Coronado per infectious disease. Pulmonary services also consulted to follow-up with bronchoscopy and hilar mass. Patient denies any chest pain or shortness of breath. Patient denies any urinary burning or frequency. On 08/13/2019 patient is alert and oriented 3. Patient feels improved with his weakness still having loose bowel movements. Stool for C. diff PCR has been ordered per infectious disease remains on vancomycin. Stool cultures pending. Per pulmonary planning bronchoscopy today in regards to hilar mass. Patient had previous computed tomography scan done during previous admission that showed some rectal wall thickening will consult Dr. vasquez for further investigation. At this time patient denies chest pain or shortness of breath. Patient is complaining of decreased appetite and diarrhea. Patient denies any urinary burning or frequency On 08/14/2019 patient is alert and oriented 3. Patient is status post bronchoscopy yesterday. Patient was evaluated by Dr. vasquez recommending colonoscopy. Infectious disease following. Patient reports that his diarrhea has subsided. Patient requesting advancement in diet. C. diff negative. Patient remains on oral Vanco and Rocephin. Urine culture growing E. coli. On 08/15/2019 patient was seen and examined on the medical floor he is nothing by mouth at this time in anticipation of colonoscopy tomorrow he underwent bronchoscopy on 08/13/2019. At this time patient is denying any fever or chills no headache or dizziness no chest pain no shortness of breath no cough no nausea or vomiting no abdominal pain he is still having some diarrhea no burning was urination no frequency or urgency no hematuria On 08/16/2019 patient is alert and oriented 3. Patient underwent colonoscopy with Dr. vasquez this AM. Patient was evaluated by oncology services due to lung biopsy results. At that time patient remains on Rocephin and Flagyl. Patient denies chest pain or shortness of breath. Patient denies nausea vomiting or diarrhea. Denies any urinary burning or frequency 08/17/2019, patient seen and evaluated examined during the round covering Dr. Schwartz, lab reviewed medications reviewed care plan discussed with the patient at length still have ongoing loose stool, potassium this morning is 2.8, potassium replacement protocol has been initiated, oncology services following this patient as well, white cell count slightly improved platelet count slightly better today compared to yesterday 08/18/2019, patient seen eval examined during the rounds, denies any chest pain no shortness of breath breathing is stable diarrhea is improved, awaiting biopsy results labs reviewed him a white blood cell count is stable platelets are improving slowly chemistry normal Potassium levels have improved now to yesterday On 08/19/2019 patient is alert and oriented 3 awaiting biopsy results from rectal mass. White blood cell has normalized. Patient remains on Rocephin for UTI. At this time patient reports improvement with abdominal discomfort and diarrhea. Patient denies chest pain or shortness breath. Patient denies nausea vomiting or diarrhea. Patient denies any urinary burning or frequency Objective - Vital Signs Vital signs: Vital Signs Temp 98.0 F 08/19/19 07:00 Pulse 87 08/19/19 07:00 Resp 12 08/19/19 07:00 BP 112/71 08/19/19 07:00 Pulse Ox 95 08/19/19 07:00 Intake & Output 08/18/19 08/19/19 08/19/19 18:59 06:59 18:59 Intake Total 840 980 Balance 840 980 Intake: IV 600 Sodium Chloride 0.9% 1, 600 000 ml @ 75 mls/hr IV . [id number] [facility] Rx#:[id number] Intake, IV Titration 500 Amount cefTRIAXone 1 gm In 500 Sodium Chloride 0.9% 50 ml @ 100 mls/hr IVPB Q12HR [facility] Rx#:[id number] Oral 240 480 Other: Voiding Method Toilet # Voids 2 - Exam Head normocephalic Neck supple Lungs clear to auscultation bilaterally no wheezing or crackles Heart regular rate and rhythm S1-S2, no rub or gallop Abdomen is soft nontender nondistended positive bowel sounds no hepatosplenomegaly Extremities no edema Neuro alert and orientated to 3 - Labs CBC & Chem 7: 08/19/19 06:18 08/19/19 06:18 Labs: Abnormal Lab Results - Last 24 Hours (Table) 08/19/19 08/19/19 Range/Units 06:18 06:18 RBC 3.66 L (4.30-5.90) m/uL Hgb 10.6 L (13.0-17.5) gm/dL Hct 33.5 L (39.0-53.0) % Plt Count 616 H (150-450) k/uL Eosinophils # 0.8 H (0-0.7) k/uL Sodium 136 L (137-145) mmol/L BUN 3 L (9-20) mg/dL Creatinine 0.50 L (0.66-1.25) mg/dL Glucose 112 H (74-99) mg/dL ALT 20 L (21-72) U/L Total Protein 5.8 L (6.3-8.2) g/dL Albumin 2.5 L (3.5-5.0) g/dL Microbiology - Last 24 Hours (Table) 08/12/19 17:00 Stool Culture - Final Stool 08/12/19 06:59 Blood Culture - Final Blood No Growth after 144 hours Assessment and Plan Assessment: 1. Febrile with diarrhea. C. diff negative. Stool cultures have been ordered infectious disease has been consulted. Blood culture ordered. C. diff sample with PCR has been ordered by infectious disease currently maintained on vancomycin. C. diff negative. Oral Vanco DC'd per infectious disease. Symptoms are improving 2. urinary tract infection. Urine culture ordered. Patient maintained on Rocephin. Culture growing E. coli. Patient maintained on Flagyl and Rocephin 3. Non-small cell lung cancer consistent with squamous cell carcinoma Patient reports his posterior undergo repeat bronchoscopy on 07/03/2019 but unable to due to insurance purposes. Patient has not followed with pulmonary services. Status post bronchoscopy on 08/13/2019. Per oncology services, pathology was reviewed with patient. Further scanning was ordered for staging. Per cardiology services interventional radiology has been consulted 4. Hyponatremia secondary to dehydration. Continue normal saline at 75. Sodium has improved to 134. Resolved 5. History of cardiac arrhythmia. History of pacemaker placement 6. History of coronary artery disease stable at this time 7. History of hyperlipidemia maintained on Lipitor 8. Chronic back pain. 9. History of nicotine dependence. Patient reports he has stopped smoking. No need for nicotine patch at this time 10. Rectal wall thickening possible rectal neoplasm. Previous computed tomography scan showing rectal wall thickening and perirectal edema consistent with inflammatory process. There is perirectal vascular congestion. Per bowel significant rectal wall thickening on recent CAT scan and PET scan showing activity suspect neoplasm. Status post colonoscopy with Dr. vasquez. Biopsy currently pending 11. Hypokalemia. Replace per protocol. Resolved DVT prophylaxis heparin. GI prophylaxis Protonix Infectious disease, pulmonary, surgical services and oncology services are fo llowing I performed an examination of the patient and discussed their management with the Nurse Practitioner. I have reviewed the Nurse Practitioner's notes and agree with the documented findings and plan of care
[2019-08-19] MEDS: SODIUM CHLORIDE 0.9% 1,000 ML IV SCH (11:20)
--- NOTE | 2019-08-19 12:20 | P.PN ---
Subjective Progress Note Date: 08/19/19 Principal diagnosis: Non-small cell lung cancer consistent with squamous cell carcinoma, locally advanced, possibly stage IIIB, rectal mass with increased activity on PET scan On 08/19/2019 patient seen in follow-up on medical surgical floor. He is resting comfortably in bed, he denies any shortness of breath, denies any cough or congestion, lung sounds reveal a few basilar rales, no hemoptysis, no complaints of chest pain, he is currently on room air, his pulse ox of 95%, no fever or chills, awaiting path report on the biopsy of the rectal mass. Objective - Vital Signs Vital signs: Vital Signs Temp 98.0 F 08/19/19 07:00 Pulse 87 08/19/19 07:00 Resp 12 08/19/19 07:00 BP 112/71 08/19/19 07:00 Pulse Ox 95 08/19/19 07:00 Intake & Output 08/18/19 08/19/19 08/19/19 18:59 06:59 18:59 Intake Total 840 980 Balance 840 980 Weight 66.4 kg Intake: IV 600 Sodium Chloride 0.9% 1, 600 000 ml @ 75 mls/hr IV . [id number] [facility] Rx#:[id number] Intake, IV Titration 500 Amount cefTRIAXone 1 gm In 500 Sodium Chloride 0.9% 50 ml @ 100 mls/hr IVPB Q12HR [facility] Rx#:[id number] Oral 240 480 Other: Voiding Method Toilet # Voids 2 - Exam GENERAL EXAM: Alert, thin, pleasant 63-year-old white male, on room air, with a pulse ox of 95% comfortable in no apparent distress. HEAD: Normocephalic/atraumatic. EYES: Normal reaction of pupils, equal size. Conjunctiva pink, sclera white. NOSE: Clear with pink turbinates. THROAT: No erythema or exudates. NECK: No masses, no JVD, no thyroid enlargement, no adenopathy. CHEST: No chest wall deformity. Symmetrical expansion. LUNGS: Equal air entry with minimal basilar crackles, wheeze, rhonchi or dullness. CVS: Regular rate and rhythm, normal S1 and S2, no gallops, no murmurs, no rubs ABDOMEN: Soft, nontender. No hepatosplenomegaly, normal bowel sounds, no guarding or rigidity. EXTREMITIES: No clubbing, no edema, no cyanosis, 2+ pulses and upper and lower extremities. MUSCULOSKELETAL: Muscle strength and tone normal. SPINE: No scoliosis or deformity SKIN: No rashes CENTRAL NERVOUS SYSTEM: Alert and oriented -3. No focal deficits, tone is normal in all 4 extremities. PSYCHIATRIC: Alert and oriented -3. Appropriate affect. Intact judgment and insight. - Labs CBC & Chem 7: 08/19/19 06:18 08/19/19 06:18 Labs: Abnormal Lab Results - Last 24 Hours (Table) 08/19/19 08/19/19 Range/Units 06:18 06:18 RBC 3.66 L (4.30-5.90) m/uL Hgb 10.6 L (13.0-17.5) gm/dL Hct 33.5 L (39.0-53.0) % Plt Count 616 H (150-450) k/uL Eosinophils # 0.8 H (0-0.7) k/uL Sodium 136 L (137-145) mmol/L BUN 3 L (9-20) mg/dL Creatinine 0.50 L (0.66-1.25) mg/dL Glucose 112 H (74-99) mg/dL ALT 20 L (21-72) U/L Total Protein 5.8 L (6.3-8.2) g/dL Albumin 2.5 L (3.5-5.0) g/dL Microbiology - Last 24 Hours (Table) 08/12/19 17:00 Stool Culture - Final Stool 08/12/19 06:59 Blood Culture - Final Blood No Growth after 144 hours Assessment and Plan Plan: 1 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 Patient has locally advanced disease based on PET scan findings, passively stage IIIb 2 COPD , currently inactive in stable 3 coronary artery disease, nonocclusive and the patient is undergoing medical treatment 4 history of third-degree AV block post-pacemaker insertion 5. Rectal mass was significant stenosis post endoscopy and post biopsies 6 hyperlipidemia 7 remote history of hemochromatosis 8 osteoarthritis 9 abnormal metabolic activity in the rectal area along with bowel wall thickening. Consider an artifact versus a second primary malignancy within the rectum. 10 hyponatremia, consider SIADH/ paraneoplastic, improved and the sodium level is improving , sodium level is normalized 11 leukocytosis 12 suspected UTI secondary to E. coli, improved 13 hypertension Plan: Hemodynamically stable, no pulmonary complaints, maintaining stable oxygenation on room air, COPD is stable, no cough or congestion, no hemoptysis, no fever or chills, awaiting final results of the rectal mass biopsy. Brain CT was completed showing no suspicious enhancing intra-parenchymal masses. I performed a history & physical examination of the patient and discussed their management with my nurse practitioner, Bev Villa. I reviewed the nurse practitioner's note and agree with the documented findings and plan of care. Lung sounds are positive for minimal crackles. The findings and the impression was discussed with the patient. I attest to the documentation by the nurse practitioner. Time with Patient: Less than 30
--- NOTE | 2019-08-19 12:48 | P.PN ---
<Fatuma Ballard - Last Filed: 08/19/19 12:44> Subjective Progress Note Date: 08/19/19 CHIEF COMPLAINT: Proctitis HISTORY OF PRESENT ILLNESS: Patient examined at the bedside. He denies abdominal pain. Tolerating diet without nausea or vomiting. Passing flatus. Reports BM. Vital signs stable. PHYSICAL EXAM: VITAL SIGNS: Reviewed. GENERAL: Well-developed in no acute distress. HEENT: No sclera icterus. Extraocular movements grossly intact. Moist buccal mucosa. Head is atraumatic, normocephalic. ABDOMEN: Soft. Nondistended. Nontender. NEUROLOGIC: Alert and oriented. Cranial nerves II through XII grossly intact. ASSESSMENT: 1. Rectal mass PLAN: Continue diet as tolerated Await biopsy results Nurse practitioner note has been reviewed by physician. Signing provider agrees with the documented findings, assessment, and plan of care. Objective - Vital Signs Vital signs: Vital Signs Temp 98.0 F 08/19/19 07:00 Pulse 87 08/19/19 07:00 Resp 12 08/19/19 07:00 BP 112/71 08/19/19 07:00 Pulse Ox 95 08/19/19 07:00 Intake & Output 08/18/19 08/19/19 08/19/19 18:59 06:59 18:59 Intake Total 840 980 Balance 840 980 Weight 66.4 kg Intake: IV 600 Sodium Chloride 0.9% 1, 600 000 ml @ 75 mls/hr IV . [id number] [facility] Rx#:[id number] Intake, IV Titration 500 Amount cefTRIAXone 1 gm In 500 Sodium Chloride 0.9% 50 ml @ 100 mls/hr IVPB Q12HR [facility] Rx#:[id number] Oral 240 480 Other: Voiding Method Toilet # Voids 2 - Labs CBC & Chem 7: 08/19/19 06:18 08/19/19 06:18 Labs: Abnormal Lab Results - Last 24 Hours (Table) 08/19/19 08/19/19 Range/Units 06:18 06:18 RBC 3.66 L (4.30-5.90) m/uL Hgb 10.6 L (13.0-17.5) gm/dL Hct 33.5 L (39.0-53.0) % Plt Count 616 H (150-450) k/uL Eosinophils # 0.8 H (0-0.7) k/uL Sodium 136 L (137-145) mmol/L BUN 3 L (9-20) mg/dL Creatinine 0.50 L (0.66-1.25) mg/dL Glucose 112 H (74-99) mg/dL ALT 20 L (21-72) U/L Total Protein 5.8 L (6.3-8.2) g/dL Albumin 2.5 L (3.5-5.0) g/dL Microbiology - Last 24 Hours (Table) 08/12/19 17:00 Stool Culture - Final Stool 08/12/19 06:59 Blood Culture - Final Blood No Growth after 144 hours <Andrea Rodriguez - Last Filed: 08/19/19 21:18> Subjective Patient with no new complaints. Denies bloating. States he is eating about two thirds of his meals. Having multiple looser stools with mucus. Biopsies of rectal mass still pending. Continue oncologic workup. No plans for diverting ostomy unless patient develops obstructive symptoms. Objective - Vital Signs Vital signs: Vital Signs Temp 98 F 08/19/19 19:00 Pulse 87 08/19/19 19:00 Resp 18 08/19/19 19:00 BP 103/67 08/19/19 19:00 Pulse Ox 95 08/19/19 14:25 Intake & Output 08/19/19 08/19/19 08/20/19 06:59 18:59 06:59 Intake Total 980 250 Balance 980 250 Weight 66.4 kg Intake: Intake, IV Titration 500 Amount cefTRIAXone 1 gm In 500 Sodium Chloride 0.9% 50 ml @ 100 mls/hr IVPB Q12HR [facility] Rx#:[id number] Oral 480 250 Other: Voiding Method Toilet Toilet # Voids 2 3 - Labs CBC & Chem 7: 08/19/19 06:18 08/19/19 06:18 Labs: Abnormal Lab Results - Last 24 Hours (Table) 08/16/19 08/19/19 08/19/19 Range/Units 06:54 06:18 06:18 RBC 3.66 L (4.30-5.90) m/uL Hgb 10.6 L (13.0-17.5) gm/dL Hct 33.5 L (39.0-53.0) % Plt Count 616 H (150-450) k/uL Eosinophils # 0.8 H (0-0.7) k/uL Sodium 136 L (137-145) mmol/L BUN 3 L (9-20) mg/dL Creatinine 0.50 L (0.66-1.25) mg/dL Glucose 112 H (74-99) mg/dL ALT 20 L (21-72) U/L Total Protein 5.8 L (6.3-8.2) g/dL Albumin 2.5 L (3.5-5.0) g/dL Albumin (PEP) 2.27 L (3.80-4.90) g/dL Fldxi-8-Rznhcvwww 0.50 H (0.10-0.40) g/dL Tgqkf-4-Byaxmaqsb 1.07 H (0.60-1.00) g/dL Microbiology - Last 24 Hours (Table) 08/12/19 17:00 Stool Culture - Final Stool Assessment and Plan (1) Proctitis Current Visit: Yes Status: Acute Code(s): K62.89 - OTHER SPECIFIED DISEASES OF ANUS AND RECTUM SNOMED Code(s): 3352584
[2019-08-19 13:14] LABS: Albumin 2.27 g/dL (3.80-4.90); Gamma Globulin 1.34 g/dL (0.70-1.50)
--- NOTE | 2019-08-19 16:05 | PN ---
PROGRESS NOTE DATE OF SERVICE: 08/19/2019 REASON FOR FOLLOWUP: E coli UTI and a question of colitis. INTERVAL HISTORY: The patient is currently afebrile. The patient is breathing comfortably. Denies having any chest pain. Occasional cough. No nausea, no vomiting. No abdominal pain. No further diarrhea. PHYSICAL EXAMINATION: Blood pressure is 112/71 with a pulse of 87, temperature of 98. He is 95% on room air. General description is a middle-aged male lying in bed in no distress. RESPIRATORY SYSTEM: Unlabored breathing. Clear to auscultation anteriorly. HEART: S1, S2. Regular rate and rhythm. ABDOMEN: Soft. No tenderness. LABS: Hemoglobin is 10.6, white count of 9.4 with a BUN of 30, creatinine 0.50. DIAGNOSTIC IMPRESSION AND PLAN: Patient admitted to hospital with acute abdominal pain, diarrhea and a fever with diagnosis of Escherichia coli urinary tract infection. The patient is currently covered with Rocephin. He was subsequently noted to have a rectal mass and is status post biopsy, with the cultures currently pending. The patient's white count is currently normal. Continue Rocephin and Flagyl and monitor his clinical course closely. Continue with supportive care. MMODL / IJN: [id number] /
[2019-08-20] MEDS: HYDROcodone/APAP 7.5-325MG 1 EACH TAB PO PRN ×4 (02:32→20:58)
[2019-08-20] MEDS: SODIUM CHLORIDE 0.9% 1,000 ML IV SCH (02:33)
[2019-08-20 07:53] LABS: Basophils # (A) 0.1 k/uL (0-0.2); Basophils % (A) 1 %; Eosinophils # (A) 0.7 k/uL (0-0.7); Eosinophils % (A) 7 %; HCT 35.7 % (39.0-53.0); Lymphocytes # (A) 1.4 k/uL (1.0-4.8); Lymphocytes % (A) 15 %; MCH 28.3 pg (25.0-35.0); MCHC 30.9 g/dL (31.0-37.0); MCV 91.7 fL (80.0-100.0); Mean Platelet Volume 6.2; Monocytes # (A) 0.8 k/uL (0-1.0); Monocytes % (A) 9 %; Neutrophils # (A) 6.1 k/uL (1.3-7.7); Neutrophils % (A) 66 %; Platelet Count 642 k/uL (150-450); RBC 3.89 m/uL (4.30-5.90); RDW 15.6 % (11.5-15.5); WBC 9.4 k/uL (3.8-10.6)
[2019-08-20 08:04] LABS: ALT 24 U/L (21-72); AST 23 U/L (17-59); African American GFR (CKD) >90 (>60 ml/min/1.73 sqM); Albumin 2.8 g/dL (3.5-5.0); Alkaline Phosphatase 107 U/L (38-126); Anion Gap 6 mmol/L; Blood Urea Nitrogen 6 mg/dL (9-20); Calcium 8.7 mg/dL (8.4-10.2); Carbon Dioxide 29 mmol/L (22-30); Chloride 101 mmol/L (98-107); Glucose 83 mg/dL (74-99); Non-African American GFR(CKD) >90 (>60 ml/min/1.73 sqM); Potassium 4.2 mmol/L (3.5-5.1); Sodium 136 mmol/L (137-145); Total Bilirubin 0.2 mg/dL (0.2-1.3); Total Protein 6.4 g/dL (6.3-8.2)
[2019-08-20] MEDS: ATORVASTATIN 20 MG TAB PO SCH (08:06)
[2019-08-20] MEDS: PANTOPRAZOLE 40 MG TABLET PO SCH (08:06)
[2019-08-20] MEDS: NICOTINE 14MG/24HR PATCH TRANSDERM SCH (08:06)
[2019-08-20] MEDS: metroNIDAZOLE 500 MG TAB PO SCH ×3 (08:06→20:59)
[2019-08-20] MEDS: amLODIPine 5 MG TAB PO SCH (08:06)
[2019-08-20] MEDS: HEPARIN SODIUM,PORCINE 5,000 UNIT/ML 1 ML VIAL SQ SCH ×2 (08:06→20:59)
[2019-08-20] MEDS: CARVEDILOL 3.125 MG TAB PO SCH ×2 (08:06→17:35)
--- NOTE | 2019-08-20 10:03 | P.PN ---
Subjective Progress Note Date: 08/20/19 This is a 63-year-old male patient of Dr. Lindsey. Patient presented with complaints of diarrhea over the past few days. Patient reports he has been unable to tolerate food. Patient was recently admitted over a month ago for pneumonia at that time patient was newly diagnosed with a left hilar mass stron gly suggestive malignancy. Patient underwent bronchoscopy at that time with pulmonary services per patient he was supposed to go for follow-up bronchoscopy on 07/03/2019 but was unable due to insurance. Patient reports he also has a PET scan but has not followed up with pulmonary services to review results. Additional medical history includes cardiac arrhythmia with previous history of pacemaker placement, coronary artery disease, COPD, hypertension, hyperlipidemia and chronic back pain and nicotine dependence. UA completed showing large amount of leukocyte Estrace. Patient started on Rocephin. C. diff was negative. Blood cell count elevated at 20.3. Lactic acid 1.2. Beta temp at 10 1.9. Patient dehydrated with sodium of 127. Patient denies any significant abdominal pain. Patient denies any emesis chest poor appetite. At this time will consult Dr. Coronado per infectious disease. Pulmonary services also consulted to follow-up with bronchoscopy and hilar mass. Patient denies any chest pain or shortness of breath. Patient denies any urinary burning or frequency. On 08/13/2019 patient is alert and oriented 3. Patient feels improved with his weakness still having loose bowel movements. Stool for C. diff PCR has been ordered per infectious disease remains on vancomycin. Stool cultures pending. Per pulmonary planning bronchoscopy today in regards to hilar mass. Patient had previous computed tomography scan done during previous admission that showed some rectal wall thickening will consult Dr. vasquez for further investigation. At this time patient denies chest pain or shortness of breath. Patient is complaining of decreased appetite and diarrhea. Patient denies any urinary burning or frequency On 08/14/2019 patient is alert and oriented 3. Patient is status post bronchoscopy yesterday. Patient was evaluated by Dr. vasquez recommending colonoscopy. Infectious disease following. Patient reports that his diarrhea has subsided. Patient requesting advancement in diet. C. diff negative. Patient remains on oral Vanco and Rocephin. Urine culture growing E. coli. On 08/15/2019 patient was seen and examined on the medical floor he is nothing by mouth at this time in anticipation of colonoscopy tomorrow he underwent bronchoscopy on 08/13/2019. At this time patient is denying any fever or chills no headache or dizziness no chest pain no shortness of breath no cough no nausea or vomiting no abdominal pain he is still having some diarrhea no burning was urination no frequency or urgency no hematuria On 08/16/2019 patient is alert and oriented 3. Patient underwent colonoscopy with Dr. vasquez this AM. Patient was evaluated by oncology services due to lung biopsy results. At that time patient remains on Rocephin and Flagyl. Patient denies chest pain or shortness of breath. Patient denies nausea vomiting or diarrhea. Denies any urinary burning or frequency 08/17/2019, patient seen and evaluated examined during the round covering Dr. Schwartz, lab reviewed medications reviewed care plan discussed with the patient at length still have ongoing loose stool, potassium this morning is 2.8, potassium replacement protocol has been initiated, oncology services following this patient as well, white cell count slightly improved platelet count slightly better today compared to yesterday 08/18/2019, patient seen eval examined during the rounds, denies any chest pain no shortness of breath breathing is stable diarrhea is improved, awaiting biopsy results labs reviewed him a white blood cell count is stable platelets are improving slowly chemistry normal Potassium levels have improved now to yesterday On 08/19/2019 patient is alert and oriented 3 awaiting biopsy results from rectal mass. White blood cell has normalized. Patient remains on Rocephin for UTI. At this time patient reports improvement with abdominal discomfort and diarrhea. Patient denies chest pain or shortness breath. Patient denies nausea vomiting or diarrhea. Patient denies any urinary burning or frequency On 08/20/2019 patient's alert and oriented 3. Final path pathology on rectum tumor showing invasive moderately differentiated adenocarcinoma. Awaiting oncology plan for treatment. At this time patient's diet has improved. Patient denies diarrhea nausea or vomiting. Denies any chest pain or shortness of breath. Denies any urinary burning or frequency. Objective - Vital Signs Vital signs: Vital Signs Temp 97.9 F 08/20/19 07:00 Pulse 90 08/20/19 07:00 Resp 18 08/20/19 07:00 BP 125/74 08/20/19 07:00 Pulse Ox 98 08/20/19 07:00 Intake & Output 08/19/19 08/20/19 08/20/19 18:59 06:59 18:59 Intake Total 250 1037.5 Balance 250 1037.5 Weight 66.4 kg Intake: IV 262.5 Sodium Chloride 0.9% 1, 262.5 000 ml @ 75 mls/hr IV . [id number] [facility] Rx#:[id number] Intake, IV Titration 775 Amount Sodium Chloride 0.9% 1, 675 000 ml @ 75 mls/hr IV . [id number] [facility] Rx#:[id number] cefTRIAXone 1 gm In 100 Sodium Chloride 0.9% 50 ml @ 100 mls/hr IVPB Q12HR [facility] Rx#:[id number] Oral 250 Other: Voiding Method Toilet Toilet # Voids 3 - Exam Head normocephalic Neck supple Lungs clear to auscultation bilaterally no wheezing or crackles Heart regular rate and rhythm S1-S2, no rub or gallop Abdomen is soft nontender nondistended positive bowel sounds no hepatosplenomegaly Extremities no edema Neuro alert and orientated to 3 - Labs CBC & Chem 7: 08/20/19 07:12 08/20/19 07:12 Labs: Abnormal Lab Results - Last 24 Hours (Table) 08/16/19 08/20/19 08/20/19 Range/Units 06:54 07:12 07:12 RBC 3.89 L (4.30-5.90) m/uL Hgb 11.0 L (13.0-17.5) gm/dL Hct 35.7 L (39.0-53.0) % MCHC 30.9 L (31.0-37.0) g/dL RDW 15.6 H (11.5-15.5) % Plt Count 642 H (150-450) k/uL Sodium 136 L (137-145) mmol/L BUN 6 L (9-20) mg/dL Creatinine 0.58 L (0.66-1.25) mg/dL Albumin 2.8 L (3.5-5.0) g/dL Albumin (PEP) 2.27 L (3.80-4.90) g/dL Newae-1-Voklbsexz 0.50 H (0.10-0.40) g/dL Dqlpn-2-Xptwtfahd 1.07 H (0.60-1.00) g/dL Microbiology - Last 24 Hours (Table) 08/12/19 17:00 Stool Culture - Final Stool Assessment and Plan Assessment: 1. Febrile with diarrhea. C. diff negative. Stool cultures have been ordered infectious disease has been consulted. Blood culture ordered. C. diff sample with PCR has been ordered by infectious disease currently maintained on vancomycin. C. diff negative. Oral Vanco DC'd per infectious disease. Symptoms are improving 2. urinary tract infection. Urine culture ordered. Patient maintained on Rocephin. Culture growing E. coli. Patient maintained on Flagyl and Rocephin 3. Non-small cell lung cancer consistent with squamous cell carcinoma Patient reports his posterior undergo repeat bronchoscopy on 07/03/2019 but unable to due to insurance purposes. Patient has not followed with pulmonary services. Status post bronchoscopy on 08/13/2019. Per oncology services, pathology was reviewed with patient. Further scanning was ordered for staging. Per cardiology services interventional radiology has been consulted 4. Hyponatremia secondary to dehydration. Continue normal saline at 75. Sodium has improved to 134. Resolved 5. History of cardiac arrhythmia. History of pacemaker placement 6. History of coronary artery disease stable at this time 7. History of hyperlipidemia maintained on Lipitor 8. Chronic back pain. 9. History of nicotine dependence. Patient reports he has stopped smoking. No need for nicotine patch at this time 10. Rectal wall thickening possible rectal neoplasm. Previous computed t omography scan showing rectal wall thickening and perirectal edema consistent with inflammatory process. There is perirectal vascular congestion. Per bowel significant rectal wall thickening on recent CAT scan and PET scan showing activity suspect neoplasm. Status post colonoscopy with Dr. vasquez. Biopsy- positive for invasive moderately differentiated adenocarcinoma. 11. Hypokalemia. Replace per protocol. Resolved DVT prophylaxis heparin. GI prophylaxis Protonix Infectious disease, pulmonary, surgical services and oncology services are following Social work consult to assist with financial services I performed an examination of the patient and discussed their management with hugo elizondo Nurse Practitioner. I have reviewed the Nurse Practitioner's notes and agree with the documented findings and plan of care
--- NOTE | 2019-08-20 11:04 | CDI ---
Documentation Clarification Form Date: 08/20/2019 10:50:26 AM From: Jen RivasCRISTI, CCDS Admit Date: 08/12/2019 6:32:00 AM Patient Name: Everette Gabriel Visit Number: [id number] Discharge Date: ATTENTION: The Clinical Documentation Specialists (CDI) and [facility] Coding Staff appreciate your assistance in clarifying documentation. Please respond to the clarification below the line at the bottom and electronically sign. The CDI & [facility] Coding staff will review the response and follow-up if needed. Please note: Queries are made part of the Legal Health Record. If you have any questions, please contact the author of this message via ITS. Dr. Salina Schwartz: Per the 08/12 Infectious Disease consult: "patient presented to hospital with sepsis in this patient who did have a fever and elevated white count significant symptoms of diarrhea ...... " "... the patient did have a positive UA underlying UTI not entirely excluded likely from enteric gram-negative pathogen." "Sepsis" Per the Oncology progress notes 08/15: "sepsis/colitis: Febrile with diarrhea. urinary tract infection, Escherichia coli UTI... on Rocephin." History/Risk Factors: Pacemaker, CAD, COPD, Hypertension, Hyperlipidemia, Chronic back pain & nicotine dependence. Clinical Indicators: Recently diagnosed with pneumonia & new diagnosis of left hilar mass strongly suggestive of malignancy. VS: T 98.4 - 101.9^, P 113^, R 20, BP 128/77, PO 97 RA - 94 RA LAB: WBC 20.3^, Neut 17.5^, Lactic acid (1.2). UA: Dark brown, cloudy, 1+ protein, large blood, large esterase, RBC 32, WBC 113. Urine culture final: E coli, Blood culture final: neg after 144 hrs, Stool culture final: neg. Treatment: IV fluid bolus, IM Bentyl, IV Rocephin, Infectious Disease consulted. In your professional opinion, please clarify if these findings signify one of the following conditions, whether the condition is POA, and cause, if known: o Sepsis ruled out o Sepsis ruled in Please specify cause & organism, if known o Other, please specify o Unable to determine Present on Admission o Yes o No (Last Revision: December 2017) Sepsis ruled out MTDD
--- NOTE | 2019-08-20 12:08 | P.PN ---
Subjective Progress Note Date: 08/20/19 Principal diagnosis: Non-small cell lung cancer consistent with squamous cell carcinoma, locally advanced, possibly stage IIIB, rectal mass with increased activity on PET scan On 08/19/2019 patient seen in follow-up on medical surgical floor. He is resting comfortably in bed, he denies any shortness of breath, denies any cough or congestion, lung sounds reveal a few basilar rales, no hemoptysis, no complaints of chest pain, he is currently on room air, his pulse ox of 95%, no fever or chills, awaiting path report on the biopsy of the rectal mass. On 08/20/2017 patient seen in follow-up on medical surgical floor. Biopsy of the rectal mass has finalized, and showed invasive moderately differentiated adenocarcinoma. Clinically patient stable, denies any shortness of breath, no cough or congestion, no hemoptysis, he is on room air with pulse ox of 98%, no acute events overnight, will await further input from medical oncology in terms of treatment Objective - Vital Signs Vital signs: Vital Signs Temp 97.9 F 08/20/19 07:00 Pulse 90 08/20/19 07:00 Resp 18 08/20/19 07:00 BP 125/74 08/20/19 07:00 Pulse Ox 98 08/20/19 07:00 Intake & Output 08/19/19 08/20/19 08/20/19 18:59 06:59 18:59 Intake Total 250 1037.5 Balance 250 1037.5 Weight 66.4 kg Intake: IV 262.5 Sodium Chloride 0.9% 1, 262.5 000 ml @ 75 mls/hr IV . [id number] [facility] Rx#:[id number] Intake, IV Titration 775 Amount Sodium Chloride 0.9% 1, 675 000 ml @ 75 mls/hr IV . [id number] [facility] Rx#:[id number] cefTRIAXone 1 gm In 100 Sodium Chloride 0.9% 50 ml @ 100 mls/hr IVPB Q12HR [facility] Rx#:[id number] Oral 250 Other: Voiding Method Toilet Toilet # Voids 3 - Exam GENERAL EXAM: Alert, thin, pleasant 63-year-old white male, on room air, with a pulse ox of 95% comfortable in no apparent distress. HEAD: Normocephalic/atraumatic. EYES: Normal reaction of pupils, equal size. Conjunctiva pink, sclera white. NOSE: Clear with pink turbinates. THROAT: No erythema or exudates. NECK: No masses, no JVD, no thyroid enlargement, no adenopathy. CHEST: No chest wall deformity. Symmetrical expansion. LUNGS: Equal air entry with minimal basilar crackles, wheeze, rhonchi or dullness. CVS: Regular rate and rhythm, normal S1 and S2, no gallops, no murmurs, no rubs ABDOMEN: Soft, nontender. No hepatosplenomegaly, normal bowel sounds, no guarding or rigidity. EXTREMITIES: No clubbing, no edema, no cyanosis, 2+ pulses and upper and lower extremities. MUSCULOSKELETAL: Muscle strength and tone normal. SPINE: No scoliosis or deformity SKIN: No rashes CENTRAL NERVOUS SYSTEM: Alert and oriented -3. No focal deficits, tone is normal in all 4 extremities. PSYCHIATRIC: Alert and oriented -3. Appropriate affect. Intact judgment and insight. - Labs CBC & Chem 7: 08/20/19 07:12 08/20/19 07:12 Labs: Abnormal Lab Results - Last 24 Hours (Table) 08/16/19 08/20/19 08/20/19 Range/Units 06:54 07:12 07:12 RBC 3.89 L (4.30-5.90) m/uL Hgb 11.0 L (13.0-17.5) gm/dL Hct 35.7 L (39.0-53.0) % MCHC 30.9 L (31.0-37.0) g/dL RDW 15.6 H (11.5-15.5) % Plt Count 642 H (150-450) k/uL Sodium 136 L (137-145) mmol/L BUN 6 L (9-20) mg/dL Creatinine 0.58 L (0.66-1.25) mg/dL Albumin 2.8 L (3.5-5.0) g/dL Albumin (PEP) 2.27 L (3.80-4.90) g/dL Rgllc-9-Wwggsabvl 0.50 H (0.10-0.40) g/dL Lmlyq-7-Cszyrfpit 1.07 H (0.60-1.00) g/dL Microbiology - Last 24 Hours (Table) 08/12/19 17:00 Stool Culture - Final Stool Assessment and Plan Plan: 1 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 Patient has locally advanced disease based on PET scan findings, passively stage IIIb 2 COPD , currently inactive in stable 3 coronary artery disease, nonocclusive and the patient is undergoing medical treatment 4 history of third-degree AV block post-pacemaker insertion 5. Rectal mass was significant stenosis post endoscopy, and biopsies of the rectal mass were positive for invasive moderately differentiated adenocarcinoma 6 hyperlipidemia 7 remote history of hemochromatosis 8 osteoarthritis 9 abnormal metabolic activity in the rectal area along with bowel wall thickening. Consider an artifact versus a second primary malignancy within the rectum. 10 hyponatremia, consider SIADH/ paraneoplastic, improved and the sodium level is improving , sodium level is normalized 11 leukocytosis 12 suspected UTI secondary to E. coli, improved 13 hypertension Plan: Rectal mass biopsy results have been noted, will await further input from medical oncology and radiation oncology, clinical patient is stable, no difficulty breathing, vital signs are stable, no fever or chills. Pulmonary critical care will sign off and follow on as-needed basis. I performed a history & physical examination of the patient and discussed their management with my nurse practitioner, Bev Villa. I reviewed the nurse practitioner's note and agree with the documented findings and plan of care. Lung sounds are positive for minimal crackles. The findings and the impression was discussed with the patient. I attest to the documentation by the nurse practitioner. Time with Patient: Less than 30
--- NOTE | 2019-08-20 14:25 | P.PN ---
<Fatuma Ballard - Last Filed: 08/20/19 14:24> Subjective Progress Note Date: 08/20/19 CHIEF COMPLAINT: Proctitis HISTORY OF PRESENT ILLNESS: Patient examined at the bedside. He denies abdominal pain. Tolerating diet without nausea or vomiting. Passing flatus. Reports BM. Vital signs stable. Biopsy positive for adenocarcinoma. PHYSICAL EXAM: VITAL SIGNS: Reviewed. GENERAL: Well-developed in no acute distress. HEENT: No sclera icterus. Extraocular movements grossly intact. Moist buccal mucosa. Head is atraumatic, normocephalic. ABDOMEN: Soft. Nondistended. Nontender. NEUROLOGIC: Alert and oriented. Cranial nerves II through XII grossly intact. ASSESSMENT: 1. Rectal mass PLAN: Continue diet as tolerated Await further input from oncology No plans for surgical intervention at this time Nurse practitioner note has been reviewed by physician. Signing provider agrees with the documented findings, assessment, and plan of care. Objective - Vital Signs Vital signs: Vital Signs Temp 97.9 F 08/20/19 07:00 Pulse 90 08/20/19 07:00 Resp 18 08/20/19 07:00 BP 125/74 08/20/19 07:00 Pulse Ox 98 08/20/19 07:00 Intake & Output 08/19/19 08/20/19 08/20/19 18:59 06:59 18:59 Intake Total 250 1037.5 Balance 250 1037.5 Weight 66.4 kg Intake: IV 262.5 Sodium Chloride 0.9% 1, 262.5 000 ml @ 75 mls/hr IV . [id number] [facility] Rx#:[id number] Intake, IV Titration 775 Amount Sodium Chloride 0.9% 1, 675 000 ml @ 75 mls/hr IV . [id number] [facility] Rx#:[id number] cefTRIAXone 1 gm In 100 Sodium Chloride 0.9% 50 ml @ 100 mls/hr IVPB Q12HR [facility] Rx#:[id number] Oral 250 Other: Voiding Method Toilet Toilet # Voids 3 - Labs CBC & Chem 7: 08/20/19 07:12 08/20/19 07:12 Labs: Abnormal Lab Results - Last 24 Hours (Table) 08/20/19 08/20/19 Range/Units 07:12 07:12 RBC 3.89 L (4.30-5.90) m/uL Hgb 11.0 L (13.0-17.5) gm/dL Hct 35.7 L (39.0-53.0) % MCHC 30.9 L (31.0-37.0) g/dL RDW 15.6 H (11.5-15.5) % Plt Count 642 H (150-450) k/uL Sodium 136 L (137-145) mmol/L BUN 6 L (9-20) mg/dL Creatinine 0.58 L (0.66-1.25) mg/dL Albumin 2.8 L (3.5-5.0) g/dL Microbiology - Last 24 Hours (Table) 08/12/19 17:00 Stool Culture - Final Stool <Andrea Rodriguez - Last Filed: 08/20/19 17:28> Subjective As above. Patient's tolerating diet. Denies nausea or vomiting. He did have a bowel movement although mostly loose. Possible discharge tomorrow. Once again reviewed symptoms of colonic obstruction. Patient will contact me with any such complaints. Objective - Vital Signs Vital signs: Vital Signs Temp 98.7 F 08/20/19 15:00 Pulse 87 08/20/19 15:00 Resp 18 08/20/19 16:00 BP 120/63 08/20/19 15:00 Pulse Ox 96 08/20/19 15:00 Intake & Output 08/19/19 08/20/19 08/20/19 18:59 06:59 18:59 Intake Total 250 1037.5 Balance 250 1037.5 Weight 66.4 kg 67.086 kg Intake: IV 262.5 Sodium Chloride 0.9% 1, 262.5 000 ml @ 75 mls/hr IV . [id number] [facility] Rx#:[id number] Intake, IV Titration 775 Amount Sodium Chloride 0.9% 1, 675 000 ml @ 75 mls/hr IV . [id number] [facility] Rx#:[id number] cefTRIAXone 1 gm In 100 Sodium Chloride 0.9% 50 ml @ 100 mls/hr IVPB Q12HR [facility] Rx#:[id number] Oral 250 Other: Voiding Method Toilet Toilet # Voids 3 3 - Labs CBC & Chem 7: 08/20/19 07:12 08/20/19 07:12 Labs: Abnormal Lab Results - Last 24 Hours (Table) 08/20/19 08/20/19 Range/Units 07:12 07:12 RBC 3.89 L (4.30-5.90) m/uL Hgb 11.0 L (13.0-17.5) gm/dL Hct 35.7 L (39.0-53.0) % MCHC 30.9 L (31.0-37.0) g/dL RDW 15.6 H (11.5-15.5) % Plt Count 642 H (150-450) k/uL Sodium 136 L (137-145) mmol/L BUN 6 L (9-20) mg/dL Creatinine 0.58 L (0.66-1.25) mg/dL Albumin 2.8 L (3.5-5.0) g/dL Assessment and Plan (1) Proctitis Current Visit: Yes Status: Acute Code(s): K62.89 - OTHER SPECIFIED DISEASES OF ANUS AND RECTUM SNOMED Code(s): 9157549
[2019-08-20 15:21] VITALS: BMI 20.6
[2019-08-20] MEDS: LACTATED RINGERS 1,000 ML IV SCH (15:57)
--- NOTE | 2019-08-20 18:25 | P.PN ---
Subjective Progress Note Date: 08/20/19 Principal diagnosis: Lung and rectal mass In f/u today pt has c/o mild weakness, he has "slimy" fecal material, some scant blood, no pain with BM, denies SHAGGY, Chest pain, dizziness, ambulating independently, no other pain Objective - Vital Signs Vital signs: Vital Signs Temp 98.7 F 08/20/19 15:00 Pulse 87 08/20/19 15:00 Resp 18 08/20/19 16:00 BP 120/63 08/20/19 15:00 Pulse Ox 96 08/20/19 15:00 Intake & Output 08/19/19 08/20/19 08/20/19 18:59 06:59 18:59 Intake Total 250 1037.5 Balance 250 1037.5 Weight 66.4 kg 67.086 kg Intake: IV 262.5 Sodium Chloride 0.9% 1, 262.5 000 ml @ 75 mls/hr IV . [id number] [facility] Rx#:[id number] Intake, IV Titration 775 Amount Sodium Chloride 0.9% 1, 675 000 ml @ 75 mls/hr IV . [id number] [facility] Rx#:[id number] cefTRIAXone 1 gm In 100 Sodium Chloride 0.9% 50 ml @ 100 mls/hr IVPB Q12HR [facility] Rx#:[id number] Oral 250 Other: Voiding Method Toilet Toilet # Voids 3 3 - Constitutional General appearance: Present: cooperative, no acute distress, thin - EENT Eyes: Present: anicteric sclerae, EOMI ENT: Present: hearing grossly normal - Respiratory Respiratory: bilateral: CTA, diminished - Cardiovascular Rhythm: regular Heart sounds: normal: S1, S2 Abnormal Heart Sounds: Absent: systolic murmur, diastolic murmur, rub, S3 Gallop, S4 Gallop, click, other - Peripheral edema leg Peripheral Edema: bilateral: None - Gastrointestinal General gastrointestinal: Present: normal bowel sounds, soft - Neurologic Neurologic: Present: CNII-XII intact - Musculoskeletal Musculoskeletal: Present: strength equal bilaterally - Psychiatric Psychiatric: Present: A&O x's 3, appropriate affect, intact judgment & insight - Labs CBC & Chem 7: 08/20/19 07:12 08/20/19 07:12 Labs: Abnormal Lab Results - Last 24 Hours (Table) 08/20/19 08/20/19 Range/Units 07:12 07:12 RBC 3.89 L (4.30-5.90) m/uL Hgb 11.0 L (13.0-17.5) gm/dL Hct 35.7 L (39.0-53.0) % MCHC 30.9 L (31.0-37.0) g/dL RDW 15.6 H (11.5-15.5) % Plt Count 642 H (150-450) k/uL Sodium 136 L (137-145) mmol/L BUN 6 L (9-20) mg/dL Creatinine 0.58 L (0.66-1.25) mg/dL Albumin 2.8 L (3.5-5.0) g/dL Assessment and Plan (1) Squamous cell lung cancer Current Visit: Yes Status: Acute Priority: High Code(s): C34.90 - MALIGNANT NEOPLASM OF UNSP PART OF UNSP BRONCHUS OR LUNG SNOMED Code(s): 499477104 (2) Rectal adenocarcinoma Current Visit: Yes Status: Acute Priority: High Code(s): C20 - MALIGNANT NEOPLASM OF RECTUM SNOMED Code(s): 704483933 Plan: We discussed his diagnosis of 2 primary malignancies-squamous cell NSCLC and rectal adenocarcinoma. From staging scans pt does not appear to have mets. This means that there is a possibility for cure. I spoke with Rad Onc and Primary Onc who are reviewing pt case to develop a plan. Both malignancies are treated with different chemotherapy drugs, the rectal cancer seems to have some symptoms...so, which cancer should be treated first is what is being discussed. PET scan is going to be ordered once pt is discharged at Dr. Shaw request. Pt verbalized understanding the complex nature of his case, all questions were answered to the best of my ability Pt greatest concern is his financial, social, work situation and how it relates to him being able to get and pay for treatment. 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 Time with Patient: Greater than 30
--- NOTE | 2019-08-20 22:41 | PN ---
PROGRESS NOTE DATE OF SERVICE: 08/20/2019 REASON FOR FOLLOWUP: E coli urinary tract infection and a question of colitis. INTERVAL HISTORY: The patient is currently afebrile. The patient is breathing comfortably. Denies having any chest pain or cough. No nausea or vomiting. No abdominal pain or any diarrhea. PHYSICAL EXAMINATION: Blood pressure is 125/72 with a pulse of 63, temperature 97.9. He is 95% on room air. General description is a middle-aged male lying in bed in no distress. RESPIRATORY SYSTEM: Unlabored breathing with decreased breath sounds at the base. No wheeze. HEART: S1, S2. Regular rate and rhythm. ABDOMEN: Soft. No tenderness. EXTREMITIES: No edema of the feet. LABS: Hemoglobin is 11 with a white count of 9.4, BUN of 6, creatinine 0.58. DIAGNOSTIC IMPRESSION AND PLAN: Patient admitted to hospital with a fever with significant diarrhea in this patient who had a question of possible colitis, also with an Escherichia coli urinary tract infection. Antibiotic will be adjusted to Cipro and Flagyl for a short course and monitor clinical course closely. Continue with supportive care. MMODL / IJN: [id number] /
[2019-08-20] MEDS: CIPROFLOXACIN HCL 500 MG TAB PO SCH (23:39)
[2019-08-21 01:07] VITALS: TEMP 98.3
[2019-08-21] MEDS: HYDROcodone/APAP 7.5-325MG 1 EACH TAB PO PRN (03:41)
[2019-08-21 07:44] VITALS: BP 121/78; PULSE 79; RESP 16
[2019-08-21 07:47] LABS: Basophils # (A) 0.1 k/uL (0-0.2); Basophils % (A) 1 %; Eosinophils # (A) 0.8 k/uL (0-0.7); Eosinophils % (A) 7 %; HCT 35.8 % (39.0-53.0); HGB 11.7 gm/dL (13.0-17.5); Lymphocytes # (A) 1.3 k/uL (1.0-4.8); Lymphocytes % (A) 11 %; MCH 29.6 pg (25.0-35.0); MCHC 32.6 g/dL (31.0-37.0); MCV 90.7 fL (80.0-100.0); Mean Platelet Volume 5.9; Monocytes # (A) 0.8 k/uL (0-1.0); Monocytes % (A) 8 %; Neutrophils # (A) 7.9 k/uL (1.3-7.7); Neutrophils % (A) 71 %; Platelet Count 648 k/uL (150-450); RBC 3.95 m/uL (4.30-5.90); RDW 15.7 % (11.5-15.5); WBC 11.1 k/uL (3.8-10.6)
[2019-08-21 08:04] LABS: ALT 21 U/L (21-72); AST 25 U/L (17-59); African American GFR (CKD) >90 (>60 ml/min/1.73 sqM); Albumin 3.1 g/dL (3.5-5.0); Alkaline Phosphatase 107 U/L (38-126); Anion Gap 8 mmol/L; Blood Urea Nitrogen 4 mg/dL (9-20); Carbon Dioxide 29 mmol/L (22-30); Chloride 100 mmol/L (98-107); Glucose 92 mg/dL (74-99); Non-African American GFR(CKD) >90 (>60 ml/min/1.73 sqM); Potassium 3.9 mmol/L (3.5-5.1); Sodium 137 mmol/L (137-145); Total Bilirubin 0.2 mg/dL (0.2-1.3); Total Protein 6.9 g/dL (6.3-8.2)
[2019-08-21] MEDS: HEPARIN SODIUM,PORCINE 5,000 UNIT/ML 1 ML VIAL SQ SCH (08:05)
[2019-08-21] MEDS: PANTOPRAZOLE 40 MG TABLET PO SCH (08:05)
[2019-08-21] MEDS: NICOTINE 14MG/24HR PATCH TRANSDERM SCH (08:05)
[2019-08-21] MEDS: ATORVASTATIN 20 MG TAB PO SCH (08:06)
[2019-08-21] MEDS: CARVEDILOL 3.125 MG TAB PO SCH (08:06)
[2019-08-21] MEDS: CIPROFLOXACIN HCL 500 MG TAB PO SCH (08:06)
[2019-08-21] MEDS: amLODIPine 5 MG TAB PO SCH (08:06)
[2019-08-21] MEDS: metroNIDAZOLE 500 MG TAB PO SCH (08:06)
--- NOTE | 2019-08-21 09:36 | P.PN ---
Subjective Progress Note Date: 08/21/19 Principal diagnosis: Proctitis Patient doing well today. Denies pain. States he had a good bowel movement today. Plans for discharge today. Objective - Vital Signs Vital signs: Vital Signs Temp 98.3 F 08/21/19 07:00 Pulse 79 08/21/19 07:00 Resp 16 08/21/19 07:00 BP 121/78 08/21/19 07:00 Pulse Ox 97 08/21/19 07:00 Intake & Output 08/20/19 08/21/19 08/21/19 18:59 06:59 18:59 Intake Total 862.5 200 Balance 862.5 200 Weight 67.086 kg Intake: IV 262.5 Sodium Chloride 0.9% 1, 262.5 000 ml @ 75 mls/hr IV . [id number] [facility] Rx#:[id number] Intake, IV Titration 600 Amount Sodium Chloride 0.9% 1, 600 000 ml @ 75 mls/hr IV . [id number] [facility] Rx#:[id number] Oral 200 Other: Voiding Method Toilet # Voids 3 - Exam Abdomen: Soft, nontender, nondistended - Labs CBC & Chem 7: 08/21/19 07:32 08/21/19 07:32 Labs: Abnormal Lab Results - Last 24 Hours (Table) 08/21/19 08/21/19 Range/Units 07:32 07:32 WBC 11.1 H (3.8-10.6) k/uL RBC 3.95 L (4.30-5.90) m/uL Hgb 11.7 L (13.0-17.5) gm/dL Hct 35.8 L (39.0-53.0) % RDW 15.7 H (11.5-15.5) % Plt Count 648 H (150-450) k/uL Neutrophils # 7.9 H (1.3-7.7) k/uL Eosinophils # 0.8 H (0-0.7) k/uL BUN 4 L (9-20) mg/dL Creatinine 0.55 L (0.66-1.25) mg/dL Albumin 3.1 L (3.5-5.0) g/dL Assessment and Plan (1) Proctitis Narrative/Plan: Continue regular diet. Monitor for obstructive symptoms. May discharge. Follow-up with oncology postdischarge. Current Visit: Yes Status: Acute Code(s): K62.89 - OTHER SPECIFIED DISEASES OF ANUS AND RECTUM SNOMED Code(s): 5884021
--- NOTE | 2019-08-21 10:37 | P.DS ---
Providers Date of admission: 08/12/19 06:32 Expected date of discharge: 08/21/19 Attending physician: Salina Schwartz Consults: 08/12/19 08:53 Consult Physician Routine Consulting Provider: Дмитрий Coronado Consult Reason/Comments: UTI, diarrhea Do you want consulting provider notified?: Yes 08/12/19 10:05 Consult Physician Routine Consulting Provider: Zain Perez Consult Reason/Comments: established patient, lung mass Do you want consulting provider notified?: Yes 08/13/19 10:43 Consult Physician Routine Consulting Provider: Andrea Rodriguez Consult Reason/Comments: Rectal wall thickening seen on computed tomography scan from 06-19-2019 Do you want consulting provider notified?: Yes 08/14/19 14:34 Consult Physician Routine Consulting Provider: Anastacio Shaw Consult Reason/Comments: squamous cell carcinoma of lung, rectal mass Do you want consulting provider notified?: Yes 08/16/19 14:07 Consult Physician Routine Consulting Provider: Louis Garcia Consult Reason/Comments: Squamous cell lung cancer, Rectal mass Do you want consulting provider notified?: Yes Primary care physician: Digna [facility] Course: Discharge diagnosis 1. Febrile with diarrhea. C. diff negative. Stool cultures have been ordered infectious disease has been consulted. Blood culture ordered. C. diff sample with PCR has been ordered by infectious disease currently maintained on vancomycin. C. diff negative. Oral Vanco DC'd per infectious disease. Symptoms are improving. Discussed case with infectious disease. Patient will be discharged on Cipro and Flagyl for 1 Week 2. urinary tract infection. Urine culture ordered. Patient maintained on Rocephin. Culture growing E. coli. Patient maintained on Flagyl and Rocephin. Patient will be discharged on Cipro for 1 week per oncology recommendation 3. Non-small cell lung cancer consistent with squamous cell carcinoma Patient reports his posterior undergo repeat bronchoscopy on 07/03/2019 but unable to due to insurance purposes. Patient has not followed with pulmonary services. Status post bronchoscopy on 08/13/2019. Per oncology services, pathology was reviewed with patient. Further scanning was ordered for staging. Per cardiology services interventional radiology has been consulted 4. Hyponatremia secondary to dehydration. Continue normal saline at 75. Sodium has improved to 134. Resolved 5. History of cardiac arrhythmia. History of pacemaker placement 6. History of coronary artery disease stable at this time 7. History of hyperlipidemia maintained on Lipitor 8. Chronic back pain. 9. History of nicotine dependence. Patient reports he has stopped smoking. No need for nicotine patch at this time 10. Rectal wall thickening with positive rectal neoplasm for adenocarcinoma. Previous computed tomography scan showing rectal wall thickening and perirectal edema consistent with inflammatory process. There is perirectal vascular congestion. Per bowel significant rectal wall thickening on recent CAT scan and PET scan showing activity suspect neoplasm. Status post colonoscopy with Dr. vasquez. Biopsy-positive for invasive moderately differentiated adenocarcinoma. Per oncology service is patient will follow-up outpatient with oncology services for PET scan and further plan of care in regards to chemotherapy for squamous cell lung cancer and adenocarcinoma of the rectum 11. Hypokalemia. Replace per protocol. Resolved Hospital course This is a 63-year-old male patient of Dr. Lindsey. Patient presented with complaints of diarrhea over the past few days. Patient reports he has been unable to tolerate food. Patient was recently admitted over a month ago for pneumonia at that time patient was newly diagnosed with a left hilar mass strongly suggestive malignancy. Patient underwent bronchoscopy at that time with pulmonary services per patient he was supposed to go for follow-up bronchoscopy on 07/03/2019 but was unable due to insurance. Patient reports he also has a PET scan but has not followed up with pulmonary services to review results. Additional medical history includes cardiac arrhythmia with previous history of pacemaker placement, coronary artery disease, COPD, hypertension, hyperlipidemia and chronic back pain and nicotine dependence. UA completed showing large amount of leukocyte Estrace. Patient started on Rocephin. C. diff was negative. Blood cell count elevated at 20.3. Lactic acid 1.2. Beta temp at 101.9. Patient dehydrated with sodium of 127. Patient denies any significant abdominal pain. Patient denies any emesis chest poor appetite. At this time will consult Dr. Coronado per infectious disease. Pulmonary services also consulted to follow-up with bronchoscopy and hilar mass. Patient denies any chest pain or shortness of breath. Patient denies any urinary burning or frequency. On 08/13/2019 patient is alert and oriented 3. Patient feels improved with his weakness still having loose bowel movements. Stool for C. diff PCR has been ordered per infectious disease remains on vancomycin. Stool cultures pending. Per pulmonary planning bronchoscopy today in regards to hilar mass. Patient had previous computed tomography scan done during previous admission that showed some rectal wall thickening will consult Dr. vasquez for further investigation. At this time patient denies chest pain or shortness of breath. Patient is complaining of decreased appetite and diarrhea. Patient denies any urinary burning or frequency On 08/14/2019 patient is alert and oriented 3. Patient is status post bronchoscopy yesterday. Patient was evaluated by Dr. vasquez recommending colonoscopy. Infectious disease following. Patient reports that his diarrhea has subsided. Patient requesting advancement in diet. C. diff negative. Patient remains on oral Vanco and Rocephin. Urine culture growing E. coli. On 08/15/2019 patient was seen and examined on the medical floor he is nothing by mouth at this time in anticipation of colonoscopy tomorrow he underwent bronchoscopy on 08/13/2019. At this time patient is denying any fever or chills no headache or dizziness no chest pain no shortness of breath no cough no nausea or vomiting no abdominal pain he is still having some diarrhea no burning was urination no frequency or urgency no hematuria On 08/16/2019 patient is alert and oriented 3. Patient underwent colonoscopy with Dr. vasquez this AM. Patient was evaluated by oncology services due to lung biopsy results. At that time patient remains on Rocephin and Flagyl. Patient denies chest pain or shortness of breath. Patient denies nausea vomiting or diarrhea. Denies any urinary burning or frequency 08/17/2019, patient seen and evaluated examined during the round covering Dr. Schwartz, lab reviewed medications reviewed care plan discussed with the patient at length still have ongoing loose stool, potassium this morning is 2.8, potassium replacement protocol has been initiated, oncology services following this patient as well, white cell count slightly improved platelet count slightly better today compared to yesterday 08/18/2019, patient seen eval examined during the rounds, denies any chest pain no shortness of breath breathing is stable diarrhea is improved, awaiting biopsy results labs reviewed him a white blood cell count is stable platelets are improving slowly chemistry normal Potassium levels have improved now to yesterday On 08/19/2019 patient is alert and oriented 3 awaiting biopsy results from rectal mass. White blood cell has normalized. Patient remains on Rocephin for UTI. At this time patient reports improvement with abdominal discomfort and d iarrhea. Patient denies chest pain or shortness breath. Patient denies nausea vomiting or diarrhea. Patient denies any urinary burning or frequency On 08/20/2019 patient's alert and oriented 3. Final path pathology on rectum tumor showing invasive moderately differentiated adenocarcinoma. Awaiting oncology plan for treatment. At this time patient's diet has improved. Patient denies diarrhea nausea or vomiting. Denies any chest pain or shortness of breath. Denies any urinary burning or frequency. On 08/21/2019 patient is alert and oriented 4. Per oncology discussion was held with patient in regards to the diagnosis of 2 primary malignancies squamous cell of non-small cell lung cancer and rectal adenocarcinoma. Per oncology from staging scans patient does not appear to have mets. Per oncology services patient is to follow-up with outpatient oncology services for plan of care in regards to which cancer should be treated first. PET scan is going to be ordered once patient is discharged under Dr. Shaw. Social work services and case management from [facility] discussed with patient financial resources. At this time patient denies chest pain or shortness of breath. Patient denies nausea vomiting or diarrhea. Denies any urinary burning or frequency. Discussed case with infectious disease. Patient will be discharged on Cipro and Flagyl for 1 week. I performed an examination of the patient and discussed their management with the Nurse Practitioner. I have reviewed the Nurse Practitioner's notes and agree with the documented findings and plan of care Patient Condition at Discharge: Stable Plan - Discharge Summary Discharge Rx Participant: No New Discharge Prescriptions: New Ciprofloxacin HCl [Cipro] 500 mg PO BID 7 Days #14 tab metroNIDAZOLE [Flagyl] 500 mg PO TID 7 Days #21 tab Continue Simvastatin [Zocor] 40 mg PO DAILY Carvedilol [Coreg] 3.125 mg PO BID amLODIPine [Norvasc] 5 mg PO DAILY 30 Days #30 tab Nicotine 14Mg/24Hr Patch [Habitrol] 1 patch TRANSDERM DAILY 30 Days #30 patch HYDROcodone/APAP 7.5-325MG [[place] 7.5-325] 1 tab PO Q6H PRN PRN Reason: Pain Discharge Medication List Simvastatin [Zocor] 40 mg PO DAILY 01/21/14 [History] Carvedilol [Coreg] 3.125 mg PO BID 12/03/18 [History] amLODIPine [Norvasc] 5 mg PO DAILY 30 Days #30 tab 12/05/18 [Rx] Nicotine 14Mg/24Hr Patch [Habitrol] 1 patch TRANSDERM DAILY 30 Days #30 patch 06/19/19 [Rx] HYDROcodone/APAP 7.5-325MG [[place] 7.5-325] 1 tab PO Q6H PRN 08/12/19 [History] Ciprofloxacin HCl [Cipro] 500 mg PO BID 7 Days #14 tab 08/21/19 [Rx] metroNIDAZOLE [Flagyl] 500 mg PO TID 7 Days #21 tab 08/21/19 [Rx] Follow up Appointment(s)/Referral(s): Digna Lindsey MD [Primary Care Provider] - 1-2 days Anastacio Shaw MD [STAFF PHYSICIAN] - 10 Days Patient Instructions/Handouts: Urinary Tract Infection in Men (DC) Activity/Diet/Wound Care/Special Instructions: PET scan being ordered by Dr. Shaw office. The office will call pt with date and time of PET scan and follow up appt with Dr. Shaw Patient was given resources per social work and [facility] care management team for financial resources
== END 2019-08-21 11:48 | disposition home or self-care (01) | DRG 690 ==
LOC: EC 04:48 → 4SSUR 06:32
PROVIDERS: ADMIT Internal Medicine; ATTEND Internal Medicine
PROC: 0BB88ZX Excision of Left Upper Lobe Bronchus, Via Natural or Artificial Opening Endoscopic, Diagnostic (ICD-10-PCS; principal; 2019-08-13 07:30)
PROC: 0B988ZX Drainage of Left Upper Lobe Bronchus, Via Natural or Artificial Opening Endoscopic, Diagnostic (ICD-10-PCS; principal; 2019-08-13 07:30)
PROC: 0DBP8ZX Excision of Rectum, Via Natural or Artificial Opening Endoscopic, Diagnostic (ICD-10-PCS; 2019-08-16)
DX: N39.0 Urinary tract infection, site not specified (principal); E87.1 Hypo-osmolality and hyponatremia; C20 Malignant neoplasm of rectum; C34.90 Malignant neoplasm of unspecified part of unspecified bronchus or lung; B96.20 Unspecified Escherichia coli [E. coli] as the cause of diseases classified elsewhere; D64.9 Anemia, unspecified; D72.821 Monocytosis (symptomatic); E61.1 Iron deficiency; E78.5 Hyperlipidemia, unspecified; E86.0 Dehydration; E87.6 Hypokalemia; F17.200 Nicotine dependence, unspecified, uncomplicated; G89.29 Other chronic pain; I10 Essential (primary) hypertension; I25.10 Atherosclerotic heart disease of native coronary artery without angina pectoris; J44.9 Chronic obstructive pulmonary disease, unspecified; K52.9 Noninfective gastroenteritis and colitis, unspecified; K57.90 Diverticulosis of intestine, part unspecified, without perforation or abscess without bleeding; M19.90 Unspecified osteoarthritis, unspecified site; Z79.899 Other long term (current) drug therapy; Z82.49 Family history of ischemic heart disease and other diseases of the circulatory system; Z95.0 Presence of cardiac pacemaker
CPT/HCPCS: 31623; 31624; 31628; 31633; 36415; 45380; 70460; 71260; 74177; 80053; 81001; 81270; 82150; 82378; 82607; 82728; 82746; 83010; 83540; 83550; 83605; 83615; 83690; 83735; 84132; 84165; 85025; 87040; 87045; 87046; 87077; 87086; 87186; 87324; 88104; 88108; 88173; 88305; 88341; 88342; 96360; 96372; 99284

== ENCOUNTER 2019-11-06 20:11 | Inpatient (IN) | payer OTHER ==
[2019-11-06] MEDS ORDERED: SODIUM CHLORIDE 0.9% 500 ML 500 ML IV STA ×2 (20:57→22:17)
[2019-11-06] MEDS ORDERED: SODIUM CHLORIDE 0.9% 1,000 ML IV STA (20:57)
--- NOTE | 2019-11-06 20:57 | ED ---
Fever HPI - General Chief Complaint: Fever Stated Complaint: fever, CA pt Time Seen by Provider: 11/06/19 20:40 Source: patient, RN notes reviewed, old records reviewed Mode of arrival: ambulatory Limitations: no limitations - History of Present Illness Initial Comments: This is a 66-year-old male DF for evaluation patient presents today for evaluation of weakness and fever some dysuria dehydration and not feeling well increased cough and congestion with fever today. MD Complaint: fever, weakness -: days(s) Temperature Source: subjective Context: multiple patients with similar symptoms Associated Symptoms: chills, myalgias Treatments Prior to Arrival: none - Related Data Home Medications Medication Instructions Recorded Confirmed Simvastatin [Zocor] 40 mg PO DAILY 01/21/14 10/30/19 Carvedilol [Coreg] 3.125 mg PO BID 12/03/18 10/30/19 HYDROcodone/APAP 7.5-325MG [[place] 1 tab PO Q6H PRN 08/12/19 10/30/19 7.5-325] Previous Rx's Medication Instructions Recorded amLODIPine [Norvasc] 5 mg PO DAILY 30 Days #30 tab 12/05/18 Nicotine 14Mg/24Hr Patch [Habitrol] 1 patch TRANSDERM DAILY 30 Days 06/19/19 #30 patch Allergies Allergy/AdvReac Type Severity Reaction Status Date / Time No Known Allergies Allergy Verified 11/06/19 20:40 Review of Systems ROS Statement: Those systems with pertinent positive or pertinent negative responses have been documented in the HPI. ROS Other: All systems not noted in ROS Statement are negative. Past Medical History Past Medical History: Coronary Artery Disease (CAD), Cancer, Chest Pain / Angina, Hyperlipidemia, Hypertension, Osteoarthritis (OA) Additional Past Medical History / Comment(s): colon and lunf caCOPD, previous history of a third-degree AV block and the patient is a pacemaker in place, history of hemochromatosis, vitamin D deficiency, previous history of groin abscesses that are currently healed and drained, hypertension, hyperlipidemia, osteoarthritis, chronic back pain, cardiac cath found CAD and tx medically, hemachromacytosis, vitamin D deficiency History of Any Multi-Drug Resistant Organisms: None Reported Past Surgical History: Appendectomy, Heart Catheterization, Hernia Repair, Orthopedic Surgery, Tonsillectomy Additional Past Surgical History / Comment(s): 2008 cardiac cath due to chest pain and bradycardia-CAD tx medically and EF at that time 40%, rt inguinal hernia repair , rt knee arthroscopy, abcess R groin I&Ds x 2. Past Anesthesia/Blood Transfusion Reactions: No Reported Reaction Type of Cardiac Device: Permanent Pacemaker Device Placement Date:: 2013 Past Psychological History: No Psychological Hx Reported Smoking Status: Current every day smoker Past Alcohol Use History: None Reported Past Drug Use History: None Reported - Past Family History Father Additional Family Medical History / Comment(s): Father after having a MVA. Mother Family Medical History: Myocardial Infarction (LA) Additional Family Medical History / Comment(s): Mother at age 63 yrs of massive [place]. General Exam Limitations: no limitations General appearance: alert, in no apparent distress Head exam: Present: atraumatic, normocephalic, normal inspection Eye exam: Present: normal appearance, PERRL, EOMI. Absent: scleral icterus, conjunctival injection, periorbital swelling ENT exam: Present: normal exam, mucous membranes moist Neck exam: Present: normal inspection. Absent: tenderness, meningismus, lymphadenopathy Respiratory exam: Present: normal lung sounds bilaterally. Absent: respiratory distress, wheezes, rales, rhonchi, stridor Cardiovascular Exam: Present: regular rate, normal rhythm, normal heart sounds. Absent: systolic murmur, diastolic murmur, rubs, gallop, clicks GI/Abdominal exam: Present: soft, normal bowel sounds. Absent: distended, tenderness, guarding, rebound, rigid Extremities exam: Present: normal inspection, full ROM, normal capillary refill. Absent: tenderness, pedal edema, joint swelling, calf tenderness Back exam: Present: normal inspection Neurological exam: Present: alert, oriented X3, CN II-XII intact Psychiatric exam: Present: normal affect, normal mood Skin exam: Present: warm, dry, intact, normal color. Absent: rash Course Vital Signs 11/06/19 11/06/19 11/06/19 20:37 21:23 22:30 Temperature 98.2 F Pulse Rate 47 L 100 104 H Respiratory 22 18 20 Rate Blood Pressure 112/71 125/80 124/79 O2 Sat by Pulse 92 L 99 98 Oximetry 11/06/19 22:57 Temperature 98.9 F Pulse Rate Respiratory Rate Blood Pressure O2 Sat by Pulse Oximetry - Reevaluation(s) Reevaluation #1: 11/06/19 23:15 Medical record is reviewed Reevaluation #2: 11/06/19 23:15 Patient with no change in symptoms in the ER still felt very weak, informed of results patient states he feels better - Consultations Consultation #1: Spoke with Dr. Schwartz is agreeable for admission Medical Decision Making - Medical Decision Making 63 male DF for evaluation of fever weakness positive UTI will admit for IV hydration, IV antibiotics - Lab Data Result diagrams: 11/06/19 21:24 11/06/19 21:24 Lab Results 11/06/19 11/06/19 11/06/19 Range/Units 21:16 21:16 21:24 WBC 3.1 L (3.8-10.6) k/uL RBC 2.82 L (4.30-5.90) m/uL Hgb 8.3 L D (13.0-17.5) gm/dL Hct 24.5 L (39.0-53.0) % MCV 86.9 (80.0-100.0) fL MCH 29.4 (25.0-35.0) pg MCHC 33.8 (31.0-37.0) g/dL RDW 18.9 H (11.5-15.5) % Plt Count 140 L (150-450) k/uL Neutrophils % (Manual) 48 % Band Neutrophils % 14 % Lymphocytes % (Manual) 8 % Monocytes % (Manual) 25 % Eosinophils % (Manual) 5 % Neutrophils # (Manual) 1.90 (1.3-7.7) k/uL Lymphocytes # (Manual) 0.25 L (1.0-4.8) k/uL Monocytes # (Manual) 0.78 (0-1.0) k/uL Eosinophils # (Manual) 0.16 (0-0.7) k/uL Nucleated RBCs 0 (0-0) /100 WBC Manual Slide Review Performed Polychromasia Present Anisocytosis Slight Anisocytosis (manual) Present Rouleaux Present PT (9.0-12.0) sec INR (<1.2) APTT (22.0-30.0) sec Sodium (137-145) mmol/L Potassium (3.5-5.1) mmol/L Chloride (98-107) mmol/L Carbon Dioxide (22-30) mmol/L Anion Gap mmol/L BUN (9-20) mg/dL Creatinine (0.66-1.25) mg/dL Est GFR (CKD-EPI)AfAm (>60 ml/min/1.73 sqM) Est GFR (CKD-EPI)NonAf (>60 ml/min/1.73 sqM) Glucose (74-99) mg/dL Plasma Lactic Acid [place] (0.7-2.0) mmol/L Calcium (8.4-10.2) mg/dL Phosphorus (2.5-4.5) mg/dL Magnesium (1.6-2.3) mg/dL Total Bilirubin (0.2-1.3) mg/dL AST (17-59) U/L ALT (4-49) U/L Alkaline Phosphatase (38-126) U/L Creatine Kinase (55-170) U/L Troponin I (0.000-0.034) ng/mL Total Protein (6.3-8.2) g/dL Albumin (3.5-5.0) g/dL Urine Color Yellow Urine Appearance Clear (Clear) Urine pH 6.0 (5.0-8.0) Ur Specific [place] 1.025 (1.001-1.035) Urine Protein 1+ H (Negative) Ur Protein Confirm MESS ATTENDANT CREW Urine Glucose (UA) Negative (Negative) Urine Ketones Negative (Negative) Urine Blood Small (Negative) Urine Nitrite Positive (Negative) Urine Bilirubin 2+ H (Negative) Ur Bilirubin Confirm MESS ATTENDANT CREW Urine Urobilinogen 4.0 (<2.0) mg/dL Ur Leukocyte Esterase Negative (Negative) Urine RBC 4 (0-5) /hpf Urine WBC 18 H (0-5) /hpf Urine Bacteria Rare H (None) /hpf Urine Mucus Few H (None) /hpf Influenza Type A RNA Not Detected (Not Detectd) Influenza Type B (PCR) Not Detected (Not Detectd) 11/06/19 11/06/19 11/06/19 Range/Units 21:24 21:24 21:24 WBC (3.8-10.6) k/uL RBC (4.30-5.90) m/uL Hgb (13.0-17.5) gm/dL Hct (39.0-53.0) % MCV (80.0-100.0) fL MCH (25.0-35.0) pg MCHC (31.0-37.0) g/dL RDW (11.5-15.5) % Plt Count (150-450) k/uL Neutrophils % (Manual) % Band Neutrophils % % Lymphocytes % (Manual) % Monocytes % (Manual) % Eosinophils % (Manual) % Neutrophils # (Manual) (1.3-7.7) k/uL Lymphocytes # (Manual) (1.0-4.8) k/uL Monocytes # (Manual) (0-1.0) k/uL Eosinophils # (Manual) (0-0.7) k/uL Nucleated RBCs (0-0) /100 WBC Manual Slide Review Polychromasia Anisocytosis Anisocytosis (manual) Rouleaux PT 10.3 (9.0-12.0) sec INR 1.0 (<1.2) APTT 24.9 (22.0-30.0) sec Sodium 126 L (137-145) mmol/L Potassium 3.5 (3.5-5.1) mmol/L Chloride 91 L (98-107) mmol/L Carbon Dioxide 24 (22-30) mmol/L Anion Gap 11 mmol/L BUN 12 (9-20) mg/dL Creatinine 0.50 L (0.66-1.25) mg/dL Est GFR (CKD-EPI)AfAm >90 (>60 ml/min/1.73 sqM) Est GFR (CKD-EPI)NonAf >90 (>60 ml/min/1.73 sqM) Glucose 104 H (74-99) mg/dL Plasma Lactic Acid [place] 1.0 (0.7-2.0) mmol/L Calcium 8.1 L (8.4-10.2) mg/dL Phosphorus 3.4 (2.5-4.5) mg/dL Magnesium 1.6 (1.6-2.3) mg/dL Total Bilirubin 0.3 (0.2-1.3) mg/dL AST 28 (17-59) U/L ALT 20 (4-49) U/L Alkaline Phosphatase 125 (38-126) U/L Creatine Kinase 27 L (55-170) U/L Troponin I (0.000-0.034) ng/mL Total Protein 6.1 L (6.3-8.2) g/dL Albumin 3.1 L (3.5-5.0) g/dL Urine Color Urine Appearance (Clear) Urine pH (5.0-8.0) Ur Specific [place] (1.001-1.035) Urine Protein (Negative) Ur Protein Confirm Urine Glucose (UA) (Negative) Urine Ketones (Negative) Urine Blood (Negative) Urine Nitrite (Negative) Urine Bilirubin (Negative) Ur Bilirubin Confirm Urine Urobilinogen (<2.0) mg/dL Ur Leukocyte Esterase (Negative) Urine RBC (0-5) /hpf Urine WBC (0-5) /hpf Urine Bacteria (None) /hpf Urine Mucus (None) /hpf Influenza Type A RNA (Not Detectd) Influenza Type B (PCR) (Not Detectd) 11/06/19 Range/Units 21:24 WBC (3.8-10.6) k/uL RBC (4.30-5.90) m/uL Hgb (13.0-17.5) gm/dL Hct (39.0-53.0) % MCV (80.0-100.0) fL MCH (25.0-35.0) pg MCHC (31.0-37.0) g/dL RDW (11.5-15.5) % Plt Count (150-450) k/uL Neutrophils % (Manual) % Band Neutrophils % % Lymphocytes % (Manual) % Monocytes % (Manual) % Eosinophils % (Manual) % Neutrophils # (Manual) (1.3-7.7) k/uL Lymphocytes # (Manual) (1.0-4.8) k/uL Monocytes # (Manual) (0-1.0) k/uL Eosinophils # (Manual) (0-0.7) k/uL Nucleated RBCs (0-0) /100 WBC Manual Slide Review Polychromasia Anisocytosis Anisocytosis (manual) Rouleaux PT (9.0-12.0) sec INR (<1.2) APTT (22.0-30.0) sec Sodium (137-145) mmol/L Potassium (3.5-5.1) mmol/L Chloride (98-107) mmol/L Carbon Dioxide (22-30) mmol/L Anion Gap mmol/L BUN (9-20) mg/dL Creatinine (0.66-1.25) mg/dL Est GFR (CKD-EPI)AfAm (>60 ml/min/1.73 sqM) Est GFR (CKD-EPI)NonAf (>60 ml/min/1.73 sqM) Glucose (74-99) mg/dL Plasma Lactic Acid [place] (0.7-2.0) mmol/L Calcium (8.4-10.2) mg/dL Phosphorus (2.5-4.5) mg/dL Magnesium (1.6-2.3) mg/dL Total Bilirubin (0.2-1.3) mg/dL AST (17-59) U/L ALT (4-49) U/L Alkaline Phosphatase (38-126) U/L Creatine Kinase (55-170) U/L Troponin I <0.012 (0.000-0.034) ng/mL Total Protein (6.3-8.2) g/dL Albumin (3.5-5.0) g/dL Urine Color Urine Appearance (Clear) Urine pH (5.0-8.0) Ur Specific [place] (1.001-1.035) Urine Protein (Negative) Ur Protein Confirm Urine Glucose (UA) (Negative) Urine Ketones (Negative) Urine Blood (Negative) Urine Nitrite (Negative) Urine Bilirubin (Negative) Ur Bilirubin Confirm Urine Urobilinogen (<2.0) mg/dL Ur Leukocyte Esterase (Negative) Urine RBC (0-5) /hpf Urine WBC (0-5) /hpf Urine Bacteria (None) /hpf Urine Mucus (None) /hpf Influenza Type A RNA (Not Detectd) Influenza Type B (PCR) (Not Detectd) - EKG Data -: EKG Interpreted by Me (EKG shows sinus tachycardia 102, by mouth 44, QRS 150, QTc 531) - Radiology Data Radiology results: report reviewed (Chest x-ray is negative for acute disease), image reviewed Disposition Clinical Impression: UTI (urinary tract infection), Dehydration, Fever Disposition: ADMITTED IP TO THIS HOSP Condition: Fair Is patient prescribed a controlled substance at d/c from ED?: No Referrals: Digna Lindsey MD [Primary Care Provider] - 1-2 days
[2019-11-06] MEDS: SODIUM CHLORIDE 0.9% 1,000 ML IV STA (21:22)
[2019-11-06 21:44] LABS: Anisocytosis Slight; HCT 24.5 % (39.0-53.0); MCH 29.4 pg (25.0-35.0); MCHC 33.8 g/dL (31.0-37.0); MCV 86.9 fL (80.0-100.0); Mean Platelet Volume 7.3; Platelet Count 140 k/uL (150-450); RBC 2.82 m/uL (4.30-5.90); RDW 18.9 % (11.5-15.5); WBC 3.1 k/uL (3.8-10.6)
[2019-11-06 21:46] LABS: ALT 20 U/L (4-49); AST 28 U/L (17-59); African American GFR (CKD) >90 (>60 ml/min/1.73 sqM); Albumin 3.1 g/dL (3.5-5.0); Alkaline Phosphatase 125 U/L (38-126); Anion Gap 11 mmol/L; Blood Urea Nitrogen 12 mg/dL (9-20); Calcium 8.1 mg/dL (8.4-10.2); Carbon Dioxide 24 mmol/L (22-30); Chloride 91 mmol/L (98-107); Creatine Kinase 27 U/L (55-170); Glucose 104 mg/dL (74-99); Magnesium 1.6 mg/dL (1.6-2.3); Non-African American GFR(CKD) >90 (>60 ml/min/1.73 sqM); Phosphorus 3.4 mg/dL (2.5-4.5); Potassium 3.5 mmol/L (3.5-5.1); Sodium 126 mmol/L (137-145); Total Bilirubin 0.3 mg/dL (0.2-1.3); Total Protein 6.1 g/dL (6.3-8.2)
[2019-11-06 21:47] LABS: Partial Thromboplastin Time 24.9 sec (22.0-30.0); Prothrombin Time 10.3 sec (9.0-12.0)
[2019-11-06 21:53] LABS: Appearance,Urine Clear (Clear); Bilirubin,Urine 2+ (Negative); Blood,Urine Small (Negative); Color,Urine Yellow; Glucose,Urine (UA) Negative (Negative); Ketones,Urine Negative (Negative); Protein,Urine 1+ (Negative); Specific Gravity,Urine 1.025 (1.001-1.035)
[2019-11-06 21:53] LABS: HGB 8.3 gm/dL (13.0-17.5)
[2019-11-06 21:54] LABS: Bacteria,Urine Rare /hpf; Leukocyte Esterase,Urine Negative (Negative); Mucus,Urine Few /hpf; Nitrite,Urine Positive (Negative); RBC,Urine 4 /hpf (0-5); WBC,Urine 18 /hpf (0-5)
--- NOTE | 2019-11-06 21:59 | XR ---
EXAMINATION TYPE: XR chest 2V DATE OF EXAM: 11/06/2019 COMPARISON: 06/16/2019 HISTORY: Weakness TECHNIQUE: FINDINGS: Heart size is normal. Lungs are clear of infiltrate. There is no heart failure. There is so me fullness at the left pulmonary hilum. There is no pleural effusion. There is left axillary pacemak er. IMPRESSION: Left hilar mass unchanged. No acute lung disease.
[2019-11-06 22:42] LABS: Band Neutrophils % 14 %; Eosinophils # (M) 0.16 k/uL (0-0.7); Lymphocytes # (M) 0.25 k/uL (1.0-4.8); Monocytes # (M) 0.78 k/uL (0-1.0); Neutrophils % (M) 48 %; Nucleated Red Blood Cells 0 /100 WBC (0-0); Total Cells Counted 100
[2019-11-06 22:43] LABS: Anisocytosis (M) Present; Polychromasia Present; Rouleaux Present
[2019-11-06] MEDS ORDERED: SODIUM CHLORIDE 0.9% 1,000 ML IV ONE (23:12)
[2019-11-07] MEDS: HYDROcodone/APAP 7.5-325MG 1 EACH TAB PO PRN ×3 (08:40→20:59)
--- NOTE | 2019-11-07 09:55 | P.HPIM ---
History of Present Illness H&P Date: 11/07/19 Chief Complaint: Fever This is a 63-year-old male patient of Dr. Lindsey. Patient presented with complaints of fever and generalized weakness over the past week. 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 Patient reports he has been following with oncology and receiving chemotherapy once a week and radiation treatment. Patient reports that over the past week he's had fever like symptoms including chills and generalized weakness. Patient denies any sick contacts. Patient den ies any increased cough. Patient denies any diarrhea nausea or vomiting. Additional medical history includes hyperlipidemia, nicotine dependence, chronic back pain, pacemaker placement due to cardiac arrhythmia and coronary artery disease. Chest x-ray was completed showing left hilar mass unchanged no acute lung disease. Influenza negative area urinary analysis showing high amounts of WBC. Patient started on Rocephin. Urine and blood cultures ordered. Oncology and infectious disease service is consulted. At this time patient is sleepy but does awaken follow commands and answer questions. Patient denies chest pain or shortness breath. Patient denies nausea vomiting or diarrhea. Patient denies any urinary burning or frequency. Review of Systems Please refer to HPI otherwise unremarkable Past Medical History Past Medical History: Coronary Artery Disease (CAD), Cancer, Chest Pain / Angina, Hyperlipidemia, Hypertension, Osteoarthritis (OA) Additional Past Medical History / Comment(s): colon and lunf caCOPD, previous history of a third-degree AV block and the patient is a pacemaker in place, history of hemochromatosis, vitamin D deficiency, previous history of groin abscesses that are currently healed and drained, hypertension, hyperlipidemia, osteoarthritis, chronic back pain, cardiac cath found CAD and tx medically, hemachromacytosis, vitamin D deficiency History of Any Multi-Drug Resistant Organisms: None Reported Past Surgical History: Appendectomy, Heart Catheterization, Hernia Repair, Orthopedic Surgery, Tonsillectomy Additional Past Surgical History / Comment(s): 2008 cardiac cath due to chest pain and bradycardia-CAD tx medically and EF at that time 40%, rt inguinal hernia repair , rt knee arthroscopy, abcess R groin I&Ds x 2. Past Anesthesia/Blood Transfusion Reactions: No Reported Reaction Type of Cardiac Device: Permanent Pacemaker Device Placement Date:: 2013 Past Psychological History: No Psychological Hx Reported Smoking Status: Current every day smoker Past Alcohol Use History: None Reported Past Drug Use History: None Reported - Past Family History Father Additional Family Medical History / Comment(s): Father after having a MVA. Mother Family Medical History: Myocardial Infarction ([place]) Additional Family Medical History / Comment(s): Mother at age 63 yrs of massive [place]. Medications and Allergies Home Medications Medication Instructions Recorded Confirmed Type Simvastatin [Zocor] 40 mg PO DAILY 01/21/14 11/07/19 History Carvedilol [Coreg] 3.125 mg PO BID 12/03/18 11/07/19 History amLODIPine [Norvasc] 5 mg PO DAILY 30 Days #30 tab 12/05/18 11/07/19 Rx HYDROcodone/APAP 7.5-325MG [[place] 1 tab PO Q6H PRN 08/12/19 11/07/19 History 7.5-325] Allergies Allergy/AdvReac Type Severity Reaction Status Date / Time No Known Allergies Allergy Verified 11/07/19 07:33 Physical Exam Vitals: Vital Signs Temp Pulse Pulse Resp BP BP Pulse Ox 11/07/19 07:00 97.2 F L 93 18 104/64 98 11/07/19 03:00 92 18 11/07/19 01:30 97.7 F 96 18 105/76 96 11/07/19 01:00 92 11/07/19 00:00 92 18 11/06/19 23:00 97 18 11/06/19 22:57 98.9 F 11/06/19 22:30 104 H 20 124/79 98 11/06/19 21:23 100 18 125/80 99 11/06/19 20:37 98.2 F 47 L 22 112/71 92 L Intake and Output 11/06/19 11/07/19 11/07/19 22:59 06:59 14:59 Other: Weight 63.503 kg Head normocephalic Neck supple Lungs clear to auscultation bilaterally no wheezing or crackles Heart regular rate and rhythm S1-S2, no rub or gallop Abdomen is soft nontender nondistended positive bowel sounds no hepatosplenomegaly Extremities no edema Neuro alert and orientated to 3 Results CBC & Chem 7: 11/06/19 21:24 11/06/19 21:24 Labs: Abnormal Lab Results - Last 24 Hours (Table) 11/06/19 11/06/1920 Range/Units 21:16 21:24 21:24 WBC 3.1 L (3.8-10.6) k/uL RBC 2.82 L (4.30-5.90) m/uL Hgb 8.3 L D (13.0-17.5) gm/dL Hct 24.5 L (39.0-53.0) % RDW 18.9 H (11.5-15.5) % Plt Count 140 L (150-450) k/uL Lymphocytes # (Manual) 0.25 L (1.0-4.8) k/uL Sodium 126 L (137-145) mmol/L Chloride 91 L (98-107) mmol/L Creatinine 0.50 L (0.66-1.25) mg/dL Glucose 104 H (74-99) mg/dL Calcium 8.1 L (8.4-10.2) mg/dL Creatine Kinase 27 L (55-170) U/L Total Protein 6.1 L (6.3-8.2) g/dL Albumin 3.1 L (3.5-5.0) g/dL Urine Protein 1+ H (Negative) Urine Bilirubin 2+ H (Negative) Urine WBC 18 H (0-5) /hpf Urine Bacteria Rare H (None) /hpf Urine Mucus Few H (None) /hpf Microbiology - Last 24 Hours (Table) 11/06/19 21:16 Urine Culture - Preliminary Urine,Voided Assessment and Plan Assessment: 1. Generalized weakness and fever secondary to urinary tract infection. Patient started on Rocephin urine culture ordered infectious disease consulted due to patient currently receiving chemotherapy. Influenza negative. Chest x- ray showing no acute process. Urine and blood cultures ordered. 2. Hyponatremia. Likely secondary to dehydration Sodium 126. Repeat labs have been ordered. Continue normal saline at 75 3. Squamous cell carcinoma of the lung diagnosed in August 2019. Patient follows with oncology service is currently receiving chemotherapy and radiation treatment. Oncology services have been consulted 4. Adenocarcinoma of the rectum. Patient does follow with oncology services currently receiving treatment chemotherapy radiation 5. History of cardiac arrhythmia. History of pacemaker placement 6. History of coronary artery disease stable at this time 7. Hyperlipidemia. Patient obtained on statin 8. History of nicotine dependence. Nicotine patch has been ordered DVT prophylaxis SCDs due to pancytopenia secondary to chemotherapy. GI prophylaxis Pepcid Time with Patient: Greater than 30 (Greater than 60% of the total time spent in counseling and coordination of care. I performed an examination of the patient and discussed their management with the Nurse Practitioner. I have reviewed the Nurse Practitioner's notes and agree with the documented findings and plan of care)
[2019-11-07] MEDS: NICOTINE 14MG/24HR PATCH TRANSDERM SCH (10:18)
[2019-11-07] MEDS: amLODIPine 5 MG TAB PO SCH (10:18)
[2019-11-07] MEDS: ATORVASTATIN 20 MG TAB PO SCH (10:18)
[2019-11-07] MEDS: CARVEDILOL 3.125 MG TAB PO SCH ×2 (10:19→17:56)
[2019-11-07] MEDS: SODIUM CHLORIDE 0.9% 1,000 ML IV SCH ×2 (10:22→20:17)
[2019-11-07 10:27] LABS: ALT 17 U/L (4-49); AST 22 U/L (17-59); African American GFR (CKD) >90 (>60 ml/min/1.73 sqM); Albumin 2.7 g/dL (3.5-5.0); Alkaline Phosphatase 113 U/L (38-126); Anion Gap 10 mmol/L; Blood Urea Nitrogen 9 mg/dL (9-20); Calcium 7.5 mg/dL (8.4-10.2); Carbon Dioxide 25 mmol/L (22-30); Chloride 95 mmol/L (98-107); Glucose 85 mg/dL (74-99); Non-African American GFR(CKD) >90 (>60 ml/min/1.73 sqM); Potassium 3.2 mmol/L (3.5-5.1); Sodium 130 mmol/L (137-145); Total Bilirubin 0.2 mg/dL (0.2-1.3); Total Protein 5.5 g/dL (6.3-8.2)
[2019-11-07 11:03] LABS: Anisocytosis Slight; HCT 24.2 % (39.0-53.0); MCH 29.4 pg (25.0-35.0); Mean Platelet Volume 7.6; Platelet Count 131 k/uL (150-450); RBC 2.72 m/uL (4.30-5.90); RDW 19.1 % (11.5-15.5)
[2019-11-07 12:01] LABS: Eosinophils # (M) 0.03 k/uL (0-0.7); Lymphocytes # (M) 0.15 k/uL (1.0-4.8); Monocytes # (M) 0.69 k/uL (0-1.0); Neutrophils # (M) 2.13 k/uL (1.3-7.7); Neutrophils % (M) 71 %; Nucleated Red Blood Cells 0 /100 WBC (0-0); Total Cells Counted 100
[2019-11-07 12:02] LABS: Poikilocytosis (M) Present
[2019-11-07] MEDS ORDERED: Potassium Replacement Protocol 1 EACH MISC MISCELLANE PRN (13:15)
[2019-11-07] MEDS: POTASSIUM CHLORIDE ER 20 MEQ TAB.ER PO SCH ×2 (15:17→16:08)
--- NOTE | 2019-11-07 18:31 | P.CONS ---
History of Present Illness - Reason for Consult Consult date: 11/07/19 on treatment for rectal cancer Requesting physician: Dante Padilla - Chief Complaint fever - History of Present Illness Mr Gabriel is a very pleasant male patient who is seen in consult Jul 2019 when he presented with progressive dyspnea for the past 6-12 months, associated with 25-30 pound weight loss, occasional abdominal pain associated with constipation. CT chest revealed 5.5 cm left upper lobe mass, mediastinal adenopathy. CT abdomen revealed proximal rectal wall thickening. Bronchoscopy 08/13/19 revealed non-small cell lung cancer squamous cell subtype. Colonoscopy on 08/16/2019 revealed a large proximal rectal mass, nearly obstructing, biopsy revealed moderately differentiated adenocarcinoma. Patient has received concurrent chemotherapy with weekly carboplatinum and Taxol and radiation to both sites of disease. He has been tremendously well with treatment. He just completed chemotherapy one week ago and radiation 2 days ago. He has not received any G-CSF. As instructed, patient was monitoring himself and noted a fever. He was also having a cough, increased fatigue, sweats alternating with chills, decreased ur ination and decreased appetite. He is admitted with UTI and fever, pancultures pending, empiric antibiotics initiated. Review of Systems 14 point review of systems is negative except as stated in HPI Past Medical History Past Medical History: Coronary Artery Disease (CAD), Cancer, Chest Pain / Angina, Hyperlipidemia, Hypertension, Osteoarthritis (OA) Additional Past Medical History / Comment(s): colon and lunf caCOPD, previous history of a third-degree AV block and the patient is a pacemaker in place, history of hemochromatosis, vitamin D deficiency, previous history of groin abscesses that are currently healed and drained, hypertension, hyperlipidemia, osteoarthritis, chronic back pain, cardiac cath found CAD and tx medically, hemachromacytosis, vitamin D deficiency History of Any Multi-Drug Resistant Organisms: None Reported Past Surgical History: Appendectomy, Heart Catheterization, Hernia Repair, Orthopedic Surgery, Tonsillectomy Additional Past Surgical History / Comment(s): 2008 cardiac cath due to chest pain and bradycardia-CAD tx medically and EF at that time 40%, rt inguinal hernia repair , rt knee arthroscopy, abcess R groin I&Ds x 2. Past Anesthesia/Blood Transfusion Reactions: No Reported Reaction Type of Cardiac Device: Permanent Pacemaker Device Placement Date:: 2013 Past Psychological History: No Psychological Hx Reported Smoking Status: Current every day smoker Past Alcohol Use History: None Reported Past Drug Use History: None Reported - Past Family History Father Additional Family Medical History / Comment(s): Father after having a MVA. Mother Family Medical History: Myocardial Infarction ([place]) Additional Family Medical History / Comment(s): Mother at age 63 yrs of massive [place]. Medications and Allergies Home Medications Medication Instructions Recorded Confirmed Type Simvastatin [Zocor] 40 mg PO DAILY 01/21/14 11/07/19 History Carvedilol [Coreg] 3.125 mg PO BID 12/03/18 11/07/19 History amLODIPine [Norvasc] 5 mg PO DAILY 30 Days #30 tab 12/05/18 11/07/19 Rx HYDROcodone/APAP 7.5-325MG [[place] 1 tab PO Q6H PRN 08/12/19 11/07/19 History 7.5-325] Allergies Allergy/AdvReac Type Severity Reaction Status Date / Time No Known Allergies Allergy Verified 11/07/19 07:33 Physical Exam Vitals: Vital Signs Temp Pulse Pulse Resp BP BP Pulse Ox 11/07/19 07:00 97.2 F L 93 18 104/64 98 11/07/19 03:00 92 18 11/07/19 01:30 97.7 F 96 18 105/76 96 11/07/19 01:00 92 11/07/19 00:00 92 18 11/06/19 23:00 97 18 11/06/19 22:57 98.9 F 11/06/19 22:30 104 H 20 124/79 98 11/06/19 21:23 100 18 125/80 99 11/06/19 20:37 98.2 F 47 L 22 112/71 92 L Intake and Output 11/06/19 11/07/19 11/07/19 22:59 06:59 14:59 Other: Weight 63.503 kg - Constitutional General appearance: cooperative, no acute distress, thin - EENT Eyes: anicteric sclerae, EOMI ENT: hearing grossly normal - Neck Neck: no lymphadenopathy - Respiratory Respiratory: bilateral: diminished - Cardiovascular Rhythm: regular Heart sounds: normal: S1, S2 Abnormal Heart Sounds: no systolic murmur, no diastolic murmur, no rub, no S3 Gallop, no S4 Gallop, no click, no other leg Peripheral Edema: bilateral: None - Gastrointestinal General gastrointestinal: no absent bowel sounds, no decreased bowel sounds, no distended, no hepatomegaly, no hyperactive bowel sounds, normal bowel sounds, no organomegaly, no rigid, no scaphoid, soft, no splenomegaly, no tenderness, no umbilical hernia, no ventral hernia - Neurologic Neurologic: CNII-XII intact - Musculoskeletal Musculoskeletal: generalized weakness, strength equal bilaterally - Psychiatric Psychiatric: A&O x's 3, appropriate affect, intact judgment & insight Results CBC & Chem 7: 11/07/19 09:44 11/07/19 09:44 Labs: Abnormal Lab Results - Last 24 Hours (Table) 11/06/19 11/06/19 11/06/19 Range/Units 21:16 21:24 21:24 WBC 3.1 L (3.8-10.6) k/uL RBC 2.82 L (4.30-5.90) m/uL Hgb 8.3 L D (13.0-17.5) gm/dL Hct 24.5 L (39.0-53.0) % RDW 18.9 H (11.5-15.5) % Plt Count 140 L (150-450) k/uL Lymphocytes # (Manual) 0.25 L (1.0-4.8) k/uL Sodium 126 L (137-145) mmol/L Chloride 91 L (98-107) mmol/L Creatinine 0.50 L (0.66-1.25) mg/dL Glucose 104 H (74-99) mg/dL Calcium 8.1 L (8.4-10.2) mg/dL Creatine Kinase 27 L (55-170) U/L Total Protein 6.1 L (6.3-8.2) g/dL Albumin 3.1 L (3.5-5.0) g/dL Urine Protein 1+ H (Negative) Urine Bilirubin 2+ H (Negative) Urine WBC 18 H (0-5) /hpf Urine Bacteria Rare H (None) /hpf Urine Mucus Few H (None) /hpf Microbiology - Last 24 Hours (Table) 11/06/19 21:16 Urine Culture - Preliminary Urine,Voided Chest x-ray: report reviewed Assessment and Plan (1) Antineoplastic chemotherapy induced pancytopenia Narrative/Plan: Patient did not receive G-CSF. Ok to begin G-CSF if patient's ANC falls less than 1000, suspect sepsis. Transfuse with packed red blood cells if hemoglobin is less than 7. Transfuse with platelets if patient's platelet count drops below 10,000 Current Visit: Yes Status: Acute Priority: High Code(s): D61.810 - ANTINEOPLASTIC CHEMOTHERAPY INDUCED PANCYTOPENIA; T45.1X5A - ADVERSE EFFECT OF ANTINEOPLASTIC AND IMMUNOSUP DRUGS, INIT SNOMED Code(s): 992116090532591 (2) Rectal adenocarcinoma Current Visit: Yes Status: Acute Priority: High Code(s): C20 - MALIGNANT NEOPLASM OF RECTUM SNOMED Code(s): 479679872 (3) Squamous cell lung cancer Current Visit: No Status: Chronic Priority: High Code(s): C34.90 - MALIGNANT NEOPLASM OF UNSP PART OF UNSP BRONCHUS OR LUNG SNOMED Code(s): 788080823 Plan: Patient is completed chemotherapy and concurrent radiation, intent being to treat 2 separate diseases. He has done very well with the same. Plan is for resection of the rectal cancer. Unfortunately, patient's lung cancer is not resectable but, there is maintenance therapy with duurvalumab, which he will be initiated on after surgery. attests: I preformed history and physical examination of patient, developed impression and plan of care. Discussed with dictator. Agree with dictation, documented as a scribe
[2019-11-08] MEDS: HYDROcodone/APAP 7.5-325MG 1 EACH TAB PO PRN ×4 (04:29→22:22)
[2019-11-08] MEDS: ATORVASTATIN 20 MG TAB PO SCH (07:38)
[2019-11-08] MEDS: NICOTINE 14MG/24HR PATCH TRANSDERM SCH (07:38)
[2019-11-08] MEDS: FAMOTIDINE 20 MG TAB PO SCH (07:38)
[2019-11-08] MEDS: amLODIPine 5 MG TAB PO SCH (07:38)
[2019-11-08] MEDS: CARVEDILOL 3.125 MG TAB PO SCH ×2 (07:38→16:32)
[2019-11-08] MEDS ORDERED: Potassium Replacement Protocol 1 EACH MISC MISCELLANE PRN ×2 (08:48→10:39)
[2019-11-08 08:50] LABS: ALT 15 U/L (4-49); AST 20 U/L (17-59); African American GFR (CKD) >90 (>60 ml/min/1.73 sqM); Albumin 2.7 g/dL (3.5-5.0); Alkaline Phosphatase 109 U/L (38-126); Anion Gap 10 mmol/L; Blood Urea Nitrogen 3 mg/dL (9-20); Calcium 7.8 mg/dL (8.4-10.2); Carbon Dioxide 23 mmol/L (22-30); Chloride 96 mmol/L (98-107); Glucose 92 mg/dL (74-99); Non-African American GFR(CKD) >90 (>60 ml/min/1.73 sqM); Potassium 3.3 mmol/L (3.5-5.1); Sodium 129 mmol/L (137-145); Total Bilirubin 0.3 mg/dL (0.2-1.3); Total Protein 5.6 g/dL (6.3-8.2)
[2019-11-08 09:06] LABS: Anisocytosis Slight; HCT 25.1 % (39.0-53.0); HGB 8.4 gm/dL (13.0-17.5); MCH 30.1 pg (25.0-35.0); MCHC 33.6 g/dL (31.0-37.0); MCV 89.5 fL (80.0-100.0); Mean Platelet Volume 7.5; Platelet Count 135 k/uL (150-450); RDW 19.4 % (11.5-15.5)
--- NOTE | 2019-11-08 09:25 | P.CONS ---
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 the patient currently on chemoradiation therapy last chemo has been about a week ago, the patient is presenting to [facility] on 11/06/2019 with symptoms of weakness and fever that apparently has been going on for a day or 2 before he presented to hospital the patient has not been feeling well and did have decreased oral intake, on arrival to the ER the patient was afebrile, though did have some tachycardia with a heart rate up to 110, the patient was mildly leukopenic with a heart rate white count of 3.1 chest x-ray shows left hilar mass unchanged no acute lung disease, the patient did have a UA which shows 18 WBCs and rare bacteria and the patient did have symptoms of burning urine slight difficulty urination but no suprapubic or flank pain, because of his fever and urinary symptoms patient has been diagnosed with urinary tract infection he was started on Rocephin admit to the hospital infectious disease was consulted for further recommendation regarding antibiotic therapy. Review of Systems Positive point has been mentioned in HPI rest of the systems are negative Past Medical History Past Medical History: Coronary Artery Disease (CAD), Cancer, Chest Pain / Angina, Hyperlipidemia, Hypertension, Osteoarthritis (OA) Additional Past Medical History / Comment(s): colon and lunf caCOPD, previous history of a third-degree AV block and the patient is a pacemaker in place, history of hemochromatosis, vitamin D deficiency, previous history of groin abscesses that are currently healed and drained, hypertension, hyperlipidemia, osteoarthritis, chronic back pain, cardiac cath found CAD and tx medically, hemachromacytosis, vitamin D deficiency History of Any Multi-Drug Resistant Organisms: None Reported Past Surgical History: Appendectomy, Heart Catheterization, Hernia Repair, Or thopedic Surgery, Tonsillectomy Additional Past Surgical History / Comment(s): 2008 cardiac cath due to chest pain and bradycardia-CAD tx medically and EF at that time 40%, rt inguinal hernia repair , rt knee arthroscopy, abcess R groin I&Ds x 2. Past Anesthesia/Blood Transfusion Reactions: No Reported Reaction Type of Cardiac Device: Permanent Pacemaker Device Placement Date:: 2013 Past Psychological History: No Psychological Hx Reported Smoking Status: Current every day smoker Past Alcohol Use History: None Reported Past Drug Use History: None Reported - Past Family History Father Additional Family Medical History / Comment(s): Father after having a MVA. Mother Family Medical History: Myocardial Infarction ([place]) Additional Family Medical History / Comment(s): Mother at age 63 yrs of massive [place]. Medications and Allergies Home Medications Medication Instructions Recorded Confirmed Type Simvastatin [Zocor] 40 mg PO DAILY 01/21/14 11/07/19 History Carvedilol [Coreg] 3.125 mg PO BID 12/03/18 11/07/19 History amLODIPine [Norvasc] 5 mg PO DAILY 30 Days #30 tab 12/05/18 11/07/19 Rx HYDROcodone/APAP 7.5-325MG [[place] 1 tab PO Q6H PRN 08/12/19 11/07/19 History 7.5-325] Allergies Allergy/AdvReac Type Severity Reaction Status Date / Time No Known Allergies Allergy Verified 11/07/19 07:33 Physical Exam Vitals: Vital Signs Temp Pulse Resp BP Pulse Ox 11/08/19 04:21 97.8 F 78 18 107/73 98 11/07/19 21:00 96.9 F L 91 16 109/62 97 11/07/19 17:10 98.1 F 93 20 108/67 99 11/07/19 16:00 93 20 11/07/19 14:48 97.0 F L 110 H 18 119/70 98 Intake and Output 11/07/19 11/08/19 11/08/19 22:59 06:59 14:59 Intake Total 585 590 Output Total 600 Balance 585 -10 Intake: Intake, IV Titration 225 Amount Sodium Chloride 0.9% 1, 225 000 ml @ 75 mls/hr IV . [id number] [facility] Rx#:[id number] Oral 360 590 Output: Urine 600 Other: Voiding Method Toilet Toilet # Bowel Movements 3 GENERAL DESCRIPTION: Middle-aged male lying in bed, no distress. No tachypnea or accessory muscle of respiration use. HEENT: Shows Pallor , no scleral icterus. Oral mucous membrane is dry. No pharyngeal erythema or thrush NECK: Trachea central, no thyromegaly. LUNGS: Unlabored breathing. Clear to auscultation anteriorly. No wheeze or crackle. HEART: S1, S2, regular rate and rhythm. No loud murmur ABDOMEN: Soft, no tenderness , guarding or rigidity, no organomegaly EXTREMITIES: No edema of feet. SKIN: No rash, no masses palpable. NEUROLOGICAL: The patient is awake, alert, oriented x3, mood and affect normal. Results CBC & Chem 7: 11/08/19 08:01 11/08/19 08:01 Labs: Abnormal Lab Results - Last 24 Hours (Table) 11/07/19 11/07/19 11/08/19 Range/Units 09:44 09:44 08:01 WBC 3.0 L 3.0 L (3.8-10.6) k/uL RBC 2.72 L 2.80 L (4.30-5.90) m/uL Hgb 8.0 L 8.4 L (13.0-17.5) gm/dL Hct 24.2 L 25.1 L (39.0-53.0) % RDW 19.1 H 19.4 H (11.5-15.5) % Plt Count 131 L 135 L (150-450) k/uL Lymphocytes # (Manual) 0.15 L (1.0-4.8) k/uL Sodium 130 L (137-145) mmol/L Potassium 3.2 L (3.5-5.1) mmol/L Chloride 95 L (98-107) mmol/L BUN (9-20) mg/dL Creatinine 0.41 L (0.66-1.25) mg/dL Calcium 7.5 L (8.4-10.2) mg/dL Total Protein 5.5 L (6.3-8.2) g/dL Albumin 2.7 L (3.5-5.0) g/dL 11/08/19 Range/Units 08:01 WBC (3.8-10.6) k/uL RBC (4.30-5.90) m/uL Hgb (13.0-17.5) gm/dL Hct (39.0-53.0) % RDW (11.5-15.5) % Plt Count (150-450) k/uL Lymphocytes # (Manual) (1.0-4.8) k/uL Sodium 129 L (137-145) mmol/L Potassium 3.3 L (3.5-5.1) mmol/L Chloride 96 L (98-107) mmol/L BUN 3 L (9-20) mg/dL Creatinine 0.38 L (0.66-1.25) mg/dL Calcium 7.8 L (8.4-10.2) mg/dL Total Protein 5.6 L (6.3-8.2) g/dL Albumin 2.7 L (3.5-5.0) g/dL Microbiology - Last 24 Hours (Table) 11/06/19 21:16 Urine Culture - Preliminary Urine,Voided Gram Neg Bacilli 11/06/19 21:24 Blood Culture - Preliminary Blood No Growth after 24 hours Assessment and Plan Assessment: 1-patient presented to hospital with not feeling well he did have a urinary symptoms of burning and some difficulty urination with a UA did shows elevated WBC and bacteria likely asymptomatic urine tract infection this patient is curre ntly on chemo with mild leukopenia likely from enteric gram-negative pathogen (1) UTI (urinary tract infection) Current Visit: Yes Status: Acute Code(s): N39.0 - URINARY TRACT INFECTION, SITE NOT SPECIFIED SNOMED Code(s): 98771785 Plan: 1-Rocephin 1 g IV daily 2-gentle IV fluid We will follow on clinical condition and cultures to further adjust medication if needed Thank you for this consultation will follow this patient along with you Time with Patient: Greater than 30
[2019-11-08] MEDS: POTASSIUM CHLORIDE ER 20 MEQ TAB.ER PO SCH ×2 (09:40→10:28)
[2019-11-08 09:42] LABS: Band Neutrophils % 2 %; Basophils # (M) 0.06 k/uL (0-0.2); Eosinophils # (M) 0.03 k/uL (0-0.7); Lymphocytes # (M) 0.18 k/uL (1.0-4.8); Monocytes # (M) 0.54 k/uL (0-1.0); Neutrophils % (M) 71 %; Nucleated Red Blood Cells 0 /100 WBC (0-0); Total Cells Counted 100
[2019-11-08 09:43] LABS: Poikilocytosis (M) Present
[2019-11-08] MEDS ORDERED: POTASSIUM CHLORIDE ER 20 MEQ TAB.ER PO SCH (11:00)
[2019-11-08] MEDS: SODIUM CHLORIDE 0.9% 1,000 ML IV SCH ×2 (12:12→23:23)
[2019-11-08] MEDS: LOPERAMIDE 2 MG CAP PO PRN ×2 (13:04→21:20)
--- NOTE | 2019-11-08 14:52 | PN ---
PROGRESS NOTE DATE OF SERVICE: 11/08/2019 REASON FOR FOLLOWUP: Urinary tract infection. INTERVAL HISTORY: The patient is currently afebrile, has been breathing comfortably. The patient denies having any chest pain or shortness of breath. No nausea, vomiting, abdominal pain. Does have some diarrhea which he is relating to the apple juice that he had been drinking before the bouts. PHYSICAL EXAMINATION: Blood pressure 137/73 with a pulse of 70, temperature 97.8. General description is a middle-age male up in the chair in no distress. Respiratory system: Unlabored breathing with decreased breath sounds at the base. No wheeze. Heart S1, S2. Regular rate and rhythm. Abdomen is soft, no tenderness. LABS: Hemoglobin ( ), white count 3.0, creatinine 0.38. ( ) gram negative bacilli, sensitivity pending. DIAGNOSTIC IMPRESSION AND PLAN: Patient admitted to the hospital with a fever in this patient who did have urinary symptoms with positive urine showing a gram-negative. Patient's urinary tract infection slow on responding to Rocephin, however, the patient is insistent on going home. The antibiotic will be switched over ( ). MMODL / IJN: [id number] /
--- NOTE | 2019-11-08 15:04 | P.PN ---
Subjective Progress Note Date: 11/08/19 This is a 63-year-old male patient of Dr. Lindsey. Patient presented with complaints of fever and generalized weakness over the past week. 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 Patient reports he has been following with oncology and receiving chemotherapy once a week and radiation treatment. Patient reports that over the past week he's had fever like symptoms including chills and generalized weakness. Patient denies any sick contacts. Patient denies any increased cough. Patient denies any diarrhea nausea or vomiting. Additional medical history includes hyperlipidemia, nicotine dependence, chronic back pain, pacemaker placement due to cardiac arrhythmia and coronary artery disease. Chest x-ray was completed showing left hilar mass unchanged no acute lung disease. Influenza negative area urinary analysis showing high amounts of WBC. Patient started on Rocephin. Urine and blood cultures ordered. Oncology and infectious disease service is consulted. At this time patient is sleepy but does awaken follow commands and answer questions. Patient denies chest pain or shortness breath. Patient denies nausea vomiting or diarrhea. Patient denies any urinary burning or frequency. On 11/08/2019 patient is alert and oriented 3. Patient reports he had loose stools throughout the night. Imodium ordered C. diff stool sample ordered. Urine culture currently growing gram-negative bacilli. Patient is anxious to go home but advised that he stay due to diarrhea and electrolyte imbalance sodium remain low at 129 patient remains on 0.9 at 75 patient is in agreement at this time. Patient denies chest pain or shortness of breath. Patient denies any nausea vomiting. Patient denies any urinary burning or frequency Objective - Vital Signs Vital signs: Vital Signs Temp 97.8 F 11/08/19 04:21 Pulse 78 11/08/19 08:00 Resp 18 11/08/19 08:00 BP 107/73 11/08/19 04:21 Pulse Ox 98 11/08/19 04:21 Intake & Output 11/07/19 11/08/19 11/08/19 18:59 06:59 18:59 Intake Total 1085 815 620 Output Total 600 Balance 1085 215 620 Intake: Intake, IV Titration 725 225 Amount Sodium Chloride 0.9% 1, 500 000 ml @ 100 mls/hr IV . Q10H ONE Rx#:[id number] Sodium Chloride 0.9% 1, 225 225 000 ml @ 75 mls/hr IV . [id number] [facility] Rx#:[id number] Oral 360 590 620 Output: Urine 600 Other: Voiding Method Toilet Toilet Toilet # Bowel Movements 3 - Exam Head normocephalic Neck supple Lungs clear to auscultation bilaterally no wheezing or crackles Heart regular rate and rhythm S1-S2, no rub or gallop Abdomen is soft nontender nondistended positive bowel sounds no hepatosplenom egaly Extremities no edema Neuro alert and orientated to 3 - Labs CBC & Chem 7: 11/08/19 08:01 11/08/19 08:01 Labs: Abnormal Lab Results - Last 24 Hours (Table) 11/08/19 11/08/19 Range/Units 08:01 08:01 WBC 3.0 L (3.8-10.6) k/uL RBC 2.80 L (4.30-5.90) m/uL Hgb 8.4 L (13.0-17.5) gm/dL Hct 25.1 L (39.0-53.0) % RDW 19.4 H (11.5-15.5) % Plt Count 135 L (150-450) k/uL Lymphocytes # (Manual) 0.18 L (1.0-4.8) k/uL Sodium 129 L (137-145) mmol/L Potassium 3.3 L (3.5-5.1) mmol/L Chloride 96 L (98-107) mmol/L BUN 3 L (9-20) mg/dL Creatinine 0.38 L (0.66-1.25) mg/dL Calcium 7.8 L (8.4-10.2) mg/dL Total Protein 5.6 L (6.3-8.2) g/dL Albumin 2.7 L (3.5-5.0) g/dL Microbiology - Last 24 Hours (Table) 11/06/19 21:16 Urine Culture - Preliminary Urine,Voided Gram Neg Bacilli 11/06/19 21:24 Blood Culture - Preliminary Blood No Growth after 24 hours Assessment and Plan Assessment: 1. Generalized weakness and fever secondary to urinary tract infection. Patient started on Rocephin urine culture ordered infectious disease consulted due to patient currently receiving chemotherapy. Influenza negative. Chest x- ray showing no acute process. Urine and blood cultures ordered. Urine culture currently growing gram-negative bacilli. 2. Hyponatremia. Likely secondary to dehydration Sodium 126. Repeat labs have been ordered. Continue normal saline at 75 3. Squamous cell carcinoma of the lung diagnosed in August 2019. Patient follows with oncology service is currently receiving chemotherapy and radiation treatment. Oncology services have been consulted 4. Adenocarcinoma of the rectum. Patient does follow with oncology services c urrently receiving treatment chemotherapy radiation 5. History of cardiac arrhythmia. History of pacemaker placement 6. History of coronary artery disease stable at this time 7. Hyperlipidemia. Patient obtained on statin 8. History of nicotine dependence. Nicotine patch has been ordered 9. Hypokalemia. Potassium replacement protocol 10. Diarrhea. Stool for C. diff has been ordered DVT prophylaxis SCDs due to pancytopenia secondary to chemotherapy. GI prophylaxis Pepcid
[2019-11-09] MEDS: HYDROcodone/APAP 7.5-325MG 1 EACH TAB PO PRN ×2 (04:09→09:55)
[2019-11-09 07:55] LABS: ALT 13 U/L (4-49); AST 18 U/L (17-59); African American GFR (CKD) >90 (>60 ml/min/1.73 sqM); Albumin 2.5 g/dL (3.5-5.0); Alkaline Phosphatase 99 U/L (38-126); Anion Gap 8 mmol/L; Blood Urea Nitrogen 7 mg/dL (9-20); Calcium 7.7 mg/dL (8.4-10.2); Carbon Dioxide 25 mmol/L (22-30); Chloride 98 mmol/L (98-107); Glucose 88 mg/dL (74-99); Non-African American GFR(CKD) >90 (>60 ml/min/1.73 sqM); Potassium 3.6 mmol/L (3.5-5.1); Sodium 131 mmol/L (137-145); Total Bilirubin 0.1 mg/dL (0.2-1.3); Total Protein 5.2 g/dL (6.3-8.2)
[2019-11-09 08:24] LABS: Anisocytosis Slight; HCT 24.1 % (39.0-53.0); HGB 7.9 gm/dL (13.0-17.5); MCH 29.6 pg (25.0-35.0); MCHC 32.7 g/dL (31.0-37.0); MCV 90.5 fL (80.0-100.0); Macrocytosis Slight; Mean Platelet Volume 7.7; Platelet Count 157 k/uL (150-450); RBC 2.66 m/uL (4.30-5.90); RDW 19.7 % (11.5-15.5); WBC 3.3 k/uL (3.8-10.6)
[2019-11-09 09:47] LABS: Band Neutrophils % 3 %; Lymphocytes # (M) 0.23 k/uL (1.0-4.8); Monocytes # (M) 0.63 k/uL (0-1.0); Neutrophils % (M) 68 %; Nucleated Red Blood Cells 0 /100 WBC (0-0); Total Cells Counted 100
[2019-11-09] MEDS: NICOTINE 14MG/24HR PATCH TRANSDERM SCH (09:47)
[2019-11-09 09:51] LABS: Toxic Granulation Present
[2019-11-09] MEDS: ATORVASTATIN 20 MG TAB PO SCH (09:51)
[2019-11-09] MEDS: CARVEDILOL 3.125 MG TAB PO SCH (09:51)
[2019-11-09] MEDS: amLODIPine 5 MG TAB PO SCH (09:51)
[2019-11-09] MEDS: FAMOTIDINE 20 MG TAB PO SCH (09:51)
[2019-11-09 12:39] VITALS: BP 97/64; PULSE 88; RESP 20; TEMP 98.6
--- NOTE | 2019-11-09 13:46 | PN ---
PROGRESS NOTE DATE OF SERVICE: 11/09/2019. REASON FOR FOLLOWUP: Urinary tract infection. INTERVAL HISTORY: The patient is currently afebrile, has been breathing comfortably. The patient denies having any chest pain or shortness of breath or cough. No nausea, vomiting or abdominal pain. He did mention his urinary symptoms have improved. PHYSICAL EXAMINATION: Blood pressure is 113/64 with a pulse of 88, temperature of 98.6. He is 97% on room air. General description is a middle-aged male lying in bed in no distress. RESPIRATORY SYSTEM: Unlabored breathing. Clear to auscultation anteriorly. HEART: S1, S2. Regular rate and rhythm. ABDOMEN: Soft. No tenderness. EXTREMITIES: No edema of the feet. LABS: Hemoglobin 7.9, white count 3.3. Urine has been E coli, which is a sensitive pathogen. DIAGNOSTIC IMPRESSION AND PLAN: Patient admitted to hospital with a fever in this patient who did have urinary symptoms. Urine is positive for E coli, which is a sensitive pathogen. The patient has overall improvement on the Rocephin. He can finish therapy with oral Cipro for another 5-7 days to finish his course of therapy. Continue with supportive care. MMODL / IJN: [id number] /
== END 2019-11-09 17:17 | disposition home or self-care (01) | DRG 689 ==
LOC: EC 20:11 → 5NMEDONC 23:12 → UNDOADMOB 23:12 → 5NMEDONC 23:12
PROVIDERS: ADMIT Internal Medicine; ATTEND Internal Medicine
DX: N39.0 Urinary tract infection, site not specified (principal); D61.810 Antineoplastic chemotherapy induced pancytopenia; I44.2 Atrioventricular block, complete; E87.1 Hypo-osmolality and hyponatremia; C20 Malignant neoplasm of rectum; C34.90 Malignant neoplasm of unspecified part of unspecified bronchus or lung; E78.5 Hyperlipidemia, unspecified; E86.0 Dehydration; E87.6 Hypokalemia; F17.200 Nicotine dependence, unspecified, uncomplicated; I10 Essential (primary) hypertension; I25.10 Atherosclerotic heart disease of native coronary artery without angina pectoris; T45.1X5A Adverse effect of antineoplastic and immunosuppressive drugs, initial encounter; E55.9 Vitamin D deficiency, unspecified; G89.29 Other chronic pain; M19.90 Unspecified osteoarthritis, unspecified site; M54.9 Dorsalgia, unspecified; R19.7 Diarrhea, unspecified; R59.0 Localized enlarged lymph nodes; B96.20 Unspecified Escherichia coli [E. coli] as the cause of diseases classified elsewhere; Z79.899 Other long term (current) drug therapy; Z95.0 Presence of cardiac pacemaker; Z90.49 Acquired absence of other specified parts of digestive tract; Z82.49 Family history of ischemic heart disease and other diseases of the circulatory system
CPT/HCPCS: 36415; 71046; 80053; 81001; 82550; 83605; 83735; 84100; 84484; 85025; 85610; 85730; 87040; 87077; 87086; 87186; 87324; 87502; 93005; 96361; 96365; 96366; 99285

== ENCOUNTER 2019-11-15 10:18 | Inpatient (IN) | payer OTHER ==
--- NOTE | 2019-11-15 10:44 | ED ---
General Adult HPI - General Chief complaint: Shortness of Breath Stated complaint: SOB Time Seen by Provider: 11/15/19 10:26 Source: patient Mode of arrival: ambulatory Limitations: no limitations - History of Present Illness Initial comments: Patient presents the ED complaining of having dyspnea since yesterday afternoon. Patient also states "I feel like I have a cold or something". Patient admits to having a slight cough. Patient denies having any pain, fever or chills, headache, focal neuro deficit, chest pain or pressure, hemoptysis, palpitations, dizziness, nausea or vomiting, abdominal pain, diarrhea, bloody or melanotic stool, dysuria or urinary symptoms, decreased urine output, leg or calf swelling or pain, or any other symptoms or complaints. Patient states that he has a history of lung cancer and colon cancer, and he states that he ended treatment about 1.5 months ago. - Related Data Home Medications Medication Instructions Recorded Confirmed Simvastatin [Zocor] 40 mg PO DAILY 01/21/14 11/07/19 Carvedilol [Coreg] 3.125 mg PO BID 12/03/18 11/07/19 HYDROcodone/APAP 7.5-325MG [[place] 1 tab PO Q6H PRN 08/12/19 11/07/19 7.5-325] Previous Rx's Medication Instructions Recorded amLODIPine [Norvasc] 5 mg PO DAILY 30 Days #30 tab 12/05/18 Cefuroxime Axetil [Ceftin] 500 mg PO BID 7 Days #14 tab 11/09/19 Allergies Allergy/AdvReac Type Severity Reaction Status Date / Time cefuroxime [From Ceftin] Allergy Rash/Hives Verified 11/15/19 14:05 Review of Systems ROS Statement: Those systems with pertinent positive or pertinent negative responses have been documented in the HPI. ROS Other: All systems not noted in ROS Statement are negative. Past Medical History Past Medical History: Coronary Artery Disease (CAD), Cancer, Chest Pain / Angina, Hyperlipidemia, Hypertension, Osteoarthritis (OA) Additional Past Medical History / Comment(s): colon and lunf caCOPD, previous history of a third-degree AV block and the patient is a pacemaker in place, history of hemochromatosis, vitamin D deficiency, previous history of groin abscesses that are currently healed and drained, hypertension, hyperlipidemia, osteoarthritis, chronic back pain, cardiac cath found CAD and tx medically, h emachromacytosis, vitamin D deficiency History of Any Multi-Drug Resistant Organisms: None Reported Past Surgical History: Appendectomy, Heart Catheterization, Hernia Repair, Orthopedic Surgery, Tonsillectomy Additional Past Surgical History / Comment(s): 2008 cardiac cath due to chest pain and bradycardia-CAD tx medically and EF at that time 40%, rt inguinal hernia repair , rt knee arthroscopy, abcess R groin I&Ds x 2. Past Anesthesia/Blood Transfusion Reactions: No Reported Reaction Type of Cardiac Device: Permanent Pacemaker Device Placement Date:: 2013 Past Psychological History: No Psychological Hx Reported Smoking Status: Current every day smoker Past Alcohol Use History: None Reported Past Drug Use History: None Reported - Past Family History Father Additional Family Medical History / Comment(s): Father after having a MVA. Mother Family Medical History: Myocardial Infarction ([place]) Additional Family Medical History / Comment(s): Mother at age 63 yrs of massive [place]. General Exam Limitations: no limitations General appearance: alert, in no apparent distress Head exam: Present: atraumatic, normocephalic Eye exam: Present: normal appearance, EOMI ENT exam: Present: mucous membranes moist Neck exam: Present: other (Trachea is in midline) Respiratory exam: Present: normal lung sounds bilaterally. Absent: respiratory distress, wheezes, rales, rhonchi Cardiovascular Exam: Present: regular rate, normal rhythm, normal heart sounds, other (Normal radial pulses bilaterally) GI/Abdominal exam: Present: soft. Absent: distended, tenderness Extremities exam: Present: other (Negative Benjie's sign bilaterally). Absent: tenderness, pedal edema, calf tenderness Neurological exam: Present: alert, oriented X3. Absent: motor sensory deficit Psychiatric exam: Present: normal affect, normal mood Skin exam: Present: warm, dry, intact, normal color Course Vital Signs 11/15/19 11/15/19 11/15/19 10:22 10:49 10:57 Temperature 97.4 F L 97.6 F Pulse Rate 117 H 72 Respiratory 24 18 18 Rate Blood Pressure 111/78 119/79 O2 Sat by Pulse 95 100 Oximetry - Reevaluation(s) Reevaluation #1: 11/15/19 13:51 Case, H&P, test results and ED management were discussed with Dr. Schwartz. He accepts hospital admission. He has no further recommendations at this time. 11/15/19 14:11 Patient denies development of any new symptoms while in the ED. Patient remains alert and breathing comfortably. Patient is aware of his test results, and he agrees with hospital admission at this time. EKG Findings - EKG Comments: EKG Findings:: Ventricular paced rhythm, ventricular rate of 98 bpm, SD interval of 150 ms, QRS interval of 168 ms, QTc interval of 525 ms Medical Decision Making - Medical Decision Making Given the patient's reported cough, dyspnea and CT finding of groundglass infiltrates, will treat the patient for possible hospital-acquired pneumonia and admit the patient to the hospital. Patient's CTA chest is negative for pulmonary embolus. Dr. Schwartz has accepted hospital admission. - Lab Data Result diagrams: 11/15/19 10:45 11/15/19 10:45 Lab Results 11/15/19 11/15/19 11/15/19 Range/Units 10:45 10:45 10:45 WBC 8.4 (3.8-10.6) k/uL RBC 3.59 L (4.30-5.90) m/uL Hgb 10.7 L (13.0-17.5) gm/dL Hct 32.3 L (39.0-53.0) % MCV 89.9 (80.0-100.0) fL MCH 29.8 (25.0-35.0) pg MCHC 33.1 (31.0-37.0) g/dL RDW 20.3 H (11.5-15.5) % Plt Count 196 (150-450) k/uL Neutrophils % 82 % Lymphocytes % 3 % Monocytes % 7 % Eosinophils % 4 % Basophils % 0 % Neutrophils # 6.9 (1.3-7.7) k/uL Lymphocytes # 0.2 L (1.0-4.8) k/uL Monocytes # 0.6 (0-1.0) k/uL Eosinophils # 0.4 (0-0.7) k/uL Basophils # 0.0 (0-0.2) k/uL Anisocytosis Moderate Macrocytosis Slight PT 11.1 (9.0-12.0) sec INR 1.1 (<1.2) APTT 20.6 L (22.0-30.0) sec D-Dimer 11.85 H (<0.60) mg/L FEU Sodium 125 L (137-145) mmol/L Potassium 4.1 (3.5-5.1) mmol/L Chloride 91 L (98-107) mmol/L Carbon Dioxide 22 (22-30) mmol/L Anion Gap 12 mmol/L BUN 13 (9-20) mg/dL Creatinine 0.60 L (0.66-1.25) mg/dL Est GFR (CKD-EPI)AfAm >90 (>60 ml/min/1.73 sqM) Est GFR (CKD-EPI)NonAf >90 (>60 ml/min/1.73 sqM) Glucose 100 H (74-99) mg/dL Plasma Lactic Acid Desean (0.7-2.0) mmol/L Calcium 8.0 L (8.4-10.2) mg/dL Total Bilirubin 0.4 (0.2-1.3) mg/dL AST 29 (17-59) U/L ALT 16 (4-49) U/L Alkaline Phosphatase 91 (38-126) U/L Troponin I (0.000-0.034) ng/mL NT-Pro-B Natriuret Pep pg/mL Total Protein 6.3 (6.3-8.2) g/dL Albumin 3.0 L (3.5-5.0) g/dL Influenza Type A RNA (Not Detectd) Influenza Type B (PCR) (Not Detectd) 11/15/19 11/15/19 11/15/19 Range/Units 10:45 10:45 10:45 WBC (3.8-10.6) k/uL RBC (4.30-5.90) m/uL Hgb (13.0-17.5) gm/dL Hct (39.0-53.0) % MCV (80.0-100.0) fL MCH (25.0-35.0) pg MCHC (31.0-37.0) g/dL RDW (11.5-15.5) % Plt Count (150-450) k/uL Neutrophils % % Lymphocytes % % Monocytes % % Eosinophils % % Basophils % % Neutrophils # (1.3-7.7) k/uL Lymphocytes # (1.0-4.8) k/uL Monocytes # (0-1.0) k/uL Eosinophils # (0-0.7) k/uL Basophils # (0-0.2) k/uL Anisocytosis Macrocytosis PT (9.0-12.0) sec INR (<1.2) APTT (22.0-30.0) sec D-Dimer (<0.60) mg/L FEU Sodium (137-145) mmol/L Potassium (3.5-5.1) mmol/L Chloride (98-107) mmol/L Carbon Dioxide (22-30) mmol/L Anion Gap mmol/L BUN (9-20) mg/dL Creatinine (0.66-1.25) mg/dL Est GFR (CKD-EPI)AfAm (>60 ml/min/1.73 sqM) Est GFR (CKD-EPI)NonAf (>60 ml/min/1.73 sqM) Glucose (74-99) mg/dL Plasma Lactic Acid Desean 2.1 H* (0.7-2.0) mmol/L Calcium (8.4-10.2) mg/dL Total Bilirubin (0.2-1.3) mg/dL AST (17-59) U/L ALT (4-49) U/L Alkaline Phosphatase (38-126) U/L Troponin I (0.000-0.034) ng/mL NT-Pro-B Natriuret Pep 488 pg/mL Total Protein (6.3-8.2) g/dL Albumin (3.5-5.0) g/dL Influenza Type A RNA Not Detected (Not Detectd) Influenza Type B (PCR) Not Detected (Not Detectd) 11/15/19 Range/Units 10:45 WBC (3.8-10.6) k/uL RBC (4.30-5.90) m/uL Hgb (13.0-17.5) gm/dL Hct (39.0-53.0) % MCV (80.0-100.0) fL MCH (25.0-35.0) pg MCHC (31.0-37.0) g/dL RDW (11.5-15.5) % Plt Count (150-450) k/uL Neutrophils % % Lymphocytes % % Monocytes % % Eosinophils % % Basophils % % Neutrophils # (1.3-7.7) k/uL Lymphocytes # (1.0-4.8) k/uL Monocytes # (0-1.0) k/uL Eosinophils # (0-0.7) k/uL Basophils # (0-0.2) k/uL Anisocytosis Macrocytosis PT (9.0-12.0) sec INR (<1.2) APTT (22.0-30.0) sec D-Dimer (<0.60) mg/L FEU Sodium (137-145) mmol/L Potassium (3.5-5.1) mmol/L Chloride (98-107) mmol/L Carbon Dioxide (22-30) mmol/L Anion Gap mmol/L BUN (9-20) mg/dL Creatinine (0.66-1.25) mg/dL Est GFR (CKD-EPI)AfAm (>60 ml/min/1.73 sqM) Est GFR (CKD-EPI)NonAf (>60 ml/min/1.73 sqM) Glucose (74-99) mg/dL Plasma Lactic Acid Desean (0.7-2.0) mmol/L Calcium (8.4-10.2) mg/dL Total Bilirubin (0.2-1.3) mg/dL AST (17-59) U/L ALT (4-49) U/L Alkaline Phosphatase (38-126) U/L Troponin I <0.012 (0.000-0.034) ng/mL NT-Pro-B Natriuret Pep pg/mL Total Protein (6.3-8.2) g/dL Albumin (3.5-5.0) g/dL Influenza Type A RNA (Not Detectd) Influenza Type B (PCR) (Not Detectd) - Radiology Data Radiology results: report reviewed (Chest x-ray shows left hilar mass; CTA chest shows no pulmonary embolism, left suprahilar and hilar mass (decreased in size), new central interstitial thickening and multifocal groundglass upper and mid lungs, possible metastatic lymphadenopathy, hypodensity in hepatic dome, left adrenal nodularity) Disposition Clinical Impression: Dyspnea, Hyponatremia Narrative: Possible hospital-acquired pneumonia; suspected metastatic disease Disposition: ADMITTED IP TO THIS HOSP Condition: Stable Is patient prescribed a controlled substance at d/c from ED?: No Referrals: Digna Lindsey MD [Primary Care Provider] - 1-2 days Time of Disposition: 14:03
[2019-11-15 10:56] LABS: Anisocytosis Moderate; Basophils % (A) 0 %; Eosinophils # (A) 0.4 k/uL (0-0.7); Eosinophils % (A) 4 %; HCT 32.3 % (39.0-53.0); HGB 10.7 gm/dL (13.0-17.5); Lymphocytes # (A) 0.2 k/uL (1.0-4.8); Lymphocytes % (A) 3 %; MCH 29.8 pg (25.0-35.0); MCHC 33.1 g/dL (31.0-37.0); MCV 89.9 fL (80.0-100.0); Macrocytosis Slight; Mean Platelet Volume 7.4; Monocytes # (A) 0.6 k/uL (0-1.0); Monocytes % (A) 7 %; Neutrophils # (A) 6.9 k/uL (1.3-7.7); Neutrophils % (A) 82 %; Platelet Count 196 k/uL (150-450); RBC 3.59 m/uL (4.30-5.90); RDW 20.3 % (11.5-15.5); WBC 8.4 k/uL (3.8-10.6)
--- NOTE | 2019-11-15 11:06 | XR ---
EXAMINATION TYPE: XR chest 2V DATE OF EXAM: 11/15/2019 COMPARISON: Prior chest x-ray 11/06/2019, CT 08/12/2019 HISTORY: Difficulty breathing, shortness of breath TECHNIQUE: Frontal and lateral views of the chest are obtained. FINDINGS: Left hilar mass is again noted, there are likely postobstructive changes in the left upper lobe versus prominent interstitium. Heart is small. Prominent lung volumes suggest underlying emphys dwayne, COPD. Pacemaker is stable. There is no pneumothorax or pleural effusion. IMPRESSION: Findings consistent with patient's left hilar mass described.
[2019-11-15 11:07] LABS: ALT 16 U/L (4-49); AST 29 U/L (17-59); African American GFR (CKD) >90 (>60 ml/min/1.73 sqM); Alkaline Phosphatase 91 U/L (38-126); Anion Gap 12 mmol/L; Blood Urea Nitrogen 13 mg/dL (9-20); Carbon Dioxide 22 mmol/L (22-30); Chloride 91 mmol/L (98-107); Glucose 100 mg/dL (74-99); Non-African American GFR(CKD) >90 (>60 ml/min/1.73 sqM); Potassium 4.1 mmol/L (3.5-5.1); Sodium 125 mmol/L (137-145); Total Bilirubin 0.4 mg/dL (0.2-1.3); Total Protein 6.3 g/dL (6.3-8.2)
[2019-11-15] MEDS ORDERED: SODIUM CHLORIDE 0.9% 1,000 ML IV ONE (11:08)
[2019-11-15 11:20] LABS: INR 1.1 (<1.2); Prothrombin Time 11.1 sec (9.0-12.0)
[2019-11-15 11:36] LABS: D-Dimer 11.85 mg/L FEU (<0.60); Partial Thromboplastin Time 20.6 sec (22.0-30.0)
--- NOTE | 2019-11-15 12:24 | CT ---
EXAMINATION TYPE: CT chest angio for PE DATE OF EXAM: 11/15/2019 COMPARISON: 08/12/2019 HISTORY: 63-year-old male elevated d dimer, SOB, lung CA TECHNIQUE: Contiguous axial scanning of the chest performed with IV Contrast, patient injected with 6 9 mL of Isovue 370. Coronal and sagittal MIP reconstructions performed. CT DLP: 251.4 mGycm Automated exposure control for dose reduction was used. FINDINGS: Heart normal size without pericardial effusion. Right atrial and right ventricular pacer leads are pr esent. Aorta normal caliber with conventional arch was a branching anatomy. There is some increasing soft tissue measuring up to 1.2 cm pretracheal and high left paratracheal re gions, refer to axial image 21 and 29. Satisfactory opacification of the pulmonary system. No flattening of the interventricular septum refl ux of contrast into the hepatic veins. Continued soft tissue encasement of the distal left main pulmo nary artery but the overall degree of caliber narrowing is improved from 08/12/2019. No pulmonary emb olus is seen. Patient's left suprahilar mass currently measures up to 2.9 cm versus 5.3 cm, previously with some ce ntral cavitation/necrosis now. Contiguous left hilar soft tissue measures 2.8 cm versus 4.1 cm, previously, axial image 70. Some dependent layering debris/secretion in the left mainstem bronchus. New central interstitial thickening, left greater than right at the maría. Moderate centrilobular emphysema. New multifocal areas of patchy groundglass throughout the upper and mid lungs. No pleural effusion. Tiny hernia. A 1.1 cm hypodensity at the left hepatic dome not clearly seen on patient's prior exam. Diffuse thick ening of the left adrenal gland is underlying nodularity measuring up to 1.8 cm and 2.0 cm is new. Bones: No osseous destructive process. IMPRESSION: 1. NO PULMONARY EMBOLUS SEEN. PATIENT'S LEFT SUPRAHILAR AND LEFT HILAR MASS continues to encase the l eft hilar structures entering the distal left main pulmonary artery. The mass is smaller (series 2.8 cm versus 5.3 cm, previously) with decreasing extrinsic mass effect onto the pulmonary artery. 2. New central interstitial thickening and multifocal groundglass upper and mid lungs. Consider infla mmatory process such as atypical infections, drug reaction, hypersensitivity pneumonitis, or intersti tial pneumonitis. 3. Despite the improvement at the left hilum, there is some increasing soft tissue in the pretracheal and upper left paratracheal region (possible metastatic lymphadenopathy), new 1.1 cm hepatic dome hy podensity, and new nodularity in the left adrenal gland measuring up to 2.0 cm. Continued oncologic f ollow-up recommended. 4. COPD with moderate emphysema.
[2019-11-15] MEDS ORDERED: LEVOFLOXACIN 750MG-D5W PMX 750 MG in DEXTROSE/WATER 1 150ML.BAG IVPB STA (12:40)
[2019-11-15] MEDS ORDERED: CEFEPIME 2 GM in SODIUM CHLORIDE 0.9% 100 ML IVPB STA (12:40)
[2019-11-15] MEDS ORDERED: PIPERACILLIN-TAZOBACTAM 3.375 GM in SODIUM CHLORIDE 0.9% 100 ML IVPB STA (13:24)
--- NOTE | 2019-11-15 15:44 | P.HPIM ---
History of Present Illness H&P Date: 11/15/19 This is a 63-year-old male patient of Dr. Lindsey. Patient is well known to my service. Patient presented with complaints of shortness of breath since yesterday afternoon. Patient admits to a slight cough. 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 Patient has been getting chemo and radiation treatment for both of these cancers. Patient follows regularly with oncology services. Patient was recently admitted and discharged for generalized weakness related to urinary tract infection. Patient was discharged on antibiotic in which he states he broke out in rash from and stop taking the antibiotic. Additional medical history includes cardiac arrhythmia in which she has a pacemaker placement, coronary artery disease, hyperlipidemia, nicotine dependence. Patient's sodium low at 125. Patient's d-dimer was elevated at 11.85. Chest CTA completed showing no pulmonary embolism the patient's left side of breath hilar and left hilar mass continues to encase the left hilar structures entering the definite distal left main pulmonary artery the mass is smaller with decreasing extrinsic mass effect onto the pulmonary artery. There is new central interstitial thickening and multifocal groundglass upper and midlungs. Consider inflammatory process such as atypical infections, drug reaction hypersensitivity to be pneumonitis or interstitial pneumonitis despite the improvement of the left ilium there is some increasing soft tissue in the pretracheal and upper left pretracheal region possible metastatic lymphadenopathy. At this time oncology and pulmonary services will be consulted. Patient will be started on IV antibiotics. Sputum culture ordered. Normal saline at 75. Influenza was negative. Repeat UA and urine culture will also be ordered Review of Systems Please refer to HPI otherwise unremarkable Past Medical History Past Medical History: Blood Disorder, Coronary Artery Disease (CAD), Cancer, Chest Pain / Angina, Hyperlipidemia, Hypertension, Osteoarthritis (OA) Additional Past Medical History / Comment(s): Squamous cell lung cancer tx with chemo/radiation-last dose 10/30/19 chemo and 08/28/20 radiation, adenocarcinoma in rectum treated with radiation-last dose 08/28/20, chronic low back pain, 3rd degree heart block with pacemaker, hemachromatosis, past R groin abscesses, UTI. History of Any Multi-Drug Resistant Organisms: None Reported Past Surgical History: Appendectomy, Heart Catheterization, Hernia Repair, Orthopedic Surgery, Pacemaker, Tonsillectomy Additional Past Surgical History / Comment(s): 2008 pacemaker, 2008 cardiac cath-treat medically, R inguinal hernia repair, R groin abscess x2 with surgical drainage, R knee arthrocopy, Past Anesthesia/Blood Transfusion Reactions: No Reported Reaction Type of Cardiac Device: Permanent Pacemaker Device Placement Date:: 2008 Smoking Status: Former smoker - Past Family History Father Additional Family Medical History / Comment(s): Father after having a MVA. Mother Family Medical History: Myocardial Infarction ([place]) Additional Family Medical History / Comment(s): Mother at age 63 yrs of massive [place]. Medications and Allergies Home Medications Medication Instructions Recorded Confirmed Type Simvastatin [Zocor] 40 mg PO HS 01/21/14 11/15/19 History Carvedilol [Coreg] 3.125 mg PO BID 12/03/18 11/15/19 History amLODIPine [Norvasc] 5 mg PO DAILY 30 Days #30 tab 12/05/18 11/15/19 Rx HYDROcodone/APAP 7.5-325MG [[place] 1 tab PO Q6H PRN 08/12/19 11/15/19 History 7.5-325] Nicotine 14Mg/24Hr Patch [Habitrol 1 patch TRANSDERM DAILY 11/15/19 11/15/19 History 14Mg/24Hr Patch] Allergies Allergy/AdvReac Type Severity Reaction Status Date / Time cefuroxime [From Ceftin] Allergy Rash/Hives Verified 11/15/19 14:05 Physical Exam Vitals: Vital Signs Temp Pulse Resp BP Pulse Ox 11/15/19 14:55 16 11/15/19 14:25 98.6 F 98 16 117/76 97 11/15/19 14:22 98.6 F 98 16 117/76 97 11/15/19 10:57 97.6 F 72 18 119/79 100 11/15/19 10:49 18 11/15/19 10:22 97.4 F L 117 H 24 111/78 95 Intake and Output 11/15/19 11/15/19 11/15/19 06:59 14:59 22:59 Other: Weight 65.544 kg Head normocephalic Neck supple Lungs diminished bilaterally Heart regular rate and rhythm S1-S2, no rub or gallop Abdomen is soft nontender nondistended positive bowel sounds no hepatosplenomegaly Extremities no edema Neuro alert and orientated to 3 Results CBC & Chem 7: 02/28/20 10:45 11/15/19 10:45 Labs: Abnormal Lab Results - Last 24 Hours (Table) 11/15/19 11/15/19 11/15/19 Range/Units 10:45 10:45 10:45 RBC 3.59 L (4.30-5.90) m/uL Hgb 10.7 L (13.0-17.5) gm/dL Hct 32.3 L (39.0-53.0) % RDW 20.3 H (11.5-15.5) % Lymphocytes # 0.2 L (1.0-4.8) k/uL APTT 20.6 L (22.0-30.0) sec D-Dimer 11.85 H (<0.60) mg/L FEU Sodium 125 L (137-145) mmol/L Chloride 91 L (98-107) mmol/L Creatinine 0.60 L (0.66-1.25) mg/dL Glucose 100 H (74-99) mg/dL Plasma Lactic Acid Desean (0.7-2.0) mmol/L Calcium 8.0 L (8.4-10.2) mg/dL Albumin 3.0 L (3.5-5.0) g/dL 11/15/19 Range/Units 10:45 RBC (4.30-5.90) m/uL Hgb (13.0-17.5) gm/dL Hct (39.0-53.0) % RDW (11.5-15.5) % Lymphocytes # (1.0-4.8) k/uL APTT (22.0-30.0) sec D-Dimer (<0.60) mg/L FEU Sodium (137-145) mmol/L Chloride (98-107) mmol/L Creatinine (0.66-1.25) mg/dL Glucose (74-99) mg/dL Plasma Lactic Acid Desean 2.1 H* (0.7-2.0) mmol/L Calcium (8.4-10.2) mg/dL Albumin (3.5-5.0) g/dL Thrombosis Risk Factor Assmnt - Choose All That Apply Any of the Below Risk Factors Present?: Yes Each Factor Represents 1 point: Abnormal pulmonary function (COPD), Serious lung disease incl. pneumonia (< 1month) Other Risk Factors: Yes Each Risk Factor Represents 2 Points: Age 61-74 years, Malignancy Other congenital or acquired thrombophilia - If yes, enter type in comment: No Thrombosis Risk Factor Assessment Total Risk Factor Score: 6 Thrombosis Risk Factor Assessment Level: High Risk Assessment and Plan Assessment: 1. Dyspnea secondary to known lung cancer and possible pneumonia. Oncology and pulmonary services have been 2. Possible pneumonia. Patient was started on Zosyn, sputum culture ordered. 3. Squamous cell carcinoma the lung diagnosed in August 2019. Patient currently follows with oncology service is currently receiving chemoradiation treatment. Oncology services have been reconsulted. CTA performed and results reviewed above pulmonary services also consulted. 4. Adenocarcinoma of the rectum. Patient pretty has completed treatment with chemotherapy and radiation. Oncology services have been consulted 5. Recent urinary tract infection with ALLERGIC reaction to Ceftin. Will order UA and urine culture. 6. Hyponatremia. Sodium low at 125 we'll order normal saline at 75 7. History of cardiac arrhythmia. History of pacemaker placement 8. History of coronary disease stable at this time 9. Hyperlipidemia. Patient maintained on statin 10. Nicotine dependence. Nicotine patch resumed DVT prophylaxis heparin. GI prophylaxis Pepcid Oncology and pulmonary services have been consulted IV Zosyn ordered UA urine culture and sputum culture ordered Number saline at 75, Time with Patient: Greater than 30 (Greater than 60% of the total time spent in counseling and coordination of care. I performed an examination of the patient and discussed their management with the Nurse Practitioner. I have reviewed the Nurse Practitioner's notes and agree with the documented findings and plan of care)
[2019-11-15] MEDS: SODIUM CHLORIDE 0.9% 1,000 ML IV SCH (15:47)
--- NOTE | 2019-11-15 17:05 | P.CNPUL ---
History of Present Illness Consult date: 11/15/19 Requesting physician: Salina Schwartz Reason for consult: pneumonia Chief complaint: Shortness of breath, cough, and weakness. History of present illness: This is a 63-year-old white male with history of non-small cell lung cancer which was diagnosed back in August of 2019. Patient had bronchoscopy and fine needle aspiration by Dr. Perez, and he was found to have advanced non-small cell lung cancer. Patient was referred to oncology, and received chemotherapy as well as radiation treatment. Has been following with oncology on a regular basis, he was recently admitted to the hospital with urinary tract infection and generalized weakness. Discharged home on antibiotics and he developed hives from the antibiotics he was discharged home on. Patient stopped taking the antibiotics, and for the last 2 days, patient has been complaining of feeling cold, short of breath, nonproductive cough, however he denied any pain, no fever no chills, no chest pain, no hemoptysis, no nausea, no vomiting, no abdominal pain, no dysuria and no frequency no urgency. Considering his symptoms of shor tness of breath and elevated d-dimer, patient had a CT angiogram of the chest. It showed no evidence of pulmonary embolism. The left suprahilar mass in the left hilar mass noted to shrink in size compared to previous CT of the chest. However there was multifocal areas of groundglass opacities in upper and mid lungs. Bilaterally. The findings are consistent with pneumonitis. There was also evidence of significant emphysema noted in both lungs. Patient was admitted, placed on antibiotics, and this consult was initiated. Review of Systems CONSTITUTIONAL: Denies fever or chills. Denies weight loss. However complaining of weakness and fatigue. CARDIOVASCULAR: Denies chest pain, orthopnea or PND. RESPIRATORY: As noted in HPI, some shortness of breath and nonproductive cough. GASTROINTESTINAL: Denies nausea vomiting abdominal pain melena or hematemesis. MUSCULOSKELETAL: Denies any arthralgia or myalgia. Denies any limitations in range of motion NEUROLOGIC: Denies headache or blurred vision dizziness or syncope. ENDOCRINE: Denies heat or cold intolerance, denies polyuria polydipsia. GENITOURINARY: Recent episode of UTI, presently asymptomatic. No dysuria frequency urgency. HEMATOLOGIC: Denies clotting bleeding or bruising. Psychiatric: Denies any symptoms of depression. Skin: Recent hives related to antibiotics. Past Medical History Past Medical History: Blood Disorder, Coronary Artery Disease (CAD), Cancer, Chest Pain / Angina, Hyperlipidemia, Hypertension, Osteoarthritis (OA) Additional Past Medical History / Comment(s): Squamous cell lung cancer tx with chemo/radiation-last dose 10/30/19 chemo and 08/28/20 radiation, adenocarcinoma in rectum treated with radiation-last dose 08/28/20, chronic low back pain, 3rd degree heart block with pacemaker, hemachromatosis, past R groin abscesses, UTI. History of Any Multi-Drug Resistant Organisms: None Reported Past Surgical History: Appendectomy, Heart Catheterization, Hernia Repair, Orthopedic Surgery, Pacemaker, Tonsillectomy Additional Past Surgical History / Comment(s): 2008 pacemaker, 2008 cardiac cath-treat medically, R inguinal hernia repair, R groin abscess x2 with surgical drainage, R knee arthrocopy, Past Anesthesia/Blood Transfusion Reactions: No Reported Reaction Type of Cardiac Device: Permanent Pacemaker Device Placement Date:: 2008 Smoking Status: Former smoker - Past Family History Father Additional Family Medical History / Comment(s): Father after having a MVA. Mother Family Medical History: Myocardial Infarction ([place]) Additional Family Medical History / Comment(s): Mother at age 63 yrs of massive [place]. Medications and Allergies Home Medications Medication Instructions Recorded Confirmed Type Simvastatin [Zocor] 40 mg PO HS 01/21/14 11/15/19 History Carvedilol [Coreg] 3.125 mg PO BID 12/03/18 11/15/19 History amLODIPine [Norvasc] 5 mg PO DAILY 30 Days #30 tab 12/05/18 11/15/19 Rx HYDROcodone/APAP 7.5-325MG [[place] 1 tab PO Q6H PRN 08/12/19 11/15/19 History 7.5-325] Nicotine 14Mg/24Hr Patch [Habitrol 1 patch TRANSDERM DAILY 11/15/19 11/15/19 History 14Mg/24Hr Patch] Allergies Allergy/AdvReac Type Severity Reaction Status Date / Time cefuroxime [From Ceftin] Allergy Rash/Hives Verified 11/15/19 14:05 Physical Exam Vitals: Vital Signs Temp Pulse Pulse Resp BP BP Pulse Ox 11/15/19 15:00 98.7 F 50 L 18 96/37 96 11/15/19 14:55 16 11/15/19 14:25 98.6 F 98 16 117/76 97 11/15/19 14:22 98.6 F 98 16 117/76 97 11/15/19 10:57 97.6 F 72 18 119/79 100 11/15/19 10:49 18 11/15/19 10:22 97.4 F L 117 H 24 111/78 95 Intake and Output 11/15/19 11/15/19 11/15/19 06:59 14:59 22:59 Other: Weight 65.544 kg Physical Exam: Revealed a 63-year-old white male frail looking, chronically ill, in no distress. Head: Atraumatic normocephalic. HEENT:[Neck is supple.] [No neck masses.] [No thyromegaly.] [No JVD.] PERRLA, EOMI, no icterus, Chest: [Symmetrical chest expansion, diminished breath sounds at the bases, minimal fine crackles at the left base and at the right base. No rhonchi and no wheezes.] Cardiac Exam: [Normal S1 and S2, no S3 gallop, no murmur.] Abdomen: [Soft, nontender, no megaly, no rebound, no guarding, normal bowel sounds.] Extremities: [No clubbing, no edema, no cyanosis.] Neurological Exam: [No focal neurologic deficit.] Alert and oriented 3. Psychiatric: Normal mood, affect and normal mental status examination. Skin: No rashes. Results - Laboratory Findings CBC and BMP: 11/15/19 10:45 11/15/19 10:45 PT/INR, D-dimer PT 11.1 sec (9.0-12.0) 11/15/19 10:45 INR 1.1 (<1.2) 11/15/19 10:45 D-Dimer 11.85 mg/L FEU (<0.60) H 11/15/19 10:45 Abnormal lab findings: Abnormal Labs 11/15/19 11/15/19 11/15/19 10:45 10:45 10:45 RBC 3.59 L Hgb 10.7 L Hct 32.3 L RDW 20.3 H Lymphocytes # 0.2 L APTT 20.6 L D-Dimer 11.85 H Sodium 125 L Chloride 91 L Creatinine 0.60 L Glucose 100 H Plasma Lactic Acid Desean Calcium 8.0 L Albumin 3.0 L 11/15/19 10:45 RBC Hgb Hct RDW Lymphocytes # APTT D-Dimer Sodium Chloride Creatinine Glucose Plasma Lactic Acid Desean 2.1 H* Calcium Albumin - Diagnostic Findings CT scan - chest: image reviewed (As noted in HPI.) Assessment and Plan Assessment: Impression: Multilobar pneumonia as noted on CT of the chest. However negative for thromboembolic disease. Non-small cell lung cancer, and seems to be improving with therapy. Continues to follow up with oncology. History of adenocarcinoma of the rectum. Patient completed chemotherapy and radiation therapy. Recent urinary tract infection, and recent ALLERGIC reaction to Ceftin. 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 History of coronary artery disease. History of dyslipidemia. Tobacco dependence syndrome. Recommendation: Continue present antibiotics. Patient is presently on Zosyn. Continue bronchodilators. Add Solu-Medrol. We'll continue to follow. Consider water restriction for hyponatremia. Continue to monitor electrolytes and specifically sodium. We'll continue to follow. Continue in the meantime GI and DVT prophylaxis. Time with Patient: Greater than 30
--- NOTE | 2019-11-15 17:40 | P.CONS ---
History of Present Illness - Reason for Consult Consult date: 11/15/19 - History of Present Illness Mr Gabriel is a 63 yr old male patient, well known to our service, who was initially seen in consult Jul 2019 when he presented with progressive dyspnea for the past 6-12 months, associated with 25-30 pound weight loss, occasional abdominal pain associated with constipation. CT chest revealed 5.5 cm left upper lobe mass, mediastinal adenopathy. CT abdomen revealed proximal rectal wall thickening. Bronchoscopy 08/13/19 revealed non-small cell lung cancer squamous cell subtype. Colonoscopy on 08/16/2019 revealed a large proximal rectal mass, nearly obstructing, biopsy revealed moderately differentiated adenocarcinoma. Patient has received concurrent chemotherapy with weekly carboplatinum and Taxol and radiation to both sites of disease. He has done overall well with treatment. He j completed chemotherapy 10/31/19 and radiation 11/05/19. He did not receive any G-CSF. He was admitted with a fever. cough, increased fatigue, sweats alternating with chills, decreased urination and decreased appetite on 11/07/19. He was found to have an UTI ( cultures positive for E coli). He improved with supportive care and antibiotic and was then discharged. The patient did not complete his antibiotic course as he developed an itchy rash. He subsequently developed chills, as well as shortness of breath and a dry cough. As symptoms progressed over the last couple of days he came back into the emergency room. He had a CTA of the chest on which was negative for PE. However it did show patchy infiltrates in bilateral upper and middle zones. The patient was seen by pulmonary medicine, and this was felt to be suspicious for multilobar pneumonia. He was therefore admitted for further management, and consult placed. Review of Systems Constitutional: Reports chills, Reports fatigue, Reports poor appetite, Reports weakness Eyes: denies blurred vision, denies pain Ears: deny: decreased hearing, ear discharge, earache, tinnitus Ears, nose, mouth and throat: Denies headache, Denies sore throat Cardiovascular: Reports shortness of breath Respiratory: Reports cough, Reports dyspnea Gastrointestinal: Denies abdominal pain, Denies diarrhea, Denies nausea, Denies vomiting Genitourinary: Reports as per HPI Musculoskeletal: Reports muscle weakness Integumentary: Reports pruritus, Reports rash Neurological: Reports weakness Psychiatric: Denies anxiety, Denies depression Endocrine: Reports fatigue Hematologic/Lymphatic: Reports as per HPI Past Medical History Past Medical History: Blood Disorder, Coronary Artery Disease (CAD), Cancer, Chest Pain / Angina, Hyperlipidemia, Hypertension, Osteoarthritis (OA) Additional Past Medical History / Comment(s): Squamous cell lung cancer tx with chemo/radiation-last dose 10/30/19 chemo and 08/28/20 radiation, adenocarcinoma in rectum treated with radiation-last dose 08/28/20, chronic low back pain, 3rd degree heart block with pacemaker, hemachromatosis, past R groin abscesses, UTI. History of Any Multi-Drug Resistant Organisms: None Reported Past Surgical History: Appendectomy, Heart Catheterization, Hernia Repair, Orthopedic Surgery, Pacemaker, Tonsillectomy Additional Past Surgical History / Comment(s): 2008 pacemaker, 2009 cardiac cath-treat medically, R inguinal hernia repair, R groin abscess x2 with surgical drainage, R knee arthrocopy, Past Anesthesia/Blood Transfusion Reactions: No Reported Reaction Type of Cardiac Device: Permanent Pacemaker Device Placement Date:: 2008 Smoking Status: Former smoker - Past Family History Father Additional Family Medical History / Comment(s): Father after having a MVA. Mother Family Medical History: Myocardial Infarction ([place]) Additional Family Medical History / Comment(s): Mother at age 63 yrs of massive [place]. Medications and Allergies Home Medications Medication Instructions Recorded Confirmed Type Simvastatin [Zocor] 40 mg PO HS 01/21/14 11/15/19 History Carvedilol [Coreg] 3.125 mg PO BID 12/03/18 11/15/19 History amLODIPine [Norvasc] 5 mg PO DAILY 30 Days #30 tab 12/05/18 11/15/19 Rx HYDROcodone/APAP 7.5-325MG [[place] 1 tab PO Q6H PRN 08/12/19 11/15/19 History 7.5-325] Nicotine 14Mg/24Hr Patch [Habitrol 1 patch TRANSDERM DAILY 11/15/19 11/15/19 History 14Mg/24Hr Patch] Allergies Allergy/AdvReac Type Severity Reaction Status Date / Time cefuroxime [From Ceftin] Allergy Rash/Hives Verified 11/15/19 14:05 Physical Exam Vitals: Vital Signs Temp Pulse Pulse Resp BP BP Pulse Ox 11/15/19 15:00 98.7 F 50 L 18 96/37 96 11/15/19 14:55 16 11/15/19 14:25 98.6 F 98 16 117/76 97 11/15/19 14:22 98.6 F 98 16 117/76 97 11/15/19 10:57 97.6 F 72 18 119/79 100 11/15/19 10:49 18 11/15/19 10:22 97.4 F L 117 H 24 111/78 95 Intake and Output 11/15/19 11/15/19 11/15/19 06:59 14:59 22:59 Other: Weight 65.544 kg - Constitutional General appearance: no acute distress - EENT Eyes: EOMI, PERRLA ENT: hearing grossly normal, normal oropharynx - Neck Neck: no lymphadenopathy Thyroid: bilateral: normal size - Respiratory Respiratory: bilateral: diminished, prolonged expiration - Cardiovascular Rhythm: regular Heart sounds: normal: S1, S2 - Gastrointestinal General gastrointestinal: normal bowel sounds, soft - Integumentary Integumentary: rash (Mild, patchy, erythematous, macular on upper extremities) - Neurologic Neurologic: CNII-XII intact - Musculoskeletal Musculoskeletal: generalized weakness, strength equal bilaterally - Psychiatric Psychiatric: A&O x's 3, appropriate affect Results CBC & Chem 7: 11/15/19 10:45 11/15/19 10:45 Labs: Abnormal Lab Results - Last 24 Hours (Table) 11/15/19 11/15/19 11/15/19 Range/Units 10:45 10:45 10:45 RBC 3.59 L (4.30-5.90) m/uL Hgb 10.7 L (13.0-17.5) gm/dL Hct 32.3 L (39.0-53.0) % RDW 20.3 H (11.5-15.5) % Lymphocytes # 0.2 L (1.0-4.8) k/uL APTT 20.6 L (22.0-30.0) sec D-Dimer 11.85 H (<0.60) mg/L FEU Sodium 125 L (137-145) mmol/L Chloride 91 L (98-107) mmol/L Creatinine 0.60 L (0.66-1.25) mg/dL Glucose 100 H (74-99) mg/dL Plasma Lactic Acid Desean (0.7-2.0) mmol/L Calcium 8.0 L (8.4-10.2) mg/dL Albumin 3.0 L (3.5-5.0) g/dL 11/15/19 Range/Units 10:45 RBC (4.30-5.90) m/uL Hgb (13.0-17.5) gm/dL Hct (39.0-53.0) % RDW (11.5-15.5) % Lymphocytes # (1.0-4.8) k/uL APTT (22.0-30.0) sec D-Dimer (<0.60) mg/L FEU Sodium (137-145) mmol/L Chloride (98-107) mmol/L Creatinine (0.66-1.25) mg/dL Glucose (74-99) mg/dL Plasma Lactic Acid Desean 2.1 H* (0.7-2.0) mmol/L Calcium (8.4-10.2) mg/dL Albumin (3.5-5.0) g/dL Chest x-ray: report reviewed CT scan - chest: report reviewed Assessment and Plan (1) Pneumonia Narrative/Plan: The patient is found to have new infiltrates in both lungs. While this could represent posttreatment change, this is somewhat early for radiation pneumonitis to develop. Given the patient's symptoms, it is felt to be quite appropriate that the patient be treated for possible pneumonia, as recommended by pulmonary medicine. Defer to them for ongoing treatment Current Visit: No Status: Acute Code(s): J18.9 - PNEUMONIA, UNSPECIFIED ORGANISM SNOMED Code(s): 669076394 (2) Squamous cell lung cancer Current Visit: No Status: Chronic Priority: High Code(s): C34.90 - MALIGNANT NEOPLASM OF UNSP PART OF UNSP BRONCHUS OR LUNG SNOMED Code(s): 892167151 (3) Rectal adenocarcinoma Current Visit: No Status: Acute Priority: High Code(s): C20 - MALIGNANT NEOPLASM OF RECTUM SNOMED Code(s): 127610804 Plan: Squamous cell lung/rectal cancer the patient had 2 synchronous primaries and was treated with concurrent chemoradiation, to both sites. She tolerated treatment quite well. Repeat a CTA this admission showed response at known tumor sites. However the CTA noted mild increase in size of the pretracheal and paratracheal nodes in the 1 cm range. A left lobe of liver lesion 1.1 cm, and some nodularity in the left adrenal gland was also mentioned which was felt to be new. These results, and medications were discussed in detail with the patient. In the current clinical situation, given the size and location these lesions are somewhat nonspecific. He was advised that while progressive, recurrent malignan cy could not be ruled out, these could represent posttreatment/postinflammatory change also. These are quite small and would be difficult to localize for a biopsy. Therefore at this time the most appropriate course would be to treat his acute problem, and then repeat imaging in a few weeks with repeat computed tomography scan or PET scan once ongoing inflammation has sufficiently resolved. This will be set up as an outpatient for him. Defer to the admitting service and other consultants for management of his other medical problems
[2019-11-15] MEDS: CARVEDILOL 3.125 MG TAB PO SCH (17:45)
[2019-11-15] MEDS: HYDROcodone/APAP 7.5-325MG 1 EACH TAB PO PRN ×2 (17:48→23:42)
[2019-11-15 19:13] LABS: Appearance,Urine Clear (Clear); Bilirubin,Urine Negative (Negative); Blood,Urine Negative (Negative); Color,Urine Yellow; Glucose,Urine (UA) Negative (Negative); Ketones,Urine Negative (Negative); Leukocyte Esterase,Urine Negative (Negative); Nitrite,Urine Negative (Negative); PH, Urine 7.5 (5.0-8.0); Protein,Urine Negative (Negative); Urobilinogen,Urine <2.0 mg/dL (<2.0)
[2019-11-15 19:15] LABS: Specific Gravity,Urine 1.047 (1.001-1.035)
[2019-11-16] MEDS ORDERED: PIPERACILLIN-TAZOBACTAM 3.375 GM in SODIUM CHLORIDE 0.9% 100 ML IVPB SCH (02:00)
[2019-11-16] MEDS: SODIUM CHLORIDE 0.9% 1,000 ML IV SCH (04:24)
[2019-11-16] MEDS: HYDROcodone/APAP 7.5-325MG 1 EACH TAB PO PRN ×4 (06:04→23:27)
[2019-11-16] MEDS: diphenhydrAMINE 25 MG CAP PO PRN ×3 (06:08→23:27)
[2019-11-16 07:16] LABS: Anisocytosis Moderate; Basophils % (A) 0 %; Eosinophils # (A) 0.4 k/uL (0-0.7); Eosinophils % (A) 5 %; HCT 24.8 % (39.0-53.0); Lymphocytes # (A) 0.2 k/uL (1.0-4.8); Lymphocytes % (A) 2 %; MCH 30.2 pg (25.0-35.0); MCHC 33.5 g/dL (31.0-37.0); MCV 90.2 fL (80.0-100.0); Macrocytosis Slight; Mean Platelet Volume 7.2; Monocytes # (A) 0.7 k/uL (0-1.0); Monocytes % (A) 8 %; Neutrophils # (A) 6.6 k/uL (1.3-7.7); Neutrophils % (A) 82 %; Platelet Count 176 k/uL (150-450); RBC 2.75 m/uL (4.30-5.90); RDW 20.5 % (11.5-15.5); WBC 8.1 k/uL (3.8-10.6)
[2019-11-16 07:19] LABS: HGB 8.3 gm/dL (13.0-17.5)
[2019-11-16 07:28] LABS: ALT 12 U/L (4-49); AST 22 U/L (17-59); African American GFR (CKD) >90 (>60 ml/min/1.73 sqM); Albumin 2.2 g/dL (3.5-5.0); Alkaline Phosphatase 93 U/L (38-126); Anion Gap 9 mmol/L; Blood Urea Nitrogen 9 mg/dL (9-20); Carbon Dioxide 23 mmol/L (22-30); Chloride 92 mmol/L (98-107); Glucose 124 mg/dL (74-99); Non-African American GFR(CKD) >90 (>60 ml/min/1.73 sqM); Potassium 3.1 mmol/L (3.5-5.1); Sodium 124 mmol/L (137-145); Total Bilirubin 0.1 mg/dL (0.2-1.3)
[2019-11-16] MEDS: amLODIPine 5 MG TAB PO SCH (08:24)
[2019-11-16] MEDS: NICOTINE 14MG/24HR PATCH TRANSDERM SCH (08:24)
[2019-11-16] MEDS: CARVEDILOL 3.125 MG TAB PO SCH ×2 (08:24→17:24)
[2019-11-16] MEDS: ATORVASTATIN 20 MG TAB PO SCH (08:24)
[2019-11-16] MEDS ORDERED: Potassium Replacement Protocol 1 EACH MISC MISCELLANE PRN (10:57)
[2019-11-16] MEDS: POTASSIUM CHLORIDE ER 20 MEQ TAB.ER PO SCH ×2 (12:31→14:03)
--- NOTE | 2019-11-16 12:33 | P.PN ---
Subjective Progress Note Date: 11/16/19 Principal diagnosis: Multilobar pneumonia This is a 63-year-old white male with history of non-small cell lung cancer which was diagnosed back in August of 2019. Patient had bronchoscopy and fine needle aspiration by Dr. Perez, and he was found to have advanced non-small cell lung cancer. Patient was referred to oncology, and received chemotherapy as well as radiation treatment. Has been following with oncology on a regular basis, he was recently admitted to the hospital with urinary tract infection and generalized weakness. Discharged home on antibiotics and he developed hives from the antibiotics he was discharged home on. Patient stopped taking the antibiotics, and for the last 2 days, patient has been complaining of feeling cold, short of breath, nonproductive cough, however he denied any pain, no fever no chills, no chest pain, no hemoptysis, no nausea, no vomiting, no abdominal pain, no dysuria and no frequency no urgency. Considering his symptoms of shortness of breath and elevated d-dimer, patient had a CT angiogram of the chest. It showed no evidence of pulmonary embolism. The left suprahilar mass in the left hilar mass noted to shrink in size compared to previous CT of the chest. However there was multifocal areas of groundglass opacities in upper and mid lungs. Bilaterally. The findings are consistent with pneumonitis. There was also evidence of significant emphysema noted in both lungs. Patient was admitted, placed on antibiotics, and this consult was initiated. Reevaluated today on 11/16/19, slightly better, patient remained generally weak, minimal cough, no wheezing, no shortness of breath. CBC is relatively normal ex cept for hemoglobin down to 8.3 sodium is down to 124 and potassium is down to 3.1, patient most likely has SIADH related to his bronchogenic carcinoma hence I will recommend fluid restriction on this patient today. And we need to continue to monitor his sodium and potassium on a daily basis. In the meantime the patient seems to be tolerating antibiotics for his presumptive pneumonitis. Objective - Vital Signs Vital signs: Vital Signs Temp 98.9 F 11/16/19 05:44 Pulse 83 11/16/19 05:44 Resp 16 11/16/19 05:44 BP 122/75 11/16/19 05:44 Pulse Ox 90 L 11/16/19 05:44 Intake & Output 0211/16/19 11/16/19 18:59 06:59 18:59 Intake Total 1180 Balance 1180 Weight 65.544 kg Intake: Oral 1180 Other: # Voids 2 - Exam Physical Exam: Revealed a 63-year-old white male frail looking, chronically ill, in no distress. Head: Atraumatic normocephalic. HEENT:[Neck is supple.] [No neck masses.] [No thyromegaly.] [No JVD.] PERRLA, EOMI, no icterus, Chest: [Symmetrical chest expansion, diminished breath sounds at the bases, minimal fine crackles at the left base and at the right base. No rhonchi and no wheezes.] Cardiac Exam: [Normal S1 and S2, no S3 gallop, no murmur.] Abdomen: [Soft, nontender, no megaly, no rebound, no guarding, normal bowel sounds.] Extremities: [No clubbing, no edema, no cyanosis.] Neurological Exam: [No focal neurologic deficit.] Alert and oriented 3. Psychiatric: Normal mood, affect and normal mental status examination. Skin: No rashes. - Labs CBC & Chem 7: 11/16/19 06:26 11/16/19 06:26 Labs: Abnormal Lab Results - Last 24 Hours (Table) 11/15/19 11/16/19 11/16/19 Range/Units 19:00 06:26 06:26 RBC 2.75 L (4.30-5.90) m/uL Hgb 8.3 L D (13.0-17.5) gm/dL Hct 24.8 L (39.0-53.0) % RDW 20.5 H (11.5-15.5) % Lymphocytes # 0.2 L (1.0-4.8) k/uL Sodium 124 L (137-145) mmol/L Potassium 3.1 L (3.5-5.1) mmol/L Chloride 92 L (98-107) mmol/L Creatinine 0.45 L (0.66-1.25) mg/dL Glucose 124 H (74-99) mg/dL Calcium 7.0 L (8.4-10.2) mg/dL Total Bilirubin 0.1 L (0.2-1.3) mg/dL Total Protein 5.0 L (6.3-8.2) g/dL Albumin 2.2 L (3.5-5.0) g/dL Ur Specific [place] 1.047 H (1.001-1.035) Microbiology - Last 24 Hours (Table) 11/15/19 19:00 Urine Culture - Preliminary Urine,Clean Catch Assessment and Plan Assessment: Impression: Multilobar pneumonia as noted on CT of the chest. Non-small cell lung cancer, and seems to be improving with therapy. Continues to follow up with oncology. History of adenocarcinoma of the rectum. Patient completed chemotherapy and radiation therapy. Recent urinary tract infection, and recent ALLERGIC reaction to Ceftin. 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 History of dyslipidemia. Tobacco dependence syndrome. Recommendation: Continue present antibiotics. Patient is presently on Zosyn. Continue bronchodilators. Continue Solu-Medrol. Fluid restriction for his hyponatremia. Continue to monitor electrolytes and specifically sodium. We'll continue to follow. Continue in the meantime GI and DVT prophylaxis. Time with Patient: Less than 30
--- NOTE | 2019-11-16 12:45 | P.PN ---
Progress Note - Text Progress Note Date: 11/16/19 Considering the patient's history and recent hospital admission, as well as his history of bronchogenic carcinoma, this is likely a picture of healthcare acquired pneumonia. And likely to be gram-negative type of pneumonia
[2019-11-16 13:00] VITALS: BMI 21.3
--- NOTE | 2019-11-16 15:09 | P.PN ---
Subjective Progress Note Date: 11/16/19 This is a 63-year-old male patient of Dr. Lindsey. Patient is well known to my service. Patient presented with complaints of shortness of breath since yesterday afternoon. Patient admits to a slight cough. 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 Patient has been getting chemo and radiation treatment for both of these cancers. Patient follows regularly with oncology services. Patient was recently admitted and discharged for generalized weakness related to urinary tract infection. Patient was discharged on antibiotic in which he states he broke out in rash from and stop taking the antibiotic. Additional medical history includes cardiac arrhythmia in which she has a pacemaker placement, coronary artery disease, hyperlipidemia, nicotine dependence. Patient's sodium low at 125. Patient's d-dimer was elevated at 11.85. Chest CTA completed showing no pulmonary embolism the patient's left s kartik of breath hilar and left hilar mass continues to encase the left hilar structures entering the definite distal left main pulmonary artery the mass is smaller with decreasing extrinsic mass effect onto the pulmonary artery. There is new central interstitial thickening and multifocal groundglass upper and midlungs. Consider inflammatory process such as atypical infections, drug reaction hypersensitivity to be pneumonitis or interstitial pneumonitis despite the improvement of the left ilium there is some increasing soft tissue in the pretracheal and upper left pretracheal region possible metastatic lymphadenopathy. At this time oncology and pulmonary services will be consulted. Patient will be started on IV antibiotics. Sputum culture ordered. Normal saline at 75. Influenza was negative. Repeat UA and urine culture will also be ordered On 11/16/2019 patient was seen and examined on the medical floor he is alert and oriented 3 in no apparent distress, he has low-grade fever of 99.4 he is complaining of generalized weakness and cough without significant sputum production otherwise he denies any complaints there is no chest pain no shortness of breath no nausea or vomiting no abdominal pain no diarrhea no burning with urination no frequency or urgency no hematuria sodium is still low at 124 potassium 3.1 Objective - Vital Signs Vital signs: Vital Signs Temp 98.9 F 11/16/19 05:44 Pulse 83 11/16/19 05:44 Resp 16 11/16/19 05:44 BP 122/75 11/16/19 05:44 Pulse Ox 90 L 11/16/19 05:44 Intake & Output 11/15/19 11/16/19 11/16/19 18:59 06:59 18:59 Intake Total 1180 700 Balance 1180 700 Weight 65.544 kg 65.544 kg Intake: Intake, IV Titration 700 Amount Piperacillin-Tazobactam 3 100 .375 gm In Sodium Chloride 0.9% 100 ml @ 25 mls/hr IVPB Q8HR [facility] Rx# :[id number] Sodium Chloride 0.9% 1, 600 000 ml @ 75 mls/hr IV . [id number] [facility] Rx#:[id number] Oral 1180 Other: # Voids 2 - Exam In general patient is alert and oriented 3 in no apparent distress Head normocephalic and atraumatic Neck supple no JVD no goiter Lungs diminished bilaterally Heart regular rate and rhythm S1-S2, no rub or gallop Abdomen is soft nontender nondistended positive bowel sounds no hepatosplenomegaly Extremities no edema no cyanosis or clubbing Neuro no gross focal neurological deficit - Labs CBC & Chem 7: 11/16/19 06:26 11/16/19 06:26 Labs: Abnormal Lab Results - Last 24 Hours (Table) 11/15/19 11/16/19 11/16/19 Range/Units 19:00 06:26 06:26 RBC 2.75 L (4.30-5.90) m/uL Hgb 8.3 L D (13.0-17.5) gm/dL Hct 24.8 L (39.0-53.0) % RDW 20.5 H (11.5-15.5) % Lymphocytes # 0.2 L (1.0-4.8) k/uL Sodium 124 L (137-145) mmol/L Potassium 3.1 L (3.5-5.1) mmol/L Chloride 92 L (98-107) mmol/L Creatinine 0.45 L (0.66-1.25) mg/dL Glucose 124 H (74-99) mg/dL Calcium 7.0 L (8.4-10.2) mg/dL Total Bilirubin 0.1 L (0.2-1.3) mg/dL Total Protein 5.0 L (6.3-8.2) g/dL Albumin 2.2 L (3.5-5.0) g/dL Ur Specific [place] 1.047 H (1.001-1.035) Microbiology - Last 24 Hours (Table) 11/15/19 10:45 Blood Culture - Preliminary Blood No Growth after 24 hours 11/15/19 19:00 Urine Culture - Preliminary Urine,Clean Catch Assessment and Plan Plan: 1. Dyspnea secondary to known lung cancer and possible pneumonia. Oncology and pulmonary services have been 2. Possible pneumonia. Patient was started on Zosyn, sputum culture ordered. 3. Squamous cell carcinoma the lung diagnosed in August 2019. Patient currently follows with oncology service is currently receiving chemoradiation treatment. Oncology services have been reconsulted. CTA performed and results reviewed above pulmonary services also consulted. 4. Adenocarcinoma of the rectum. Patient pretty has completed treatment with chemotherapy and radiation. Oncology services have been consulted 5. Recent urinary tract infection with ALLERGIC reaction to Ceftin. Will order UA and urine culture. 6. Hyponatremia. Sodium low at 125 we'll order normal saline at 75 7. History of cardiac arrhythmia. History of pacemaker placement 8. History of coronary disease stable at this time 9. Hyperlipidemia. Patient maintained on statin 10. Nicotine dependence. Nicotine patch resumed DVT prophylaxis heparin. GI prophylaxis Pepcid Oncology and pulmonary services have been consulted IV Zosyn ordered UA urine culture and sputum culture ordered Patient was placed on fluid restriction potassium being corrected will follow closely
[2019-11-16] MEDS: PIPERACILLIN-TAZOBACTAM 3.375 GM in SODIUM CHLORIDE 0.9% 100 ML IVPB SCH ×2 (17:25→23:21)
[2019-11-17 06:59] LABS: Anisocytosis Moderate; Basophils % (A) 0 %; Eosinophils # (A) 0.4 k/uL (0-0.7); Eosinophils % (A) 6 %; HGB 8.9 gm/dL (13.0-17.5); Lymphocytes # (A) 0.2 k/uL (1.0-4.8); Lymphocytes % (A) 3 %; MCH 29.8 pg (25.0-35.0); MCHC 32.9 g/dL (31.0-37.0); MCV 90.8 fL (80.0-100.0); Macrocytosis Slight; Mean Platelet Volume 7.4; Monocytes # (A) 0.6 k/uL (0-1.0); Monocytes % (A) 8 %; Neutrophils # (A) 6.3 k/uL (1.3-7.7); Neutrophils % (A) 80 %; Platelet Count 190 k/uL (150-450); RBC 2.97 m/uL (4.30-5.90); RDW 20.9 % (11.5-15.5); WBC 7.9 k/uL (3.8-10.6)
[2019-11-17 07:14] LABS: ALT 13 U/L (4-49); AST 28 U/L (17-59); African American GFR (CKD) >90 (>60 ml/min/1.73 sqM); Albumin 2.4 g/dL (3.5-5.0); Alkaline Phosphatase 96 U/L (38-126); Anion Gap 10 mmol/L; Blood Urea Nitrogen 5 mg/dL (9-20); Calcium 7.3 mg/dL (8.4-10.2); Carbon Dioxide 24 mmol/L (22-30); Chloride 94 mmol/L (98-107); Glucose 97 mg/dL (74-99); Non-African American GFR(CKD) >90 (>60 ml/min/1.73 sqM); Potassium 3.6 mmol/L (3.5-5.1); Sodium 128 mmol/L (137-145); Total Bilirubin 0.1 mg/dL (0.2-1.3); Total Protein 5.3 g/dL (6.3-8.2)
[2019-11-17] MEDS: CARVEDILOL 3.125 MG TAB PO SCH ×2 (07:42→17:00)
[2019-11-17] MEDS: NICOTINE 14MG/24HR PATCH TRANSDERM SCH (07:42)
[2019-11-17] MEDS: ATORVASTATIN 20 MG TAB PO SCH (07:42)
[2019-11-17] MEDS: PIPERACILLIN-TAZOBACTAM 3.375 GM in SODIUM CHLORIDE 0.9% 100 ML IVPB SCH ×2 (07:43→17:00)
[2019-11-17] MEDS: amLODIPine 5 MG TAB PO SCH (07:43)
[2019-11-17] MEDS: HYDROcodone/APAP 7.5-325MG 1 EACH TAB PO PRN ×2 (07:44→15:18)
[2019-11-17] MEDS: diphenhydrAMINE 25 MG CAP PO PRN (12:17)
--- NOTE | 2019-11-17 12:54 | P.PN ---
Subjective Progress Note Date: 11/17/19 Principal diagnosis: Multilobar pneumonia This is a 63-year-old white male with history of non-small cell lung cancer which was diagnosed back in August of 2019. Patient had bronchoscopy and fine needle aspiration by Dr. Perez, and he was found to have advanced non-small cell lung cancer. Patient was referred to oncology, and received chemotherapy as well as radiation treatment. Has been following with oncology on a regular basis, he was recently admitted to the hospital with urinary tract infection and generalized weakness. Discharged home on antibiotics and he developed hives from the antibiotics he was discharged home on. Patient stopped taking the antibiotics, and for the last 2 days, patient has been complaining of feeling cold, short of breath, nonproductive cough, however he denied any pain, no fever no chills, no chest pain, no hemoptysis, no nausea, no vomiting, no abdominal pain, no dysuria and no frequency no urgency. Considering his symptoms of shortness of breath and elevated d-dimer, patient had a CT angiogram of the chest. It showed no evidence of pulmonary embolism. The left suprahilar mass in the left hilar mass noted to shrink in size compared to previous CT of the chest. However there was multifocal areas of groundglass opacities in upper and mid lungs. Bilaterally. The findings are consistent with pneumonitis. There was also evidence of significant emphysema noted in both lungs. Patient was admitted, placed on antibiotics, and this consult was initiated. Reevaluated today on 11/16/19, slightly better, patient remained generally weak, minimal cough, no wheezing, no shortness of breath. CBC is relatively normal ex cept for hemoglobin down to 8.3 sodium is down to 124 and potassium is down to 3.1, patient most likely has SIADH related to his bronchogenic carcinoma hence I will recommend fluid restriction on this patient today. And we need to continue to monitor his sodium and potassium on a daily basis. In the meantime the patient seems to be tolerating antibiotics for his presumptive pneumonitis. Reevaluated today on 11/17/19, patient continues to feel generally weak. Hardly any pulmonary symptoms, no cough no wheezing no shortness of breath. His sodium is coming up with fluid restriction, is up to 128. It was 124 yesterday, and I have a feeling once his sodium is better patient will feel better. Suggested to him to continue fluid restriction again today. Remains on antibiotics for what seems to be healthcare acquired pneumonia. CBC showed WBC count of 7.9 hemoglobin is 8.9 sodium is 128 bicarb is 24 renal profile is normal. Blood cultures are negative. Sputum cultures are pending. Objective - Vital Signs Vital signs: Vital Signs Temp 98.6 F 11/17/19 12:03 Pulse 90 11/17/19 12:03 Resp 18 11/17/19 12:03 BP 96/58 11/17/19 12:03 Pulse Ox 98 11/17/19 12:03 Intake & Output 11/16/19 11/17/19 11/17/19 18:59 06:59 18:59 Intake Total 700 1110 612 Balance 700 1110 612 Weight 65.544 kg Intake: Intake, IV Titration 700 200 Amount Piperacillin-Tazobactam 3 100 200 .375 gm In Sodium Chloride 0.9% 100 ml @ 25 mls/hr IVPB Q8HR [facility] Rx# :[id number] Sodium Chloride 0.9% 1, 600 000 ml @ 75 mls/hr IV . [id number] [facility] Rx#:[id number] Oral 910 612 Other: # Voids 1 1 # Bowel Movements 1 - Exam Physical Exam: Revealed a 63-year-old white male frail looking, chronically ill, in no distress. Head: Atraumatic normocephalic. HEENT:[Neck is supple.] [No neck masses.] [No thyromegaly.] [No JVD.] PERRLA, EOMI, no icterus, Chest: [Symmetrical chest expansion, diminished breath sounds at the bases, no crackles, no rhonchi, no wheezes. Cardiac Exam: [Normal S1 and S2, no S3 gallop, no murmur.] Abdomen: [Soft, nontender, no megaly, no rebound, no guarding, normal bowel sounds.] Extremities: [No clubbing, no edema, no cyanosis.] Neurological Exam: [No focal neurologic deficit.] Alert and oriented 3. Psychiatric: Normal mood, affect and normal mental status examination. Skin: No rashes. - Labs CBC & Chem 7: 11/17/19 06:23 11/17/19 06:23 Labs: Abnormal Lab Results - Last 24 Hours (Table) 11/17/19 11/17/19 Range/Units 06:23 06:23 RBC 2.97 L (4.30-5.90) m/uL Hgb 8.9 L (13.0-17.5) gm/dL Hct 27.0 L (39.0-53.0) % RDW 20.9 H (11.5-15.5) % Lymphocytes # 0.2 L (1.0-4.8) k/uL Sodium 128 L (137-145) mmol/L Chloride 94 L (98-107) mmol/L BUN 5 L (9-20) mg/dL Creatinine 0.55 L (0.66-1.25) mg/dL Calcium 7.3 L (8.4-10.2) mg/dL Total Bilirubin 0.1 L (0.2-1.3) mg/dL Total Protein 5.3 L (6.3-8.2) g/dL Albumin 2.4 L (3.5-5.0) g/dL Microbiology - Last 24 Hours (Table) 11/16/19 21:05 Sputum Culture - Preliminary Sputum 11/15/19 10:45 Blood Culture - Preliminary Blood No Growth after 24 hours Assessment and Plan Assessment: Impression: Multilobar pneumonia as noted on CT of the chest. Non-small cell lung cancer, and seems to be improving with therapy. Continues to follow up with oncology. History of adenocarcinoma of the rectum. Patient completed chemotherapy and radiation therapy. Recent urinary tract infection, and recent ALLERGIC reaction to Ceftin. 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 Sodium today is 128. History of coronary artery disease. History of dyslipidemia. Tobacco dependence syndrome. Recommendation: Continue present antibiotics. Patient is presently on Zosyn. Continue bronchodilators. Continue Solu-Medrol. Fluid restriction for his hyponatremia. Continue to monitor his sodium tomorrow. Depending on his electrolytes tomorrow and depending on his overall pulmonary status, consider discharge planning in the next 24-48 hours at the most. Time with Patient: Less than 30
--- NOTE | 2019-11-17 15:44 | P.PN ---
Subjective Progress Note Date: 11/17/19 This is a 63-year-old male patient of Dr. Lindsey. Patient is well known to my service. Patient presented with complaints of shortness of breath since yesterday afternoon. Patient admits to a slight cough. 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 Patient has been getting chemo and radiation treatment for both of these cancers. Patient follows regularly with oncology services. Patient was recently admitted and discharged for generalized weakness related to urinary tract infection. Patient was discharged on antibiotic in which he states he broke out in rash from and stop taking the antibiotic. Additional medical history includes cardiac arrhythmia in which she has a pacemaker placement, coronary artery disease, hyperlipidemia, nicotine dependence. Patient's sodium low at 125. Patient's d-dimer was elevated at 11.85. Chest CTA completed showing no pulmonary embolism the patient's left s kartik of breath hilar and left hilar mass continues to encase the left hilar structures entering the definite distal left main pulmonary artery the mass is smaller with decreasing extrinsic mass effect onto the pulmonary artery. There is new central interstitial thickening and multifocal groundglass upper and midlungs. Consider inflammatory process such as atypical infections, drug reaction hypersensitivity to be pneumonitis or interstitial pneumonitis despite the improvement of the left ilium there is some increasing soft tissue in the pretracheal and upper left pretracheal region possible metastatic lymphadenopathy. At this time oncology and pulmonary services will be consulted. Patient will be started on IV antibiotics. Sputum culture ordered. Normal saline at 75. Influenza was negative. Repeat UA and urine culture will also be ordered On 11/16/2019 patient was seen and examined on the medical floor he is alert and oriented 3 in no apparent distress, he has low-grade fever of 99.4 he is complaining of generalized weakness and cough without significant sputum production otherwise he denies any complaints there is no chest pain no shortness of breath no nausea or vomiting no abdominal pain no diarrhea no burning with urination no frequency or urgency no hematuria sodium is still low at 124 potassium 3.1 On 11/17/2019 patient was seen and examined on the medical floor he is alert and oriented 3 in no apparent distress he is complaining of generalized weakness and had episode of hypotension and fever otherwise she denies any complaints, sodium improved but is still low at 128 today, hemoglobin is low at 8.9 Objective - Vital Signs Vital signs: Vital Signs Temp 98.6 F 11/17/19 12:03 Pulse 90 11/17/19 12:03 Resp 18 11/17/19 12:03 BP 96/58 11/17/19 12:03 Pulse Ox 98 11/17/19 12:03 Intake & Output 11/16/19 11/17/19 11/17/19 18:59 06:59 18:59 Intake Total 700 1110 612 Balance 700 1110 612 Weight 65.544 kg Intake: Intake, IV Titration 700 200 Amount Piperacillin-Tazobactam 3 100 200 .375 gm In Sodium Chloride 0.9% 100 ml @ 25 mls/hr IVPB Q8HR [facility] Rx# :[id number] Sodium Chloride 0.9% 1, 600 000 ml @ 75 mls/hr IV . [id number] [facility] Rx#:[id number] Oral [id number] 612 Other: # Voids 1 1 # Bowel Movements 1 - Exam In general patient is alert and oriented 3 in no apparent distress Head normocephalic and atraumatic Neck supple no JVD no goiter Lungs diminished bilaterally Heart regular rate and rhythm S1-S2, no rub or gallop Abdomen is soft nontender nondistended positive bowel sounds no hepatosplenomegaly Extremities no edema no cyanosis or clubbing Neuro no gross focal neurological deficit - Labs CBC & Chem 7: 11/17/19 06:23 11/17/19 06:23 Labs: Abnormal Lab Results - Last 24 Hours (Table) 11/17/19 11/17/19 Range/Units 06:23 06:23 RBC 2.97 L (4.30-5.90) m/uL Hgb 8.9 L (13.0-17.5) gm/dL Hct 27.0 L (39.0-53.0) % RDW 20.9 H (11.5-15.5) % Lymphocytes # 0.2 L (1.0-4.8) k/uL Sodium 128 L (137-145) mmol/L Chloride 94 L (98-107) mmol/L BUN 5 L (9-20) mg/dL Creatinine 0.55 L (0.66-1.25) mg/dL Calcium 7.3 L (8.4-10.2) mg/dL Total Bilirubin 0.1 L (0.2-1.3) mg/dL Total Protein 5.3 L (6.3-8.2) g/dL Albumin 2.4 L (3.5-5.0) g/dL Microbiology - Last 24 Hours (Table) 11/15/19 19:00 Urine Culture - Final Urine,Clean Catch 11/15/19 10:45 Blood Culture - Preliminary Blood No Growth after 48 hours 11/16/19 21:05 Sputum Culture - Preliminary Sputum Assessment and Plan Plan: 1. Dyspnea secondary to known lung cancer and possible pneumonia. Oncology and pulmonary services have been 2. Possible pneumonia. Patient was started on Zosyn, sputum culture ordered. 3. Squamous cell carcinoma the lung diagnosed in August 2019. Patient currently follows with oncology service is currently receiving chemoradiation treatment. Oncology services have been reconsulted. CTA performed and results reviewed above pulmonary services also consulted. 4. Adenocarcinoma of the rectum. Patient pretty has completed treatment with chemotherapy and radiation. Oncology services have been consulted 5. Recent urinary tract infection with ALLERGIC reaction to Ceftin. Will order UA and urine culture. 6. Hyponatremia. Sodium low at 125 we'll order normal saline at 75 7. History of cardiac arrhythmia. History of pacemaker placement 8. History of coronary disease stable at this time 9. Hyperlipidemia. Patient maintained on statin 10. Nicotine dependence. Nicotine patch resumed DVT prophylaxis heparin. GI prophylaxis Pepcid Oncology and pulmonary services have been consulted IV Zosyn ordered UA urine culture and sputum culture ordered Patient was placed on fluid restriction potassium being corrected will follow closely
[2019-11-18] MEDS: PIPERACILLIN-TAZOBACTAM 3.375 GM in SODIUM CHLORIDE 0.9% 100 ML IVPB SCH ×4 (00:33→23:15)
[2019-11-18] MEDS: HYDROcodone/APAP 7.5-325MG 1 EACH TAB PO PRN ×4 (00:37→18:23)
[2019-11-18] MEDS: amLODIPine 5 MG TAB PO SCH (07:35)
[2019-11-18] MEDS: NICOTINE 14MG/24HR PATCH TRANSDERM SCH (07:35)
[2019-11-18] MEDS: ATORVASTATIN 20 MG TAB PO SCH (07:35)
[2019-11-18] MEDS: CARVEDILOL 3.125 MG TAB PO SCH ×2 (07:35→16:56)
[2019-11-18 08:10] LABS: Anisocytosis Moderate; Basophils % (A) 0 %; Eosinophils # (A) 0.8 k/uL (0-0.7); Eosinophils % (A) 10 %; HCT 25.7 % (39.0-53.0); HGB 8.3 gm/dL (13.0-17.5); Lymphocytes # (A) 0.2 k/uL (1.0-4.8); Lymphocytes % (A) 3 %; MCH 29.3 pg (25.0-35.0); MCHC 32.2 g/dL (31.0-37.0); MCV 90.9 fL (80.0-100.0); Macrocytosis Slight; Mean Platelet Volume 7.4; Monocytes # (A) 0.4 k/uL (0-1.0); Monocytes % (A) 6 %; Neutrophils # (A) 5.9 k/uL (1.3-7.7); Neutrophils % (A) 78 %; Platelet Count 180 k/uL (150-450); RBC 2.82 m/uL (4.30-5.90); RDW 21.2 % (11.5-15.5); WBC 7.6 k/uL (3.8-10.6)
[2019-11-18 08:25] LABS: ALT 22 U/L (4-49); AST 45 U/L (17-59); African American GFR (CKD) >90 (>60 ml/min/1.73 sqM); Albumin 2.4 g/dL (3.5-5.0); Alkaline Phosphatase 95 U/L (38-126); Anion Gap 10 mmol/L; Blood Urea Nitrogen 7 mg/dL (9-20); Calcium 7.3 mg/dL (8.4-10.2); Carbon Dioxide 22 mmol/L (22-30); Chloride 95 mmol/L (98-107); Glucose 129 mg/dL (74-99); Non-African American GFR(CKD) >90 (>60 ml/min/1.73 sqM); Potassium 3.3 mmol/L (3.5-5.1); Sodium 127 mmol/L (137-145); Total Bilirubin 0.2 mg/dL (0.2-1.3); Total Protein 5.5 g/dL (6.3-8.2)
[2019-11-18] MEDS: POTASSIUM CHLORIDE ER 20 MEQ TAB.ER PO SCH ×2 (09:03→10:02)
[2019-11-18] MEDS ORDERED: BENZOCAINE SPRAY 1 CAN MUCOUS MEM PRN (11:02)
--- NOTE | 2019-11-18 11:14 | P.PN ---
Subjective Progress Note Date: 11/18/19 Principal diagnosis: PNEUMONIA In f/u pt c/o generalized weakness, ambulating with mild dizziness, cough is stable, mild/moderate oral/ throat irritation, no epistaxis, hemoptysis, fevers, N,V, D. Objective - Vital Signs Vital signs: Vital Signs Temp 100.4 F H 11/18/19 05:00 Pulse 104 H 11/18/19 05:00 Resp 18 11/18/19 08:00 BP 97/64 11/18/19 05:00 Pulse Ox 95 11/18/19 05:00 Intake & Output 11/17/19 11/18/19 11/18/19 18:59 06:59 18:59 Intake Total 712 150 Output Total 400 Balance 712 -250 Intake: Intake, IV Titration 100 100 Amount Piperacillin-Tazobactam 3 100 100 .375 gm In Sodium Chloride 0.9% 100 ml @ 25 mls/hr IVPB Q8HR [facility] Rx# :[id number] Oral 612 50 Output: Urine 400 - Constitutional General appearance: Present: average body habitus, cooperative, no acute distress - EENT Eyes: Present: anicteric sclerae, EOMI ENT: Present: hearing grossly normal, pharyngeal erythema - Respiratory Respiratory: bilateral: diminished - Cardiovascular Rhythm: regular Heart sounds: normal: S1, S2 Abnormal Heart Sounds: Absent: systolic murmur, diastolic murmur, rub, S3 Gallop, S4 Gallop, click, other - Peripheral edema leg Peripheral Edema: bilateral: None - Gastrointestinal General gastrointestinal: Present: normal bowel sounds, soft - Neurologic Neurologic: Present: CNII-XII intact - Musculoskeletal Musculoskeletal: Present: generalized weakness, strength equal bilaterally - Psychiatric Psychiatric: Present: A&O x's 3, appropriate affect, intact judgment & insight - Labs CBC & Chem 7: 11/18/19 07:40 11/18/19 07:40 Labs: Abnormal Lab Results - Last 24 Hours (Table) 11/18/19 11/18/19 Range/Units 07:40 07:40 RBC 2.82 L (4.30-5.90) m/uL Hgb 8.3 L (13.0-17.5) gm/dL Hct 25.7 L (39.0-53.0) % RDW 21.2 H (11.5-15.5) % Lymphocytes # 0.2 L (1.0-4.8) k/uL Eosinophils # 0.8 H (0-0.7) k/uL Sodium 127 L (137-145) mmol/L Potassium 3.3 L (3.5-5.1) mmol/L Chloride 95 L (98-107) mmol/L BUN 7 L (9-20) mg/dL Creatinine 0.48 L (0.66-1.25) mg/dL Glucose 129 H (74-99) mg/dL Calcium 7.3 L (8.4-10.2) mg/dL Total Protein 5.5 L (6.3-8.2) g/dL Albumin 2.4 L (3.5-5.0) g/dL Microbiology - Last 24 Hours (Table) 11/16/19 21:05 Gram Stain - Preliminary Sputum Sputum Culture - Preliminary 11/15/19 19:00 Urine Culture - Final Urine,Clean Catch 11/15/19 10:45 Blood Culture - Preliminary Blood No Growth after 48 hours Assessment and Plan (1) Pneumonia Narrative/Plan: Being treated for the same, defer to Pulmonary, IM Current Visit: Yes Status: Acute Priority: High Code(s): J18.9 - PNEUMONIA, UNSPECIFIED ORGANISM SNOMED Code(s): 068749720 (2) Rectal adenocarcinoma Current Visit: No Status: Acute Priority: High Code(s): C20 - MALIGNANT NEOPLASM OF RECTUM SNOMED Code(s): 877084354 (3) Squamous cell lung cancer Current Visit: No Status: Chronic Priority: High Code(s): C34.90 - MALIGNANT NEOPLASM OF UNSP PART OF UNSP BRONCHUS OR LUNG SNOMED Code(s): 934818859 (4) Antineoplastic chemotherapy induced anemia Narrative/Plan: Anemia of malignancy, inflammation in past work up in Jul. Will recheck iron studies Current Visit: Yes Status: Acute Priority: High Code(s): D64.81 - ANEMIA DUE TO ANTINEOPLASTIC CHEMOTHERAPY; T45.1X5A - ADVERSE EFFECT OF ANTINEOPLASTIC AND IMMUNOSUP DRUGS, INIT SNOMED Code(s): 376348345 (5) Hyponatremia Current Visit: No Status: Chronic Priority: Medium Code(s): E87.1 - HYPO- OSMOLALITY AND HYPONATREMIA SNOMED Code(s): 22976899 Plan: Pt has completed treatment for 2 primary malignancies 10/30/19 Suspicious areas noted on inpatient CT. May be due to acute illness, post treatment reactivity or could be disease. Will have f/u study once pt acute illness is treated. Oral irritation, dry mucus membranes-salt and soda ordered
--- NOTE | 2019-11-18 11:43 | P.PN ---
Subjective Progress Note Date: 11/18/19 This is a 63-year-old male patient of Dr. Lindsey. Patient is well known to my service. Patient presented with complaints of shortness of breath since yesterday afternoon. Patient admits to a slight cough. 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 Patient has been getting chemo and radiation treatment for both of these cancers. Patient follows regularly with oncology services. Patient was recently admitted and discharged for generalized weakness related to urinary tract infection. Patient was discharged on antibiotic in which he states he broke out in rash from and stop taking the antibiotic. Additional medical history includes cardiac arrhythmia in which she has a pacemaker placement, coronary artery disease, hyperlipidemia, nicotine dependence. Patient's sodium low at 125. Patient's d-dimer was elevated at 11.85. Chest CTA completed showing no pulmonary embolism the patient's left side of breath hilar and left hilar mass continues to encase the left hilar structures entering the definite distal left main pulmonary artery the mass is smaller with decreasing extrinsic mass effect onto the pulmonary artery. There is new central interstitial thickening and multifocal groundglass upper and midlungs. Consider inflammatory process such as atypical infections, drug reaction hypersensitivity to be pneumonitis or interstitial pneumonitis despite the improvement of the left ilium there is some increasing soft tissue in the pretracheal and upper left pretracheal region possible metastatic lymphadenopathy. At this time oncology and pulmonary services will be consulted. Patient will be started on IV antibiotics. Sputum culture ordered. Normal saline at 75. Influenza was negative. Repeat UA and urine culture will also be ordered On 11/16/2019 patient was seen and examined on the medical floor he is alert and oriented 3 in no apparent distress, he has low-grade fever of 99.4 he is complaining of generalized weakness and cough without significant sputum production otherwise he denies any complaints there is no chest pain no shortness of breath no nausea or vomiting no abdominal pain no diarrhea no burning with urination no frequency or urgency no hematuria sodium is still low at 124 potassium 3.1 On 11/17/2019 patient was seen and examined on the medical floor he is alert and oriented 3 in no apparent distress he is complaining of generalized weakness and had episode of hypotension and fever otherwise she denies any complaints, sodium improved but is still low at 128 today, hemoglobin is low at 8.9 On 11/18/2019 patient is alert and oriented 3 sodium remains low at 127 will add sodium chloride tabs. Patient remains on IV antibiotics Zosyn. Per on cology service is patient will need follow-up study related to chest CT once patient's acute illness treated. Pulmonary services are following. Patient denies chest pain or shortness of breath. Patient denies nausea vomiting or diarrhea. Patient denies any urinary burning or frequency Objective - Vital Signs Vital signs: Vital Signs Temp 100.4 F H 11/18/19 05:00 Pulse 104 H 11/18/19 05:00 Resp 18 11/18/19 08:00 BP 97/64 11/18/19 05:00 Pulse Ox 95 11/18/19 05:00 Intake & Output 11/17/19 11/18/19 11/18/19 18:59 06:59 18:59 Intake Total 712 150 Output Total 400 Balance 712 -250 Intake: Intake, IV Titration 100 100 Amount Piperacillin-Tazobactam 3 100 100 .375 gm In Sodium Chloride 0.9% 100 ml @ 25 mls/hr IVPB Q8HR [facility] Rx# :[id number] Oral 612 50 Output: Urine 400 - Exam In general patient is alert and oriented 3 in no apparent distress Head normocephalic and atraumatic Neck supple no JVD no goiter Lungs diminished bilaterally Heart regular rate and rhythm S1-S2, no rub or gallop Abdomen is soft nontender nondistended positive bowel sounds no hepatosplenomegaly Extremities no edema no cyanosis or clubbing Neuro no gross focal neurological deficit - Labs CBC & Chem 7: 11/18/19 07:40 11/18/19 07:40 Labs: Abnormal Lab Results - Last 24 Hours (Table) 11/18/19 11/18/19 Range/Units 07:40 07:40 RBC 2.82 L (4.30-5.90) m/uL Hgb 8.3 L (13.0-17.5) gm/dL Hct 25.7 L (39.0-53.0) % RDW 21.2 H (11.5-15.5) % Lymphocytes # 0.2 L (1.0-4.8) k/uL Eosinophils # 0.8 H (0-0.7) k/uL Sodium 127 L (137-145) mmol/L Potassium 3.3 L (3.5-5.1) mmol/L Chloride 95 L (98-107) mmol/L BUN 7 L (9-20) mg/dL Creatinine 0.48 L (0.66-1.25) mg/dL Glucose 129 H (74-99) mg/dL Calcium 7.3 L (8.4-10.2) mg/dL Total Protein 5.5 L (6.3-8.2) g/dL Albumin 2.4 L (3.5-5.0) g/dL Microbiology - Last 24 Hours (Table) 11/16/19 21:05 Gram Stain - Preliminary Sputum Sputum Culture - Preliminary 11/15/19 19:00 Urine Culture - Final Urine,Clean Catch 11/15/19 10:45 Blood Culture - Preliminary Blood No Growth after 48 hours Assessment and Plan Assessment: 1. Dyspnea secondary to known lung cancer and possible pneumonia. Oncology and pulmonary services have been 2. Multilobulated pneumonia. Patient was started on Zosyn, sputum culture ordered. Pulmonary services are following. Patient remains on Zosyn and bronchodilators. 3. Squamous cell carcinoma the lung diagnosed in August 2019. Patient currently follows with oncology service is currently receiving chemoradiation treatment. Oncology services have been reconsulted. CTA performed and results reviewed above pulmonary services also consulted. 4. Adenocarcinoma of the rectum. Patient pretty has completed treatment with chemotherapy and radiation. Oncology services have been consulted 5. Recent urinary tract infection with ALLERGIC reaction to Ceftin. Will order UA and urine culture. 6. Hyponatremia. Sodium 127. Patient maintained on fluid restriction. sodium chloride tabs have been ordered. 7 History of cardiac arrhythmia. History of pacemaker placement 8. History of coronary disease stable at this time 9. Hyperlipidemia. Patient maintained on statin 10. Nicotine dependence. Nicotine patch resumed DVT prophylaxis SCDs. GI prophylaxis Pepcid Oncology and pulmonary services have been consulted I performed an examination of the patient and discussed their management with the Nurse Practitioner. I have reviewed the Nurse Practitioner's notes and agree with the documented findings and plan of care
[2019-11-18] MEDS: SODIUM CHLORIDE TAB 1 GM TAB PO SCH (12:27)
[2019-11-18] MEDS: SALT AND SODA MOUTHWASH 1,000 ML PO SCH ×4 (13:57→23:14)
--- NOTE | 2019-11-18 14:00 | P.PN ---
Subjective Progress Note Date: 11/18/19 Principal diagnosis: Multilobar pneumonia This is a 63-year-old white male with history of non-small cell lung cancer which was diagnosed back in August of 2019. Patient had bronchoscopy and fine needle aspiration by Dr. Perez, and he was found to have advanced non-small c ell lung cancer. Patient was referred to oncology, and received chemotherapy as well as radiation treatment. Has been following with oncology on a regular basis, he was recently admitted to the hospital with urinary tract infection and generalized weakness. Discharged home on antibiotics and he developed hives from the antibiotics he was discharged home on. Patient stopped taking the antibiotics, and for the last 2 days, patient has been complaining of feeling cold, short of breath, nonproductive cough, however he denied any pain, no fever no chills, no chest pain, no hemoptysis, no nausea, no vomiting, no abdominal pain, no dysuria and no frequency no urgency. Considering his symptoms of shortness of breath and elevated d-dimer, patient had a CT angiogram of the chest. It showed no evidence of pulmonary embolism. The left suprahilar mass in the left hilar mass noted to shrink in size compared to previous CT of the chest. However there was multifocal areas of groundglass opacities in upper and mid lungs. Bilaterally. The findings are consistent with pneumonitis. There was also evidence of significant emphysema noted in both lungs. Patient was admitted, placed on antibiotics, and this consult was initiated. Reevaluated today on 11/16/19, slightly better, patient remained generally weak, minimal cough, no wheezing, no shortness of breath. 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 And we need to continue to monitor his sodium and potassium on a daily basis. In the meantime the patient seems to be tolerating antibiotics for his presumptive pneumonitis. Reevaluated today on 11/17/19, patient continues to feel generally weak. Hardly any pulmonary symptoms, no cough no wheezing no shortness of breath. His sodium is coming up with fluid restriction, is up to 128. It was 124 yesterday, and I have a feeling once his sodium is better patient will feel better. Suggested to him to continue fluid restriction again today. Remains on antibiotics for what seems to be healthcare acquired pneumonia. CBC showed WBC count of 7.9 hemoglobin is 8.9 sodium is 128 bicarb is 24 renal profile is normal. Blood cultures are negative. Sputum cultures are pending. The patient is seen today 11/18/2019 in follow-up on the regular medical floor. He is awake and alert in no acute distress. Resting comfortably in bed. He denies any worsening shortness of breath, cough or congestion. He is complaining of a sore throat. No eric or erythema noted. Blood urine and sputum cultures reveal no growth. White count 7.6. Hemoglobin 8.3. Sodium 127. Potassium 3.3. Creatinine 0.48. He remains on antibiotics in the form of Zosyn. Objective - Vital Signs Vital signs: Vital Signs Temp 100.4 F H 11/18/19 05:00 Pulse 104 H 11/18/19 05:00 Resp 18 11/18/19 08:00 BP 97/64 11/18/19 05:00 Pulse Ox 95 11/18/19 05:00 Intake & Output 11/17/19 11/18/19 11/18/19 18:59 06:59 18:59 Intake Total 712 150 Output Total 400 Balance 712 -250 Intake: Intake, IV Titration 100 100 Amount Piperacillin-Tazobactam 3 100 100 .375 gm In Sodium Chloride 0.9% 100 ml @ 25 mls/hr IVPB Q8HR [facility] Rx# :[id number] Oral 612 50 Output: Urine 400 - Exam GENERAL EXAM: Alert, pleasant 63-year-old gentleman, appears older than stated age, on room air, comfortable in no apparent distress. HEAD: Normocephalic. EYES: Normal reaction of pupils, equal size. NOSE: Clear with pink turbinates. THROAT: No erythema or exudates. NECK: No masses, no JVD. CHEST: No chest wall deformity. LUNGS: Equal air entry with few scattered rhonchi. CVS: S1 and S2 normal with no audible murmur, regular rhythm. ABDOMEN: No hepatosplenomegaly, normal bowel sounds, no guarding or rigidity. SPINE: No scoliosis or deformity SKIN: No rashes CENTRAL NERVOUS SYSTEM: No focal deficits, tone is normal in all 4 extremities. EXTREMITIES: There is no peripheral edema. No clubbing, no cyanosis. Peripheral pulses are intact. - Labs CBC & Chem 7: 11/18/19 07:40 11/18/19 07:40 Labs: Abnormal Lab Results - Last 24 Hours (Table) 11/18/19 11/18/19 Range/Units 07:40 07:40 RBC 2.82 L (4.30-5.90) m/uL Hgb 8.3 L (13.0-17.5) gm/dL Hct 25.7 L (39.0-53.0) % RDW 21.2 H (11.5-15.5) % Lymphocytes # 0.2 L (1.0-4.8) k/uL Eosinophils # 0.8 H (0-0.7) k/uL Sodium 127 L (137-145) mmol/L Potassium 3.3 L (3.5-5.1) mmol/L Chloride 95 L (98-107) mmol/L BUN 7 L (9-20) mg/dL Creatinine 0.48 L (0.66-1.25) mg/dL Glucose 129 H (74-99) mg/dL Calcium 7.3 L (8.4-10.2) mg/dL Total Protein 5.5 L (6.3-8.2) g/dL Albumin 2.4 L (3.5-5.0) g/dL Microbiology - Last 24 Hours (Table) 11/15/19 10:45 Blood Culture - Preliminary Blood No Growth after 72 hours 11/16/19 21:05 Gram Stain - Preliminary Sputum Sputum Culture - Preliminary 11/15/19 19:00 Urine Culture - Final Urine,Clean Catch Assessment and Plan Assessment: Multilobar pneumonia as noted on CT of the chest. Non-small cell lung cancer, and seems to be improving with therapy. Continues to follow up with oncology. History of adenocarcinoma of the rectum. Patient completed chemotherapy and radiation therapy. Recent urinary tract infection, and recent ALLERGIC reaction to Ceftin. 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 Sodium today is 128. History of coronary artery disease. History of dyslipidemia. Tobacco dependence syndrome. PLAN: The patient was seen and evaluated by Dr. Moya. He is currently stable from the pulmonary standpoint. We'll continue with the current treatment plan. Probable discharge in the a.m. Continue to follow his electrolytes. I, the cosigning physician, performed a history & physical examination of the patient. Lungs sounds with few scattered rhonchi. Maintaining good O2 saturations in the 90s on room air. I discussed the assessment and plan of care with my nurse practitioner, June Sloan. I attest to the above note as dictated by her.
[2019-11-19] MEDS: HYDROcodone/APAP 7.5-325MG 1 EACH TAB PO PRN ×4 (00:24→18:53)
[2019-11-19] MEDS: SALT AND SODA MOUTHWASH 1,000 ML PO SCH ×4 (05:24→20:12)
[2019-11-19] MEDS: CARVEDILOL 3.125 MG TAB PO SCH ×2 (08:45→16:45)
[2019-11-19] MEDS: amLODIPine 5 MG TAB PO SCH (08:45)
[2019-11-19] MEDS: NICOTINE 14MG/24HR PATCH TRANSDERM SCH (08:45)
[2019-11-19] MEDS: ATORVASTATIN 20 MG TAB PO SCH (08:46)
[2019-11-19] MEDS: SODIUM CHLORIDE TAB 1 GM TAB PO SCH ×2 (08:46→21:05)
[2019-11-19] MEDS: PIPERACILLIN-TAZOBACTAM 3.375 GM in SODIUM CHLORIDE 0.9% 100 ML IVPB SCH ×2 (08:47→16:45)
[2019-11-19 09:43] LABS: Anisocytosis Moderate; Basophils % (A) 0 %; Eosinophils # (A) 0.9 k/uL (0-0.7); Eosinophils % (A) 12 %; HCT 25.6 % (39.0-53.0); HGB 8.4 gm/dL (13.0-17.5); Lymphocytes # (A) 0.2 k/uL (1.0-4.8); Lymphocytes % (A) 3 %; MCV 91.1 fL (80.0-100.0); Macrocytosis Slight; Mean Platelet Volume 7.6; Monocytes # (A) 0.7 k/uL (0-1.0); Monocytes % (A) 9 %; Neutrophils # (A) 5.6 k/uL (1.3-7.7); Neutrophils % (A) 73 %; Platelet Count 202 k/uL (150-450); RBC 2.81 m/uL (4.30-5.90); RDW 21.1 % (11.5-15.5); WBC 7.6 k/uL (3.8-10.6)
[2019-11-19 09:56] LABS: ALT 37 U/L (4-49); AST 69 U/L (17-59); African American GFR (CKD) >90 (>60 ml/min/1.73 sqM); Albumin 2.4 g/dL (3.5-5.0); Alkaline Phosphatase 94 U/L (38-126); Anion Gap 8 mmol/L; Blood Urea Nitrogen 7 mg/dL (9-20); Calcium 7.4 mg/dL (8.4-10.2); Carbon Dioxide 24 mmol/L (22-30); Chloride 95 mmol/L (98-107); Glucose 104 mg/dL (74-99); Non-African American GFR(CKD) >90 (>60 ml/min/1.73 sqM); Potassium 3.7 mmol/L (3.5-5.1); Sodium 127 mmol/L (137-145); Total Bilirubin 0.2 mg/dL (0.2-1.3); Total Protein 5.4 g/dL (6.3-8.2)
--- NOTE | 2019-11-19 12:27 | P.PN ---
Subjective Progress Note Date: 11/19/19 Principal diagnosis: PNEUMONIA In f/u pt generalized weakness persists, a little better, he feels cough is stable, oral/throat irritation better. No fevers, N,V, D. Objective - Vital Signs Vital signs: Vital Signs Temp 98.3 F 11/19/19 05:00 Pulse 89 11/19/19 05:00 Resp 18 11/19/19 05:00 BP 120/73 11/19/19 05:00 Pulse Ox 95 11/19/19 05:00 Intake & Output 11/18/19 11/19/19 11/19/19 18:59 06:59 18:59 Intake Total 280 200 Output Total 700 Balance -420 200 Intake: Oral 280 200 Output: Urine 700 Other: Voiding Method Toilet Toilet Toilet Urinal Urinal Urinal # Voids 1 1 - Constitutional General appearance: Present: average body habitus, cooperative, no acute distress - EENT Eyes: Present: anicteric sclerae, EOMI ENT: Present: hearing grossly normal, normal oropharynx - Respiratory Respiratory: bilateral: CTA, diminished - Cardiovascular Heart sounds: normal: S1, S2 Abnormal Heart Sounds: Absent: systolic murmur, diastolic murmur, rub, S3 Gallop, S4 Gallop, click, other - Peripheral edema leg Peripheral Edema: bilateral: None - Gastrointestinal General gastrointestinal: Present: normal bowel sounds, soft - Neurologic Neurologic: Present: CNII-XII intact - Musculoskeletal Musculoskeletal: Present: generalized weakness, strength equal bilaterally - Psychiatric Psychiatric: Present: A&O x's 3, appropriate affect, intact judgment & insight - Labs CBC & Chem 7: 11/19/19 08:39 11/19/19 08:39 Labs: Abnormal Lab Results - Last 24 Hours (Table) 11/19/19 11/19/19 Range/Units 08:39 08:39 RBC 2.81 L (4.30-5.90) m/uL Hgb 8.4 L (13.0-17.5) gm/dL Hct 25.6 L (39.0-53.0) % RDW 21.1 H (11.5-15.5) % Lymphocytes # 0.2 L (1.0-4.8) k/uL Eosinophils # 0.9 H (0-0.7) k/uL Sodium 127 L (137-145) mmol/L Chloride 95 L (98-107) mmol/L BUN 7 L (9-20) mg/dL Creatinine 0.46 L (0.66-1.25) mg/dL Glucose 104 H (74-99) mg/dL Calcium 7.4 L (8.4-10.2) mg/dL AST 69 H (17-59) U/L Total Protein 5.4 L (6.3-8.2) g/dL Albumin 2.4 L (3.5-5.0) g/dL Microbiology - Last 24 Hours (Table) 11/16/19 21:05 Gram Stain - Final Sputum Sputum Culture - Final 11/15/19 10:45 Blood Culture - Preliminary Blood No Growth after 72 hours Assessment and Plan (1) Pneumonia Narrative/Plan: Being treated for the same, defer to Pulmonary, IM Current Visit: Yes Status: Acute Priority: High Code(s): J18.9 - PNEUMONIA, UNSPECIFIED ORGANISM SNOMED Code(s): 493413071 (2) Rectal adenocarcinoma Current Visit: No Status: Acute Priority: High Code(s): C20 - MALIGNANT NEOPLASM OF RECTUM SNOMED Code(s): 373989109 (3) Squamous cell lung cancer Current Visit: No Status: Chronic Priority: High Code(s): C34.90 - MALIGNANT NEOPLASM OF UNSP PART OF UNSP BRONCHUS OR LUNG SNOMED Code(s): 574230365 (4) Antineoplastic chemotherapy induced anemia Narrative/Plan: Anemia of malignancy, inflammation in past work up in Jul. Will recheck iron studies Current Visit: Yes Status: Acute Priority: High Code(s): D64.81 - ANEMIA DUE TO ANTINEOPLASTIC CHEMOTHERAPY; T45.1X5A - ADVERSE EFFECT OF ANTINEOPLASTIC AND IMMUNOSUP DRUGS, INIT SNOMED Code(s): 075012934 (5) Hyponatremia Current Visit: No Status: Chronic Priority: Medium Code(s): E87.1 - HYPO-OSMOLALITY AND HYPONATREMIA SNOMED Code(s): 90933415 Plan: Pt has completed treatment for 2 primary malignancies 10/30/19 Suspicious areas noted on inpatient CT, did discuss case with Rad Onc. May be due to acute illness, post treatment reactivity or could be disease. Agreed that PET needs to be performed. Will be ordered once pt DC and current condition is resolved Oral irritation, dry mucus membranes-salt and soda ordered-better today
--- NOTE | 2019-11-19 12:52 | P.PN ---
Subjective Progress Note Date: 11/19/19 This is a 63-year-old male patient of Dr. Lindsey. Patient is well known to my service. Patient presented with complaints of shortness of breath since yesterday afternoon. Patient admits to a slight cough. 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 Patient has been getting chemo and radiation treatment for both of these cancers. Patient follows regularly with oncology services. Patient was recently admitted and discharged for generalized weakness related to urinary tract infection. Patient was discharged on antibiotic in which he states he broke out in rash from and stop taking the antibiotic. Additional medical history includes cardiac arrhythmia in which she has a pacemaker placement, coronary artery disease, hyperlipidemia, nicotine dependence. Patient's sodium low at 125. Patient's d-dimer was elevated at 11.85. Chest CTA completed showing no pulmonary embolism the patient's left side of breath hilar and left hilar mass continues to encase the left hilar structures entering the definite distal left main pulmonary artery the mass is smaller with decreasing extrinsic mass effect onto the pulmonary artery. There is new central interstitial thickening and multifocal groundglass upper and midlungs. Consider inflammatory process such as atypical infections, drug reaction hypersensitivity to be pneumonitis or interstitial pneumonitis despite the improvement of the left ilium there is some increasing soft tissue in the pretracheal and upper left pretracheal region possible metastatic lymphadenopathy. At this time oncology and pulmonary services will be consulted. Patient will be started on IV antibiotics. Sputum culture ordered. Normal saline at 75. Influenza was negative. Repeat UA and urine culture will also be ordered On 11/16/2019 patient was seen and examined on the medical floor he is alert and oriented 3 in no apparent distress, he has low-grade fever of 99.4 he is complaining of generalized weakness and cough without significant sputum production otherwise he denies any complaints there is no chest pain no shortness of breath no nausea or vomiting no abdominal pain no diarrhea no burning with urination no frequency or urgency no hematuria sodium is still low at 124 potassium 3.1 On 11/17/2019 patient was seen and examined on the medical floor he is alert and oriented 3 in no apparent distress he is complaining of generalized weakness and had episode of hypotension and fever otherwise she denies any complaints, sodium improved but is still low at 128 today, hemoglobin is low at 8.9 On 11/18/2019 patient is alert and oriented 3 sodium remains low at 127 will add sodium chloride tabs. Patient remains on IV antibiotics Zosyn. Per on cology service is patient will need follow-up study related to chest CT once patient's acute illness treated. Pulmonary services are following. Patient denies chest pain or shortness of breath. Patient denies nausea vomiting or diarrhea. Patient denies any urinary burning or frequency On 11/19/2019 patient is alert and oriented 3. Patient still complaining of some weakness. Sodium remains low at 127. Sodium been added. Patient remains on IV antibiotic Zosyn. At this time patient denies chest pain or shortness breath. Patient denies nausea vomiting or diarrhea. Patient denies any urinary burning or frequency Objective - Vital Signs Vital signs: Vital Signs Temp 98.3 F 11/19/19 05:00 Pulse 89 11/19/19 05:00 Resp 18 11/19/19 05:00 BP 120/73 11/19/19 05:00 Pulse Ox 95 11/19/19 05:00 Intake & Output 11/18/19 11/19/19 11/19/19 18:59 06:59 18:59 Intake Total 280 200 Output Total 700 Balance -420 200 Intake: Oral 280 200 Output: Urine 700 Other: Voiding Method Toilet Toilet Toilet Urinal Urinal Urinal # Voids 1 1 - Exam In general patient is alert and oriented 3 in no apparent distress Head normocephalic and atraumatic Neck supple no JVD no goiter Lungs diminished bilaterally Heart regular rate and rhythm S1-S2, no rub or gallop Abdomen is soft nontender nondistended positive bowel sounds no hepatosplenomegaly Extremities no edema no cyanosis or clubbing Neuro no gross focal neurological deficit - Labs CBC & Chem 7: 11/19/19 08:39 11/19/19 08:39 Labs: Abnormal Lab Results - Last 24 Hours (Table) 11/19/19 11/19/19 Range/Units 08:39 08:39 RBC 2.81 L (4.30-5.90) m/uL Hgb 8.4 L (13.0-17.5) gm/dL Hct 25.6 L (39.0-53.0) % RDW 21.1 H (11.5-15.5) % Lymphocytes # 0.2 L (1.0-4.8) k/uL Eosinophils # 0.9 H (0-0.7) k/uL Sodium 127 L (137-145) mmol/L Chloride 95 L (98-107) mmol/L BUN 7 L (9-20) mg/dL Creatinine 0.46 L (0.66-1.25) mg/dL Glucose 104 H (74-99) mg/dL Calcium 7.4 L (8.4-10.2) mg/dL AST 69 H (17-59) U/L Total Protein 5.4 L (6.3-8.2) g/dL Albumin 2.4 L (3.5-5.0) g/dL Microbiology - Last 24 Hours (Table) 11/16/19 21:05 Gram Stain - Final Sputum Sputum Culture - Final 11/15/19 10:45 Blood Culture - Preliminary Blood No Growth after 72 hours Assessment and Plan Assessment: 1. Dyspnea secondary to known lung cancer and possible pneumonia. Oncology and pulmonary services have been 2. Multilobulated pneumonia. Patient was started on Zosyn, sputum culture ordered. Pulmonary services are following. Patient remains on Zosyn and bronchodilators. 3. Squamous cell carcinoma the lung diagnosed in August 2019. Patient currently follows with oncology service is currently receiving chemoradiation treatment. Oncology services have been reconsulted. CTA performed and results reviewed above pulmonary services also consulted. Per oncology suspicious areas noted on inpatient CT per oncology may be due to acute illness posttreatment reactivity or could be disease agreed that PET needs to be performed will be ord ered once patient DC'd and current condition is resolved 4. Adenocarcinoma of the rectum. Patient pretty has completed treatment with chemotherapy and radiation. Oncology services have been consulted 5. Recent urinary tract infection with ALLERGIC reaction to Ceftin. Will order UA and urine culture. 6. Hyponatremia. Sodium 127. Patient maintained on fluid restriction. sodium chloride tabs have been ordered. 7 History of cardiac arrhythmia. History of pacemaker placement 8. History of coronary disease stable at this time 9. Hyperlipidemia. Patient maintained on statin 10. Nicotine dependence. Nicotine patch resumed DVT prophylaxis SCDs. GI prophylaxis Pepcid Oncology and pulmonary services following PT OT consulted I performed an examination of the patient and discussed their management with the Nurse Practitioner. I have reviewed the Nurse Practitioner's notes and agree with the documented findings and plan of care
--- NOTE | 2019-11-19 12:56 | P.PN ---
Subjective Progress Note Date: 11/19/19 Principal diagnosis: Multilobar pneumonia This is a 63-year-old white male with history of non-small cell lung cancer which was diagnosed back in August of 2019. Patient had bronchoscopy and fine needle aspiration by Dr. Perez, and he was found to have advanced non-small cell lung cancer. Patient was referred to oncology, and received chemotherapy as well as radiation treatment. Has been following with oncology on a regular basis, he was recently admitted to the hospital with urinary tract infection and generalized weakness. Discharged home on antibiotics and he developed hives from the antibiotics he was discharged home on. Patient stopped taking the antibiotics, and for the last 2 days, patient has been complaining of feeling cold, short of breath, nonproductive cough, however he denied any pain, no fever no chills, no chest pain, no hemoptysis, no nausea, no vomiting, no abdominal pain, no dysuria and no frequency no urgency. Considering his symptoms of shortness of breath and elevated d-dimer, patient had a CT angiogram of the chest. It showed no evidence of pulmonary embolism. The left suprahilar mass in the left hilar mass noted to shrink in size compared to previous CT of the chest. However there was multifocal areas of groundglass opacities in upper and mid lungs. Bilaterally. The findings are consistent with pneumonitis. There was also evidence of significant emphysema noted in both lungs. Patient was admitted, placed on antibiotics, and this consult was initiated. Reevaluated today on 11/16/19, slightly better, patient remained generally weak, minimal cough, no wheezing, no shortness of breath. 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 And we need to continue to monitor his sodium and potassium on a daily basis. In the meantime the patient seems to be tolerating antibiotics for his presumptive pneumonitis. Reevaluated today on 11/17/19, patient continues to feel generally weak. Hardly any pulmonary symptoms, no cough no wheezing no shortness of breath. His sodium is coming up with fluid restriction, is up to 128. It was 124 yesterday, and I have a feeling once his sodium is better patient will feel better. Suggested to him to continue fluid restriction again today. Remains on antibiotics for what seems to be healthcare acquired pneumonia. CBC showed WBC count of 7.9 hemoglobin is 8.9 sodium is 128 bicarb is 24 renal profile is normal. Blood cultures are negative. Sputum cultures are pending. The patient is seen today 11/18/2019 in follow-up on the regular medical floor. He is awake and alert in no acute distress. Resting comfortably in bed. He denies any worsening shortness of breath, cough or congestion. He is complaining of a sore throat. No eric or erythema noted. Blood urine and sputum cultures reveal no growth. White count 7.6. Hemoglobin 8.3. Sodium 127. Potassium 3.3. Creatinine 0.48. He remains on antibiotics in the form of Zosyn. On 11/18/2019 patient seen in follow-up on general medical floor. He is calm and comfortable, in no acute distress, he still has a mild cough with some congestion, but no acute distress, no worsening shortness of breath, he is on ro om air, pulse ox is 95%, no fever chills, vital signs are within normal limits, no altered mentation, patient remains on IV Zosyn for possibility of pneumonia, he is doing well clinically. Remains on IV hydration in the form of 0.9 normal saline at a rate of 75 ML per hour, today's serum sodium is stable at 127, potassium 3.7, chloride is 95, BUN is 7, creatinine 0.46, white blood cell count is 7.6. Objective - Vital Signs Vital signs: Vital Signs Temp 98.3 F 11/19/19 05:00 Pulse 89 11/19/19 05:00 Resp 18 11/19/19 05:00 BP 120/73 11/19/19 05:00 Pulse Ox 95 11/19/19 05:00 Intake & Output 11/18/19 11/19/19 11/19/19 18:59 06:59 18:59 Intake Total 280 200 Output Total 700 Balance -420 200 Intake: Oral 280 200 Output: Urine 700 Other: Voiding Method Toilet Toilet Toilet Urinal Urinal Urinal # Voids 1 1 - Exam GENERAL EXAM: Alert, pleasant 63-year-old gentleman, appears older than stated age, on room air, comfortable in no apparent distress. HEAD: Normocephalic. EYES: Normal reaction of pupils, equal size. NOSE: Clear with pink turbinates. THROAT: No erythema or exudates. NECK: No masses, no JVD. CHEST: No chest wall deformity. LUNGS: Equal air entry with few scattered rhonchi. CVS: S1 and S2 normal with no audible murmur, regular rhythm. ABDOMEN: No hepatosplenomegaly, normal bowel sounds, no guarding or rigidity. SPINE: No scoliosis or deformity SKIN: No rashes CENTRAL NERVOUS SYSTEM: No focal deficits, tone is normal in all 4 extremities. EXTREMITIES: There is no peripheral edema. No clubbing, no cyanosis. Peripheral pulses are intact. - Labs CBC & Chem 7: 11/19/19 08:39 11/19/19 08:39 Labs: Abnormal Lab Results - Last 24 Hours (Table) 11/19/19 11/19/19 Range/Units 08:39 08:39 RBC 2.81 L (4.30-5.90) m/uL Hgb 8.4 L (13.0-17.5) gm/dL Hct 25.6 L (39.0-53.0) % RDW 21.1 H (11.5-15.5) % Lymphocytes # 0.2 L (1.0-4.8) k/uL Eosinophils # 0.9 H (0-0.7) k/uL Sodium 127 L (137-145) mmol/L Chloride 95 L (98-107) mmol/L BUN 7 L (9-20) mg/dL Creatinine 0.46 L (0.66-1.25) mg/dL Glucose 104 H (74-99) mg/dL Calcium 7.4 L (8.4-10.2) mg/dL AST 69 H (17-59) U/L Total Protein 5.4 L (6.3-8.2) g/dL Albumin 2.4 L (3.5-5.0) g/dL Microbiology - Last 24 Hours (Table) 11/15/19 10:45 Blood Culture - Preliminary Blood No Growth after 96 hours 11/16/19 21:05 Gram Stain - Final Sputum Sputum Culture - Final Assessment and Plan Plan: Assessment: Multilobar pneumonia as noted on CT of the chest. Non-small cell lung cancer, and seems to be improving with therapy. Continues to follow up with oncology. History of adenocarcinoma of the rectum. Patient completed chemotherapy and radiation therapy. Recent urinary tract infection, and recent ALLERGIC reaction to Ceftin. 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 Sodium today is 128. History of coronary artery disease. History of dyslipidemia. Tobacco dependence syndrome. Plan: Patient remains stable from pulmonary perspective, serum sodium stable at 127, no altered level of consciousness, no confusion, no neurologic deficits, from pulmonary perspective patient is stable, no worsening dyspnea, still has mild cough and congestion, but distress, he is on room air, his been afebrile, from pulmonary perspective he stable for discharge home today, if cleared by the attending physician. He will need outpatient follow-up with Dr. Moya in the office in 7-10 days I performed a history & physical examination of the patient and discussed their management with my nurse practitioner, Bev Villa. I reviewed the nurse practitioner's note and agree with the documented findings and plan of care. Lung sounds are positive for a few scattered wheezes. The findings and the impression was discussed with the patient. I attest to the documentation by the nurse practitioner. Time with Patient: Less than 30
[2019-11-20] MEDS: PIPERACILLIN-TAZOBACTAM 3.375 GM in SODIUM CHLORIDE 0.9% 100 ML IVPB SCH ×3 (00:24→17:21)
[2019-11-20] MEDS: HYDROcodone/APAP 7.5-325MG 1 EACH TAB PO PRN ×4 (00:25→20:16)
[2019-11-20] MEDS: SALT AND SODA MOUTHWASH 1,000 ML PO SCH ×5 (00:26→20:18)
[2019-11-20] MEDS: CARVEDILOL 3.125 MG TAB PO SCH ×2 (08:02→17:22)
[2019-11-20] MEDS: SODIUM CHLORIDE TAB 1 GM TAB PO SCH ×2 (08:02→20:19)
[2019-11-20] MEDS: amLODIPine 5 MG TAB PO SCH (08:02)
[2019-11-20] MEDS: ATORVASTATIN 20 MG TAB PO SCH (08:02)
[2019-11-20] MEDS: NICOTINE 14MG/24HR PATCH TRANSDERM SCH (08:03)
[2019-11-20 09:36] LABS: Anisocytosis Moderate; Basophils % (A) 0 %; Eosinophils # (A) 1.1 k/uL (0-0.7); Eosinophils % (A) 15 %; HGB 8.4 gm/dL (13.0-17.5); Lymphocytes # (A) 0.2 k/uL (1.0-4.8); Lymphocytes % (A) 3 %; MCH 29.9 pg (25.0-35.0); MCHC 32.4 g/dL (31.0-37.0); MCV 92.3 fL (80.0-100.0); Macrocytosis Slight; Mean Platelet Volume 7.7; Monocytes # (A) 0.6 k/uL (0-1.0); Monocytes % (A) 9 %; Neutrophils # (A) 5.2 k/uL (1.3-7.7); Neutrophils % (A) 70 %; Platelet Count 220 k/uL (150-450); RBC 2.82 m/uL (4.30-5.90); RDW 21.2 % (11.5-15.5); WBC 7.4 k/uL (3.8-10.6)
--- NOTE | 2019-11-20 09:42 | P.PN ---
Subjective Progress Note Date: 11/20/19 Principal diagnosis: Multilobar pneumonia This is a 63-year-old white male with history of non-small cell lung cancer which was diagnosed back in August of 2019. Patient had bronchoscopy and fine needle aspiration by Dr. Perez, and he was found to have advanced non-small cell lung cancer. Patient was referred to oncology, and received chemotherapy as well as radiation treatment. Has been following with oncology on a regular basis, he was recently admitted to the hospital with urinary tract infection and generalized weakness. Discharged home on antibiotics and he developed hives from the antibiotics he was discharged home on. Patient stopped taking the antibiotics, and for the last 2 days, patient has been complaining of feeling cold, short of breath, nonproductive cough, however he denied any pain, no fever no chills, no chest pain, no hemoptysis, no nausea, no vomiting, no abdominal pain, no dysuria and no frequency no urgency. Considering his symptoms of shortness of breath and elevated d-dimer, patient had a CT angiogram of the chest. It showed no evidence of pulmonary embolism. The left suprahilar mass in the left hilar mass noted to shrink in size compared to previous CT of the chest. However there was multifocal areas of groundglass opacities in upper and mid lungs. Bilaterally. The findings are consistent with pneumonitis. There was also evidence of significant emphysema noted in both lungs. Patient was admitted, placed on antibiotics, and this consult was initiated. Reevaluated today on 11/16/19, slightly better, patient remained generally weak, minimal cough, no wheezing, no shortness of breath. 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 And we need to continue to monitor his sodium and potassium on a daily basis. In the meantime the patient seems to be tolerating antibiotics for his presumptive pneumonitis. Reevaluated today on 11/17/19, patient continues to feel generally weak. Hardly any pulmonary symptoms, no cough no wheezing no shortness of breath. His sodium is coming up with fluid restriction, is up to 128. It was 124 yesterday, and I have a feeling once his sodium is better patient will feel better. Suggested to him to continue fluid restriction again today. Remains on antibiotics for what seems to be healthcare acquired pneumonia. CBC showed WBC count of 7.9 hemoglobin is 8.9 sodium is 128 bicarb is 24 renal profile is normal. Blood cultures are negative. Sputum cultures are pending. The patient is seen today 11/18/2019 in follow-up on the regular medical floor. He is awake and alert in no acute distress. Resting comfortably in bed. He denies any worsening shortness of breath, cough or congestion. He is complaining of a sore throat. No eric or erythema noted. Blood urine and sputum cultures reveal no growth. White count 7.6. Hemoglobin 8.3. Sodium 127. Potassium 3.3. Creatinine 0.48. He remains on antibiotics in the form of Zosyn. On 11/18/2019 patient seen in follow-up on general medical floor. He is calm and comfortable, in no acute distress, he still has a mild cough with some congestion, but no acute distress, no worsening shortness of breath, he is on ro om air, pulse ox is 95%, no fever chills, vital signs are within normal limits, no altered mentation, patient remains on IV Zosyn for possibility of pneumonia, he is doing well clinically. Remains on IV hydration in the form of 0.9 normal saline at a rate of 75 ML per hour, today's serum sodium is stable at 127, potassium 3.7, chloride is 95, BUN is 7, creatinine 0.46, white blood cell count is 7.6. On 11/19/2019 patient seen in follow-up on general medical floor, he is awake and alert, oriented 3, in no acute distress, room air pulse ox is 96%, lung sounds are clear, no rhonchi or wheezes, slightly congested cough, but clinically stable, vital signs are stable, no fever or chills, sputum, blood and urine cultures have been negative, remains on Zosyn for antibiotic coverage. No nausea vomiting or diarrhea. Breathing is comfortable, doing well, today's lab work is pending. Objective - Vital Signs Vital signs: Vital Signs Temp 98.1 F 11/20/19 05:00 Pulse 84 11/20/19 05:00 Resp 18 11/20/19 05:00 BP 111/70 11/20/19 05:00 Pulse Ox 96 11/20/19 05:00 Intake & Output 11/19/19 11/20/19 11/20/19 18:59 06:59 18:59 Intake Total 200 600 Output Total 400 Balance -200 600 Intake: Oral 200 600 Output: Urine 400 Other: Voiding Method Toilet Toilet Urinal Urinal # Voids 2 3 - Exam GENERAL EXAM: Alert, pleasant 63-year-old gentleman, appears older than stated age, on room air, comfortable in no apparent distress. HEAD: Normocephalic. EYES: Normal reaction of pupils, equal size. NOSE: Clear with pink turbinates. THROAT: No erythema or exudates. NECK: No masses, no JVD. CHEST: No chest wall deformity. LUNGS: Equal air entry without wheezing, rhonchi CVS: S1 and S2 normal with no audible murmur, regular rhythm. ABDOMEN: No hepatosplenomegaly, normal bowel sounds, no guarding or rigidity. SPINE: No scoliosis or deformity SKIN: No rashes CENTRAL NERVOUS SYSTEM: No focal deficits, tone is normal in all 4 extremities. EXTREMITIES: There is no peripheral edema. No clubbing, no cyanosis. Peripheral pulses are intact. - Labs CBC & Chem 7: 11/20/19 08:39 11/19/19 08:39 Labs: Abnormal Lab Results - Last 24 Hours (Table) 11/19/19 11/19/19 11/20/19 Range/Units 08:39 08:39 08:39 RBC 2.81 L 2.82 L (4.30-5.90) m/uL Hgb 8.4 L 8.4 L (13.0-17.5) gm/dL Hct 25.6 L 26.0 L (39.0-53.0) % RDW 21.1 H 21.2 H (11.5-15.5) % Lymphocytes # 0.2 L 0.2 L (1.0-4.8) k/uL Eosinophils # 0.9 H 1.1 H (0-0.7) k/uL Sodium 127 L (137-145) mmol/L Chloride 95 L (98-107) mmol/L BUN 7 L (9-20) mg/dL Creatinine 0.46 L (0.66-1.25) mg/dL Glucose 104 H (74-99) mg/dL Calcium 7.4 L (8.4-10.2) mg/dL AST 69 H (17-59) U/L Total Protein 5.4 L (6.3-8.2) g/dL Albumin 2.4 L (3.5-5.0) g/dL Microbiology - Last 24 Hours (Table) 11/15/19 10:45 Blood Culture - Preliminary Blood No Growth after 96 hours 11/16/19 21:05 Gram Stain - Final Sputum Sputum Culture - Final Assessment and Plan Plan: Assessment: Multilobar pneumonia as noted on CT of the chest. Non-small cell lung cancer, and seems to be improving with therapy. Continues to follow up with oncology. History of adenocarcinoma of the rectum. Patient completed chemotherapy and radiation therapy. Recent urinary tract infection, and recent ALLERGIC reaction to Ceftin. 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 Sodium today is 128. History of coronary artery disease. History of dyslipidemia. Tobacco dependence syndrome. Plan: Patient is doing well, no acute events overnight, afebrile, remains on Zosyn for antibiotic coverage for multilobar pneumonia, clinically improving, on room air, today's blood work is pending, tolerating oral intake, no nausea vomiting or diarrhea. Will need outpatient follow-up with Dr. Moya in the office in 7-10 days, from pulmonary perspective patient. Discharge home today I performed a history & physical examination of the patient and discussed their management with my nurse practitioner, Bev Villa. I reviewed the nurse practitioner's note and agree with the documented findings and plan of care. Lung sounds are positive for a few scattered wheezes. The findings and the impression was discussed with the patient. I attest to the documentation by the nurse practitioner. Time with Patient: Less than 30
[2019-11-20 09:53] LABS: ALT 56 U/L (4-49); AST 88 U/L (17-59); African American GFR (CKD) >90 (>60 ml/min/1.73 sqM); Albumin 2.5 g/dL (3.5-5.0); Alkaline Phosphatase 109 U/L (38-126); Anion Gap 8 mmol/L; Blood Urea Nitrogen 6 mg/dL (9-20); Calcium 7.9 mg/dL (8.4-10.2); Carbon Dioxide 24 mmol/L (22-30); Chloride 96 mmol/L (98-107); Glucose 118 mg/dL (74-99); Non-African American GFR(CKD) >90 (>60 ml/min/1.73 sqM); Potassium 3.8 mmol/L (3.5-5.1); Sodium 128 mmol/L (137-145); Total Bilirubin <0.1 mg/dL (0.2-1.3); Total Protein 5.5 g/dL (6.3-8.2)
--- NOTE | 2019-11-20 14:41 | P.PN ---
Subjective Progress Note Date: 11/20/19 This is a 63-year-old male patient of Dr. Lindsey. Patient is well known to my service. Patient presented with complaints of shortness of breath since yesterday afternoon. Patient admits to a slight cough. 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 Patient has been getting chemo and radiation treatment for both of these cancers. Patient follows regularly with oncology services. Patient was recently admitted and discharged for generalized weakness related to urinary tract infection. Patient was discharged on antibiotic in which he states he broke out in rash from and stop taking the antibiotic. Additional medical history includes cardiac arrhythmia in which she has a pacemaker placement, coronary artery disease, hyperlipidemia, nicotine dependence. Patient's sodium low at 125. Patient's d-dimer was elevated at 11.85. Chest CTA completed showing no pulmonary embolism the patient's left side of breath hilar and left hilar mass continues to encase the left hilar structures entering the definite distal left main pulmonary artery the mass is smaller with decreasing extrinsic mass effect onto the pulmonary artery. There is new central interstitial thickening and multifocal groundglass upper and midlungs. Consider inflammatory process such as atypical infections, drug reaction hypersensitivity to be pneumonitis or interstitial pneumonitis despite the improvement of the left ilium there is some increasing soft tissue in the pretracheal and upper left pretracheal region possible metastatic lymphadenopathy. At this time oncology and pulmonary services will be consulted. Patient will be started on IV antibiotics. Sputum culture ordered. Normal saline at 75. Influenza was negative. Repeat UA and urine culture will also be ordered On 11/16/2019 patient was seen and examined on the medical floor he is alert and oriented 3 in no apparent distress, he has low-grade fever of 99.4 he is complaining of generalized weakness and cough without significant sputum production otherwise he denies any complaints there is no chest pain no shortness of breath no nausea or vomiting no abdominal pain no diarrhea no burning with urination no frequency or urgency no hematuria sodium is still low at 124 potassium 3.1 On 11/17/2019 patient was seen and examined on the medical floor he is alert and oriented 3 in no apparent distress he is complaining of generalized weakness and had episode of hypotension and fever otherwise she denies any complaints, s odium improved but is still low at 128 today, hemoglobin is low at 8.9 On 11/18/2019 patient is alert and oriented 3 sodium remains low at 127 will add sodium chloride tabs. Patient remains on IV antibiotics Zosyn. Per oncology service is patient will need follow-up study related to chest CT once patient's acute illness treated. Pulmonary services are following. Patient denies chest pain or shortness of breath. Patient denies nausea vomiting or diarrhea. Patient denies any urinary burning or frequency On 11/19/2019 patient is alert and oriented 3. Patient still complaining of some weakness. Sodium remains low at 127. Sodium been added. Patient remains on IV antibiotic Zosyn. At this time patient denies chest pain or shortness breath. Patient denies nausea vomiting or diarrhea. Patient denies any urinary burning or frequency On 11/20/2019 patient is alert and oriented 3. Patient is still complaining of some weakness.. Sodium did increase slightly to 128. At this time patient denies any chest pain or shortness of breath. Patient has continued to have some diarrhea will order will order stool for C. diff. Patient denies chest pain or shortness of breath. Patient denies any urinary burning or frequency Objective - Vital Signs Vital signs: Vital Signs Temp 98.1 F 11/20/19 05:00 Pulse 84 11/20/19 05:00 Resp 18 11/20/19 08:00 BP 111/70 11/20/19 05:00 Pulse Ox 96 11/20/19 05:00 Intake & Output 11/19/19 11/20/19 11/20/19 18:59 06:59 18:59 Intake Total 200 600 540 Output Total 400 Balance -200 600 540 Intake: Oral 200 600 540 Output: Urine 400 Other: Voiding Method Toilet Toilet Toilet Urinal Urinal Urinal # Voids 2 3 1 - Exam In general patient is alert and oriented 3 in no apparent distress Head normocephalic and atraumatic Neck supple no JVD no goiter Lungs diminished bilaterally Heart regular rate and rhythm S1-S2, no rub or gallop Abdomen is soft nontender nondistended positive bowel sounds no hepatosplenomegaly Extremities no edema no cyanosis or clubbing Neuro no gross focal neurological deficit - Labs CBC & Chem 7: 11/20/19 08:39 11/20/19 08:39 Labs: Abnormal Lab Results - Last 24 Hours (Table) 11/20/19 11/20/19 Range/Units 08:39 08:39 RBC 2.82 L (4.30-5.90) m/uL Hgb 8.4 L (13.0-17.5) gm/dL Hct 26.0 L (39.0-53.0) % RDW 21.2 H (11.5-15.5) % Lymphocytes # 0.2 L (1.0-4.8) k/uL Eosinophils # 1.1 H (0-0.7) k/uL Sodium 128 L (137-145) mmol/L Chloride 96 L (98-107) mmol/L BUN 6 L (9-20) mg/dL Creatinine 0.49 L (0.66-1.25) mg/dL Glucose 118 H (74-99) mg/dL Calcium 7.9 L (8.4-10.2) mg/dL Total Bilirubin <0.1 L (0.2-1.3) mg/dL AST 88 H (17-59) U/L ALT 56 H (4-49) U/L Total Protein 5.5 L (6.3-8.2) g/dL Albumin 2.5 L (3.5-5.0) g/dL Microbiology - Last 24 Hours (Table) 11/15/19 10:45 Blood Culture - Preliminary Blood No Growth after 120 hours 11/16/19 21:05 Gram Stain - Final Sputum Sputum Culture - Final Assessment and Plan Assessment: 1. Dyspnea secondary to known lung cancer and possible pneumonia. Oncology and pulmonary services have been 2. Multilobulated pneumonia. Patient was started on Zosyn, sputum culture ordered. Pulmonary services are following. Patient remains on Zosyn and bronchodilators. 3. Squamous cell carcinoma the lung diagnosed in August 2019. Patient currently follows with oncology service is currently receiving chemoradiation treatment. Oncology services have been reconsulted. CTA performed and results reviewed above pulmonary services also consulted. Per oncology suspicious areas noted on inpatient CT per oncology may be due to acute illness posttreatment reactivity or could be disease agreed that PET needs to be performed will be ordered once patient DC'd and current condition is resolved 4. Adenocarcinoma of the rectum. Patient pretty has completed treatment with chemotherapy and radiation. Oncology services have been consulted 5. Recent urinary tract infection with ALLERGIC reaction to Ceftin. Will order UA and urine culture. 6. Hyponatremia. Sodium 127. Patient maintained on fluid restriction. sodium chloride tabs have been ordered. Sodium slightly improving at 128 7 History of cardiac arrhythmia. History of pacemaker placement 8. History of coronary disease stable at this time 9. Hyperlipidemia. Patient maintained on statin 10. Nicotine dependence. Nicotine patch resumed 11. Diarrhea. Will order stool for C. diff DVT prophylaxis SCDs. GI prophylaxis Pepcid Oncology and pulmonary services following PT OT consulted I performed an examination of the patient and discussed their management with the Nurse Practitioner. I have reviewed the Nurse Practitioner's notes and agree with the documented findings and plan of care
[2019-11-21] MEDS: PIPERACILLIN-TAZOBACTAM 3.375 GM in SODIUM CHLORIDE 0.9% 100 ML IVPB SCH ×2 (00:42→09:37)
[2019-11-21] MEDS: SALT AND SODA MOUTHWASH 1,000 ML PO SCH ×3 (00:42→12:16)
[2019-11-21] MEDS: HYDROcodone/APAP 7.5-325MG 1 EACH TAB PO PRN ×2 (02:24→08:33)
[2019-11-21 05:58] VITALS: PULSE 89
[2019-11-21] MEDS: CARVEDILOL 3.125 MG TAB PO SCH (08:35)
[2019-11-21] MEDS: amLODIPine 5 MG TAB PO SCH (08:35)
[2019-11-21] MEDS: ATORVASTATIN 20 MG TAB PO SCH (08:36)
[2019-11-21] MEDS: NICOTINE 14MG/24HR PATCH TRANSDERM SCH (08:36)
[2019-11-21] MEDS: SODIUM CHLORIDE TAB 1 GM TAB PO SCH (08:36)
[2019-11-21 09:17] LABS: Anisocytosis Moderate; Basophils % (A) 0 %; Eosinophils # (A) 1.2 k/uL (0-0.7); Eosinophils % (A) 17 %; HCT 26.4 % (39.0-53.0); HGB 8.5 gm/dL (13.0-17.5); Hypochromasia Slight; Lymphocytes # (A) 0.3 k/uL (1.0-4.8); Lymphocytes % (A) 4 %; MCH 29.7 pg (25.0-35.0); MCHC 32.3 g/dL (31.0-37.0); MCV 91.9 fL (80.0-100.0); Macrocytosis Slight; Mean Platelet Volume 7.6; Monocytes # (A) 0.5 k/uL (0-1.0); Monocytes % (A) 7 %; Neutrophils # (A) 5.1 k/uL (1.3-7.7); Neutrophils % (A) 69 %; Platelet Count 278 k/uL (150-450); RBC 2.87 m/uL (4.30-5.90); RDW 21.1 % (11.5-15.5); WBC 7.4 k/uL (3.8-10.6)
[2019-11-21 09:21] LABS: ALT 59 U/L (4-49); AST 77 U/L (17-59); African American GFR (CKD) >90 (>60 ml/min/1.73 sqM); Albumin 2.6 g/dL (3.5-5.0); Alkaline Phosphatase 122 U/L (38-126); Anion Gap 11 mmol/L; Blood Urea Nitrogen 6 mg/dL (9-20); Carbon Dioxide 24 mmol/L (22-30); Chloride 96 mmol/L (98-107); Glucose 113 mg/dL (74-99); Non-African American GFR(CKD) >90 (>60 ml/min/1.73 sqM); Potassium 3.6 mmol/L (3.5-5.1); Sodium 131 mmol/L (137-145); Total Bilirubin 0.1 mg/dL (0.2-1.3); Total Protein 5.9 g/dL (6.3-8.2)
[2019-11-21 12:59] VITALS: BP 101/51; RESP 20; TEMP 98.5
--- NOTE | 2019-11-21 13:24 | P.DS ---
Providers Date of admission: 11/16/19 12:57 Expected date of discharge: 11/21/19 Attending physician: Salina Schwartz Consults: 11/15/19 15:05 Consult Physician Routine Consulting Provider: Marissa Melendez Consult Reason/Comments: pneumonia, known lung cancer Do you want consulting provider notified?: Yes 11/15/19 15:06 Consult Physician Routine Consulting Provider: Je Romero Consult Reason/Comments: Known lung and rectal cancer Do you want consulting provider notified?: Yes Primary care physician: Digna Lindsey Hospital Course: Discharge diagnosis 1. Dyspnea secondary to known lung cancer and possible pneumonia. Oncology and pulmonary services have been 2. Multilobulated pneumonia. Patient was started on Zosyn, sputum culture ordered. Pulmonary services are following. Patient remains on Zosyn and bronchodilators. Sputum culture showing moderate normal respiratory alexander. Blood culture currently showing no growth Patient will be DC'd on Augmentin for 1 week. Patient has been cleared for discharge from pulmonary services 3. Squamous cell carcinoma the lung diagnosed in August 2019. Patient currently follows with oncology service is currently receiving chemoradiation treatment. Oncology services have been reconsulted. CTA performed and results reviewed above pulmonary services also consulted. Per oncology suspicious areas noted on inpatient CT per oncology may be due to acute illness posttreatment reactivity or could be disease agreed that PET needs to be performed will be ordered once patient DC'd and current condition is resolved 4. Adenocarcinoma of the rectum. Patient pretty has completed treatment with chemotherapy and radiation. Oncology services have been consulted 5. Recent urinary tract infection with ALLERGIC reaction to Ceftin. Urine cultures currently showing no growth 6. Hyponatremia. Sodium 127. Patient maintained on fluid restriction. sodium chloride tabs have been ordered. Sodium slightly improving at 131. Patient will be DC'd on fluid restrictions and recommended increasing salt intake 7 History of cardiac arrhythmia. History of pacemaker placement 8. History of coronary disease stable at this time 9. Hyperlipidemia. Patient maintained on statin 10. Nicotine dependence. Nicotine patch resumed 11. Diarrhea. Stool for C. diff negative Hospital course This is a 63-year-old male patient of Dr. Lindsey. Patient is well known to my service. Patient presented with complaints of shortness of breath since yesterday afternoon. Patient admits to a slight cough. 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 Patient has been getting chemo and radiation treatment for both of these cancers. Patient follows regularly with oncology services. Patient was recently admitted and discharged for generalized weakness related to urinary tract infection. Patient was discharged on antibiotic in which he states he broke out in rash from and stop taking the antibiotic. Additional medical history includes cardiac arrhythmia in which she has a pacemaker placement, coronary artery disease, hyperlipidemia, nicotine dependence. Patient's sodium low at 125. Patient's d-dimer was elevated at 11.85. Chest CTA completed showing no pulmonary embolism the patient's left side of breath hilar and left hilar mass continues to encase the left hilar structures entering the definite distal left main pulmonary artery the mass is smaller with decreasing extrinsic mass effect onto the pulmonary artery. There is new central interstitial thickening and multifocal groundglass upper and midlungs. Consider inflammatory process such as atypical infections, drug reaction hypersensitivity to be pneumonitis or interstitial pneumonitis despite the improvement of the left ilium there is some increasing soft tissue in the p retracheal and upper left pretracheal region possible metastatic lymphadenopathy. At this time oncology and pulmonary services will be consulted. Patient will be started on IV antibiotics. Sputum culture ordered. Normal saline at 75. Influenza was negative. Repeat UA and urine culture will also be ordered On 11/16/2019 patient was seen and examined on the medical floor he is alert and oriented 3 in no apparent distress, he has low-grade fever of 99.4 he is complaining of generalized weakness and cough without significant sputum production otherwise he denies any complaints there is no chest pain no shortness of breath no nausea or vomiting no abdominal pain no diarrhea no burning with urination no frequency or urgency no hematuria sodium is still low at 124 potassium 3.1 On 11/17/2019 patient was seen and examined on the medical floor he is alert and oriented 3 in no apparent distress he is complaining of generalized weakness and had episode of hypotension and fever otherwise she denies any complaints, sodium improved but is still low at 128 today, hemoglobin is low at 8.9 On 11/18/2019 patient is alert and oriented 3 sodium remains low at 127 will add sodium chloride tabs. Patient remains on IV antibiotics Zosyn. Per oncology service is patient will need follow-up study related to chest CT once patient's acute illness treated. Pulmonary services are following. Patient denies chest pain or shortness of breath. Patient denies nausea vomiting or diarrhea. Patient denies any urinary burning or frequency On 11/19/2019 patient is alert and oriented 3. Patient still complaining of some weakness. Sodium remains low at 127. Sodium been added. Patient remains on IV antibiotic Zosyn. At this time patient denies chest pain or shortness breath. Patient denies nausea vomiting or diarrhea. Patient denies any urinary burning or frequency On 11/20/2019 patient is alert and oriented 3. Patient is still complaining of some weakness.. Sodium did increase slightly to 128. At this time patient denies any chest pain or shortness of breath. Patient has continued to have some diarrhea will order will order stool for C. diff. Patient denies chest pain or shortness of breath. Patient denies any urinary burning or frequency On 11/21/2019 patient is alert and oriented 3. Patient reports improvement with weakness. Sodium 131. Patient states he feels ready to go home. C. diff was negative. Influenza negative. Blood sputum and urine cultures negative. Patient will be DC'd on Augmentin for 1 week for pneumonia. Patient will follow up with oncology services for possible PET scan. Patient also follow with pulmonary services. Recommend increasing salt intake in diet along with water restrictions upon discharge I performed an examination of the patient and discussed their management with the Nurse Practitioner. I have reviewed the Nurse Practitioner's notes and agree with the documented findings and plan of care Patient Condition at Discharge: Stable Plan - Discharge Summary Discharge Rx Participant: No New Discharge Prescriptions: New Amoxicillin/Potassium Clav [Augmentin 500-125 Tablet] 1 tab PO Q12HR 7 Days #14 tab Continue Simvastatin [Zocor] 40 mg PO HS Carvedilol [Coreg] 3.125 mg PO BID amLODIPine [Norvasc] 5 mg PO DAILY 30 Days #30 tab HYDROcodone/APAP 7.5-325MG [[place] 7.5-325] 1 tab PO Q6H PRN PRN Reason: Pain Nicotine 14Mg/24Hr Patch [Habitrol] 1 patch TRANSDERM DAILY Discharge Medication List Simvastatin [Zocor] 40 mg PO HS 01/21/14 [History] Carvedilol [Coreg] 3.125 mg PO BID 12/03/18 [History] amLODIPine [Norvasc] 5 mg PO DAILY 30 Days #30 tab 12/05/18 [Rx] HYDROcodone/APAP 7.5-325MG [[place] 7.5-325] 1 tab PO Q6H PRN 08/12/19 [History] Nicotine 14Mg/24Hr Patch [Habitrol] 1 patch TRANSDERM DAILY 11/15/19 [History] Amoxicillin/Potassium Clav [Augmentin 500-125 Tablet] 1 tab PO Q12HR 7 Days #14 tab 11/21/19 [Rx] Follow up Appointment(s)/Referral(s): Digna Lindsey MD [Primary Care Provider] - 11/21/19 9:15 am Imer Moya DO [Doctor of Osteopathic Medicine] - 1 Week Anastacio Shaw MD [STAFF PHYSICIAN] - 10 Days Activity/Diet/Wound Care/Special Instructions: Dr. Shaw ofc will sched PET scan once pt discharged Continue water restriction 1500ml Increased salt in diet Discharge Disposition: HOME SELF-CARE
== END 2019-11-21 14:24 | disposition home or self-care (01) | DRG 194 ==
LOC: EC 10:18 → 6NMEDSUR 14:04 → OBSVTOIN 11-16 12:57
PROVIDERS: ADMIT Internal Medicine; ATTEND Internal Medicine
DX: J18.9 Pneumonia, unspecified organism (principal); E22.2 Syndrome of inappropriate secretion of antidiuretic hormone; C34.12 Malignant neoplasm of upper lobe, left bronchus or lung; I44.2 Atrioventricular block, complete; D64.81 Anemia due to antineoplastic chemotherapy; E55.9 Vitamin D deficiency, unspecified; E78.5 Hyperlipidemia, unspecified; I95.9 Hypotension, unspecified; J43.9 Emphysema, unspecified; T45.1X5A Adverse effect of antineoplastic and immunosuppressive drugs, initial encounter; Y95 Nosocomial condition; I10 Essential (primary) hypertension; I25.10 Atherosclerotic heart disease of native coronary artery without angina pectoris; G89.29 Other chronic pain; M54.5 Low back pain; K59.00 Constipation, unspecified; M19.90 Unspecified osteoarthritis, unspecified site; Z79.899 Other long term (current) drug therapy; Z87.891 Personal history of nicotine dependence; Z86.2 Personal history of diseases of the blood and blood-forming organs and certain disorders involving the immune mechanism; Z85.048 Personal history of other malignant neoplasm of rectum, rectosigmoid junction, and anus; Z95.0 Presence of cardiac pacemaker; Z90.49 Acquired absence of other specified parts of digestive tract; Z92.3 Personal history of irradiation; Z92.21 Personal history of antineoplastic chemotherapy; Z87.440 Personal history of urinary (tract) infections; Z98.890 Other specified postprocedural states; Z88.1 Allergy status to other antibiotic agents; Z82.49 Family history of ischemic heart disease and other diseases of the circulatory system
CPT/HCPCS: 36415; 71046; 71275; 80053; 81003; 83605; 83880; 84484; 85025; 85379; 85610; 85730; 87040; 87070; 87086; 87205; 87324; 87502; 93005; 94760; 96361; 96365; 99285

== ENCOUNTER → 2019-12-06 | Outpatient (CLI) | payer OTHER ==
--- NOTE | 2019-12-10 06:14 | PE ---
EXAMINATION TYPE: PET CT fusion skull to thigh DATE OF EXAM: 12/06/2019 COMPARISON: Most recent chest CT November 15, 2019 and older CTs. Prior PET/CT June 28, 2019. HISTORY: Lung cancer progress study. Recently diagnosed August 11, 2019 completed radiation treat ment November 02, 2019. Also history of colon cancer. TECHNIQUE: Following the intravenous administration of 10.606 mCi of F-18 FDG, whole body images are performed from the skull base to the midthigh. Images are reviewed on the computer in the terrzaas l, axial, and sagittal planes. Reconstructed rotating images are created on independent workstation and reviewed on the computer. A noncontrast CT is performed in conjunction with the PET scan. SCAN: Subsequent Scan FINDINGS: SKULL BASE AND NECK: No areas of suspicious hypermetabolic uptake. CHEST, MEDIASTINUM, AND HILAR REGION: Persistent background mild to moderate underlying emphysematous change. Marked improvement in left suprahilar mass or neoplasm invading mediastinum including AP win zion and prevascular space where there was hypermetabolic confluent involvement, possible adenopathy. Size of residual tumor or abnormal soft tissue difficult to accurately measure. Max SUV current study is under 2.5 versus 14.2 prior study. Interval resolution of hypermetabolic subcentimeter lymph node anterior superior mediastinum near lef t subclavian artery axial image 71, subcentimeter lymph node is smaller and ametabolic on current bola dy. New mild hypermetabolic uptake in the anterior right mid lung increasing groundglass opacity could re flect infiltrate and/or edema, correlate clinically to rule out developing infectious process. Radiat ion pneumonitis is in differential. No new suspicious nodules or adenopathy otherwise identified. ABDOMEN AND PELVIS: Left adrenal gland shows increased suspicious nodular thickening posteriorly limb superiorly measures 2.3 x 1.7 cm axial image 132 and more anterior limb inferiorly measures 3.0 x 1. 5 cm axial image 139. Both remain ametabolic Normal excretion is seen. Normal bladder uptake. Persistent suspicious moderate to severe concentric wall thickening with hypermetabolic uptake involving the sigmoid rectal colon with hypermetabolic upt yasmeen improved from prior where it was significantly more thickened and had greater max SUV. The max S UV is 5.85 on current study. Increased fat stranding in the presacral fat noted without definitive hy permetabolic uptake at this level. OSSEOUS STRUCTURES: No new areas of suspicious hypermetabolic uptake. OTHER CT: Moderate calcified plaque left carotid bulb level. Multi lead pacemaker device redemonstrated. [place] coronary artery calcification which is noted marke d of underlying coronary artery disease. Stable tiny pericardial effusion. Moderate disc space narrowing and spurring L4-L5 level. Mild calcified plaque of the aorta extends in to branch vessels. IMPRESSION: Overall partial PET positive response in the neoplasm sigmoid rectal colon. Complete PET positive response to the secondary neoplasm in the left hilar region with mediastinal invasion and/or adjacent adenopathy. Only concern is two small new left adrenal masses that despite ametabolic uptak e are worrisome for interval developing pulmonary metastatic disease given increasing size.
== END | disposition home or self-care (01) ==
LOC: RADPETMAIN 12:34
PROVIDERS: ATTEND Internal Medicine Hematology & Oncology
DX: C78.5 Secondary malignant neoplasm of large intestine and rectum (principal); E27.8 Other specified disorders of adrenal gland; C34.12 Malignant neoplasm of upper lobe, left bronchus or lung
CPT/HCPCS: 78815; A9552

== ENCOUNTER 2020-01-13 07:29 | Day surgery (SDC) | payer OTHER ==
[2020-01-10 12:22] VITALS: BMI 22.2
[2020-01-13] MEDS ORDERED: LACTATED RINGERS 1,000 ML IV SCH (07:42)
[2020-01-13 07:50] VITALS: RESP 16; TEMP 97.6
[2020-01-13] MEDS ORDERED: LIDOCAINE 1% (10MG/ML) FOR IV START INTRADERMA ONE (07:52)
[2020-01-13] MEDS ORDERED: PROPOFOL 10 MG/ML 20 ML VIAL IV ONE (07:59)
--- NOTE | 2020-01-13 08:07 | P.GSHP ---
History of Present Illness H&P Date: 01/13/20 Chief Complaint: Rectal cancer 64-year-old male known to our service. Patient was diagnosed with concurrent rectal cancer and non-small cell lung cancer. Patient underwent chemoradiation for his rectal cancer. Recent PET scan showed no uptake in the lung at this time. Patient feels better with less obstructive symptoms. Patient was advised to consider elective surgical resection at this point. Here today for colonoscopy. Last colonoscopy showed a mass that was nearly obstructed and poor prep proximal to the mass. 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 Wears linda bandage on Rt knee for comfort, occ uses cane. History of Any Multi-Drug Resistant Organisms: None Reported Past Surgical History: Appendectomy, Heart Catheterization, Hernia Repair, Orthopedic Surgery, Pacemaker, Tonsillectomy Additional Past Surgical History / Comment(s): 2008 pacemaker, 2009 cardiac cath-treat medically, R inguinal hernia repair, R groin abscess x2 with surgical drainage, R knee arthrocopy, Past Anesthesia/Blood Transfusion Reactions: No Reported Reaction Type of Cardiac Device: Permanent Pacemaker Device Placement Date:: 2008 Smoking Status: Current every day smoker - Past Family History Father Additional Family Medical History / Comment(s): Father after having a MVA. Mother Family Medical History: Myocardial Infarction ([place]) Additional Family Medical History / Comment(s): Mother at age 63 yrs of massive [place]. Medications and Allergies Home Medications Medication Instructions Recorded Confirmed Type Simvastatin [Zocor] 40 mg PO HS 01/21/14 01/13/20 History Carvedilol [Coreg] 3.125 mg PO BID 12/03/18 01/13/20 History amLODIPine [Norvasc] 5 mg PO DAILY 30 Days #30 tab 12/05/18 01/13/20 Rx HYDROcodone/APAP 7.5-325MG [[place] 1 tab PO Q6H PRN 08/12/19 01/13/20 History 7.5-325] Allergies Allergy/AdvReac Type Severity Reaction Status Date / Time cefuroxime [From Ceftin] Allergy Rash/Hives Verified 01/13/20 07:49 Surgical - Exam Vital Signs Temp Pulse Resp BP Pulse Ox 97.6 F 95 16 129/74 99 01/13/20 07:49 01/13/20 07:49 01/13/20 07:49 01/13/20 07:49 01/13/20 07:49 Physical exam: General: Well-developed, well-nourished HEENT: Normocephalic, sclerae nonicteric Abdomen: Nontender, nondistended Extremities: No edema Neuro: Alert and oriented Assessment and Plan (1) Rectal cancer Narrative/Plan: Will proceed with colonoscopy at this time Current Visit: Yes Status: Acute Code(s): C20 - MALIGNANT NEOPLASM OF RECTUM SNOMED Code(s): 908051808
--- NOTE | 2020-01-13 08:45 | P.PCN ---
Date of Procedure: 01/13/20 Procedure(s) Performed: PREOPERATIVE DIAGNOSIS: Rectal cancer POSTOPERATIVE DIAGNOSIS: Rectal cancer, diverticulosis, multiple polyps PROCEDURE: Colonoscopy with snare polypectomy ANESTHESIA: MAC SURGEON: Andrea Rodriguez M.D. SPECIMENS: Polyps ENDOSCOPIC PROCEDURE: The patient was placed on the endoscopy table in the left decubitus position. The Olympus colonoscope was inserted into the anus and passed under direct visualization to the base of the cecum. The appendiceal orifice was visualized. From that point the scope was slowly withdrawn inspecting all surfaces carefully. There were no neoplastic inflammatory or polypoid lesions throughout the cecum or ascending colon. In the transverse colon a small polyp was identified and removed using the snare with cautery technique. In the descending colon another small polyp was identified and removed in a similar fashion. In the sigmoid colon there were 2 polyps identified and removed in a similar fashion. The patient's previously identified tumor was noted between 10 and 18 cm. This had a circumferential minimally obstructing appearance. His prep was slightly suboptimal but much better than last time. The patient had mild left-sided diverticulosis. Digital rectal examination was able to palpate the mass. Unfortunately this mass feels fixed on digital rectal examination. The distal 10 cm the rectum appeared normal. The patient was taken to the recovery room in stable condition per anesthesia guidelines. RECOMMENDATIONS: Await biopsy results. Will discuss surgical options with the patient. Patient with history of concurrent non-small cell lung cancer. A curative resection does not appear to be a viable option given his lung cancer. Would favor diverting loop colostomy or observation until obstructive symptoms worsen. We'll discuss further with the patient.
[2020-01-13 09:00] VITALS: BP 122/75; PULSE 80
== END 2020-01-13 09:41 | disposition home or self-care (01) ==
LOC: ORWHC2ENDO 07:29
PROVIDERS: ATTEND Surgery
DX: D12.3 Benign neoplasm of transverse colon (principal); D12.4 Benign neoplasm of descending colon; D12.5 Benign neoplasm of sigmoid colon; C20 Malignant neoplasm of rectum; K57.30 Diverticulosis of large intestine without perforation or abscess without bleeding; I25.10 Atherosclerotic heart disease of native coronary artery without angina pectoris; I25.2 Old myocardial infarction; I10 Essential (primary) hypertension; C34.90 Malignant neoplasm of unspecified part of unspecified bronchus or lung; E78.5 Hyperlipidemia, unspecified; M19.90 Unspecified osteoarthritis, unspecified site; M54.5 Low back pain; G89.29 Other chronic pain; F17.200 Nicotine dependence, unspecified, uncomplicated; Z88.1 Allergy status to other antibiotic agents; Z95.0 Presence of cardiac pacemaker; Z79.899 Other long term (current) drug therapy; Z98.890 Other specified postprocedural states; Z92.21 Personal history of antineoplastic chemotherapy; Z92.3 Personal history of irradiation; Z87.440 Personal history of urinary (tract) infections; Z90.49 Acquired absence of other specified parts of digestive tract; Z90.89 Acquired absence of other organs; Z79.02 Long term (current) use of antithrombotics/antiplatelets; Z82.49 Family history of ischemic heart disease and other diseases of the circulatory system
CPT/HCPCS: 45385; J2704; 88305

== ENCOUNTER 2020-03-09 10:57 | Emergency (ER) | payer OTHER ==
[2020-03-09 11:20] VITALS: BP 132/90; PULSE 103; RESP 18; TEMP 98.3
--- NOTE | 2020-03-09 12:08 | XR ---
EXAMINATION TYPE: XR cervical spine comp DATE OF EXAM: 03/09/2020 COMPARISON: NONE HISTORY: Pain TECHNIQUE: Four views are submitted. FINDINGS: The odontoid is intact. There are no compression deformities. The prevertebral soft tissue structur es are within normal limits. Severe degenerative disc disease with hypertrophic spurring and posteri or spondylosis C5-C6. Mild degenerative disc disease C6-C7. Mild diffuse osteopenia. Calcification th e soft tissue the neck on the left clips likely related to carotid artery atherosclerotic changes. Co rrelate clinically. Cardiac leads are incidentally noted. There is bilateral moderate foraminal encro achment C5-C6. IMPRESSION: 1. Severe degenerative disc disease with posterior spondylosis C5-C6. Moderate bilateral foraminal en croachment. Suspect canal stenosis recommend MRI. 2. Diffuse osteopenia 3. Correlate for atherosclerotic disease of the left carotid artery. 4. There is soft tissue fullness at the level C2-C3 just superior and posterior to the epiglottis. Re cent PET/CT 12/06/2019 demonstrated no abnormality in the region. This could be evaluated with soft ti ssue CT neck if clinically warranted.
[2020-03-09] MEDS ORDERED: HYDROcodone/APAP 10-325MG 1 EACH TAB PO ONE (12:25)
--- NOTE | 2020-03-09 12:44 | ED ---
Neck Injury/Pain HPI - General Chief Complaint: Neck Pain/Injury Stated Complaint: muscle spasms in neck Time Seen by Provider: 03/09/20 11:22 Mode of arrival: ambulatory Limitations: no limitations - History of Present Illness Initial Comments: Patient is a 64-year-old male with history of colon cancer currently undergoing immunotherapy presenting to the emergency department with a chief complaint of back pain. States his symptoms began about one month on the right side of his neck and trapezius. Reports limited range of motion with left and right rotation due to pain. States he saw his primary care physician who initially prescribed him Flexeril and then baclofen with minimal improvement in symptoms. Patient does report taking [place] 7.5 at home for pain. Patient denies any headaches, neck rigidity, nausea, vomiting, fevers or chills. Denies any odontophagia or dysphagia. Denies chest pain, dyspnea or shortness of breath. Denies changes to voice or drooling. - Related Data Home Medications Medication Instructions Recorded Confirmed Simvastatin [Zocor] 40 mg PO HS 01/21/14 01/13/20 Carvedilol [Coreg] 3.125 mg PO BID 12/03/18 01/13/20 HYDROcodone/APAP 7.5-325MG [[place] 1 tab PO Q6H PRN 08/12/19 01/13/20 7.5-325] Previous Rx's Medication Instructions Recorded amLODIPine [Norvasc] 5 mg PO DAILY 30 Days #30 tab 12/05/18 Allergies Allergy/AdvReac Type Severity Reaction Status Date / Time cefuroxime [From Ceftin] Allergy Rash/Hives Verified 03/09/20 11:16 Review of Systems ROS Statement: Those systems with pertinent positive or pertinent negative responses have been documented in the HPI. ROS Other: All systems not noted in ROS Statement are negative. 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 Wears linda bandage on Rt knee for comfort, occ uses cane. History of Any Multi-Drug Resistant Organisms: None Reported Past Surgical History: Appendectomy, Heart Catheterization, Hernia Repair, Orthopedic Surgery, Pacemaker, Tonsillectomy Additional Past Surgical History / Comment(s): 2008 pacemaker, 2009 cardiac cath-treat medically, R inguinal hernia repair, R groin abscess x2 with surgical drainage, R knee arthrocopy, Past Anesthesia/Blood Transfusion Reactions: No Reported Reaction Type of Cardiac Device: Permanent Pacemaker Device Placement Date:: 2008 Past Psychological History: No Psychological Hx Reported Smoking Status: Current every day smoker Past Alcohol Use History: Occasional Past Drug Use History: None Reported - Past Family History Father Additional Family Medical History / Comment(s): Father after having a MVA. Mother Family Medical History: Myocardial Infarction ([place]) Additional Family Medical History / Comment(s): Mother at age 63 yrs of massive [place]. General Exam Limitations: no limitations General appearance: alert, in no apparent distress Head exam: Present: atraumatic, normocephalic, normal inspection Eye exam: Present: normal appearance, PERRL, EOMI Pupils: Present: normal accommodation ENT exam: Present: normal exam, normal oropharynx, mucous membranes moist Neck exam: Present: normal inspection, tenderness (Right paraspinal cervical tenderness radiating along the trapezius), full ROM. Absent: meningismus, lymphadenopathy, thyromegaly, other (No nuchal rigidity) Respiratory exam: Present: normal lung sounds bilaterally. Absent: respiratory distress, wheezes Cardiovascular Exam: Present: regular rate, normal rhythm, normal heart sounds Extremities exam: Present: normal inspection, full ROM, normal capillary refill, other (+2 ulnar and radial pulses bilaterally.). Absent: tenderness Back exam: Present: normal inspection, full ROM Neurological exam: Present: alert, oriented X3 Psychiatric exam: Present: normal affect, normal mood Skin exam: Present: warm, dry, intact, normal color Course Vital Signs 03/09/20 11:17 Temperature 98.3 F Pulse Rate 103 H Respiratory 18 Rate Blood Pressure 132/90 O2 Sat by Pulse 96 Oximetry Medical Decision Making - Medical Decision Making Patient is 64-year-old male presenting to the emergency department with chief complaint of right-sided neck pain 1 month. Physical examination reveals no signs of nuchal rigidity but this for limited range of motion with left and right rotation. Tenderness along the right paraspinal region radiating along the trapezius. No radiculopathy type symptoms of numbness and tingling in the right upper extremity. No odontophagia or dysphagia. X-ray reveals severe degenerative disc disease with posterior spondylosis C5 and C6. Moderate bilateral foraminal encroachment. There is some soft tissue fullness at the level of C2 and C3 just posterior and superior to the epiglottis. Patient denies odynophagia or dysphagia. Patient was given analgesia with improvement of symptoms. Patient advised to follow-up with . Return parameters were thoroughly discussed the patient is understanding and agreeable. Case discussed with physician. Disposition Clinical Impression: Degenerative disc disease, cervical, Neck pain Disposition: HOME SELF-CARE Condition: Good Instructions (If sedation given, give patient instructions): Degenerative Disc Disease (ED) Additional Instructions: Follow-up with an orthopedic doctor. Continue taking your [place] at home. Return to emergency department if symptoms worsen. Is patient prescribed a controlled substance at d/c from ED?: No Referrals: Digna Lindsey MD [Primary Care Provider] - 1-2 days Brina Kennedy DO [Doctor of Osteopathic Medicine] - 1-2 days Time of Disposition: 12:44
== END 2020-03-09 12:55 | disposition home or self-care (01) ==
LOC: EC 10:57
DX: M50.322 Other cervical disc degeneration at C5-C6 level (principal); M47.812 Spondylosis without myelopathy or radiculopathy, cervical region; I25.119 Atherosclerotic heart disease of native coronary artery with unspecified angina pectoris; I10 Essential (primary) hypertension; E78.5 Hyperlipidemia, unspecified; F17.200 Nicotine dependence, unspecified, uncomplicated; Z79.02 Long term (current) use of antithrombotics/antiplatelets; Z79.899 Other long term (current) drug therapy; Z88.1 Allergy status to other antibiotic agents; Z85.118 Personal history of other malignant neoplasm of bronchus and lung; Z85.038 Personal history of other malignant neoplasm of large intestine; Z95.0 Presence of cardiac pacemaker
CPT/HCPCS: 72050; 99283

== ENCOUNTER 2020-03-26 13:42 | Emergency (ER) | payer OTHER ==
[2020-03-26] MEDS ORDERED: SODIUM CHLORIDE 0.9% 1,000 ML IV STA ×2 (14:04)
[2020-03-26 14:21] LABS: Anisocytosis Slight; Basophils # (A) 0.1 k/uL (0-0.2); Basophils % (A) 0 %; Eosinophils # (A) 0.5 k/uL (0-0.7); Eosinophils % (A) 3 %; HCT 37.8 % (39.0-53.0); HGB 12.4 gm/dL (13.0-17.5); Hypochromasia Slight; Lymphocytes # (A) 0.5 k/uL (1.0-4.8); Lymphocytes % (A) 3 %; MCHC 32.7 g/dL (31.0-37.0); MCV 91.8 fL (80.0-100.0); Mean Platelet Volume 6.8; Monocytes # (A) 1.2 k/uL (0-1.0); Monocytes % (A) 7 %; Neutrophils # (A) 15.3 k/uL (1.3-7.7); Neutrophils % (A) 86 %; Platelet Count 492 k/uL (150-450); RBC 4.12 m/uL (4.30-5.90); RDW 17.2 % (11.5-15.5); WBC 17.7 k/uL (3.8-10.6)
--- NOTE | 2020-03-26 14:22 | ED ---
General Adult HPI - General Chief complaint: Syncope Stated complaint: Syncope, Altered mental status Time Seen by Provider: 03/26/20 13:42 Source: patient, EMS, RN notes reviewed Mode of arrival: EMS Limitations: no limitations - History of Present Illness Initial comments: This is a 64-year-old male who was brought in by EMS after apparently being fou nd facedown on the ground in his yard. He does state he was sitting in a chair and believes he was overheated and asked why he went down. No seizure activity reported the patient does complain some neck pain but he said that for several weeks she states from a pinched nerve. No overhead pain. He has no complaints of loss of function is upper or lower extremities he did put a wrap on his right he was states she's been having problems with the knee for quite a while. He denies any palpitations fevers chills nausea vomiting sweats he did have some dizziness. No other current modifying factors - Related Data Home Medications Medication Instructions Recorded Confirmed Simvastatin [Zocor] 40 mg PO HS 01/21/14 03/26/20 Carvedilol [Coreg] 3.125 mg PO BID 12/03/18 03/26/20 HYDROcodone/APAP 7.5-325MG [[place] 1 tab PO Q6H PRN 08/12/19 03/26/20 7.5-325] Previous Rx's Medication Instructions Recorded amLODIPine [Norvasc] 5 mg PO DAILY 30 Days #30 tab 12/05/18 Allergies Allergy/AdvReac Type Severity Reaction Status Date / Time cefuroxime [From Ceftin] Allergy Rash/Hives Verified 03/26/20 14:20 Review of Systems ROS Statement: Those systems with pertinent positive or pertinent negative responses have been documented in the HPI. ROS Other: All systems not noted in ROS Statement are negative. 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 Wears linda bandage on Rt knee for comfort, occ uses cane. History of Any Multi-Drug Resistant Organisms: None Reported Past Surgical History: Appendectomy, Heart Catheterization, Hernia Repair, Orthopedic Surgery, Pacemaker, Tonsillectomy Additional Past Surgical History / Comment(s): 2008 pacemaker, 2008 cardiac cath-treat medically, R inguinal hernia repair, R groin abscess x2 with surgical drainage, R knee arthrocopy, Past Anesthesia/Blood Transfusion Reactions: No Reported Reaction Type of Cardiac Device: Permanent Pacemaker Device Placement Date:: 2008 Past Psychological History: No Psychological Hx Reported Smoking Status: Current every day smoker Past Alcohol Use History: Occasional Past Drug Use History: None Reported, Marijuana - Past Family History Father Additional Family Medical History / Comment(s): Father after having a MVA. Mother Family Medical History: Myocardial Infarction ([place]) Additional Family Medical History / Comment(s): Mother at age 63 yrs of massive [place]. General Exam - General Exam Comments Initial Comments: This is a well-developed asthenic appearing male who is awake alert oriented 3. He does demonstrate a [place] Coma Scale of 15 Limitations: no limitations General appearance: alert, in no apparent distress Head exam: Present: atraumatic, normocephalic, normal inspection Eye exam: Present: normal appearance, PERRL, EOMI. Absent: scleral icterus, conjunctival injection, periorbital swelling ENT exam: Present: mucous membranes dry Neck exam: Present: normal inspection, other (No stridor JVD or bruits c-collar is in place. Some tenderness palpation of the lateral neck musculature no step- off or crepitation.). Absent: tenderness, meningismus, lymphadenopathy Respiratory exam: Present: normal lung sounds bilaterally. Absent: respiratory distress, wheezes, rales, rhonchi, stridor Cardiovascular Exam: Present: normal rhythm, tachycardia, normal heart sounds. Absent: systolic murmur, diastolic murmur, rubs, gallop, clicks GI/Abdominal exam: Present: soft, normal bowel sounds. Absent: distended, tenderness, guarding, rebound, rigid Extremities exam: Present: normal inspection, full ROM, normal capillary refill. Absent: tenderness, pedal edema, joint swelling, calf tenderness Back exam: Present: normal inspection Neurological exam: Present: alert, oriented X3, CN II-XII intact Psychiatric exam: Present: normal affect, normal mood Skin exam: Present: warm, dry, intact, normal color. Absent: rash Course Vital Signs 03/26/20 03/26/20 13:45 15:12 Temperature 98.3 F Pulse Rate 113 H 95 Respiratory 18 18 Rate Blood Pressure 132/82 128/81 O2 Sat by Pulse 95 98 Oximetry Medical Decision Making - Medical Decision Making Patient is awake alert oriented times threes feeling much improved after IV hydration. He does relate that he believes he took his muscle relaxer and pain medication to close together in addition to being very hot outside today. He would like to go home he is awake alert oriented and able amulet without difficulty he will be discharged. He is to follow-up with his doctor. - Lab Data Result diagrams: 03/26/20 14:08 03/26/20 14:08 Lab Results 03/26/20 03/26/20 03/26/20 Range/Units 14:08 14:08 14:08 WBC 17.7 H (3.8-10.6) k/uL RBC 4.12 L (4.30-5.90) m/uL Hgb 12.4 L (13.0-17.5) gm/dL Hct 37.8 L (39.0-53.0) % MCV 91.8 (80.0-100.0) fL MCH 30.0 (25.0-35.0) pg MCHC 32.7 (31.0-37.0) g/dL RDW 17.2 H (11.5-15.5) % Plt Count 492 H (150-450) k/uL Neutrophils % 86 % Lymphocytes % 3 % Monocytes % 7 % Eosinophils % 3 % Basophils % 0 % Neutrophils # 15.3 H (1.3-7.7) k/uL Lymphocytes # 0.5 L (1.0-4.8) k/uL Monocytes # 1.2 H (0-1.0) k/uL Eosinophils # 0.5 (0-0.7) k/uL Basophils # 0.1 (0-0.2) k/uL Hypochromasia Slight Anisocytosis Slight PT 10.4 (9.0-12.0) sec INR 1.0 (<1.2) APTT 25.5 (22.0-30.0) sec D-Dimer 4.40 H (<0.60) mg/L FEU Sodium 134 L (137-145) mmol/L Potassium 4.3 (3.5-5.1) mmol/L Chloride 100 (98-107) mmol/L Carbon Dioxide 22 (22-30) mmol/L Anion Gap 12 mmol/L BUN 15 (9-20) mg/dL Creatinine 0.55 L (0.66-1.25) mg/dL Est GFR (CKD-EPI)AfAm >90 (>60 ml/min/1.73 sqM) Est GFR (CKD-EPI)NonAf >90 (>60 ml/min/1.73 sqM) Glucose 114 H (74-99) mg/dL Calcium 9.5 (8.4-10.2) mg/dL Magnesium 2.1 (1.6-2.3) mg/dL Total Bilirubin 0.4 (0.2-1.3) mg/dL AST 27 (17-59) U/L ALT 14 (4-49) U/L Alkaline Phosphatase 230 H (38-126) U/L Creatine Kinase 39 L (55-170) U/L Troponin I (0.000-0.034) ng/mL Total Protein 7.4 (6.3-8.2) g/dL Albumin 3.8 (3.5-5.0) g/dL Urine Color Urine Appearance (Clear) Urine pH (5.0-8.0) Ur Specific [place] (1.001-1.035) Urine Protein (Negative) Urine Glucose (UA) (Negative) Urine Ketones (Negative) Urine Blood (Negative) Urine Nitrite (Negative) Urine Bilirubin (Negative) Urine Urobilinogen (<2.0) mg/dL Ur Leukocyte Esterase (Negative) 03/26/20 03/26/20 Range/Units 14:08 15:58 WBC (3.8-10.6) k/uL RBC (4.30-5.90) m/uL Hgb (13.0-17.5) gm/dL Hct (39.0-53.0) % MCV (80.0-100.0) fL MCH (25.0-35.0) pg MCHC (31.0-37.0) g/dL RDW (11.5-15.5) % Plt Count (150-450) k/uL Neutrophils % % Lymphocytes % % Monocytes % % Eosinophils % % Basophils % % Neutrophils # (1.3-7.7) k/uL Lymphocytes # (1.0-4.8) k/uL Monocytes # (0-1.0) k/uL Eosinophils # (0-0.7) k/uL Basophils # (0-0.2) k/uL Hypochromasia Anisocytosis PT (9.0-12.0) sec INR (<1.2) APTT (22.0-30.0) sec D-Dimer (<0.60) mg/L FEU Sodium (137-145) mmol/L Potassium (3.5-5.1) mmol/L Chloride (98-107) mmol/L Carbon Dioxide (22-30) mmol/L Anion Gap mmol/L BUN (9-20) mg/dL Creatinine (0.66-1.25) mg/dL Est GFR (CKD-EPI)AfAm (>60 ml/min/1.73 sqM) Est GFR (CKD-EPI)NonAf (>60 ml/min/1.73 sqM) Glucose (74-99) mg/dL Calcium (8.4-10.2) mg/dL Magnesium (1.6-2.3) mg/dL Total Bilirubin (0.2-1.3) mg/dL AST (17-59) U/L ALT (4-49) U/L Alkaline Phosphatase (38-126) U/L Creatine Kinase (55-170) U/L Troponin I <0.012 (0.000-0.034) ng/mL Total Protein (6.3-8.2) g/dL Albumin (3.5-5.0) g/dL Urine Color Light Yellow Urine Appearance Clear (Clear) Urine pH 6.0 (5.0-8.0) Ur Specific [place] 1.027 (1.001-1.035) Urine Protein Trace H (Negative) Urine Glucose (UA) Negative (Negative) Urine Ketones Negative (Negative) Urine Blood Negative (Negative) Urine Nitrite Negative (Negative) Urine Bilirubin Negative (Negative) Urine Urobilinogen <2.0 (<2.0) mg/dL Ur Leukocyte Esterase Negative (Negative) - Radiology Data Radiology results: report reviewed (I did review the imaging and report or is evidence of progression of metastatic disease.), image reviewed Disposition Clinical Impression: Syncope due to orthostatic hypotension, Dehydration, Tachycardia, History of lung cancer, History of colon cancer, Heat exhaustion Disposition: HOME SELF-CARE Condition: Good Instructions (If sedation given, give patient instructions): Dehydration (ED), Syncope (ED), Heat Exhaustion (ED) Is patient prescribed a controlled substance at d/c from ED?: No Referrals: Digna Lindsey MD [Primary Care Provider] - 1-2 days
[2020-03-26 14:36] LABS: ALT 14 U/L (4-49); AST 27 U/L (17-59); African American GFR (CKD) >90 (>60 ml/min/1.73 sqM); Albumin 3.8 g/dL (3.5-5.0); Alkaline Phosphatase 230 U/L (38-126); Anion Gap 12 mmol/L; Blood Urea Nitrogen 15 mg/dL (9-20); Calcium 9.5 mg/dL (8.4-10.2); Carbon Dioxide 22 mmol/L (22-30); Chloride 100 mmol/L (98-107); Creatine Kinase 39 U/L (55-170); Glucose 114 mg/dL (74-99); Magnesium 2.1 mg/dL (1.6-2.3); Non-African American GFR(CKD) >90 (>60 ml/min/1.73 sqM); Potassium 4.3 mmol/L (3.5-5.1); Sodium 134 mmol/L (137-145); Total Bilirubin 0.4 mg/dL (0.2-1.3); Total Protein 7.4 g/dL (6.3-8.2)
[2020-03-26 14:51] LABS: Partial Thromboplastin Time 25.5 sec (22.0-30.0); Prothrombin Time 10.4 sec (9.0-12.0)
[2020-03-26 14:53] LABS: D-Dimer 4.4 mg/L FEU (<0.60)
--- NOTE | 2020-03-26 15:08 | CT ---
EXAMINATION TYPE: CT brain nelson wo con DATE OF EXAM: 03/26/2020 COMPARISON: 08/15/2019 HISTORY: Syncope. CT DLP: 1410.[address] of the brain was performed. The ventricles, basal cisterns and sulci overlying the cerebral convexities demonstrate mild enlargem ent. Moderate sized area of vasogenic edema involving the right parietal occipital region. Suspect underly ing lesion. Consider MRI for further evaluation. No evidence for midline shift. There is no evidence for intracranial hemorrhage. There is decreased attenuation about the periventri cular white matter and deep white matter of both cerebral hemispheres, compatible with chronic small vessel ischemia. If symptoms persist consider MRI. Osseous calvarium is intact. IMPRESSION: 1. New area of vasogenic edema high right parietal occipital region. I suspect underlying metastatic lesion in a patient with history of lung carcinoma. Correlate with MRI. CT Cervical Spine: Unenhanced CT of the cervical spine was performed with bone and soft tissue window settings submitted . Coronal and sagittal reconstruction is obtained. There is normal alignment and prevertebral soft tissues. No evidence for acute cervical fracture . Scattered degenerative disc disease and spondylosis. Biapical scarring. IMPRESSION: 1. No evidence for acute fracture or subluxation of the cervical spine.
--- NOTE | 2020-03-26 15:37 | CT ---
EXAMINATION TYPE: CT angio chest DATE OF EXAM: 03/26/2020 COMPARISON: Prior chest 08/12/2019, nuclear medicine PET/CT 12/06/2019 HISTORY: Elevated d-dimer and syncope. CT DLP: 332 mGycm Automated exposure control for dose reduction was used. CONTRAST: CTA scan of the thorax is performed with IV Contrast, patient injected with 76ml mL of Isovue 370, pu lmonary embolism protocol. MIP images are created and reviewed. 3D reconstructed images are created on an independent workstation and reviewed. FINDINGS: LUNGS: There is some pleural thickening extending from the upper lobe density on the left, pleural ex tension is, linear reticulations present in bilateral upper lobes. The right upper lobe shows patchy density also present which is developed in the interval, there is underlying emphysematous change. Th ere is no pleural effusion or pneumothorax seen. The tracheobronchial tree is patent. AORTA: No additional significant abnormality is seen. MEDIASTINUM: There is satisfactory enhancement of the pulmonary artery and its branches, there is no CT evidence for pulmonary embolism. There is abnormal soft tissue attenuation again noted at the lev el of the left pulmonary artery with extension into the left upper lobe, OTHER: There is been interval development of multiple low [id number] foci within the liver of va rying sizes, within the right lobe inferiorly there is a mass measuring 4.3 cm, adjacent to the jam l region there is a low dense mass measuring approximately 5.2 cm, within the left lobe mass measurin g 2.1 cm, additional mass 3.9 cm. Low dense focus is present associated with the midpole the right ki dney is indeterminate. Left adrenal mass is grown in the interval and measures approximately 6.6 cm a s compared to prior exam when it measured 3 cm. There is colonic interposition anterior to the liver. There are leads coursing across midline along the innominate vein, leads extending to the right vent ricle. IMPRESSION: PROGRESSION OF METASTATIC DISEASE. NO PULMONARY EMBOLISM.
[2020-03-26 16:06] LABS: Appearance,Urine Clear (Clear); Bilirubin,Urine Negative (Negative); Blood,Urine Negative (Negative); Color,Urine Light Yellow; Glucose,Urine (UA) Negative (Negative); Ketones,Urine Negative (Negative); Leukocyte Esterase,Urine Negative (Negative); Nitrite,Urine Negative (Negative); Protein,Urine Trace (Negative); Specific Gravity,Urine 1.027 (1.001-1.035); Urobilinogen,Urine <2.0 mg/dL (<2.0)
[2020-03-27 10:13] VITALS: BP 125/77; PULSE 92; RESP 18; TEMP 98.2
== END 2020-03-26 17:43 | disposition home or self-care (01) ==
LOC: EC 13:42
DX: I95.1 Orthostatic hypotension (principal); T67.5XXA Heat exhaustion, unspecified, initial encounter; E86.0 Dehydration; R00.0 Tachycardia, unspecified; E78.5 Hyperlipidemia, unspecified; I10 Essential (primary) hypertension; M19.90 Unspecified osteoarthritis, unspecified site; F17.200 Nicotine dependence, unspecified, uncomplicated; Z79.899 Other long term (current) drug therapy; Z88.1 Allergy status to other antibiotic agents; Z95.5 Presence of coronary angioplasty implant and graft; Z95.0 Presence of cardiac pacemaker; Z85.118 Personal history of other malignant neoplasm of bronchus and lung; Z85.048 Personal history of other malignant neoplasm of rectum, rectosigmoid junction, and anus
CPT/HCPCS: 99284 ×2; 96360 ×2; 96361 ×2; 36415; 93005; 85379; 80053; 82550; 83735; 84484; 85025; 85610; 85730; 81003; 72125; 70450; 71275; Q9967

== ENCOUNTER → 2020-04-16 | Outpatient (CLI) | payer OTHER ==
[2020-04-16 16:58] LABS: African American GFR (CKD) >90 (>60 ml/min/1.73 sqM); Blood Urea Nitrogen 14 mg/dL (9-20); Non-African American GFR(CKD) >90 (>60 ml/min/1.73 sqM)
--- NOTE | 2020-04-16 18:33 | CT ---
EXAMINATION: CT brain wo/w con DATE AND TIME: 04/16/2020 5:34 PM CLINICAL INDICATION: History lung carcinoma; C34.12 Lung Cancer R56.9 Seizures TECHNIQUE: Standard departmental protocol.; DLP: 2225.6 mGy-cm COMPARISON: CT without IV contrast 03/26/2020 FINDINGS: There is no intracranial hemorrhage. The previously seen 5 cm mean diameter zone of vasogenic edema is redemonstrated high in the right pa rietal/frontal lobe in the paramidline position. This has similar appearance when compared the prior study, extending from the convexity down to the level of the lateral ventricles. In the parafalcine p osition high and deep to the vasogenic edema is a contrast rim-enhancing low-attenuation mass measuri ng 3 cm CC x 2.5 x 2.5 cm mass. The rim enhancement is mildly lobulated and minimally septated. The m ass appears to be intra-axial; MRI can further characterize the mass. The vasogenic edema and the mas s appear to be similar in overall dimensions. This mass appears to been present on the noncontrast CT of 03/26/2020. There is no associated midline s hift of structures or other mass effect. The dural venous sinuses are normal in appearance. There are no other intra-axial abnormalities. No e xtra-axial abnormalities. The calvarium is unremarkable. The orbits, paranasal sinuses, middle ear cavities, and mastoid sinus air cells are negative. Bilateral prominent bilateral cerumen is incidentally noted in the external a uditory canal. IMPRESSION: Overall stable CT abnormalities with no definite new process.
== END | disposition home or self-care (01) ==
LOC: RADCTMAIN 16:26
PROVIDERS: ATTEND Internal Medicine Hematology & Oncology
DX: R93.0 Abnormal findings on diagnostic imaging of skull and head, not elsewhere classified (principal); C34.12 Malignant neoplasm of upper lobe, left bronchus or lung
CPT/HCPCS: 82565; 84520; 70470; 36415; Q9967